=== PATIENT | male | born 1930 | race Caucasian/White ===

== ENCOUNTER 2017-08-24 16:17 | Inpatient (IN) | payer MEDICARE, OTHER ==
[2017-08-24 17:04] VITALS: BMI 26.0
[2017-08-24] MEDS ORDERED: Piperacillin/Tazobact 2.25 gm Inj IVPB STA (18:16)
--- NOTE | 2017-08-24 18:25 | C.PDOC ---
History Of Present Illness 87yo male with history of diabetes, comes in for evaluation of necrosis to his right great toe. Patient accompanied by at bedside who says the symptoms have been ongoing for the past month. She has been applying antibiotic ointment to the toe with no relief. She states the patient has been able to walk with no issues. 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 No other complaints. Time Seen by Provider: 08/24/17 17:48 Chief Complaint (Nursing): Lower Extremity Problem/Injury History Per: Patient History/Exam Limitations: no limitations Onset/Duration Of Symptoms: Persistent Current Symptoms Are (Timing): Still Present Past Medical History Reviewed: Historical Data, Nursing Documentation, Vital Signs Vital Signs: Last Vital Signs Temp 98.1 F 08/24/17 17:23 Pulse 65 08/24/17 17:23 Resp 18 08/24/17 17:23 BP 132/57 L 08/24/17 17:23 Pulse Ox 100 08/24/17 19:59 - Medical History PMH: Arthritis, CHF, Diabetes, HTN, Hypercholesterolemia, Pneumonia Denies: HIV, Chronic Kidney Disease Other Surgeries: left forefoot amputation - [facility] Procedures AMPUTATION THROUGH FOOT (02/25/14) ATHERECTOMY OF OTHER NON-CORONARY VESSEL(S) (03/21/14) ATTACH PEDICLE GRAFT NEC (02/25/14) CENTRAL VENOUS CATHETER PLACEMENT WITH GUIDANCE (11/16/14) CONTRAST AORTOGRAM (09/27/14) CONTRAST ARTERIOGRAM-LEG (09/27/14) CONTRAST PHLEBOGRAM-LEG (09/25/14) DERMAL REGENERATIVE GRAFT (07/02/14) DESTRUCT PERITONEAL TISS (11/05/14) EXCIS DEBRIDE OF WOUND, INFECT, OR BURN (07/02/14) IMMOBILIZ/WOUND ATTN NEC (02/25/14) INFLUENZA VACCINATION (07/02/14) IRRIGATION OF EAR (02/25/14) OCCUPATIONAL THERAPY (11/12/14) OPEN AND OTHER RIGHT HEMICOLECTOMY (11/05/14) OTH WOUND IRRIGATION (11/05/14) OTHER SKIN & SUBQ I D (09/25/14) PACKED CELL TRANSFUSION (11/05/14) PHYSICAL THERAPY NEC (11/12/14) PRESSURE DRESSING APPLIC (11/05/14) PROCEDURE ON SINGLE VESSEL (03/21/14) SMALL BOWEL SUTURE NEC (11/05/14) TOE AMPUTATION (02/25/14) VACCINATION NEC (07/02/14) Family History: States: Diabetes - Social History Hx Alcohol Use: No Hx Substance Use: No - Immunization History Hx Tetanus Toxoid Vaccination: No Hx Influenza Vaccination: Yes Hx Pneumococcal Vaccination: No Review Of Systems Except As Marked, All Systems Reviewed And Found Negative. Constitutional: Negative for: Fever, Chills Musculoskeletal: Positive for: Foot Pain (right great toe necrotic) Physical Exam - Physical Exam Appears: Non-toxic Head: Atraumatic, Normacephalic Eye(s): bilateral: Normal Inspection Neck: Supple Cardiovascular: Rhythm Regular Respiratory: Normal Breath Sounds Extremity: Other (amputation to left forefoot. Right great toe necrotic; sensations present until right 1st MTP joint. 2nd right toe necrotic at distal tip) Pulses: Left Dorsalis Pedis: Normal (pulses present PT as well), Right Dorsalis Pedis: Normal (pulses present PT as well) Neurological/Psych: Oriented x3 ED Course And Treatment - Laboratory Results Result Diagrams: 08/24/17 18:24 08/24/17 18:24 ECG: Interpreted By Me, Viewed By Me Interpretation Of ECG: Sinus bradycardia. Normal intervals. Normal axis. No ST/ T wave abnormalities. Rate From EC O2 Sat by Pulse Oximetry: 100 (RA) Pulse Ox Interpretation: Normal - Radiology CXR: Interpreted by Me (preliminary, portable XR), Viewed By Me CXR Interpretation: Yes: No Acute Disease - Other Rad XR Right foot X-Ray: Interpreted by Me Interpretation: No obvious fracture or osteo on preliminary read Medical Decision Making Medical Decision Making: Impression: Gangrene of right great toe Plan: -- Labs -- CXR -- XR Right foot -- IV Antibiotics Time: [address] Lenz and patient will be admitted under his service to Med/Surg for cellulitis of great toe, necrosis. Disposition Discussed With : Richard Lenz Counseled Patient/Family Regarding: Studies Performed, Diagnosis - Disposition Disposition: HOSPITALIZED Disposition Time: 20:02 Condition: FAIR Forms: [facility] [employer] [facility] [employer] [facility] (Chinese) - Clinical Impression Clinical Impression: Cellulitis - Scribe Statement The provider has reviewed the documentation as recorded by the Scribe (Camelia Rivero) Provider Attestation: All medical record entries made by the Scribe were at my direction and personally dictated by me. I have reviewed the chart and agree that the record accurately reflects my personal performance of the history, physical exam, medical decision making, and the department course for this patient. I have also personally directed, reviewed, and agree with the discharge instructions and disposition.
[2017-08-24 18:40] LABS: INR 0.9; PROTHROMBIN TIME 10.2 SECONDS (9.7-12.2)
[2017-08-24 18:56] LABS: HEMOGLOBIN 11.1 g/dL (12.0-18.0); RBC 3.52 Mil/uL (4.40-5.90); WHITE BLOOD COUNT 5.8 K/uL (4.8-10.8)
[2017-08-24 18:57] LABS: MEAN CELL VOLUME 94.8 fL (80.0-94.0); MEAN CORPUSCULAR HEMOGLOBIN 31.5 pg (27.0-31.0)
[2017-08-24 18:58] LABS: BASO % 1.2 % (0.0-2.0); EOS # 0.1 K/uL (0.0-0.7); EOS % 1.2 % (0.0-4.0); LYMPH # 0.7 K/uL (1.0-4.3); LYMPH % 11.6 % (20.0-40.0); MEAN CORPUSCULAR HGB CONC 33.2 g/dL (33.0-37.0); MEAN PLATELET VOLUME 9.1 fL (7.2-11.7); MONO # 0.3 K/uL (0.0-0.8); MONO % 5.9 % (0.0-10.0); NEUT # 4.7 K/uL (1.8-7.0); NEUT % 80.1 % (50.0-75.0); RED CELL DISTRIBUTION WIDTH 14.4 % (11.5-14.5)
[2017-08-24 19:02] LABS: ALB/GLOB RATIO 1.1 (1.0-2.1); ALBUMIN 4.3 g/dL (3.5-5.0); CALCIUM 9.3 mg/dl (8.6-10.4)
[2017-08-24 19:04] LABS: BASO # 0.1 K/uL (0.0-0.2)
[2017-08-24] MEDS ORDERED: Piperacill/Tazo 3.375gm in Dex 3.375 GM/50 ML BAG IVPB STA (19:14)
[2017-08-24] MEDS ORDERED: Piperacill/Tazo 3.375gm in Dex 3.375 GM/50 ML BAG IVPB ONE (20:00)
[2017-08-24 20:17] LABS: ALBUMIN 3.7 g/dL (3.5-5.0); CALCIUM 8.8 mg/dl (8.6-10.4)
[2017-08-24] MEDS ORDERED: Sodium Chloride 0.9% 1,000 ML IV SCH (21:30)
[2017-08-24] MEDS ORDERED: Dextrose 50% SYRINGE Inj (50 ml) IVP PRN (21:52)
[2017-08-24] MEDS ORDERED: Glucagon Recombinant 1 mg Inj IM PRN (21:52)
[2017-08-24] MEDS: Sodium Chloride 0.9% 1,000 ML IV SCH (21:54)
[2017-08-24] MEDS ORDERED: Sodium Chloride 0.9% 1,000 ML ONE (21:54)
[2017-08-24 22:03] LABS: ALBUMIN 3.7 g/dL (3.5-5.0); CALCIUM 8.8 mg/dl (8.6-10.4)
--- NOTE | 2017-08-24 22:13 | CP.PCM.HP ---
<Nikolas Ron E - Last Filed: 08/24/17 22:51> History of Present Illness - History of Present Illness History of Present Illness: Event Attendant : Dyana ( [id number]) CC: Right toe gangrene HPI: Patient is a 87 year old male with past medical history of DM, HTN, HLD and chronic foot ulcer, who presents to the ED as per his outpatient physician for evaluation of right hallux gangrene that has been started a month ago. Patient reports that he ambulates without any difficulty or use of assisted device. Patient reports that he only experiences pain at night, which he takes tramadol for and he has been taking cephalexin as prescribed. Patient denies fever, chills, nausea, vomiting, night sweats, chest pain, palpitations, SOB, abdominal pain, or drainage from his right hallux. Patient states he is doing well otherwise. PMD: Dr. 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 Denies hx of chronic tobacco, ETOH and illicit drugs Present on Admission - Present on Admission Any Indicators Present on Admission: No Review of Systems - Constitutional Constitutional: absent: Chills, Fever, Headache, Night Sweats, Weakness - EENT Eyes: absent: Blurred Vision, Change in Vision Ears: absent: Dizziness - Cardiovascular Cardiovascular: absent: Chest Pain at Rest, Chest Pain with Activity, Diaphoresis, Dyspnea, Dyspnea on Exertion, Lightheadedness, Palpitations - Respiratory Respiratory: absent: Cough, Dyspnea, Dyspnea on Exertion, Wheezing - Gastrointestinal Gastrointestinal: absent: Abdominal Pain, Change in Bowel Habits, Constipation, Diarrhea, Nausea, Vomiting - Musculoskeletal Musculoskeletal: absent: Myalgias, Numbness, Tingling - Neurological Neurological: absent: Confusion, Dizziness, Numbness, Headaches, Paresthesias, Tingling, Weakness - Psychiatric Psychiatric: absent: Change in Appetite - Endocrine Endocrine: absent: Fatigue, Palpitations Past Patient History - Tetanus Immunizations Tetanus Immunization: Unknown - Past Medical History & Family History Past Medical History?: Yes - Past Social History Smoking Status: Never Smoked - CARDIAC Hx Congestive Heart Failure: Yes Hx Hypercholesterolemia: Yes Hx Hypertension: Yes - PULMONARY Hx Pneumonia: Yes - NEUROLOGICAL Hx Neurological Disorder: No - HEENT Hx HEENT Problems: No - RENAL Hx Chronic Kidney Disease: No - ENDOCRINE/METABOLIC Hx Endocrine Disorders: Yes Hx Diabetes Mellitus Type 2: Yes - HEMATOLOGICAL/ONCOLOGICAL Hx Human Immunodeficiency Virus (HIV): No - INTEGUMENTARY Hx Dermatological Problems: No - MUSCULOSKELETAL/RHEUMATOLOGICAL Hx Arthritis: Yes - GASTROINTESTINAL Hx Gastrointestinal Disorders: Yes Other/Comment: perforated viscus s/p exploratory lap with small bowel resection 11/06/14 - GENITOURINARY/GYNECOLOGICAL Hx Genitourinary Disorders: No - PSYCHIATRIC Hx Substance Use: No - SURGICAL HISTORY Hx Surgeries: Yes Hx Amputation: Yes (TMA left foot) Other/Comment: s/p exploratory lap small bowel resection - ANESTHESIA Hx Anesthesia: Yes Hx Anesthesia Reactions: No Hx Malignant Hyperthermia: No Meds Allergies/Adverse Reactions: Allergies Allergy/AdvReac Type Severity Reaction Status Date / Time No Known Allergies Allergy Verified 08/24/17 17:03 Physical Exam - Constitutional Appears: Well, No Acute Distress - Head Exam Head Exam: ATRAUMATIC, NORMAL INSPECTION - Eye Exam Eye Exam: EOMI, Normal appearance - ENT Exam ENT Exam: Mucous Membranes Dry - Respiratory Exam Respiratory Exam: Clear to Auscultation Bilateral, NORMAL BREATHING PATTERN. absent: Prolonged Expiratory Phase, Rhonchi, Wheezes, Respiratory Distress, Stridor - Cardiovascular Exam Cardiovascular Exam: REGULAR RHYTHM, +S1, +S2. absent: Diastolic murmur, Systolic Murmur - GI/Abdominal Exam GI & Abdominal Exam: Normal Bowel Sounds, Soft. absent: Distended, Firm, Guarding, Hernia, Hypoactive Bowel Sounds, Tenderness - Extremities Exam Extremities exam: Positive for: pedal pulses present. Negative for: calf tenderness, pedal edema, tenderness Additional comments: Left foot amputation Right hallux gangrene, cold to touch, DP and PT pulses audible via doppler - Back Exam Additional comments: Noted raised discoloration in the upper midline of thoracic spine - Neurological Exam Neurological exam: Alert, Oriented x3 - Psychiatric Exam Psychiatric exam: Normal Affect, Normal Mood - Skin Skin Exam: Dry, Normal Color Results - Vital Signs Recent Vital Signs: Last Vital Signs Temp 97.8 F 08/24/17 21:00 Pulse 51 L 08/24/17 21:00 Resp 18 08/24/17 21:00 BP 134/55 L 08/24/17 21:00 Pulse Ox 100 08/24/17 21:00 - Labs Result Diagrams: 08/24/17 18:24 08/24/17 21:44 Labs: Laboratory Results - last 24 hr 08/24/17 08/24/17 08/24/17 18:24 18:24 18:24 WBC 5.8 RBC 3.52 L Hgb 11.1 L Hct 33.4 L MCV 94.8 H MCH 31.5 H MCHC 33.2 RDW 14.4 Plt Count 339 MPV 9.1 Neut % (Auto) 80.1 H Lymph % (Auto) 11.6 L Lamb % (Auto) 5.9 Eos % (Auto) 1.2 Baso % (Auto) 1.2 Neut # (Auto) 4.7 Lymph # (Auto) 0.7 L [place] # (Auto) 0.3 Eos # (Auto) 0.1 Baso # (Auto) 0.1 PT 10.2 INR 0.9 APTT 33 Sodium 140 Potassium 6.2 H* Chloride 110 H Carbon Dioxide 17 L Anion Gap 19 BUN 39 H Creatinine 1.7 H Est GFR ( Amer) 47 Est GFR (Non-Af Amer) 38 Random Glucose 150 H Calcium 9.3 Total Bilirubin 0.5 AST 14 L ALT 17 L Alkaline Phosphatase 139 H Total Protein 8.2 Albumin 4.3 Globulin 3.9 Albumin/Globulin Ratio 1.1 08/24/17 19:18 WBC RBC Hgb Hct MCV MCH MCHC RDW Plt Count MPV Neut % (Auto) Lymph % (Auto) [place] % (Auto) Eos % (Auto) Baso % (Auto) Neut # (Auto) Lymph # (Auto) [place] # (Auto) Eos # (Auto) Baso # (Auto) PT INR APTT Sodium 139 Potassium 6.1 H Chloride 112 H Carbon Dioxide 18 L Anion Gap 16 BUN 39 H Creatinine 1.7 H Est GFR ( Amer) 47 Est GFR (Non-Af Amer) 38 Random Glucose 136 H Calcium 8.8 Total Bilirubin 0.5 AST 16 L ALT 21 D Alkaline Phosphatase 116 Total Protein 7.3 Albumin 3.7 Globulin 3.6 Albumin/Globulin Ratio 1.0 Assessment & Plan (1) Gangrene of toe of right foot Assessment and Plan: Podiatry consult: Dr. Meeks--> Help appreciated Vascular surgery consult, Dr. Wheeler---> Help appreciated F/u arterial doppler Awaiting official right foot X-ray report Further management as per recommendation from vascular surgery and podiatry Status: Acute (2) Acute kidney injury Assessment and Plan: BUN/Cr: 39/107 NS @100mls/hr Monitor with morning labs Home medication: Metformin and Losartan potassium held Status: Acute (3) Hyperkalemia Assessment and Plan: K+: 5.9 * Kayexalate 15mg PO once * Monitor with am CMP Status: Acute (4) Diabetes mellitus Assessment and Plan: HgbA1C: 6.2 Accuchecks ISS- Medium dose protocol hypoglycemia protocol Home medication: Metformin held due to BANDAR Status: Acute (5) Hypertension Assessment and Plan: Home medication: * Norvasc 5mg PO daily Status: Acute (6) History of hyperlipidemia Assessment and Plan: F/u lipid panel Status: Acute (7) Prophylactic measure Assessment and Plan: GI: Protonix 40mg PO daily DVT: SCDs, Heparin 5,000 units SC Diabetic diet All plans and management discussed with attending, Dr. Lenz Status: Acute <Richard Lenz P - Last Filed: 08/25/17 06:21> Results - Vital Signs Recent Vital Signs: Last Vital Signs Temp 97.4 F L 08/25/17 01:40 Pulse 62 08/25/17 01:40 Resp 20 08/25/17 02:00 BP 155/67 H 08/25/17 01:40 Pulse Ox 99 08/25/17 01:40 - Labs Result Diagrams: 08/24/17 18:24 08/24/17 21:44 Labs: Laboratory Results - last 24 hr 08/24/17 08/24/17 08/24/17 18:24 18:24 18:24 WBC 5.8 RBC 3.52 L Hgb 11.1 L Hct 33.4 L MCV 94.8 H MCH 31.5 H MCHC 33.2 RDW 14.4 Plt Count 339 MPV 9.1 Neut % (Auto) 80.1 H Lymph % (Auto) 11.6 L [place] % (Auto) 5.9 Eos % (Auto) 1.2 Baso % (Auto) 1.2 Neut # (Auto) 4.7 Lymph # (Auto) 0.7 L [place] # (Auto) 0.3 Eos # (Auto) 0.1 Baso # (Auto) 0.1 PT 10.2 INR 0.9 APTT 33 Sodium 140 Potassium 6.2 H* Chloride 110 H Carbon Dioxide 17 L Anion Gap 19 BUN 39 H Creatinine 1.7 H Est GFR ( Amer) 47 Est GFR (Non-Af Amer) 38 POC Glucose (mg/dL) Random Glucose 150 H Hemoglobin A1c Calcium 9.3 Total Bilirubin 0.5 AST 14 L ALT 17 L Alkaline Phosphatase 139 H Total Protein 8.2 Albumin 4.3 Globulin 3.9 Albumin/Globulin Ratio 1.1 08/24/17 08/24/17 08/24/17 19:18 21:44 21:44 WBC RBC Hgb Hct MCV MCH MCHC RDW Plt Count MPV Neut % (Auto) Lymph % (Auto) [place] % (Auto) Eos % (Auto) Baso % (Auto) Neut # (Auto) Lymph # (Auto) [place] # (Auto) Eos # (Auto) Baso # (Auto) PT INR APTT Sodium 139 140 Potassium 6.1 H 5.9 H Chloride 112 H 112 H Carbon Dioxide 18 L 17 L Anion Gap 16 16 BUN 39 H 37 H Creatinine 1.7 H 1.5 Est GFR ( Amer) 47 54 Est GFR (Non-Af Amer) 38 44 POC Glucose (mg/dL) Random Glucose 136 H 113 H Hemoglobin A1c 6.2 Calcium 8.8 8.8 Total Bilirubin 0.5 0.5 AST 16 L 20 ALT 21 D 14 L D Alkaline Phosphatase 116 121 Total Protein 7.3 7.3 Albumin 3.7 3.7 Globulin 3.6 3.6 Albumin/Globulin Ratio 1.0 1.0 08/24/17 22:18 WBC RBC Hgb Hct MCV MCH MCHC RDW Plt Count MPV Neut % (Auto) Lymph % (Auto) [place] % (Auto) Eos % (Auto) Baso % (Auto) Neut # (Auto) Lymph # (Auto) Lamb # (Auto) Eos # (Auto) Baso # (Auto) PT INR APTT Sodium Potassium Chloride Carbon Dioxide Anion Gap BUN Creatinine Est GFR ( Amer) Est GFR (Non-Af Amer) POC Glucose (mg/dL) 108 Random Glucose Hemoglobin A1c Calcium Total Bilirubin AST ALT Alkaline Phosphatase Total Protein Albumin Globulin Albumin/Globulin Ratio Attending/Attestation - Attestation I have personally seen and examined this patient.: Yes I have fully participated in the care of the patient.: Yes I have reviewed all pertinent clinical information: Yes Notes (Text): Assessment * Right foot 1 and 2nd toe gangrenous without clinical signs of infection, with doppler dp pulses, calcified artries. 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 * DM on metformin * Transmetatarsal left amputation, colonic surgery for cecal perforation 2014 Plan * Arterial doppler and vascular sug consult for possible most distal amputation * IVF, hold arb, metformin, monitor labs for improvement if angio needed * Vasc robby, podiatry consult, * Nephro consult if patient goes for angio * GI/DVT prophylaxis * See orders for detail.
[2017-08-24] MEDS: (Novolog) Insulin Aspart, Recombinant 100 u/ml 10 ml vial SC SCH (22:34)
[2017-08-24] MEDS ORDERED: Sod Polystyrene Sulf 15 gm/60 ml Susp PO ONE (22:40)
[2017-08-24] MEDS ORDERED: Sod Polystyrene Sulf 15 gm/60 ml Susp ONE (22:54)
--- NOTE | 2017-08-25 00:52 | CP.PCM.CON ---
History of Present Illness - History of Present Illness History of Present Illness: Vascular surgery consult note for Dr. Aureliano Turk, PGY-1 Pt S & E at bedside. History as per at bedside. 87M w/PMH sig for HTN, DM, chronic toe infection, Left foot transmetatarsal amputation consulted for Right hallux infection x 1 mo. No inciting event noted. Patient reports pain only at night, helped by tramadol. Pain is severe, non radiating, constant at night only, unable to describe. Pt has been to PMD with Rx for pain and Cephalexin without resolution- pt told to come to hospital for further evaluation. Denies F & C, numbness, tingling, changes to sensation/ motor of toe or foot, other complaints. IN ED- Left foot x-ray done- on obvious ostemyelitis. Afebrile. No leukocytosis. PMH: HTN, DM, HLD, chronic toe infection PSH: Left foot transmetatarsal amputation (2013), ex-lap w/R hemicolectomy & side-side anastomosis due to perforation and cecal mass All: NDKA SH: Denies ETOH, tobacco or illicit drug use Review of Systems - Review of Systems All systems: reviewed and no additional remarkable complaints except - Constitutional Constitutional: absent: Chills, Fever - EENT Eyes: absent: Change in Vision Nose/Mouth/Throat: absent: Sore Throat - Cardiovascular Cardiovascular: absent: Chest Pain - Respiratory Respiratory: absent: Cough - Gastrointestinal Gastrointestinal: absent: Abdominal Pain, Nausea, Vomiting - Genitourinary Genitourinary: absent: Change in Urinary Stream - Musculoskeletal Musculoskeletal: absent: Numbness, Tingling - Integumentary Integumentary: Non-Healing Lesions - Neurological Neurological: absent: Numbness, Tingling - Psychiatric Psychiatric: absent: Change in Appetite Past Patient History - Tetanus Immunizations Tetanus Immunization: Unknown - Past Medical History & Family History Past Medical History?: Yes - Past Social History Smoking Status: Never Smoked - CARDIAC Hx Congestive Heart Failure: Yes Hx Hypercholesterolemia: Yes Hx Hypertension: Yes - PULMONARY Hx Pneumonia: Yes - NEUROLOGICAL Hx Neurological Disorder: No - HEENT Hx HEENT Problems: No - RENAL Hx Chronic Kidney Disease: No - ENDOCRINE/METABOLIC Hx Endocrine Disorders: Yes Hx Diabetes Mellitus Type 2: Yes - HEMATOLOGICAL/ONCOLOGICAL Hx Human Immunodeficiency Virus (HIV): No - INTEGUMENTARY Hx Dermatological Problems: No - MUSCULOSKELETAL/RHEUMATOLOGICAL Hx Arthritis: Yes - GASTROINTESTINAL Hx Gastrointestinal Disorders: Yes Other/Comment: perforated viscus s/p exploratory lap with small bowel resection 11/06/14 - GENITOURINARY/GYNECOLOGICAL Hx Genitourinary Disorders: No - PSYCHIATRIC Hx Substance Use: No - SURGICAL HISTORY Hx Surgeries: Yes Hx Amputation: Yes (TMA left foot) Other/Comment: s/p exploratory lap small bowel resection - ANESTHESIA Hx Anesthesia: Yes Hx Anesthesia Reactions: No Hx Malignant Hyperthermia: No Meds Allergies/Adverse Reactions: Allergies Allergy/AdvReac Type Severity Reaction Status Date / Time No Known Allergies Allergy Verified 08/24/17 17:03 - Medications Medications: Current Medications Amlodipine Besylate (Norvasc) 5 mg PO DAILY [facility] Aspirin (Ecotrin) 81 mg PO DAILY [facility] Dextrose (Dextrose 50% Inj) 0 ml IVP .STAT PRN; Protocol PRN Reason: Hypoglycemia Protocol Dextrose (Glutose 15) 0 gm PO .ONCE PRN; Protocol PRN Reason: Hypoglycemia Protocol Glucagon (Glucagen Diagnostic Kit) 0 mg IM .STAT PRN; Protocol PRN Reason: Hypoglycemia Protocol Heparin Sodium (Porcine) (Heparin) 5,000 units SC Q12 [facility] Sodium Chloride (Sodium Chloride 0.9%) 1,000 mls @ 100 mls/hr IV .Q10H [facility] Last Admin: 08/24/17 21:54 Dose: 100 mls/hr Dextrose (Dextrose 5% In Water 1000 Ml) 1,000 mls @ 0 mls/hr IV .Q0M PRN; Protocol; Per Protocol PRN Reason: Hypoglycemia Protocol Insulin Aspart (Novolog) 0 unit SC ACHS [facility] PRN Reason: Protocol Last Admin: 08/24/17 22:34 Dose: Not Given Pantoprazole Sodium (Protonix Ec Tab) 40 mg PO DAILY [facility] Physical Exam - Constitutional Appears: Non-toxic, No Acute Distress - Head Exam Head Exam: ATRAUMATIC, NORMAL INSPECTION, NORMOCEPHALIC - Eye Exam Eye Exam: EOMI, Normal appearance - ENT Exam ENT Exam: Mucous Membranes Moist, Normal Exam - Neck Exam Neck exam: Positive for: Full Rom, Normal Inspection - Respiratory Exam Respiratory Exam: Clear to Auscultation Bilateral, NORMAL BREATHING PATTERN - Cardiovascular Exam Cardiovascular Exam: REGULAR RHYTHM, +S1, +S2 - GI/Abdominal Exam GI & Abdominal Exam: Normal Bowel Sounds, Soft. absent: Tenderness Additional comments: well healed midline surgical incision - Extremities Exam Extremities exam: Positive for: full ROM. Negative for: tenderness Additional comments: Right hallux with darkened/black skin, superficial skin layers removed circumferentially from toe, non tender, no fluctuance, - Neurological Exam Neurological exam: Alert, CN II-XII Intact, Oriented x3 - Psychiatric Exam Psychiatric exam: Normal Affect, Normal Mood - Skin Skin Exam: Dry, Normal Color (excluding Right hallux), Warm Results - Vital Signs Recent Vital Signs: Last Vital Signs Temp 97.8 F 08/24/17 21:00 Pulse 51 L 08/24/17 21:00 Resp 18 08/24/17 21:00 BP 134/55 L 08/24/17 21:00 Pulse Ox 100 08/24/17 21:00 - Labs Result Diagrams: 08/24/17 18:24 08/24/17 21:44 Labs: Laboratory Results - last 24 hr 08/24/17 08/24/17 08/24/17 18:24 18:24 18:24 WBC 5.8 RBC 3.52 L Hgb 11.1 L Hct 33.4 L MCV 94.8 H MCH 31.5 H MCHC 33.2 RDW 14.4 Plt Count 339 MPV 9.1 Neut % (Auto) 80.1 H Lymph % (Auto) 11.6 L [place] % (Auto) 5.9 Eos % (Auto) 1.2 Baso % (Auto) 1.2 Neut # (Auto) 4.7 Lymph # (Auto) 0.7 L [place] # (Auto) 0.3 Eos # (Auto) 0.1 Baso # (Auto) 0.1 PT 10.2 INR 0.9 APTT 33 Sodium 140 Potassium 6.2 H* Chloride 110 H Carbon Dioxide 17 L Anion Gap 19 BUN 39 H Creatinine 1.7 H Est GFR ( Amer) 47 Est GFR (Non-Af Amer) 38 POC Glucose (mg/dL) Random Glucose 150 H Hemoglobin A1c Calcium 9.3 Total Bilirubin 0.5 AST 14 L ALT 17 L Alkaline Phosphatase 139 H Total Protein 8.2 Albumin 4.3 Globulin 3.9 Albumin/Globulin Ratio 1.1 08/24/17 08/24/17 08/24/17 19:18 21:44 21:44 WBC RBC Hgb Hct MCV MCH MCHC RDW Plt Count MPV Neut % (Auto) Lymph % (Auto) [place] % (Auto) Eos % (Auto) Baso % (Auto) Neut # (Auto) Lymph # (Auto) [place] # (Auto) Eos # (Auto) Baso # (Auto) PT INR APTT Sodium 139 140 Potassium 6.1 H 5.9 H Chloride 112 H 112 H Carbon Dioxide 18 L 17 L Anion Gap 16 16 BUN 39 H 37 H Creatinine 1.7 H 1.5 Est GFR ( Amer) 47 54 Est GFR (Non-Af Amer) 38 44 POC Glucose (mg/dL) Random Glucose 136 H 113 H Hemoglobin A1c 6.2 Calcium 8.8 8.8 Total Bilirubin 0.5 0.5 AST 16 L 20 ALT 21 D 14 L D Alkaline Phosphatase 116 121 Total Protein 7.3 7.3 Albumin 3.7 3.7 Globulin 3.6 3.6 Albumin/Globulin Ratio 1.0 1.0 08/24/17 22:18 WBC RBC Hgb Hct MCV MCH MCHC RDW Plt Count MPV Neut % (Auto) Lymph % (Auto) [place] % (Auto) Eos % (Auto) Baso % (Auto) Neut # (Auto) Lymph # (Auto) [place] # (Auto) Eos # (Auto) Baso # (Auto) PT INR APTT Sodium Potassium Chloride Carbon Dioxide Anion Gap BUN Creatinine Est GFR ( Amer) Est GFR (Non-Af Amer) POC Glucose (mg/dL) 108 Random Glucose Hemoglobin A1c Calcium Total Bilirubin AST ALT Alkaline Phosphatase Total Protein Albumin Globulin Albumin/Globulin Ratio Assessment & Plan - Assessment and Plan (Free Text) Assessment: 87M w/PMH sig for HTN, HLD, chronic foot ulcer, with Right hallux necrosis Plan: Pain control FU dopplers CTA Further recs pending imaging and attending evaluation Further mgmt as per primary team Will SAMINA attending Rosalee, PGY-1 - Date & Time Date: 08/25/17 Time: 00:56
[2017-08-25] MEDS ORDERED: Oxycodone/Acetaminophen 5/325 mg Tab PO PRN (00:59)
[2017-08-25] MEDS: Sodium Chloride 0.9% 1,000 ML IV SCH ×2 (01:54→08:00)
--- NOTE | 2017-08-25 07:28 | CP.PCM.PN ---
<Brittney Prasad TranFarzaneh - Last Filed: 08/25/17 19:20> Subjective - Date & Time of Evaluation Date of Evaluation: 08/25/17 Time of Evaluation: 07:00 - Subjective Subjective: Medicine Progress Note: Patient was seen and examined at bedside in the AM. Patient states he has noticed his foot getting worse for the past month. He states he had pain overnight but at the moment does not have any pain. He denies any other complaints at this time. He states he does not have any history of NH in the past. Objective - Vital Signs/Intake and Output Vital Signs (last 24 hours): Temp Pulse Resp BP Pulse Ox 97.4 F L 62 20 155/67 H 99 08/25/17 01:40 08/25/17 01:40 08/25/17 02:00 08/25/17 01:40 08/25/17 01:40 Intake and Output: 08/25/17 08/25/17 06:59 18:59 Intake Total 500 Balance 500 - Medications Medications: Current Medications Amlodipine Besylate (Norvasc) 5 mg PO DAILY [facility] Aspirin (Ecotrin) 81 mg PO DAILY [facility] Dextrose (Dextrose 50% Inj) 0 ml IVP .STAT PRN; Protocol PRN Reason: Hypoglycemia Protocol Dextrose (Glutose 15) 0 gm PO .ONCE PRN; Protocol PRN Reason: Hypoglycemia Protocol Glucagon (Glucagen Diagnostic Kit) 0 mg IM .STAT PRN; Protocol PRN Reason: Hypoglycemia Protocol Heparin Sodium (Porcine) (Heparin) 5,000 units SC Q12 [facility] Sodium Chloride (Sodium Chloride 0.9%) 1,000 mls @ 100 mls/hr IV .Q10H [facility] Last Admin: 08/25/17 01:54 Dose: 100 mls/hr Dextrose (Dextrose 5% In Water 1000 Ml) 1,000 mls @ 0 mls/hr IV .Q0M PRN; Protocol; Per Protocol PRN Reason: Hypoglycemia Protocol Insulin Aspart (Novolog) 0 unit SC ACHS [facility] PRN Reason: Protocol Last Admin: 08/24/17 22:34 Dose: Not Given Oxycodone/Acetaminophen (Percocet 5/325 Mg Tab) 1 tab PO Q4H PRN PRN Reason: Pain, moderate (4-7) Stop: 08/28/17 01:00 Pantoprazole Sodium (Protonix Ec Tab) 40 mg PO DAILY [facility] - Labs Labs: 08/24/17 18:24 08/24/17 21:44 PT 10.2 SECONDS (9.7-12.2) 08/24/17 18:24 INR 0.9 08/24/17 18:24 APTT 33 SECONDS (21-34) 08/24/17 18:24 - Constitutional Appears: No Acute Distress - Head Exam Head Exam: NORMAL INSPECTION - Eye Exam Eye Exam: EOMI, Normal appearance - ENT Exam ENT Exam: Mucous Membranes Moist - Respiratory Exam Respiratory Exam: Clear to Ausculation Bilateral, NORMAL BREATHING PATTERN - Cardiovascular Exam Cardiovascular Exam: REGULAR RHYTHM, +S1, +S2 - GI/Abdominal Exam GI & Abdominal Exam: Soft, Normal Bowel Sounds. absent: Tenderness - Extremities Exam Additional comments: Left foot amputation Right hallux gangrene, cold to touch - Neurological Exam Neurological Exam: Alert, Awake, Oriented x3 - Psychiatric Exam Psychiatric exam: Normal Affect, Normal Mood - Skin Skin Exam: absent: Normal Color (Right hallux gangrene) Assessment and Plan - Assessment and Plan (Free Text) Assessment: 1) Gangrene of toe of right foot Podiatry consult: Dr. Meeks--> Help appreciated Vascular surgery consult, Dr. Wheeler---> Help appreciated * per Dr. Wheeler's note: cta noted will plan therapeutic angio for wednesday - Images: * Arterial doppler: Common femoral artery and profunda femoral artery are normal. Runoff shows a patent peroneal artery. Anterior tibial artery has mild stenosis at the origin but is otherwise patent. The posterior tibial artery artery is mildly calcified which limits evaluation. Possible occlusion of the mid posterior tibial artery. SFA has mild stenosis in distal segment. Runoff shows a patent peroneal artery. Anterior tibial is occluded. The posterior tibial is mildly calcified and believed to be patent. * right foot X-ray: No plain radiographic evidence of osteomyelitis Procal: <0.05 Low Pre-op: EKG: NSR Chest X-ray: No active pulmonary disease f/u PT/INR/PTT - From a medicine standpoint patient is cleared for surgery 2) Acute kidney injury BUN/Cr: 39/107 NS @100mls/hr Monitor with morning labs Home medication: Metformin and Losartan potassium held 3) Hyperkalemia K+: 5.9 * Kayexalate 15mg PO once Monitor with am CMP 4) Diabetes mellitus HgbA1C: 6.2 Accuchecks ISS- Medium dose protocol hypoglycemia protocol Home medication: Metformin held due to BANDAR 5) Hypertension Home medication: * Norvasc 5mg PO daily 6) History of hyperlipidemia lipid panel: Triglycerides 106; Cholesterol 153; LDL 76; HDL 48 7) Prophylactic measure GI: Protonix 40mg PO daily DVT: SCDs, Heparin 5,000 units SC Diabetic diet Case discussed with Dr. Hannah Prasad PGY-1 <Santana Young H - Last Filed: 08/26/17 09:14> Objective - Vital Signs/Intake and Output Vital Signs (last 24 hours): Temp Pulse Resp BP Pulse Ox 97.7 F 59 L 20 162/68 H 98 08/26/17 07:16 08/26/17 07:16 08/26/17 07:16 08/26/17 07:16 08/26/17 07:16 Intake and Output: 08/26/17 08/26/17 06:59 18:59 Intake Total 360 Balance 360 - Medications Medications: Current Medications Amlodipine Besylate (Norvasc) 10 mg PO DAILY [facility] Aspirin (Ecotrin) 81 mg PO DAILY [facility] Last Admin: 08/25/17 10:53 Dose: 81 mg Dextrose (Dextrose 50% Inj) 0 ml IVP .STAT PRN; Protocol PRN Reason: Hypoglycemia Protocol Dextrose (Glutose 15) 0 gm PO .ONCE PRN; Protocol PRN Reason: Hypoglycemia Protocol Glucagon (Glucagen Diagnostic Kit) 0 mg IM .STAT PRN; Protocol PRN Reason: Hypoglycemia Protocol Heparin Sodium (Porcine) (Heparin) 5,000 units SC Q12 [facility] Last Admin: 08/25/17 21:07 Dose: 5,000 units Dextrose (Dextrose 5% In Water 1000 Ml) 1,000 mls @ 0 mls/hr IV .Q0M PRN; Protocol; Per Protocol PRN Reason: Hypoglycemia Protocol Insulin Aspart (Novolog) 0 unit SC ACHS [facility] PRN Reason: Protocol Last Admin: 08/26/17 08:25 Dose: Not Given Losartan Potassium (Cozaar) 50 mg PO DAILY [facility] Last Admin: 08/25/17 15:00 Dose: 50 mg Oxycodone/Acetaminophen (Percocet 5/325 Mg Tab) 1 tab PO Q4H PRN PRN Reason: Pain, moderate (4-7) Stop: 08/28/17 01:00 Pantoprazole Sodium (Protonix Ec Tab) 40 mg PO DAILY [facility] Last Admin: 08/25/17 10:53 Dose: 40 mg - Labs Labs: 08/26/17 07:15 08/26/17 07:15 PT 10.2 SECONDS (9.7-12.2) 08/24/17 18:24 INR 0.9 08/24/17 18:24 APTT 33 SECONDS (21-34) 08/24/17 18:24 Attending/Attestation - Attestation I have personally seen and examined this patient.: Yes I have fully participated in the care of the patient.: Yes I have reviewed all pertinent clinical information, including history, physical exam and plan: Yes Notes (Text): 08/26/17 09:14 Medical attending: Patient was seen and examined by me, we saw together the patient with the hospitalist medical director. I reviewed the above note by hospitalist medical director and agree His documented above the resident note the patient underwent a CTA to inspect the lower extremity peripheral vascular disease as he does have gangrene on the toe of his right foot. We reviewed the chest x-ray, EKG and a low procalcitoin level - so he is okay from medicine standpoint to undergo surgery. Santana Young
[2017-08-25 07:30] LABS: BASO # 0.1 K/uL (0.0-0.2); BASO % 1.4 % (0.0-2.0); EOS # 0.1 K/uL (0.0-0.7); EOS % 1.9 % (0.0-4.0); HEMOGLOBIN 9.7 g/dL (12.0-18.0); LYMPH # 1.1 K/uL (1.0-4.3); LYMPH % 20.5 % (20.0-40.0); MEAN CELL VOLUME 94.4 fL (80.0-94.0); MEAN CORPUSCULAR HEMOGLOBIN 31.6 pg (27.0-31.0); MEAN CORPUSCULAR HGB CONC 33.4 g/dL (33.0-37.0); MEAN PLATELET VOLUME 8.9 fL (7.2-11.7); MONO # 0.4 K/uL (0.0-0.8); MONO % 7.6 % (0.0-10.0); NEUT # 3.6 K/uL (1.8-7.0); NEUT % 68.6 % (50.0-75.0); RBC 3.06 Mil/uL (4.40-5.90); RED CELL DISTRIBUTION WIDTH 14.1 % (11.5-14.5); WHITE BLOOD COUNT 5.2 K/uL (4.8-10.8)
[2017-08-25] MEDS: (Novolog) Insulin Aspart, Recombinant 100 u/ml 10 ml vial SC SCH ×4 (08:25→21:08)
[2017-08-25 08:43] LABS: ALBUMIN 3.4 g/dL (3.5-5.0); CALCIUM 8.6 mg/dl (8.6-10.4); MAGNESIUM 1.8 mg/dL (1.6-2.3)
[2017-08-25] MEDS ORDERED: Iodixanol 320 mg/ml 150 ml Bottle IV ONE (09:41)
--- NOTE | 2017-08-25 10:07 | RAD ---
PROCEDURE: CHEST RADIOGRAPH, 1 VIEW HISTORY: SOB COMPARISON: None available. FINDINGS: LUNGS: The lungs are well inflated. There are chronic changes in the lungs. No focal consolidation. PLEURA: No pneumothorax or pleural fluid seen. CARDIOVASCULAR: Normal. OSSEOUS STRUCTURES: Within normal limits for the patient's age. VISUALIZED UPPER ABDOMEN: Normal. OTHER FINDINGS: None. IMPRESSION: No active pulmonary disease.
[2017-08-25] MEDS: Pantoprazole 40 mg EC Tab PO SCH (10:53)
--- NOTE | 2017-08-25 11:04 | RAD ---
PROCEDURE: Right Foot Radiographs. Infection HISTORY: right great toe infeciton COMPARISON: None. FINDINGS: BONES: Normal. No fracture. JOINTS: Normal. SOFT TISSUES: Vascular calcification noted OTHER FINDINGS: None. IMPRESSION: No plain radiographic evidence of osteomyelitis
--- NOTE | 2017-08-25 14:33 | CT ---
PROCEDURE: CT Angiography Abdomen, Pelvis and Lower Extremity with Contrast HISTORY: Claudication COMPARISON: None. TECHNIQUE: Technique: CT angiography of the abdomen, pelvis and bilateral lower extremities performed in the arterial phase of enhancement. Coronal and sagittal reformats, and well as rotating MIP images of the vessels generated at the workstation. Intravenous contrast dose: 150 milliliters Visipaque 320 Radiation dose: Total exam DLP = 1165.36 MGy-cm. This CT exam was performed using one or more of the following dose reduction techniques: Automated exposure control, adjustment of the mA and/or kV according to patient size, and/or use of iterative reconstruction technique. FINDINGS: CT ANGIOGRAPHY: ABDOMINAL AORTA:: The suprarenal aorta measures 2.2 centimeters. Infrarenal renal aorta measures 1.1 centimeter. MAJOR AORTIC BRANCHES: Celiac [place]: Unremarkable. Superior mesenteric artery: Unremarkable. Inferior mesenteric artery: Unremarkable. Renal arteries: Unremarkable. PELVIC ARTERIES: Right Common Iliac: Unremarkable. Right External Iliac: Unremarkable. Right Internal Iliac: Unremarkable. Left Common Iliac: Unremarkable. Left External Iliac: Unremarkable. Left Internal Iliac: Unremarkable. RIGHT LOWER EXTREMITY ARTERIES: Right Common Femoral: Unremarkable. Right Superficial Femoral: Multiple areas of mild stenosis of the proximal and distal SFA. Right Profunda Femoris: Unremarkable. Right Popliteal:Moderate stenosis of popliteal artery.. Right Anterior Tibial: Mild stenosis of the origin of the anterior tibial artery which is otherwise unremarkable. Right Tibioperoneal Trunk: Unremarkable. Right Posterior Tibial: Under calcific plaque throughout the posterior tibial artery which limits its evaluation. Possible occlusion of the posterior tibial artery in the mid segment. Right Peroneal: Unremarkable. Right dorsalis pedis : Unremarkable. LEFT LOWER EXTREMITY ARTERIES: Left Common Femoral: Unremarkable. Left Superficial Femoral: The short segment of mild stenosis within the distal SFA. Left Profunda Femoris: Unremarkable. Left Popliteal: Moderate stenosis of popliteal artery. Left Anterior Tibial: Occlusion of the anterior tibial artery. Left Tibioperoneal Trunk: Unremarkable. Left Posterior Tibial: Moderate calcific plaque of the posterior tibial artery which limits evaluation. Believed to be patent. Left Peroneal: Unremarkable. Left Dorsalis pedis: Unremarkable. NON-ANGIOGRAPHIC ASPECT OF THE EXAM: LOWER THORAX: Unremarkable. LIVER: Unremarkable. No gross lesion or ductal dilatation. GALLBLADDER AND BILE DUCTS: Unremarkable. PANCREAS: Unremarkable. No gross lesion or ductal dilatation. SPLEEN: Unremarkable. ADRENALS: Unremarkable. No mass. KIDNEYS AND URETERS: Two large cystic lesions seen within the right kidney. The sub centimeter cystic lesion within left kidney too small to characterize. STOMACH AND BOWEL: Unremarkable. No obstruction. No gross mural thickening. APPENDIX: Normal appendix. PERITONEUM: Unremarkable. No free fluid. No free air. LYMPH NODES: Unremarkable. No enlarged lymph nodes. BLADDER: Unremarkable. REPRODUCTIVE: Unremarkable. BONES: No acute fracture. OTHER FINDINGS: None. IMPRESSION: A. CT ANGIOGRAM ABDOMEN/ PELVIS: 1. Small caliber infrarenal aorta measuring 1.1 centimeters. The aorta and major branches otherwise unremarkable. 2. Pelvic arteries are normal. B. RIGHT LOWER EXTREMITY CT ANGIOGRAM: 1. There are multiple short segment area of muscles within the proximal and distal SFA. 2. Moderate stenosis of popliteal artery. 3. Common femoral artery and profunda femoral artery are normal. 4. Runoff shows a patent peroneal artery. Anterior tibial artery has mild stenosis at the origin but is otherwise patent. The posterior tibial artery artery is mildly calcified which limits evaluation. Possible occlusion of the mid posterior tibial artery. C. LEFT LOWER EXTREMITY CT ANGIOGRAM: 1. SFA has mild stenosis in distal segment. 2. The common femoral artery, profunda femoral artery and popliteal artery have no significant stenosis. 3. Runoff shows a patent peroneal artery. Anterior tibial is occluded. The posterior tibial is mildly calcified and believed to be patent.
--- NOTE | 2017-08-25 17:06 | CP.PCM.PN ---
Subjective - Date & Time of Evaluation Date of Evaluation: 08/25/17 Time of Evaluation: 17:06 - Subjective Subjective: cta noted will plan therapeutic angio for wednesday Objective - Vital Signs/Intake and Output Vital Signs (last 24 hours): Temp Pulse Resp BP Pulse Ox 97.5 F L 58 L 20 146/69 97 08/25/17 15:00 08/25/17 15:00 08/25/17 15:00 08/25/17 15:00 08/25/17 15:00 Intake and Output: 08/25/17 08/25/17 06:59 18:59 Intake Total 500 1200 Balance 500 1200 - Medications Medications: Current Medications Amlodipine Besylate (Norvasc) 10 mg PO DAILY [facility] Aspirin (Ecotrin) 81 mg PO DAILY [facility] Last Admin: 08/25/17 10:53 Dose: 81 mg Dextrose (Dextrose 50% Inj) 0 ml IVP .STAT PRN; Protocol PRN Reason: Hypoglycemia Protocol Dextrose (Glutose 15) 0 gm PO .ONCE PRN; Protocol PRN Reason: Hypoglycemia Protocol Glucagon (Glucagen Diagnostic Kit) 0 mg IM .STAT PRN; Protocol PRN Reason: Hypoglycemia Protocol Heparin Sodium (Porcine) (Heparin) 5,000 units SC Q12 [facility] Last Admin: 08/25/17 10:53 Dose: 5,000 units Dextrose (Dextrose 5% In Water 1000 Ml) 1,000 mls @ 0 mls/hr IV .Q0M PRN; Protocol; Per Protocol PRN Reason: Hypoglycemia Protocol Insulin Aspart (Novolog) 0 unit SC ACHS [facility] PRN Reason: Protocol Last Admin: 08/25/17 11:46 Dose: Not Given Losartan Potassium (Cozaar) 50 mg PO DAILY [facility] Last Admin: 08/25/17 15:00 Dose: 50 mg Oxycodone/Acetaminophen (Percocet 5/325 Mg Tab) 1 tab PO Q4H PRN PRN Reason: Pain, moderate (4-7) Stop: 08/28/17 01:00 Pantoprazole Sodium (Protonix Ec Tab) 40 mg PO DAILY [facility] Last Admin: 08/25/17 10:53 Dose: 40 mg - Labs Labs: 08/25/17 07:15 08/25/17 07:15 PT 10.2 SECONDS (9.7-12.2) 08/24/17 18:24 INR 0.9 08/24/17 18:24 APTT 33 SECONDS (21-34) 08/24/17 18:24
--- NOTE | 2017-08-25 21:14 | CP.PCM.CON ---
<Lam Meeks - Last Filed: 08/25/17 21:10> History of Present Illness - History of Present Illness History of Present Illness: 87 year old male was seen in my office about 2 months ago with gangrene of right great toe and was instructed to go to [facility] ED at that time .He presented yesterday with progression to toe 2 . Awaiting Vascular work up . Past Patient History - Tetanus Immunizations Tetanus Immunization: Unknown - Past Medical History & Family History Past Medical History?: Yes - Past Social History Smoking Status: Former Smoker - CARDIAC Hx Hypercholesterolemia: Yes Hx Hypertension: Yes - PULMONARY Hx Respiratory Disorders: Yes Hx Pneumonia: Yes - NEUROLOGICAL Hx Neurological Disorder: No - HEENT Hx HEENT Problems: No - RENAL Hx Chronic Kidney Disease: No - ENDOCRINE/METABOLIC Hx Endocrine Disorders: Yes Hx Diabetes Mellitus Type 2: Yes - HEMATOLOGICAL/ONCOLOGICAL Hx Blood Disorders: No Hx Human Immunodeficiency Virus (HIV): No - INTEGUMENTARY Hx Dermatological Problems: No - MUSCULOSKELETAL/RHEUMATOLOGICAL Hx Musculoskeletal Disorders: Yes Hx Arthritis: Yes Hx Falls: No - GASTROINTESTINAL Hx Gastrointestinal Disorders: Yes Other/Comment: perforated viscus s/p exploratory lap with small bowel resection 11/06/14 - GENITOURINARY/GYNECOLOGICAL Hx Genitourinary Disorders: No - PSYCHIATRIC Hx Psychophysiologic Disorder: No Hx Substance Use: No - SURGICAL HISTORY Hx Surgeries: Yes Hx Amputation: Yes (TMA left foot) Other/Comment: s/p exploratory lap small bowel resection - ANESTHESIA Hx Anesthesia: Yes Hx Anesthesia Reactions: No Hx Malignant Hyperthermia: No Has any member of the family had a problem w/ anesthesia?: No Meds Allergies/Adverse Reactions: Allergies Allergy/AdvReac Type Severity Reaction Status Date / Time No Known Allergies Allergy Verified 08/24/17 17:03 - Medications Medications: Current Medications Amlodipine Besylate (Norvasc) 10 mg PO DAILY [facility] Aspirin (Ecotrin) 81 mg PO DAILY [facility] Last Admin: 08/25/17 10:53 Dose: 81 mg Dextrose (Dextrose 50% Inj) 0 ml IVP .STAT PRN; Protocol PRN Reason: Hypoglycemia Protocol Dextrose (Glutose 15) 0 gm PO .ONCE PRN; Protocol PRN Reason: Hypoglycemia Protocol Glucagon (Glucagen Diagnostic Kit) 0 mg IM .STAT PRN; Protocol PRN Reason: Hypoglycemia Protocol Heparin Sodium (Porcine) (Heparin) 5,000 units SC Q12 [facility] Last Admin: 08/25/17 21:07 Dose: 5,000 units Dextrose (Dextrose 5% In Water 1000 Ml) 1,000 mls @ 0 mls/hr IV .Q0M PRN; Protocol; Per Protocol PRN Reason: Hypoglycemia Protocol Insulin Aspart (Novolog) 0 unit SC ACHS [facility] PRN Reason: Protocol Last Admin: 08/25/17 21:08 Dose: Not Given Losartan Potassium (Cozaar) 50 mg PO DAILY [facility] Last Admin: 08/25/17 15:00 Dose: 50 mg Oxycodone/Acetaminophen (Percocet 5/325 Mg Tab) 1 tab PO Q4H PRN PRN Reason: Pain, moderate (4-7) Stop: 08/28/17 01:00 Pantoprazole Sodium (Protonix Ec Tab) 40 mg PO DAILY [facility] Last Admin: 08/25/17 10:53 Dose: 40 mg Physical Exam - Extremities Exam Additional comments: Gangrene right hallux and toe 2 right . 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 Results - Vital Signs Recent Vital Signs: Last Vital Signs Temp 97.5 F L 08/25/17 15:00 Pulse 58 L 08/25/17 15:00 Resp 20 08/25/17 15:00 BP 146/69 08/25/17 15:00 Pulse Ox 97 08/25/17 15:00 - Labs Result Diagrams: 08/25/17 07:15 08/25/17 07:15 Labs: Laboratory Results - last 24 hr 08/24/17 08/24/17 08/24/17 21:44 21:44 22:18 WBC RBC Hgb Hct MCV MCH MCHC RDW Plt Count MPV Neut % (Auto) Lymph % (Auto) [place] % (Auto) Eos % (Auto) Baso % (Auto) Neut # (Auto) Lymph # (Auto) [place] # (Auto) Eos # (Auto) Baso # (Auto) Sodium 140 Potassium 5.9 H Chloride 112 H Carbon Dioxide 17 L Anion Gap 16 BUN 37 H Creatinine 1.5 Est GFR ( Amer) 54 Est GFR (Non-Af Amer) 44 POC Glucose (mg/dL) 108 Random Glucose 113 H Hemoglobin A1c 6.2 Calcium 8.8 Phosphorus Magnesium Total Bilirubin 0.5 AST 20 ALT 14 L D Alkaline Phosphatase 121 Total Protein 7.3 Albumin 3.7 Globulin 3.6 Albumin/Globulin Ratio 1.0 Triglycerides Cholesterol LDL Cholesterol Direct HDL Cholesterol Procalcitonin 08/24/17 08/25/17 08/25/17 23:38 07:15 07:15 WBC 5.2 RBC 3.06 L Hgb 9.7 L Hct 28.9 L MCV 94.4 H MCH 31.6 H MCHC 33.4 RDW 14.1 Plt Count 278 MPV 8.9 Neut % (Auto) 68.6 Lymph % (Auto) 20.5 [place] % (Auto) 7.6 Eos % (Auto) 1.9 Baso % (Auto) 1.4 Neut # (Auto) 3.6 Lymph # (Auto) 1.1 [place] # (Auto) 0.4 Eos # (Auto) 0.1 Baso # (Auto) 0.1 Sodium 141 Potassium 5.2 Chloride 112 H Carbon Dioxide 20 L Anion Gap 14 BUN 30 H Creatinine 1.4 Est GFR ( Amer) 58 Est GFR (Non-Af Amer) 48 POC Glucose (mg/dL) Random Glucose 108 Hemoglobin A1c Calcium 8.6 Phosphorus 2.8 Magnesium 1.8 Total Bilirubin 0.5 AST 13 L D ALT 15 L Alkaline Phosphatase 99 Total Protein 6.6 Albumin 3.4 L Globulin 3.3 Albumin/Globulin Ratio 1.0 Triglycerides 106 Cholesterol 153 LDL Cholesterol Direct 76 HDL Cholesterol 48 Procalcitonin < 0.05 L 08/25/17 08/25/17 08/25/17 07:30 11:33 16:12 WBC RBC Hgb Hct MCV MCH MCHC RDW Plt Count MPV Neut % (Auto) Lymph % (Auto) [place] % (Auto) Eos % (Auto) Baso % (Auto) Neut # (Auto) Lymph # (Auto) [place] # (Auto) Eos # (Auto) Baso # (Auto) Sodium Potassium Chloride Carbon Dioxide Anion Gap BUN Creatinine Est GFR ( Amer) Est GFR (Non-Af Amer) POC Glucose (mg/dL) 96 94 117 H Random Glucose Hemoglobin A1c Calcium Phosphorus Magnesium Total Bilirubin AST ALT Alkaline Phosphatase Total Protein Albumin Globulin Albumin/Globulin Ratio Triglycerides Cholesterol LDL Cholesterol Direct HDL Cholesterol Procalcitonin 08/25/17 20:51 WBC RBC Hgb Hct MCV MCH MCHC RDW Plt Count MPV Neut % (Auto) Lymph % (Auto) [place] % (Auto) Eos % (Auto) Baso % (Auto) Neut # (Auto) Lymph # (Auto) [place] # (Auto) Eos # (Auto) Baso # (Auto) Sodium Potassium Chloride Carbon Dioxide Anion Gap BUN Creatinine Est GFR ( Amer) Est GFR (Non-Af Amer) POC Glucose (mg/dL) 264 H Random Glucose Hemoglobin A1c Calcium Phosphorus Magnesium Total Bilirubin AST ALT Alkaline Phosphatase Total Protein Albumin Globulin Albumin/Globulin Ratio Triglycerides Cholesterol LDL Cholesterol Direct HDL Cholesterol Procalcitonin Assessment & Plan - Assessment and Plan (Free Text) Assessment: A/Gangrene right hallux /toe 2 PAD Right Plan: Awaiting vascular workup and intervention. <Barbara Maki - Last Filed: 08/26/17 22:47> History of Present Illness - History of Present Illness History of Present Illness: 87 year old male seen at bedside concerning right great toe gangrene. Patient reports changes began 1 month ago and he only experiences pain at night, for which he takes tramadol. Pt is able to ambulate with no difficulty. Patient denies fever, chills, nausea, vomiting, chest pain, palpitations, SOB, abdominal pain, or drainage from his right hallux. Patient has no other pedal complaints. Meds - Medications Medications: Current Medications Amlodipine Besylate (Norvasc) 10 mg PO DAILY [facility] Last Admin: 08/26/17 11:00 Dose: 10 mg Aspirin (Ecotrin) 81 mg PO DAILY [facility] Last Admin: 08/26/17 11:00 Dose: 81 mg Dextrose (Dextrose 50% Inj) 0 ml IVP .STAT PRN; Protocol PRN Reason: Hypoglycemia Protocol Dextrose (Glutose 15) 0 gm PO .ONCE PRN; Protocol PRN Reason: Hypoglycemia Protocol Glucagon (Glucagen Diagnostic Kit) 0 mg IM .STAT PRN; Protocol PRN Reason: Hypoglycemia Protocol Heparin Sodium (Porcine) (Heparin) 5,000 units SC Q12 [facility] Last Admin: 08/26/17 21:54 Dose: 5,000 units Dextrose (Dextrose 5% In Water 1000 Ml) 1,000 mls @ 0 mls/hr IV .Q0M PRN; Protocol; Per Protocol PRN Reason: Hypoglycemia Protocol Insulin Aspart (Novolog) 0 unit SC ACHS [facility] PRN Reason: Protocol Last Admin: 08/26/17 21:52 Dose: Not Given Losartan Potassium (Cozaar) 50 mg PO DAILY [facility] Last Admin: 08/26/17 11:00 Dose: 50 mg Oxycodone/Acetaminophen (Percocet 5/325 Mg Tab) 1 tab PO Q4H PRN PRN Reason: Pain, moderate (4-7) Stop: 08/28/17 01:00 Pantoprazole Sodium (Protonix Ec Tab) 40 mg PO DAILY [facility] Last Admin: 08/26/17 11:00 Dose: 40 mg Physical Exam - Constitutional Appears: Well, Non-toxic, No Acute Distress - Extremities Exam Additional comments: Right lower extremity focused. Left TMA noted, absent complications. DERM: Right hallux with darkened/black skin. Superficial skin layers removed circumferentially. Mummification of great toe extends to medial aspect of 2nd digitfrom toe. , non tender, no fluctuance, no serous exudate. No mal-odor noted. No open lesion or macerations. VASC: Non-palpable pedal pulses noted. Temperature runs warms to cool proximal to distal outside normal limits, and compared to contra lateral limb.DRAFTER DIRECTIONAL SURVEY <5 seconds to lesser lateral 3 digits. NEURO: Protective sensation grossly absent MUSK: PT muscle strength graded 5/5. - Neurological Exam Neurological exam: Alert - Psychiatric Exam Psychiatric exam: Normal Affect, Normal Mood Results - Vital Signs Recent Vital Signs: Last Vital Signs Temp 98.4 F 08/26/17 16:00 Pulse 60 08/26/17 16:00 Resp 20 08/26/17 16:00 BP 137/58 L 08/26/17 16:00 Pulse Ox 97 08/26/17 16:00 - Labs Result Diagrams: 08/26/17 07:15 08/26/17 07:15 Labs: Laboratory Results - last 24 hr 08/26/17 08/26/17 08/26/17 07:15 07:15 07:23 WBC 6.0 RBC 3.12 L Hgb 10.0 L Hct 29.1 L MCV 93.2 MCH 32.1 H MCHC 34.4 RDW 14.0 Plt Count 279 MPV 9.5 Neut % (Auto) 71.1 Lymph % (Auto) 19.2 L [place] % (Auto) 7.8 Eos % (Auto) 1.6 Baso % (Auto) 0.3 Neut # (Auto) 4.3 Lymph # (Auto) 1.2 [place] # (Auto) 0.5 Eos # (Auto) 0.1 Baso # (Auto) 0.0 PT INR APTT Sodium 138 Potassium 4.6 Chloride 111 H Carbon Dioxide 20 L Anion Gap 13 BUN 28 H Creatinine 1.2 Est GFR ( Amer) > 60 Est GFR (Non-Af Amer) 58 POC Glucose (mg/dL) Random Glucose 105 Calcium 8.8 Phosphorus 3.1 Magnesium 1.8 Total Bilirubin 0.5 AST 13 L ALT 19 L D Alkaline Phosphatase 104 Total Protein 6.9 Albumin 3.5 Globulin 3.4 Albumin/Globulin Ratio 1.0 Blood Type B POSITIVE Antibody Screen Negative 08/26/17 08/26/17 08/26/17 07:26 10:57 11:30 WBC RBC Hgb Hct MCV MCH MCHC RDW Plt Count MPV Neut % (Auto) Lymph % (Auto) [place] % (Auto) Eos % (Auto) Baso % (Auto) Neut # (Auto) Lymph # (Auto) [place] # (Auto) Eos # (Auto) Baso # (Auto) PT 10.9 INR 1.0 APTT 33 Sodium Potassium Chloride Carbon Dioxide Anion Gap BUN Creatinine Est GFR ( Amer) Est GFR (Non-Af Amer) POC Glucose (mg/dL) 106 179 H Random Glucose Calcium Phosphorus Magnesium Total Bilirubin AST ALT Alkaline Phosphatase Total Protein Albumin Globulin Albumin/Globulin Ratio Blood Type Antibody Screen 08/26/17 16:34 WBC RBC Hgb Hct MCV MCH MCHC RDW Plt Count MPV Neut % (Auto) Lymph % (Auto) [place] % (Auto) Eos % (Auto) Baso % (Auto) Neut # (Auto) Lymph # (Auto) [place] # (Auto) Eos # (Auto) Baso # (Auto) PT INR APTT Sodium Potassium Chloride Carbon Dioxide Anion Gap BUN Creatinine Est GFR ( Amer) Est GFR (Non-Af Amer) POC Glucose (mg/dL) 199 H Random Glucose Calcium Phosphorus Magnesium Total Bilirubin AST ALT Alkaline Phosphatase Total Protein Albumin Globulin Albumin/Globulin Ratio Blood Type Antibody Screen Assessment & Plan - Assessment and Plan (Free Text) Assessment: 87 year old male with right hallux & 2nd digit ischemia/ dry gangrene, secondary to PAD. Plan: Pt seen and evaluated. Discussed with attending, Dr. Meeks. Chart, labs, and vitals reviewed. X-rays- negative for osteomyelits. CTA- Mild SFA stenosis, Peroneal artery is primary pedal arterial vessel. Anteriro tibial artery occluded, Posterior tibial artery calcified but patient. Pt pending vascular workup and angioplasty Continue Heparin. Contine pain control. Dressed right foot with betadine, DSD. Podiatry will continue to follow while inhouse. - Date & Time Date: 08/25/17 Time: 12:00
[2017-08-26 07:25] LABS: BASO % 0.3 % (0.0-2.0); EOS # 0.1 K/uL (0.0-0.7); EOS % 1.6 % (0.0-4.0); LYMPH # 1.2 K/uL (1.0-4.3); LYMPH % 19.2 % (20.0-40.0); MEAN CELL VOLUME 93.2 fL (80.0-94.0); MEAN CORPUSCULAR HEMOGLOBIN 32.1 pg (27.0-31.0); MEAN CORPUSCULAR HGB CONC 34.4 g/dL (33.0-37.0); MEAN PLATELET VOLUME 9.5 fL (7.2-11.7); MONO # 0.5 K/uL (0.0-0.8); MONO % 7.8 % (0.0-10.0); NEUT # 4.3 K/uL (1.8-7.0); NEUT % 71.1 % (50.0-75.0); NRBC % 0.2 % (0.0-2.0); RBC 3.12 Mil/uL (4.40-5.90)
[2017-08-26 08:05] LABS: ALBUMIN 3.5 g/dL (3.5-5.0); ALT/SGPT 19 U/L (21-72); AST/SGOT 13 U/L (17-59); BLOOD UREA NITROGEN 28 mg/dL (9-20); CALCIUM 8.8 mg/dl (8.6-10.4); GFR AFRICAN-AMERICAN > 60; GFR NON-AFRICAN AMERICAN 58; MAGNESIUM 1.8 mg/dL (1.6-2.3)
[2017-08-26] MEDS: (Novolog) Insulin Aspart, Recombinant 100 u/ml 10 ml vial SC SCH ×4 (08:25→21:52)
--- NOTE | 2017-08-26 08:57 | CP.PCM.PN ---
<Page Cordoba - Last Filed: 08/26/17 12:13> Subjective - Date & Time of Evaluation Date of Evaluation: 08/26/17 Time of Evaluation: 08:54 - Subjective Subjective: Medicine progress note for Dr. Young's service Patient was seen and examined at bedside in no acute distress. Patient reports feeling well and has no other complaints. He denies having pain in his lower extremities at this time. Patient denies chest pain, abdominal pain, shortness of breath, nausea, vomiting, fevers, and headaches. Objective - Vital Signs/Intake and Output Vital Signs (last 24 hours): Temp Pulse Resp BP Pulse Ox 97.7 F 59 L 20 162/68 H 98 08/26/17 07:16 08/26/17 07:16 08/26/17 07:16 08/26/17 07:16 08/26/17 07:16 Intake and Output: 08/26/17 08/26/17 06:59 18:59 Intake Total 360 Balance 360 - Medications Medications: Current Medications Amlodipine Besylate (Norvasc) 10 mg PO DAILY [facility] Aspirin (Ecotrin) 81 mg PO DAILY [facility] Last Admin: 08/25/17 10:53 Dose: 81 mg Dextrose (Dextrose 50% Inj) 0 ml IVP .STAT PRN; Protocol PRN Reason: Hypoglycemia Protocol Dextrose (Glutose 15) 0 gm PO .ONCE PRN; Protocol PRN Reason: Hypoglycemia Protocol Glucagon (Glucagen Diagnostic Kit) 0 mg IM .STAT PRN; Protocol PRN Reason: Hypoglycemia Protocol Heparin Sodium (Porcine) (Heparin) 5,000 units SC Q12 [facility] Last Admin: 08/25/17 21:07 Dose: 5,000 units Dextrose (Dextrose 5% In Water 1000 Ml) 1,000 mls @ 0 mls/hr IV .Q0M PRN; Protocol; Per Protocol PRN Reason: Hypoglycemia Protocol Insulin Aspart (Novolog) 0 unit SC ACHS [facility] PRN Reason: Protocol Last Admin: 08/26/17 08:25 Dose: Not Given Losartan Potassium (Cozaar) 50 mg PO DAILY [facility] Last Admin: 08/25/17 15:00 Dose: 50 mg Oxycodone/Acetaminophen (Percocet 5/325 Mg Tab) 1 tab PO Q4H PRN PRN Reason: Pain, moderate (4-7) Stop: 08/28/17 01:00 Pantoprazole Sodium (Protonix Ec Tab) 40 mg PO DAILY [facility] Last Admin: 08/25/17 10:53 Dose: 40 mg - Labs Labs: 08/26/17 07:15 08/26/17 07:15 PT 10.2 SECONDS (9.7-12.2) 08/24/17 18:24 INR 0.9 08/24/17 18:24 APTT 33 SECONDS (21-34) 08/24/17 18:24 - Constitutional Appears: No Acute Distress - Head Exam Head Exam: ATRAUMATIC, NORMAL INSPECTION - Eye Exam Eye Exam: EOMI, Normal appearance - ENT Exam ENT Exam: Mucous Membranes Moist - Respiratory Exam Respiratory Exam: Clear to Ausculation Bilateral, NORMAL BREATHING PATTERN. absent: Rales, Rhonchi, Wheezes, Respiratory Distress - Cardiovascular Exam Cardiovascular Exam: REGULAR RHYTHM, +S1, +S2 - GI/Abdominal Exam GI & Abdominal Exam: Soft, Normal Bowel Sounds. absent: Distended, Firm, Tenderness - Extremities Exam Extremities Exam: absent: Pedal Edema Additional comments: Left foot amputation Right foot- dressing clean, dry, intact - Neurological Exam Neurological Exam: Alert, Awake, Oriented x3 - Psychiatric Exam Psychiatric exam: Normal Affect, Normal Mood - Skin Skin Exam: Dry, Warm Assessment and Plan - Assessment and Plan (Free Text) Plan: 1) Gangrene of toe of right foot Podiatry consult: Dr. Meeks--> Help appreciated Vascular surgery consult, Dr. Wheeler---> Help appreciated * per Dr. Wheeler's note: CTA noted will plan therapeutic angio for Wednesday - Images: * Arterial doppler: Common femoral artery and profunda femoral artery are normal. Runoff shows a patent peroneal artery. Anterior tibial artery has mild stenosis at the origin but is otherwise patent. The posterior tibial artery artery is mildly calcified which limits evaluation. Possible occlusion of the mid posterior tibial artery. SFA has mild stenosis in distal segment. Runoff shows a patent peroneal artery. Anterior tibial is occluded. The posterior tibial is mildly calcified and believed to be patent. * right foot X-ray: No plain radiographic evidence of osteomyelitis Procal: <0.05 Low Blood cx: negative Pre-op: * EKG: NSR * Chest X-ray: No active pulmonary disease * PT/INR/PTT:10.2/0.9/33 - From a medicine standpoint patient is cleared for surgery 2) Acute kidney injury BUN/Cr: 39/107 NS @100mls/hr Monitor with morning labs Home medication: Metformin and Losartan potassium held 3) Hyperkalemia K+: 5.9 * Kayexalate 15mg PO once Monitor with am CMP 4) Diabetes mellitus HgbA1C: 6.2 Accuchecks ISS- Medium dose protocol hypoglycemia protocol Home medication: Metformin held due to BANDAR 5) Hypertension Home medication: * Norvasc 10mg PO daily 6) History of hyperlipidemia lipid panel: Triglycerides 106; Cholesterol 153; LDL 76; HDL 48 7) Prophylactic measure GI: Protonix 40mg PO daily DVT: SCDs, Heparin 5,000 units SC Diabetic diet Case discussed with Dr. Young <Santana Young H - Last Filed: 08/26/17 12:51> Objective - Vital Signs/Intake and Output Vital Signs (last 24 hours): Temp Pulse Resp BP Pulse Ox 97.7 F 59 L 20 162/68 H 98 08/26/17 07:16 08/26/17 07:16 08/26/17 07:16 08/26/17 07:16 08/26/17 07:16 Intake and Output: 08/26/17 08/26/17 06:59 18:59 Intake Total 360 Balance 360 - Medications Medications: Current Medications Amlodipine Besylate (Norvasc) 10 mg PO DAILY [facility] Last Admin: 08/26/17 11:00 Dose: 10 mg Aspirin (Ecotrin) 81 mg PO DAILY [facility] Last Admin: 08/26/17 11:00 Dose: 81 mg Dextrose (Dextrose 50% Inj) 0 ml IVP .STAT PRN; Protocol PRN Reason: Hypoglycemia Protocol Dextrose (Glutose 15) 0 gm PO .ONCE PRN; Protocol PRN Reason: Hypoglycemia Protocol Glucagon (Glucagen Diagnostic Kit) 0 mg IM .STAT PRN; Protocol PRN Reason: Hypoglycemia Protocol Heparin Sodium (Porcine) (Heparin) 5,000 units SC Q12 [facility] Last Admin: 08/26/17 11:00 Dose: 5,000 units Dextrose (Dextrose 5% In Water 1000 Ml) 1,000 mls @ 0 mls/hr IV .Q0M PRN; Protocol; Per Protocol PRN Reason: Hypoglycemia Protocol Insulin Aspart (Novolog) 0 unit SC ACHS [facility] PRN Reason: Protocol Last Admin: 08/26/17 08:25 Dose: Not Given Losartan Potassium (Cozaar) 50 mg PO DAILY [facility] Last Admin: 08/26/17 11:00 Dose: 50 mg Oxycodone/Acetaminophen (Percocet 5/325 Mg Tab) 1 tab PO Q4H PRN PRN Reason: Pain, moderate (4-7) Stop: 08/28/17 01:00 Pantoprazole Sodium (Protonix Ec Tab) 40 mg PO DAILY [facility] Last Admin: 08/26/17 11:00 Dose: 40 mg - Labs Labs: 08/26/17 07:15 08/26/17 07:15 PT 10.9 SECONDS (9.7-12.2) 08/26/17 11:30 INR 1.0 08/26/17 11:30 APTT 33 SECONDS (21-34) 08/26/17 11:30 Attending/Attestation - Attestation I have personally seen and examined this patient.: Yes I have fully participated in the care of the patient.: Yes I have reviewed all pertinent clinical information, including history, physical exam and plan: Yes Notes (Text): 08/26/17 12:51 Medical attending: Patient was seen and examined by me, we saw together the patient with the medical office scheduler. I reviewed the above note by medical office scheduler and agree The patient was not in any acute distress when I saw him. He is sitting up in bed he explained that he did well overnight, he denied having chest pain, denied shortness of breath. At this moment were still waiting on further intervention of the gangrenous right toe area. As mentioned previously he's had arterial Dopplers as well as a CTA done. thank you Santana Young
--- NOTE | 2017-08-26 09:13 | CP.PCM.PN ---
Subjective - Date & Time of Evaluation Date of Evaluation: 08/26/17 Time of Evaluation: 07:30 - Subjective Subjective: Vascular surgery progress note for Dr. Aureliano Turk, PGY-1 Pt S & E at bedside. Pt reports no problems overnight. Right toe does not currently hurt. Objective - Vital Signs/Intake and Output Vital Signs (last 24 hours): Temp Pulse Resp BP Pulse Ox 97.7 F 59 L 20 162/68 H 98 08/26/17 07:16 08/26/17 07:16 08/26/17 07:16 08/26/17 07:16 08/26/17 07:16 Intake and Output: 08/26/17 08/26/17 06:59 18:59 Intake Total 360 Balance 360 - Medications Medications: Current Medications Amlodipine Besylate (Norvasc) 10 mg PO DAILY [facility] Aspirin (Ecotrin) 81 mg PO DAILY [facility] Last Admin: 08/25/17 10:53 Dose: 81 mg Dextrose (Dextrose 50% Inj) 0 ml IVP .STAT PRN; Protocol PRN Reason: Hypoglycemia Protocol Dextrose (Glutose 15) 0 gm PO .ONCE PRN; Protocol PRN Reason: Hypoglycemia Protocol Glucagon (Glucagen Diagnostic Kit) 0 mg IM .STAT PRN; Protocol PRN Reason: Hypoglycemia Protocol Heparin Sodium (Porcine) (Heparin) 5,000 units SC Q12 [facility] Last Admin: 08/25/17 21:07 Dose: 5,000 units Dextrose (Dextrose 5% In Water 1000 Ml) 1,000 mls @ 0 mls/hr IV .Q0M PRN; Protocol; Per Protocol PRN Reason: Hypoglycemia Protocol Insulin Aspart (Novolog) 0 unit SC ACHS [facility] PRN Reason: Protocol Last Admin: 08/26/17 08:25 Dose: Not Given Losartan Potassium (Cozaar) 50 mg PO DAILY [facility] Last Admin: 08/25/17 15:00 Dose: 50 mg Oxycodone/Acetaminophen (Percocet 5/325 Mg Tab) 1 tab PO Q4H PRN PRN Reason: Pain, moderate (4-7) Stop: 08/28/17 01:00 Pantoprazole Sodium (Protonix Ec Tab) 40 mg PO DAILY [facility] Last Admin: 08/25/17 10:53 Dose: 40 mg - Labs Labs: 08/26/17 07:15 08/26/17 07:15 PT 10.2 SECONDS (9.7-12.2) 08/24/17 18:24 INR 0.9 08/24/17 18:24 APTT 33 SECONDS (21-34) 08/24/17 18:24 - Constitutional Appears: Non-toxic, No Acute Distress - Head Exam Head Exam: ATRAUMATIC, NORMAL INSPECTION, NORMOCEPHALIC - Eye Exam Eye Exam: EOMI, Normal appearance - ENT Exam ENT Exam: Mucous Membranes Moist, Normal Exam - Neck Exam Neck Exam: Full ROM, Normal Inspection - Respiratory Exam Respiratory Exam: NORMAL BREATHING PATTERN - Cardiovascular Exam Cardiovascular Exam: REGULAR RHYTHM - Extremities Exam Additional comments: Left foot with transmetatarsal amputation. Right foot with dressing in place- clean/dry, intact, non tender - Neurological Exam Neurological Exam: Alert, Awake, CN II-XII Intact, Oriented x3 - Psychiatric Exam Psychiatric exam: Normal Affect, Normal Mood - Skin Skin Exam: Dry, Normal Color, Warm Assessment and Plan - Assessment and Plan (Free Text) Assessment: 87M w/Right hallux necrosis Plan: For Angiography on Wednesday NPO at [place] Hold heparin at [place] Further mgmt as per primary team SAMINA attending Rosalee, PGY-1
[2017-08-26] MEDS: Pantoprazole 40 mg EC Tab PO SCH (11:00)
[2017-08-26 11:49] LABS: PROTHROMBIN TIME 10.9 SECONDS (9.7-12.2)
--- NOTE | 2017-08-26 12:13 | CARD ---
APPROVED REPORT EKG Measurement Heart [id number] <Conclusion> Sinus bradycardia Otherwise normal ECG
[2017-08-27 07:38] LABS: BASO # 0.1 K/uL (0.0-0.2); BASO % 1.1 % (0.0-2.0); EOS # 0.1 K/uL (0.0-0.7); EOS % 1.2 % (0.0-4.0); HEMOGLOBIN 10.8 g/dL (12.0-18.0); LYMPH # 1.2 K/uL (1.0-4.3); LYMPH % 19.7 % (20.0-40.0); MEAN CELL VOLUME 92.8 fL (80.0-94.0); MEAN CORPUSCULAR HEMOGLOBIN 32.2 pg (27.0-31.0); MEAN CORPUSCULAR HGB CONC 34.7 g/dL (33.0-37.0); MEAN PLATELET VOLUME 9.2 fL (7.2-11.7); MONO # 0.4 K/uL (0.0-0.8); MONO % 7.1 % (0.0-10.0); NEUT # 4.1 K/uL (1.8-7.0); NEUT % 70.9 % (50.0-75.0); RBC 3.35 Mil/uL (4.40-5.90); RED CELL DISTRIBUTION WIDTH 13.9 % (11.5-14.5); WHITE BLOOD COUNT 5.8 K/uL (4.8-10.8)
[2017-08-27] MEDS: (Novolog) Insulin Aspart, Recombinant 100 u/ml 10 ml vial SC SCH ×4 (07:42→21:34)
[2017-08-27 08:01] LABS: ALB/GLOB RATIO 1.1 (1.0-2.1); ALBUMIN 3.8 g/dL (3.5-5.0); ALT/SGPT 15 U/L (21-72); AST/SGOT 18 U/L (17-59); BLOOD UREA NITROGEN 23 mg/dL (9-20); CALCIUM 8.9 mg/dl (8.6-10.4); GFR AFRICAN-AMERICAN > 60; GFR NON-AFRICAN AMERICAN 58; MAGNESIUM 1.8 mg/dL (1.6-2.3)
[2017-08-27] MEDS: Pantoprazole 40 mg EC Tab PO SCH (10:06)
[2017-08-27] MEDS ORDERED: Etomidate 20 mg/10ml Inj IV ONE (11:59)
[2017-08-27] MEDS ORDERED: Lidocaine Hydrochloride 5 ML INJ ONE (12:00)
[2017-08-27] MEDS ORDERED: Propofol 10 mg/ml Inj (20 ML) ONE (12:06)
[2017-08-27] MEDS ORDERED: Iodixanol 320 MG/ML 100 ML BOTTLE IV ONE ×3 (12:19→12:43)
--- NOTE | 2017-08-27 12:52 | VASCLAB ---
STUDY DESCRIPTION: HISTORY: Right toe necrosis PRIORS: None. TECHNIQUE: Pulse volume recording waveforms and segmental pressures of bilateral lower extremities at multiple levels were obtained. Ankle Brachial Indices (ABIs) were calculated. Report prepared by KENZIE Edouard RIGHT LOWER EXTREMITY: * Brachial artery: Pressure - 176 mmHg. * High thigh: Pressure - 220 mmHg: Ratio - NC: PVR waveform - Pulsatile * Low thigh: Pressure - 220 mmHg: Ratio - NC PVR waveform: Pulsatile * Calf: Pressure - 220 mmHg: Ratio - NC PVR waveform: Pulsatile * Posterior tibial Artery: Pressure - 220 mmHg: Ratio - NC PVR waveform: Pulsatile * Dorsalis pedis Artery: Pressure - 220 mmHg: Ratio - NC PVR waveform: Pulsatile * Great toe: Pressure - mmHg: Ratio - PVR waveform: Ankle brachial index (FABIOLA): NC LEFT LOWER EXTREMITY: * Brachial artery: Pressure - 165 mmHg. * High thigh: Pressure - 220 mmHg: Ratio - NC: PVR waveform - Pulsatile * Low thigh: Pressure - 220 mmHg: Ratio - NC PVR waveform: Pulsatile * Calf: Pressure - 220 mmHg: Ratio - NC PVR waveform: Pulsatile * Posterior tibial Artery: Pressure - 220 mmHg: Ratio - NC PVR waveform: Pulsatile * Dorsalis pedis Artery: Pressure - 220 mmHg: Ratio - NC PVR waveform: Pulsatile * Great toe: Pressure - mmHg: Ratio - PVR waveform: Ankle brachial index (FABIOLA): NC OTHER FINDINGS: Right: Left: IMPRESSION: Right: The ankle pressure index of the right lower extremity is non-diagnostic due to possible arterial wall calcifications. Left: The ankle pressure index of the left lower extremity is non-diagnostic due to possible arterial wall calcifications.
--- NOTE | 2017-08-27 13:29 | CP.PCM.PN ---
Subjective - Date & Time of Evaluation Date of Evaluation: 08/27/17 Time of Evaluation: 08:00 - Subjective Subjective: Medicine progress note for Dr. Young Patient seen and examined at bedside. Patient reports no complaints at this time. He states that he is not in any pain at the moment. Patient is for angiogram later this morning. Objective - Vital Signs/Intake and Output Vital Signs (last 24 hours): Temp Pulse Resp BP Pulse Ox 97.8 F 80 20 136/65 98 08/27/17 07:45 08/27/17 07:45 08/27/17 07:45 08/27/17 07:45 08/27/17 07:45 Intake and Output: 08/27/17 08/27/17 06:59 18:59 Intake Total 350 Balance 350 - Medications Medications: Current Medications Amlodipine Besylate (Norvasc) 10 mg PO DAILY [facility] Last Admin: 08/27/17 10:06 Dose: 10 mg Aspirin (Ecotrin) 81 mg PO DAILY [facility] Last Admin: 08/27/17 10:06 Dose: 81 mg Dextrose (Dextrose 50% Inj) 0 ml IVP .STAT PRN; Protocol PRN Reason: Hypoglycemia Protocol Dextrose (Glutose 15) 0 gm PO .ONCE PRN; Protocol PRN Reason: Hypoglycemia Protocol Glucagon (Glucagen Diagnostic Kit) 0 mg IM .STAT PRN; Protocol PRN Reason: Hypoglycemia Protocol Heparin Sodium (Porcine) (Heparin) 5,000 units SC Q12 [facility] Last Admin: 08/26/17 21:54 Dose: 5,000 units Dextrose (Dextrose 5% In Water 1000 Ml) 1,000 mls @ 0 mls/hr IV .Q0M PRN; Protocol; Per Protocol PRN Reason: Hypoglycemia Protocol Insulin Aspart (Novolog) 0 unit SC ACHS [facility] PRN Reason: Protocol Last Admin: 08/27/17 11:41 Dose: Not Given Losartan Potassium (Cozaar) 50 mg PO DAILY [facility] Last Admin: 08/27/17 10:06 Dose: 50 mg Oxycodone/Acetaminophen (Percocet 5/325 Mg Tab) 1 tab PO Q4H PRN PRN Reason: Pain, moderate (4-7) Stop: 08/28/17 01:00 Pantoprazole Sodium (Protonix Ec Tab) 40 mg PO DAILY [facility] Last Admin: 08/27/17 10:06 Dose: 40 mg - Labs Labs: 08/27/17 07:13 08/27/17 07:13 PT 10.9 SECONDS (9.7-12.2) 08/26/17 11:30 INR 1.0 08/26/17 11:30 APTT 33 SECONDS (21-34) 08/26/17 11:30 - Additional Findings Additional findings: - Constitutional Appears: No Acute Distress - Head Exam Head Exam: ATRAUMATIC, NORMAL INSPECTION - Eye Exam Eye Exam: EOMI, Normal appearance - ENT Exam ENT Exam: Mucous Membranes Moist - Respiratory Exam Respiratory Exam: Clear to Auscultation Bilateral, NORMAL BREATHING PATTERN. absent: Rales, Rhonchi, Wheezes, Respiratory Distress - Cardiovascular Exam Cardiovascular Exam: REGULAR RHYTHM, +S1, +S2 - GI/Abdominal Exam GI & Abdominal Exam: Soft, Normal Bowel Sounds. absent: Distended, Firm, Tenderness - Extremities Exam Extremities Exam: absent: Pedal Edema Additional comments: Left foot amputation Right foot- dressing clean, dry, intact - Neurological Exam Neurological Exam: Alert, Awake, Oriented x3 - Psychiatric Exam Psychiatric exam: Normal Affect, Normal Mood - Skin Skin Exam: Dry, Warm Assessment and Plan - Assessment and Plan (Free Text) Plan: 1) Gangrene of toe of right foot Podiatry consult: Dr. Meeks--> Help appreciated Vascular surgery consult, Dr. Wheeler---> Help appreciated * per Dr. Wheeler's note: CTA angio 08/27/17 - Images: * Arterial doppler: Common femoral artery and profunda femoral artery are normal. Runoff shows a patent peroneal artery. Anterior tibial artery has mild stenosis at the origin but is otherwise patent. The posterior tibial artery artery is mildly calcified which limits evaluation. Possible occlusion of the mid posterior tibial artery. SFA has mild stenosis in distal segment. Runoff shows a patent peroneal artery. Anterior tibial is occluded. The posterior tibial is mildly calcified and believed to be patent. * right foot X-ray: No plain radiographic evidence of osteomyelitis Procal: <0.05 Low Blood cx: negative Pre-op: * EKG: NSR * Chest X-ray: No active pulmonary disease * PT/INR/PTT:10.2/0.9/33 - From a medicine standpoint patient is stable for surgery On 08/27/17, patient underwent aortofemoral angiogram with selective catherization of right femoral artery, pathway atherectomy of popliteal artery and anterior tibial artery, balloon angioplasty of anterior tibial and popliteal artery Will f/u surgery recommendations 2) Acute kidney injury Improved NS @100mls/hr Monitor with morning labs Home medication: Metformin and Losartan potassium held 3) Hyperkalemia Improved Monitor 4) Diabetes mellitus HgbA1C: 6.2 Accuchecks ISS- Medium dose protocol hypoglycemia protocol Home medication: Metformin held due to BANDAR 5) Hypertension Home medication: * Norvasc 10mg PO daily 6) History of hyperlipidemia lipid panel: Triglycerides 106; Cholesterol 153; LDL 76; HDL 48 7) Prophylactic measure GI: Protonix 40mg PO daily DVT: SCDs, Heparin 5,000 units SC Q12 Diabetic diet Disposition: Will f/u surgery recommendations Case DW Dr. Hannah Ascencio PGY-1
--- NOTE | 2017-08-27 13:58 | PCM.SURG1 ---
Surgeon's Initial Post Op Note - Surgeon's Notes Surgeon: linda Cafe Cook: 0 Type of Anesthesia: IV Sedation Anesthesia Administered By: srikanth Pre-Operative Diagnosis: gangrene of right foot Operative Findings: 99% stenosis of popliteal on right. 70% stenosi at origin of anterior tibial. peroneal and posterior tibial occluded. PT reconstitutes in foot. perclose left groin Post-Operative Diagnosis: same Operation Performed: aortofemorqal angiogram. selective catherization of right femoral artery. pathway atherectomy of popliteal artery and anterior tibial. balloon angioplasty of anterior tibial 2.5. lutonix balloon 5 mm popliteal. perclose left groin Specimen/Specimens Removed: 0 Estimated Blood Loss: EBL {In ML}: 44 Blood Products Given: N/A Drains Used: No Drains Post-Op Condition: Good Date of Surgery/Procedure: 08/27/17 Time of Surgery/Procedure: 14:00
--- NOTE | 2017-08-27 21:17 | CP.PCM.PN ---
Subjective - Date & Time of Evaluation Date of Evaluation: 08/27/17 Time of Evaluation: 12:50 - Subjective Subjective: Podiatry Progress Note - Dr. Meeks Attempt made to see 87 year old male concerning gangrene of right great toe and 2nd toe. However pt has been in agioplasty procedure during both attempts. Pt tentatively schedule for amputation surgery Wednesday08/31/17 @ 7:45am. Medical Clearance requested. Objective - Vital Signs/Intake and Output Vital Signs (last 24 hours): Temp Pulse Resp BP Pulse Ox 97.5 F L 70 20 165/77 H 99 08/27/17 15:34 08/27/17 15:34 08/27/17 15:34 08/27/17 15:34 08/27/17 15:34 - Medications Medications: Current Medications Amlodipine Besylate (Norvasc) 10 mg PO DAILY [facility] Last Admin: 08/27/17 10:06 Dose: 10 mg Aspirin (Ecotrin) 81 mg PO DAILY [facility] Last Admin: 08/27/17 10:06 Dose: 81 mg Clopidogrel Bisulfate (Plavix) 75 mg PO DAILY [facility] Dextrose (Dextrose 50% Inj) 0 ml IVP .STAT PRN; Protocol PRN Reason: Hypoglycemia Protocol Dextrose (Glutose 15) 0 gm PO .ONCE PRN; Protocol PRN Reason: Hypoglycemia Protocol Glucagon (Glucagen Diagnostic Kit) 0 mg IM .STAT PRN; Protocol PRN Reason: Hypoglycemia Protocol Heparin Sodium (Porcine) (Heparin) 5,000 units SC Q12 [facility] Last Admin: 08/26/17 21:54 Dose: 5,000 units Dextrose (Dextrose 5% In Water 1000 Ml) 1,000 mls @ 0 mls/hr IV .Q0M PRN; Protocol; Per Protocol PRN Reason: Hypoglycemia Protocol Insulin Aspart (Novolog) 0 unit SC ACHS [facility] PRN Reason: Protocol Last Admin: 08/27/17 17:10 Dose: Not Given Losartan Potassium (Cozaar) 50 mg PO DAILY [facility] Last Admin: 08/27/17 10:06 Dose: 50 mg Oxycodone/Acetaminophen (Percocet 5/325 Mg Tab) 1 tab PO Q4H PRN PRN Reason: Pain, moderate (4-7) Stop: 08/28/17 01:00 Pantoprazole Sodium (Protonix Ec Tab) 40 mg PO DAILY [facility] Last Admin: 08/27/17 10:06 Dose: 40 mg - Labs Labs: 08/27/17 07:13 08/27/17 07:13 PT 10.9 SECONDS (9.7-12.2) 08/26/17 11:30 INR 1.0 08/26/17 11:30 APTT 33 SECONDS (21-34) 08/26/17 11:30 Assessment and Plan - Assessment and Plan (Free Text) Assessment: 87 year old male with right hallux & 2nd digit ischemia/ dry gangrene, secondary to PAD.
--- NOTE | 2017-08-28 04:59 | VAS ---
DATE: 08/27/2017 PREOPERATIVE DIAGNOSES: Gangrene of the right great toe. POSTOPERATIVE DIAGNOSES: Gangrene of the right great toe. PROCEDURE CARRIED OUT: Aortofemoral angiogram via left groin with selective catheterization of the right femoral artery, pathway atherectomy of the popliteal and anterior tibial artery, balloon angioplasty using a 2.5 mm balloon on the right, anterior tibial artery of 5 mm balloon of the right popliteal artery. Balloon angioplasty with a drug-coated balloon 5 mm of the popliteal artery. INDICATION: The patient is an elderly man with previous left transmetatarsal amputation, now presents with gangrene of the great toe. OPERATIVE FINDINGS: The aorta, renal arteries are free of significant occlusive disease. Both common iliac, external iliac, and internal iliac arteries as well as common femoral artery bilaterally was widely patent. The superficial femoral artery and popliteal arteries were widely patent. On the left side, we were unable to take detailed pictures below the knee due to the patient's body habitus . While in the right side, it showed there was a 99% stenosis as well as occlusion just above the knee joint and severe disease of the anterior tibial artery just at its origin. Below this the posterior tibial artery reconstituted in the distal half. The peroneal artery was occluded in the anterior tibial concluding in the foot. Subsequent to the performance of the diagnostic arteriogram, a stiff-angled guidewire was advanced over the aortic bifurcation and a 7-Telugu sheath positioned in the distal portion of the superficial femoral artery. Using road-mapping techniques, both lesions were crossed with an 14-wire. After this have been done, we heparinized the patient. We used the atherectomy device to create a channel and we ballooned this person with a 2.5 in the anterior tibial and then with a 5-mm Lutonix drug-coated balloon with the popliteal artery. Subsequently, patient's cosmetic pictures were excellent. Catheter was then removed and a Perclose device deployed in the left groin. OPERATION CARRIED OUT: Aortofemoral angiogram revealed: 1. Left groin selective catheterization of right femoral artery. 2. Pathway atherectomy of the right popliteal and anterior tibial artery. 3. Balloon angioplasty of the anterior tibial artery using a 2.5-mm balloon and of the popliteal artery using a 5-mm drug-coated Lutonix balloon. Moreno Wheeler Jr., MD cc: Dr. Meeks [facility] # [id number]
[2017-08-28] MEDS: (Novolog) Insulin Aspart, Recombinant 100 u/ml 10 ml vial SC SCH ×4 (08:23→21:52)
[2017-08-28 08:43] LABS: BASO % 0.7 % (0.0-2.0); EOS % 0.7 % (0.0-4.0); HEMOGLOBIN 10.6 g/dL (12.0-18.0); LYMPH # 0.3 K/uL (1.0-4.3); LYMPH % 3.9 % (20.0-40.0); MEAN CELL VOLUME 93.6 fL (80.0-94.0); MEAN CORPUSCULAR HGB CONC 34.2 g/dL (33.0-37.0); MEAN PLATELET VOLUME 9.4 fL (7.2-11.7); MONO # 0.7 K/uL (0.0-0.8); NEUT # 5.8 K/uL (1.8-7.0); NEUT % 84.7 % (50.0-75.0); NRBC % 0.1 % (0.0-2.0); PLATELET COUNT 310 K/uL (130-400); RBC 3.31 Mil/uL (4.40-5.90); WHITE BLOOD COUNT 6.9 K/uL (4.8-10.8)
--- NOTE | 2017-08-28 08:56 | CP.PCM.PN ---
<Regan Ascencio - Last Filed: 08/28/17 09:14> Subjective - Date & Time of Evaluation Date of Evaluation: 08/28/17 Time of Evaluation: 08:53 - Subjective Subjective: Medicine progress note for Dr. Young Patient seen and examined. Patient reports no acute complaints at this time. He is resting comfortably in bed and tolerating his diet. No foot pain at this time. Objective - Vital Signs/Intake and Output Vital Signs (last 24 hours): Temp Pulse Resp BP Pulse Ox 98.1 F 71 20 151/69 H 97 08/28/17 00:00 08/28/17 00:00 08/28/17 00:00 08/28/17 00:00 08/28/17 00:00 Intake and Output: 08/28/17 08/28/17 06:59 18:59 Intake Total 350 240 Balance 350 240 - Medications Medications: Current Medications Amlodipine Besylate (Norvasc) 10 mg PO DAILY [facility] Last Admin: 08/27/17 10:06 Dose: 10 mg Aspirin (Ecotrin) 81 mg PO DAILY [facility] Last Admin: 08/27/17 10:06 Dose: 81 mg Clopidogrel Bisulfate (Plavix) 75 mg PO DAILY [facility] Dextrose (Dextrose 50% Inj) 0 ml IVP .STAT PRN; Protocol PRN Reason: Hypoglycemia Protocol Dextrose (Glutose 15) 0 gm PO .ONCE PRN; Protocol PRN Reason: Hypoglycemia Protocol Glucagon (Glucagen Diagnostic Kit) 0 mg IM .STAT PRN; Protocol PRN Reason: Hypoglycemia Protocol Heparin Sodium (Porcine) (Heparin) 5,000 units SC Q12 [facility] Last Admin: 08/26/17 21:54 Dose: 5,000 units Dextrose (Dextrose 5% In Water 1000 Ml) 1,000 mls @ 0 mls/hr IV .Q0M PRN; Protocol; Per Protocol PRN Reason: Hypoglycemia Protocol Insulin Aspart (Novolog) 0 unit SC ACHS [facility] PRN Reason: Protocol Last Admin: 08/28/17 08:23 Dose: Not Given Losartan Potassium (Cozaar) 50 mg PO DAILY [facility] Last Admin: 08/27/17 10:06 Dose: 50 mg Pantoprazole Sodium (Protonix Ec Tab) 40 mg PO DAILY [facility] Last Admin: 08/27/17 10:06 Dose: 40 mg - Labs Labs: 08/28/17 08:13 08/27/17 07:13 PT 10.9 SECONDS (9.7-12.2) 08/26/17 11:30 INR 1.0 08/26/17 11:30 APTT 33 SECONDS (21-34) 08/26/17 11:30 - Additional Findings Additional findings: - Constitutional Appears: No Acute Distress - Head Exam Head Exam: ATRAUMATIC, NORMAL INSPECTION - Eye Exam Eye Exam: EOMI, Normal appearance - ENT Exam ENT Exam: Mucous Membranes Moist - Respiratory Exam Respiratory Exam: Clear to Auscultation Bilateral, NORMAL BREATHING PATTERN. absent: Rales, Rhonchi, Wheezes, Respiratory Distress - Cardiovascular Exam Cardiovascular Exam: REGULAR RHYTHM, +S1, +S2 - GI/Abdominal Exam GI & Abdominal Exam: Soft, Normal Bowel Sounds. absent: Distended, Firm, Tenderness - Extremities Exam Extremities Exam: absent: Pedal Edema Additional comments: Left foot amputation Right foot- dressing clean, dry, intact - Neurological Exam Neurological Exam: Alert, Awake, Oriented x3 - Psychiatric Exam Psychiatric exam: Normal Affect, Normal Mood - Skin Skin Exam: Dry, Warm Assessment and Plan - Assessment and Plan (Free Text) Plan: 1) Gangrene of toe of right foot Podiatry consult: Dr. Meeks--> Help appreciated Vascular surgery consult, Dr. Wheeler---> Help appreciated * per Dr. Wheeler's note: CTA angio 08/27/17 - Images: * Arterial doppler: Common femoral artery and profunda femoral artery are normal. Runoff shows a patent peroneal artery. Anterior tibial artery has mild stenosis at the origin but is otherwise patent. The posterior tibial artery artery is mildly calcified which limits evaluation. Possible occlusion of the mid posterior tibial artery. SFA has mild stenosis in distal segment. Runoff shows a patent peroneal artery. Anterior tibial is occluded. The posterior tibial is mildly calcified and believed to be patent. * right foot X-ray: No plain radiographic evidence of osteomyelitis Procal: <0.05 Low Blood cx: negative Pre-op: * EKG: NSR * Chest X-ray: No active pulmonary disease * PT/INR/PTT:10.2/0.9/33 - From a medicine standpoint patient is stable for surgery On 08/27/17, patient underwent aortofemoral angiogram with selective catherization of right femoral artery, pathway atherectomy of popliteal artery and anterior tibial artery, balloon angioplasty of anterior tibial and popliteal artery Will f/u surgery recommendations Per podiatry, planned for amputation on Thursday 08/31 2) Acute kidney injury Improved NS @100mls/hr Monitor with morning labs Home medication: Metformin and Losartan potassium held 3) Hyperkalemia Improved Monitor 4) Diabetes mellitus HgbA1C: 6.2 Accuchecks ISS- Medium dose protocol hypoglycemia protocol Home medication: Metformin held due to BANDAR 5) Hypertension Home medication: * Norvasc 10mg PO daily 6) History of hyperlipidemia lipid panel: Triglycerides 106; Cholesterol 153; LDL 76; HDL 48 7) Prophylactic measure GI: Protonix 40mg PO daily DVT: SCDs, Heparin 5,000 units SC Q12 Diabetic diet Disposition: Will f/u vascular surgery recommendations. Per podiatry, planned for amputation on Thursday 08/31. Will discuss with Dr. Hannah Ascencio PGY-1 <Santana Young H - Last Filed: 08/28/17 12:57> Objective - Vital Signs/Intake and Output Vital Signs (last 24 hours): Temp Pulse Resp BP Pulse Ox 98.1 F 71 20 151/69 H 97 08/28/17 00:00 08/28/17 00:00 08/28/17 00:00 08/28/17 00:00 08/28/17 00:00 Intake and Output: 08/28/17 08/28/17 06:59 18:59 Intake Total 350 240 Balance 350 240 - Medications Medications: Current Medications Amlodipine Besylate (Norvasc) 10 mg PO DAILY [facility] Last Admin: 08/28/17 10:47 Dose: 10 mg Aspirin (Ecotrin) 81 mg PO DAILY [facility] Last Admin: 08/28/17 10:47 Dose: 81 mg Clopidogrel Bisulfate (Plavix) 75 mg PO DAILY [facility] Last Admin: 08/28/17 10:47 Dose: 75 mg Dextrose (Dextrose 50% Inj) 0 ml IVP .STAT PRN; Protocol PRN Reason: Hypoglycemia Protocol Dextrose (Glutose 15) 0 gm PO .ONCE PRN; Protocol PRN Reason: Hypoglycemia Protocol Glucagon (Glucagen Diagnostic Kit) 0 mg IM .STAT PRN; Protocol PRN Reason: Hypoglycemia Protocol Heparin Sodium (Porcine) (Heparin) 5,000 units SC Q12 [facility] Last Admin: 08/26/17 21:54 Dose: 5,000 units Dextrose (Dextrose 5% In Water 1000 Ml) 1,000 mls @ 0 mls/hr IV .Q0M PRN; Protocol; Per Protocol PRN Reason: Hypoglycemia Protocol Insulin Aspart (Novolog) 0 unit SC ACHS [facility] PRN Reason: Protocol Last Admin: 08/28/17 08:23 Dose: Not Given Losartan Potassium (Cozaar) 50 mg PO DAILY [facility] Last Admin: 08/28/17 10:47 Dose: 50 mg Pantoprazole Sodium (Protonix Ec Tab) 40 mg PO DAILY [facility] Last Admin: 08/28/17 10:47 Dose: 40 mg - Labs Labs: 08/28/17 08:13 08/28/17 08:13 PT 10.9 SECONDS (9.7-12.2) 08/26/17 11:30 INR 1.0 08/26/17 11:30 APTT 33 SECONDS (21-34) 08/26/17 11:30 Attending/Attestation - Attestation I have personally seen and examined this patient.: Yes I have fully participated in the care of the patient.: Yes I have reviewed all pertinent clinical information, including history, physical exam and plan: Yes Notes (Text): 08/28/17 12:55 Medical attending: Patient was seen and examined by me. Agree with the above note by resident Podiatry is planning on Wednesday to do amputation of the toe. Currently patient reports feeling well, no pain. No complaints when I asked him in Norwegian. thank you Santana Young
[2017-08-28 08:58] LABS: ALBUMIN 3.6 g/dL (3.5-5.0); CALCIUM 8.7 mg/dl (8.6-10.4); MAGNESIUM 1.9 mg/dL (1.6-2.3)
[2017-08-28] MEDS: Pantoprazole 40 mg EC Tab PO SCH (10:47)
[2017-08-28 11:00] LABS: EOSINOPHIL 1 % (0-4); LYMPHOCYTE 3 % (20-40); MONOCYTE 13 % (0-10); NEUTROPHIL 83 % (50-75); PLATELET ESTIMATE NORMAL (NORMAL); TOTAL CELLS COUNTED 100
[2017-08-28 11:01] LABS: ANISOCYTOSIS SLIGHT
--- NOTE | 2017-08-28 11:22 | CP.PCM.PN ---
Subjective - Date & Time of Evaluation Date of Evaluation: 08/28/17 Time of Evaluation: 11:22 - Subjective Subjective: Podiatry Progress Note - Dr. Meeks 87 y/o male seen at bedside with attending Dr. Meeks for right hallux and 2nd digit gangrene. Pt's family has been informed that pt is scheduled for amputation surgery Wednesday08/31/17 @ 7:45am. At present, pt is comfortable and in NAD. Admits to mild pain in the right foot at present. Denies F/C/N/V/CP/SOB Objective - Vital Signs/Intake and Output Vital Signs (last 24 hours): Temp Pulse Resp BP Pulse Ox 98.1 F 71 20 151/69 H 97 08/28/17 00:00 08/28/17 00:00 08/28/17 00:00 08/28/17 00:00 08/28/17 00:00 Intake and Output: 08/28/17 08/28/17 06:59 18:59 Intake Total 350 240 Balance 350 240 - Medications Medications: Current Medications Amlodipine Besylate (Norvasc) 10 mg PO DAILY [facility] Last Admin: 08/28/17 10:47 Dose: 10 mg Aspirin (Ecotrin) 81 mg PO DAILY [facility] Last Admin: 08/28/17 10:47 Dose: 81 mg Clopidogrel Bisulfate (Plavix) 75 mg PO DAILY [facility] Last Admin: 08/28/17 10:47 Dose: 75 mg Dextrose (Dextrose 50% Inj) 0 ml IVP .STAT PRN; Protocol PRN Reason: Hypoglycemia Protocol Dextrose (Glutose 15) 0 gm PO .ONCE PRN; Protocol PRN Reason: Hypoglycemia Protocol Glucagon (Glucagen Diagnostic Kit) 0 mg IM .STAT PRN; Protocol PRN Reason: Hypoglycemia Protocol Heparin Sodium (Porcine) (Heparin) 5,000 units SC Q12 [facility] Last Admin: 08/26/17 21:54 Dose: 5,000 units Dextrose (Dextrose 5% In Water 1000 Ml) 1,000 mls @ 0 mls/hr IV .Q0M PRN; Protocol; Per Protocol PRN Reason: Hypoglycemia Protocol Insulin Aspart (Novolog) 0 unit SC ACHS [facility] PRN Reason: Protocol Last Admin: 08/28/17 08:23 Dose: Not Given Losartan Potassium (Cozaar) 50 mg PO DAILY [facility] Last Admin: 08/28/17 10:47 Dose: 50 mg Pantoprazole Sodium (Protonix Ec Tab) 40 mg PO DAILY [facility] Last Admin: 08/28/17 10:47 Dose: 40 mg - Labs Labs: 08/28/17 08:13 08/28/17 08:13 PT 10.9 SECONDS (9.7-12.2) 08/26/17 11:30 INR 1.0 08/26/17 11:30 APTT 33 SECONDS (21-34) 08/26/17 11:30 - Constitutional Appears: Well, Non-toxic, No Acute Distress - Extremities Exam Additional comments: RLE focused exam: Vasc: DP/PT pulses non palpable. Temp gradient warm to cold. CFT delayed to digits 1 and 2; 3-4 sec to remaining digits. No pedal edema noted Derm: Gangrenous changes noted to right hallux and 2nd digit. No open lesions, no drainage, no purulence, no fluctuance Neuro: Protective sensation grossly diminished Ortho: Mild tenderness to right foot gangrenous digits - Neurological Exam Neurological Exam: Alert, Awake, Oriented x3 - Psychiatric Exam Psychiatric exam: Normal Affect, Normal Mood Assessment and Plan - Assessment and Plan (Free Text) Assessment: 87 year old male with right hallux & 2nd digit ischemia/ dry gangrene, secondary to PAD Plan: Pt seen and evaluated with attending Dr. Meeks Labs and vitals reviewed - afebrile, WBC 6.9 Cleaned right 1st and 2nd digits with saline and dressed with betadine and DSD Pt scheduled for OR Wednesday at 7:45am for 1st and 2nd digital amputations Medical clearance obtained, in chart Pt is s/p catheterization of R femoral artery, pathway atherectomy of R popliteal and ELROY and balloon angio of R popliteal and anterior tibial aa Pt to be NPO past midnight Wednesday night Anti coags to be held day prior to surgery Podiatry will continue to follow patient while in house
--- NOTE | 2017-08-28 18:44 | CP.PCM.PN ---
Subjective - Date & Time of Evaluation Date of Evaluation: 08/28/17 Time of Evaluation: 18:20 - Subjective Subjective: Vascular surgery note for Dr. Wheeler Patient seen and examined today. No acute event overnight. He is s/p angiogram POD#1. Patient states pain is controlled. Patient will be going for R foot 1st and 2nd digit amputation on Wednesday with Podiatry. He has no complaints at this time. Objective - Vital Signs/Intake and Output Vital Signs (last 24 hours): Temp Pulse Resp BP Pulse Ox 98.6 F 80 20 130/51 L 97 08/28/17 15:57 08/28/17 15:57 08/28/17 15:57 08/28/17 15:57 08/28/17 15:57 Intake and Output: 08/28/17 08/28/17 06:59 18:59 Intake Total 350 240 Balance 350 240 - Medications Medications: Current Medications Amlodipine Besylate (Norvasc) 10 mg PO DAILY [facility] Last Admin: 08/28/17 10:47 Dose: 10 mg Aspirin (Ecotrin) 81 mg PO DAILY [facility] Last Admin: 08/28/17 10:47 Dose: 81 mg Clopidogrel Bisulfate (Plavix) 75 mg PO DAILY [facility] Last Admin: 08/28/17 10:47 Dose: 75 mg Dextrose (Dextrose 50% Inj) 0 ml IVP .STAT PRN; Protocol PRN Reason: Hypoglycemia Protocol Dextrose (Glutose 15) 0 gm PO .ONCE PRN; Protocol PRN Reason: Hypoglycemia Protocol Glucagon (Glucagen Diagnostic Kit) 0 mg IM .STAT PRN; Protocol PRN Reason: Hypoglycemia Protocol Heparin Sodium (Porcine) (Heparin) 5,000 units SC Q12 [facility] Last Admin: 08/26/17 21:54 Dose: 5,000 units Dextrose (Dextrose 5% In Water 1000 Ml) 1,000 mls @ 0 mls/hr IV .Q0M PRN; Protocol; Per Protocol PRN Reason: Hypoglycemia Protocol Insulin Aspart (Novolog) 0 unit SC ACHS [facility] PRN Reason: Protocol Last Admin: 08/28/17 16:55 Dose: Not Given Losartan Potassium (Cozaar) 50 mg PO DAILY [facility] Last Admin: 08/28/17 10:47 Dose: 50 mg Pantoprazole Sodium (Protonix Ec Tab) 40 mg PO DAILY [facility] Last Admin: 02/10/18 10:47 Dose: 40 mg - Labs Labs: 08/28/17 08:13 08/28/17 08:13 PT 10.9 SECONDS (9.7-12.2) 08/26/17 11:30 INR 1.0 08/26/17 11:30 APTT 33 SECONDS (21-34) 08/26/17 11:30 - Constitutional Appears: No Acute Distress - ENT Exam ENT Exam: Mucous Membranes Moist - Respiratory Exam Respiratory Exam: NORMAL BREATHING PATTERN - Cardiovascular Exam Cardiovascular Exam: REGULAR RHYTHM - Extremities Exam Additional comments: RLE dressing clean dry and intact - Neurological Exam Neurological Exam: Alert, Awake - Psychiatric Exam Psychiatric exam: Normal Affect, Normal Mood - Skin Skin Exam: Dry, Warm Assessment and Plan - Assessment and Plan (Free Text) Plan: 87 M with R foot gangrene on 1st and 2nd digit OR Wednesday for R foot 1st and 2nd digit amputation with Podiatry Mangement as per primary Further [facility]
[2017-08-29 07:12] LABS: BASO # 0.1 K/uL (0.0-0.2); BASO % 1.2 % (0.0-2.0); EOS % 0.8 % (0.0-4.0); HEMOGLOBIN 9.7 g/dL (12.0-18.0); LYMPH % 20.7 % (20.0-40.0); MEAN CELL VOLUME 93.1 fL (80.0-94.0); MEAN CORPUSCULAR HEMOGLOBIN 31.1 pg (27.0-31.0); MEAN CORPUSCULAR HGB CONC 33.4 g/dL (33.0-37.0); MEAN PLATELET VOLUME 8.6 fL (7.2-11.7); MONO # 0.8 K/uL (0.0-0.8); MONO % 16.7 % (0.0-10.0); NEUT % 60.6 % (50.0-75.0); RBC 3.1 Mil/uL (4.40-5.90); RED CELL DISTRIBUTION WIDTH 14.5 % (11.5-14.5); WHITE BLOOD COUNT 4.9 K/uL (4.8-10.8)
[2017-08-29] MEDS: (Novolog) Insulin Aspart, Recombinant 100 u/ml 10 ml vial SC SCH ×4 (07:39→22:00)
[2017-08-29 07:50] LABS: ALBUMIN 3.4 g/dL (3.5-5.0); CALCIUM 8.8 mg/dl (8.6-10.4); MAGNESIUM 1.9 mg/dL (1.6-2.3)
--- NOTE | 2017-08-29 07:50 | CP.PCM.PN ---
Subjective - Date & Time of Evaluation Date of Evaluation: 08/29/17 Time of Evaluation: 07:50 - Subjective Subjective: Vascular surgery note for Dr. Wheeler Patient seen and examined today. No acute event overnight. He is s/p angiogram POD#2. Going for R foot 1st and 2nd digit amputation on Wednesday with Podiatry. He has no complaints today. Objective - Vital Signs/Intake and Output Vital Signs (last 24 hours): Temp Pulse Resp BP Pulse Ox 97.6 F 62 18 135/77 99 08/28/17 23:14 08/28/17 23:14 08/28/17 23:14 08/28/17 23:14 08/28/17 23:14 Intake and Output: 08/29/17 08/29/17 06:59 18:59 Intake Total 100 Balance 100 - Medications Medications: Current Medications Amlodipine Besylate (Norvasc) 10 mg PO DAILY [facility] Last Admin: 08/28/17 10:47 Dose: 10 mg Aspirin (Ecotrin) 81 mg PO DAILY [facility] Last Admin: 08/28/17 10:47 Dose: 81 mg Clopidogrel Bisulfate (Plavix) 75 mg PO DAILY [facility] Last Admin: 08/28/17 10:47 Dose: 75 mg Dextrose (Dextrose 50% Inj) 0 ml IVP .STAT PRN; Protocol PRN Reason: Hypoglycemia Protocol Dextrose (Glutose 15) 0 gm PO .ONCE PRN; Protocol PRN Reason: Hypoglycemia Protocol Glucagon (Glucagen Diagnostic Kit) 0 mg IM .STAT PRN; Protocol PRN Reason: Hypoglycemia Protocol Heparin Sodium (Porcine) (Heparin) 5,000 units SC Q12 [facility] Last Admin: 08/26/17 21:54 Dose: 5,000 units Dextrose (Dextrose 5% In Water 1000 Ml) 1,000 mls @ 0 mls/hr IV .Q0M PRN; Protocol; Per Protocol PRN Reason: Hypoglycemia Protocol Insulin Aspart (Novolog) 0 unit SC ACHS [facility] PRN Reason: Protocol Last Admin: 08/29/17 07:39 Dose: Not Given Losartan Potassium (Cozaar) 50 mg PO DAILY [facility] Last Admin: 08/28/17 10:47 Dose: 50 mg Pantoprazole Sodium (Protonix Ec Tab) 40 mg PO DAILY [facility] Last Admin: 08/28/17 10:47 Dose: 40 mg - Labs Labs: 08/29/17 07:01 08/28/17 08:13 PT 10.9 SECONDS (9.7-12.2) 08/26/17 11:30 INR 1.0 08/26/17 11:30 APTT 33 SECONDS (21-34) 08/26/17 11:30 - Constitutional Appears: No Acute Distress - Head Exam Head Exam: ATRAUMATIC, NORMOCEPHALIC - ENT Exam ENT Exam: Mucous Membranes Moist - Respiratory Exam Respiratory Exam: NORMAL BREATHING PATTERN - Cardiovascular Exam Cardiovascular Exam: REGULAR RHYTHM - Extremities Exam Additional comments: R foot dressing clean,dry, intact - Neurological Exam Neurological Exam: Alert, Awake, Oriented x3 - Psychiatric Exam Psychiatric exam: Normal Affect, Normal Mood - Skin Skin Exam: Dry, Warm Assessment and Plan - Assessment and Plan (Free Text) Plan: 87 M with R foot gangrene on 1st and 2nd digit OR Wednesday for R foot 1st and 2nd digit amputation with Podiatry Management as per primary Further rec as per Dr. Summer Rosas PGY1
--- NOTE | 2017-08-29 08:41 | CP.PCM.PN ---
<Regan Ascencio - Last Filed: 08/29/17 08:39> Subjective - Date & Time of Evaluation Date of Evaluation: 08/29/17 Time of Evaluation: 08:40 - Subjective Subjective: Medicine progress note for Dr. Young Patient seen and examined. Patient reports no acute complaints at this time. He is resting comfortably in bed. Patient denies foot pain at this time. Objective - Vital Signs/Intake and Output Vital Signs (last 24 hours): Temp Pulse Resp BP Pulse Ox 98.2 F 80 20 117/57 L 97 08/29/17 08:22 08/29/17 08:22 08/29/17 08:22 08/29/17 08:22 08/29/17 08:22 Intake and Output: 08/29/17 08/29/17 06:59 18:59 Intake Total 100 Balance 100 - Medications Medications: Current Medications Amlodipine Besylate (Norvasc) 10 mg PO DAILY [facility] Last Admin: 08/28/17 10:47 Dose: 10 mg Aspirin (Ecotrin) 81 mg PO DAILY [facility] Last Admin: 08/28/17 10:47 Dose: 81 mg Clopidogrel Bisulfate (Plavix) 75 mg PO DAILY [facility] Last Admin: 08/28/17 10:47 Dose: 75 mg Dextrose (Dextrose 50% Inj) 0 ml IVP .STAT PRN; Protocol PRN Reason: Hypoglycemia Protocol Dextrose (Glutose 15) 0 gm PO .ONCE PRN; Protocol PRN Reason: Hypoglycemia Protocol Glucagon (Glucagen Diagnostic Kit) 0 mg IM .STAT PRN; Protocol PRN Reason: Hypoglycemia Protocol Heparin Sodium (Porcine) (Heparin) 5,000 units SC Q12 [facility] Last Admin: 08/26/17 21:54 Dose: 5,000 units Dextrose (Dextrose 5% In Water 1000 Ml) 1,000 mls @ 0 mls/hr IV .Q0M PRN; Protocol; Per Protocol PRN Reason: Hypoglycemia Protocol Insulin Aspart (Novolog) 0 unit SC ACHS [facility] PRN Reason: Protocol Last Admin: 08/29/17 07:39 Dose: Not Given Losartan Potassium (Cozaar) 50 mg PO DAILY [facility] Last Admin: 08/28/17 10:47 Dose: 50 mg Pantoprazole Sodium (Protonix Ec Tab) 40 mg PO DAILY [facility] Last Admin: 08/28/17 10:47 Dose: 40 mg - Labs Labs: 08/29/17 07:01 08/29/17 07:01 PT 10.9 SECONDS (9.7-12.2) 08/26/17 11:30 INR 1.0 08/26/17 11:30 APTT 33 SECONDS (21-34) 08/26/17 11:30 - Additional Findings Additional findings: - Constitutional Appears: No Acute Distress - Head Exam Head Exam: ATRAUMATIC, NORMAL INSPECTION - Eye Exam Eye Exam: EOMI, Normal appearance - ENT Exam ENT Exam: Mucous Membranes Moist - Respiratory Exam Respiratory Exam: Clear to Auscultation Bilateral, NORMAL BREATHING PATTERN. absent: Rales, Rhonchi, Wheezes, Respiratory Distress - Cardiovascular Exam Cardiovascular Exam: REGULAR RHYTHM, +S1, +S2 - GI/Abdominal Exam GI & Abdominal Exam: Soft, Normal Bowel Sounds. absent: Distended, Firm, Tenderness - Extremities Exam Extremities Exam: absent: Pedal Edema Additional comments: Left foot amputation Right foot- dressing clean, dry, intact - Neurological Exam Neurological Exam: Alert, Awake, Oriented x3 - Psychiatric Exam Psychiatric exam: Normal Affect, Normal Mood - Skin Skin Exam: Dry, Warm Assessment and Plan - Assessment and Plan (Free Text) Plan: 1) Gangrene of toe of right foot Podiatry consult: Dr. Meeks--> Help appreciated Vascular surgery consult, Dr. Wheeler---> Help appreciated * per Dr. Wheeler's note: CTA angio 08/27/17 - Images: * Arterial doppler: Common femoral artery and profunda femoral artery are normal. Runoff shows a patent peroneal artery. Anterior tibial artery has mild stenosis at the origin but is otherwise patent. The posterior tibial artery artery is mildly calcified which limits evaluation. Possible occlusion of the mid posterior tibial artery. SFA has mild stenosis in distal segment. Runoff shows a patent peroneal artery. Anterior tibial is occluded. The posterior tibial is mildly calcified and believed to be patent. * right foot X-ray: No plain radiographic evidence of osteomyelitis Procal: <0.05 Low Blood cx: negative Pre-op: * EKG: NSR * Chest X-ray: No active pulmonary disease * PT/INR/PTT:10.2/0.9/33 - From a medicine standpoint patient is stable for surgery On 08/27/17, patient underwent aortofemoral angiogram with selective catherization of right femoral artery, pathway atherectomy of popliteal artery and anterior tibial artery, balloon angioplasty of anterior tibial and popliteal artery Per podiatry, planned for amputation on Thursday 08/31 2) Acute kidney injury Improved NS @100mls/hr Monitor with morning labs Home medication: Metformin and Losartan potassium held 3) Hyperkalemia Improved Monitor 4) Diabetes mellitus HgbA1C: 6.2 Accuchecks ISS- Medium dose protocol hypoglycemia protocol Home medication: Metformin held due to BANDAR 5) Hypertension Home medication: * Norvasc 10mg PO daily 6) History of hyperlipidemia lipid panel: Triglycerides 106; Cholesterol 153; LDL 76; HDL 48 7) Prophylactic measure GI: Protonix 40mg PO daily DVT: SCDs, Heparin 5,000 units SC Q12 Diabetic diet Disposition: Per podiatry, planned for amputation on Thursday 08/31. Will discuss with Dr. Hannah Ascencio PGY-1 <Santana Young H - Last Filed: 08/29/17 09:46> Objective - Vital Signs/Intake and Output Vital Signs (last 24 hours): Temp Pulse Resp BP Pulse Ox 98.2 F 80 20 117/57 L 97 08/29/17 08:22 08/29/17 08:22 08/29/17 08:22 08/29/17 08:22 08/29/17 08:22 Intake and Output: 08/29/17 08/29/17 06:59 18:59 Intake Total 100 Balance 100 - Medications Medications: Current Medications Amlodipine Besylate (Norvasc) 10 mg PO DAILY [facility] Last Admin: 08/29/17 09:08 Dose: 10 mg Aspirin (Ecotrin) 81 mg PO DAILY [facility] Last Admin: 08/29/17 09:08 Dose: 81 mg Clopidogrel Bisulfate (Plavix) 75 mg PO DAILY [facility] Last Admin: 08/29/17 09:08 Dose: 75 mg Dextrose (Dextrose 50% Inj) 0 ml IVP .STAT PRN; Protocol PRN Reason: Hypoglycemia Protocol Dextrose (Glutose 15) 0 gm PO .ONCE PRN; Protocol PRN Reason: Hypoglycemia Protocol Glucagon (Glucagen Diagnostic Kit) 0 mg IM .STAT PRN; Protocol PRN Reason: Hypoglycemia Protocol Heparin Sodium (Porcine) (Heparin) 5,000 units SC Q12 [facility] Last Admin: 08/26/17 21:54 Dose: 5,000 units Dextrose (Dextrose 5% In Water 1000 Ml) 1,000 mls @ 0 mls/hr IV .Q0M PRN; Protocol; Per Protocol PRN Reason: Hypoglycemia Protocol Insulin Aspart (Novolog) 0 unit SC ACHS [facility] PRN Reason: Protocol Last Admin: 08/29/17 07:39 Dose: Not Given Losartan Potassium (Cozaar) 50 mg PO DAILY [facility] Last Admin: 08/29/17 09:08 Dose: 50 mg Pantoprazole Sodium (Protonix Ec Tab) 40 mg PO DAILY [facility] Last Admin: 08/29/17 09:08 Dose: 40 mg - Labs Labs: 08/29/17 07:01 08/29/17 07:01 PT 10.9 SECONDS (9.7-12.2) 08/26/17 11:30 INR 1.0 08/26/17 11:30 APTT 33 SECONDS (21-34) 08/26/17 11:30 Attending/Attestation - Attestation I have personally seen and examined this patient.: Yes I have fully participated in the care of the patient.: Yes I have reviewed all pertinent clinical information, including history, physical exam and plan: Yes Notes (Text): 08/29/17 09:45 Medical attending: Patient was seen and examined by me. Agree with the above note by the resident The patient was not in any acute distress Podiatry is planning on Wednesday to bring to the OR for the gangrenous right toe area Otherwise he looks fine today. No new news to report. Vital signs reviewed and are stable. thank you Santana Young
[2017-08-29] MEDS: Pantoprazole 40 mg EC Tab PO SCH (09:08)
--- NOTE | 2017-08-29 12:31 | CP.PCM.PN ---
Subjective - Date & Time of Evaluation Date of Evaluation: 08/29/17 Time of Evaluation: 12:30 - Subjective Subjective: Podiatry Progress Note - Dr. Meeks 87 y/o male seen at bedside this morning for right hallux and 2nd digit gangrene. Pt's family has been informed that pt is scheduled for amputation surgery Wednesday08/31/17 @ 7:45am. At present, pt is comfortable and in NAD. Pt says dressing has remained C/D/I. States he is not having any pain in the right foot at present. Denies F/C/N/V/CP/SOB Objective - Vital Signs/Intake and Output Vital Signs (last 24 hours): Temp Pulse Resp BP Pulse Ox 98.2 F 80 20 117/57 L 97 08/29/17 08:22 08/29/17 08:22 08/29/17 08:22 08/29/17 08:22 08/29/17 08:22 Intake and Output: 08/29/17 08/29/17 06:59 18:59 Intake Total 100 Balance 100 - Medications Medications: Current Medications Amlodipine Besylate (Norvasc) [address] [facility] Last Admin: 08/29/17 09:08 Dose: 10 mg Aspirin (Ecotrin) [address] [facility] Last Admin: 08/29/17 09:08 Dose: 81 mg Clopidogrel Bisulfate (Plavix) [address] [facility] Last Admin: 08/29/17 09:08 Dose: 75 mg Dextrose (Dextrose 50% Inj) 0 ml IVP .STAT PRN; Protocol PRN Reason: Hypoglycemia Protocol Dextrose (Glutose 15) 0 gm PO .ONCE PRN; Protocol PRN Reason: Hypoglycemia Protocol Glucagon (Glucagen Diagnostic Kit) 0 mg IM .STAT PRN; Protocol PRN Reason: Hypoglycemia Protocol Heparin Sodium (Porcine) (Heparin) 5,[address] [facility] Last Admin: 08/26/17 21:54 Dose: 5,000 units Dextrose (Dextrose 5% In Water 1000 Ml) 1,000 mls @ 0 mls/hr IV .Q0M PRN; Protocol; Per Protocol PRN Reason: Hypoglycemia Protocol Insulin Aspart (Novolog) [address] [facility] PRN Reason: Protocol Last Admin: 08/29/17 07:39 Dose: Not Given Losartan Potassium (Cozaar) [address] [facility] Last Admin: 08/29/17 09:08 Dose: 50 mg Pantoprazole Sodium (Protonix Ec Tab) 40 mg PO DAILY [facility] Last Admin: 08/29/17 09:08 Dose: 40 mg - Labs Labs: 08/29/17 07:01 08/29/17 07:01 PT 10.9 SECONDS (9.7-12.2) 08/26/17 11:30 INR 1.0 08/26/17 11:30 APTT 33 SECONDS (21-34) 08/26/17 11:30 - Constitutional Appears: Well, Non-toxic, No Acute Distress - Extremities Exam Additional comments: RLE focused exam: Vasc: DP/PT pulses non palpable. Temp gradient warm to cold. CFT delayed to digits 1 and 2; 3-4 sec to remaining digits. No pedal edema noted Derm: Gangrenous changes noted to right hallux and 2nd digit. No open lesions, no drainage, no purulence, no fluctuance Neuro: Protective sensation grossly diminished Ortho: Mild tenderness to right foot gangrenous digits - Neurological Exam Neurological Exam: Alert, Awake, Oriented x3 - Psychiatric Exam Psychiatric exam: Normal Affect, Normal Mood Assessment and Plan - Assessment and Plan (Free Text) Assessment: 87 year old male with right hallux & 2nd digit ischemia/ dry gangrene, secondary to PAD Plan: Pt seen and evaluated Discussed plan with attending Dr. Meeks Labs and vitals reviewed - afebrile, WBC 4.9 Cleaned right 1st and 2nd digits with saline and dressed with betadine and DSD Pt scheduled for OR Wednesday at 7:45am for 1st and 2nd digital amputations Medical clearance obtained, in chart Pt is s/p catheterization of R femoral artery, pathway atherectomy of R popliteal and ELROY and balloon angio of R popliteal and anterior tibial aa Pt to be NPO past midnight Wednesday night Anti coags to be held day prior to surgery Podiatry will continue to follow patient while in house
[2017-08-30] MEDS: (Novolog) Insulin Aspart, Recombinant 100 u/ml 10 ml vial SC SCH ×4 (08:26→21:40)
[2017-08-30] MEDS: Pantoprazole 40 mg EC Tab PO SCH (10:08)
--- NOTE | 2017-08-30 13:50 | CP.PCM.PN ---
Subjective - Date & Time of Evaluation Date of Evaluation: 08/30/17 Time of Evaluation: 06:55 - Subjective Subjective: Vascular surgery note for Dr. Aureliano Turk, PGY-1 Pt S & E at bedside this AM. Pt without complaints overnight, states that he keeps being told that podiatry will take him to OR tomorrow. No other statements. Objective - Vital Signs/Intake and Output Vital Signs (last 24 hours): Temp Pulse Resp BP Pulse Ox 98.4 F 84 20 145/64 98 08/30/17 07:00 08/30/17 07:00 08/30/17 07:00 08/30/17 07:00 08/30/17 07:00 Intake and Output: 08/30/17 08/30/17 06:59 18:59 Intake Total 150 Balance 150 - Medications Medications: Current Medications Amlodipine Besylate (Norvasc) 10 mg PO DAILY [facility] Last Admin: 08/30/17 10:08 Dose: 10 mg Aspirin (Ecotrin) 81 mg PO DAILY [facility] Last Admin: 08/30/17 10:08 Dose: 81 mg Clopidogrel Bisulfate (Plavix) 75 mg PO DAILY [facility] Last Admin: 08/30/17 10:08 Dose: 75 mg Dextrose (Dextrose 50% Inj) 0 ml IVP .STAT PRN; Protocol PRN Reason: Hypoglycemia Protocol Dextrose (Glutose 15) 0 gm PO .ONCE PRN; Protocol PRN Reason: Hypoglycemia Protocol Glucagon (Glucagen Diagnostic Kit) 0 mg IM .STAT PRN; Protocol PRN Reason: Hypoglycemia Protocol Heparin Sodium (Porcine) (Heparin) 5,000 units SC Q12 [facility] Last Admin: 08/26/17 21:54 Dose: 5,000 units Dextrose (Dextrose 5% In Water 1000 Ml) 1,000 mls @ 0 mls/hr IV .Q0M PRN; Protocol; Per Protocol PRN Reason: Hypoglycemia Protocol Insulin Aspart (Novolog) 0 unit SC ACHS [facility] PRN Reason: Protocol Last Admin: 08/30/17 11:59 Dose: Not Given Losartan Potassium (Cozaar) 50 mg PO DAILY [facility] Last Admin: 08/30/17 10:08 Dose: 50 mg Pantoprazole Sodium (Protonix Ec Tab) 40 mg PO DAILY [facility] Last Admin: 08/30/17 10:08 Dose: 40 mg - Labs Labs: 08/29/17 07:01 08/29/17 07:01 PT 10.9 SECONDS (9.7-12.2) 08/26/17 11:30 INR 1.0 08/26/17 11:30 APTT 33 SECONDS (21-34) 08/26/17 11:30 - Constitutional Appears: Non-toxic, No Acute Distress - Head Exam Head Exam: ATRAUMATIC, NORMAL INSPECTION, NORMOCEPHALIC - Eye Exam Eye Exam: EOMI, Normal appearance - ENT Exam ENT Exam: Mucous Membranes Moist, Normal Exam - Neck Exam Neck Exam: Full ROM, Normal Inspection - Respiratory Exam Respiratory Exam: NORMAL BREATHING PATTERN - Cardiovascular Exam Cardiovascular Exam: REGULAR RHYTHM, +S1, +S2 - GI/Abdominal Exam GI & Abdominal Exam: Soft. absent: Distended, Firm - Extremities Exam Extremities Exam: absent: Normal Inspection Additional comments: Left foot with transmetatarsal amputation-well healed Right foot with dressing in place- clean/dry/intact - Neurological Exam Neurological Exam: Alert, Awake, CN II-XII Intact, Oriented x3 - Psychiatric Exam Psychiatric exam: Normal Affect, Normal Mood - Skin Skin Exam: Dry, Intact, Normal Color, Warm Assessment and Plan - Assessment and Plan (Free Text) Assessment: 87M with R foot gangrene on 1st and 2nd digit Plan: Plan for OR 08/31 w/podiatry No vascular surgical intervention at this time Further mgmt as per primary and podiatry teams SAMINA attending Ros[place]e, PGY-1
[2017-08-30 13:51] LABS: BASO # 0.1 K/uL (0.0-0.2); BASO % 1.1 % (0.0-2.0); EOS % 0.4 % (0.0-4.0); HEMOGLOBIN 9.9 g/dL (12.0-18.0); LYMPH % 10.2 % (20.0-40.0); MEAN CELL VOLUME 93.9 fL (80.0-94.0); MEAN CORPUSCULAR HEMOGLOBIN 31.4 pg (27.0-31.0); MEAN CORPUSCULAR HGB CONC 33.4 g/dL (33.0-37.0); MEAN PLATELET VOLUME 9.3 fL (7.2-11.7); MONO # 0.8 K/uL (0.0-0.8); MONO % 8.4 % (0.0-10.0); NEUT # 7.6 K/uL (1.8-7.0); NEUT % 79.9 % (50.0-75.0); NRBC % 0.2 % (0.0-2.0); RBC 3.14 Mil/uL (4.40-5.90); RED CELL DISTRIBUTION WIDTH 13.9 % (11.5-14.5)
[2017-08-30 13:53] LABS: WHITE BLOOD COUNT 9.5 K/uL (4.8-10.8)
[2017-08-30 14:15] LABS: ALB/GLOB RATIO 1.1 (1.0-2.1)
--- NOTE | 2017-08-30 16:57 | CP.PCM.PN ---
<Leslie Archibald - Last Filed: 08/30/17 16:54> Subjective - Date & Time of Evaluation Date of Evaluation: 08/30/17 Time of Evaluation: 08:50 - Subjective Subjective: Patient seen and examined at bedside. Patient resting comfortably in bed with no new complaints at this time. No acute events overnight. Patient asking about surgery tomorrow and which toes will be amputated. I answered his questions and informed him not to eat anything past midnight. Objective - Vital Signs/Intake and Output Vital Signs (last 24 hours): Temp Pulse Resp BP Pulse Ox 98.0 F 91 H 20 143/64 99 08/30/17 15:36 08/30/17 15:36 08/30/17 15:36 08/30/17 15:36 08/30/17 15:36 Intake and Output: 08/30/17 08/30/17 06:59 18:59 Intake Total 150 450 Balance 150 450 - Medications Medications: Current Medications Amlodipine Besylate (Norvasc) 10 mg PO DAILY [facility] Last Admin: 08/30/17 10:08 Dose: 10 mg Aspirin (Ecotrin) 81 mg PO DAILY [facility] Last Admin: 08/30/17 10:08 Dose: 81 mg Clopidogrel Bisulfate (Plavix) 75 mg PO DAILY [facility] Last Admin: 08/30/17 10:08 Dose: 75 mg Dextrose (Dextrose 50% Inj) 0 ml IVP .STAT PRN; Protocol PRN Reason: Hypoglycemia Protocol Dextrose (Glutose 15) 0 gm PO .ONCE PRN; Protocol PRN Reason: Hypoglycemia Protocol Glucagon (Glucagen Diagnostic Kit) 0 mg IM .STAT PRN; Protocol PRN Reason: Hypoglycemia Protocol Heparin Sodium (Porcine) (Heparin) 5,000 units SC Q12 [facility] Last Admin: 08/26/17 21:54 Dose: 5,000 units Insulin Aspart (Novolog) 0 unit SC ACHS [facility] PRN Reason: Protocol Last Admin: 08/30/17 11:59 Dose: Not Given Losartan Potassium (Cozaar) 50 mg PO DAILY [facility] Last Admin: 08/30/17 10:08 Dose: 50 mg Pantoprazole Sodium (Protonix Ec Tab) 40 mg PO DAILY [facility] Last Admin: 08/30/17 10:08 Dose: 40 mg - Labs Labs: 08/30/17 13:40 08/30/17 13:40 PT 10.9 SECONDS (9.7-12.2) 08/26/17 11:30 INR 1.0 08/26/17 11:30 APTT 33 SECONDS (21-34) 08/26/17 11:30 - Additional Findings Additional findings: - Constitutional Appears: No Acute Distress - Head Exam Head Exam: ATRAUMATIC, NORMAL INSPECTION - Eye Exam Eye Exam: EOMI, Normal appearance - ENT Exam ENT Exam: Mucous Membranes Moist - Respiratory Exam Respiratory Exam: Clear to Auscultation Bilateral, NORMAL BREATHING PATTERN. absent: Rales, Rhonchi, Wheezes, Respiratory Distress - Cardiovascular Exam Cardiovascular Exam: REGULAR RHYTHM, +S1, +S2 - GI/Abdominal Exam GI & Abdominal Exam: Soft, Normal Bowel Sounds. absent: Distended, Firm, Tenderness - Extremities Exam Extremities Exam: absent: Pedal Edema Additional comments: Left foot amputation Right foot- dressing clean, dry, intact - Neurological Exam Neurological Exam: Alert, Awake, Oriented x3 - Psychiatric Exam Psychiatric exam: Normal Affect, Normal Mood - Skin Skin Exam: Dry, Warm Assessment and Plan - Assessment and Plan (Free Text) Plan: 1) Gangrene of toe of right foot Podiatry consult: Dr. Meeks, Help appreciated * planned for amputation on Thursday 08/31 Vascular surgery consult, Dr. Wheeler, Help appreciated * per Dr. Wheeler's note: CTA angio 08/27/17 * Aortofemoral angiogram with selective catherization of right femoral artery, pathway atherectomy of popliteal artery and anterior tibial artery, balloon angioplasty of anterior tibial and popliteal artery - Images: * Arterial doppler: Common femoral artery and profunda femoral artery are normal. Runoff shows a patent peroneal artery. Anterior tibial artery has mild stenosis at the origin but is otherwise patent. The posterior tibial artery artery is mildly calcified which limits evaluation. Possible occlusion of the mid posterior tibial artery. SFA has mild stenosis in distal segment. Runoff shows a patent peroneal artery. Anterior tibial is occluded. The posterior tibial is mildly calcified and believed to be patent. * right foot X-ray: No plain radiographic evidence of osteomyelitis Procal: <0.05 Low Blood cx: negative Pre-op: * EKG: NSR * Chest X-ray: No active pulmonary disease * PT/INR/PTT:10.2/0.9/33 - From a medicine standpoint patient is stable for surgery 2) Acute kidney injury Improved NS @100mls/hr Monitor with morning labs Home medication: Metformin and Losartan potassium held 3) Hyperkalemia Improved Monitor 4) Diabetes mellitus HgbA1C: 6.2 Accuchecks ISS- Medium dose protocol hypoglycemia protocol Home medication: Metformin held due to BANDAR 5) Hypertension Home medication: * Norvasc 10mg PO daily 6) History of hyperlipidemia lipid panel: Triglycerides 106; Cholesterol 153; LDL 76; HDL 48 7) Prophylactic measure GI: Protonix 40mg PO daily DVT: SCDs, Heparin 5,000 units SC Q12 Diabetic diet Disposition: Per podiatry, planned for amputation on Thursday 08/31. <Melissa Trujillo - Last Filed: 08/31/17 16:23> Objective - Vital Signs/Intake and Output Vital Signs (last 24 hours): Temp Pulse Resp BP Pulse Ox 98.8 F 69 20 124/61 96 08/31/17 15:18 08/31/17 15:18 08/31/17 15:18 08/31/17 15:18 08/31/17 15:18 Intake and Output: 08/31/17 08/31/17 06:59 18:59 Intake Total 750 Balance 750 - Medications Medications: Current Medications Acetaminophen (Tylenol 325mg Tab) 650 mg PO Q6 PRN PRN Reason: Pain, Mild (1-3) Amlodipine Besylate (Norvasc) 10 mg PO DAILY [facility] Last Admin: 08/31/17 10:56 Dose: 10 mg Aspirin (Ecotrin) 81 mg PO DAILY [facility] Last Admin: 08/30/17 10:08 Dose: 81 mg Clopidogrel Bisulfate (Plavix) 75 mg PO DAILY [facility] Last Admin: 08/31/17 10:56 Dose: 75 mg Dextrose (Dextrose 50% Inj) 0 ml IVP .STAT PRN; Protocol PRN Reason: Hypoglycemia Protocol Dextrose (Glutose 15) 0 gm PO .ONCE PRN; Protocol PRN Reason: Hypoglycemia Protocol Glucagon (Glucagen Diagnostic Kit) 0 mg IM .STAT PRN; Protocol PRN Reason: Hypoglycemia Protocol Heparin Sodium (Porcine) (Heparin) 5,000 units SC Q12 [facility] Last Admin: 08/26/17 21:54 Dose: 5,000 units Insulin Aspart (Novolog) 0 unit SC ACHS [facility] PRN Reason: Protocol Last Admin: 08/31/17 11:48 Dose: 3 unit Losartan Potassium (Cozaar) 50 mg PO DAILY [facility] Last Admin: 08/31/17 10:56 Dose: 50 mg Oxycodone/Acetaminophen (Percocet 5/325 Mg Tab) 1 tab PO Q4H PRN PRN Reason: Pain, moderate (4-7) Stop: 09/03/17 09:23 Oxycodone/Acetaminophen (Percocet 5/325 Mg Tab) 2 tab PO Q4H PRN PRN Reason: Pain, severe (8-10) Stop: 09/03/17 09:23 Pantoprazole Sodium (Protonix Ec Tab) 40 mg PO DAILY [facility] Last Admin: 08/31/17 10:55 Dose: 40 mg - Labs Labs: 08/31/17 11:38 08/31/17 11:38 PT 10.7 SECONDS (9.7-12.2) 08/30/17 22:34 INR 1.0 08/30/17 22:34 APTT 33 SECONDS (21-34) 08/26/17 11:30 Attending/Attestation - Attestation I have personally seen and examined this patient.: Yes I have fully participated in the care of the patient.: Yes I have reviewed all pertinent clinical information, including history, physical exam and plan: Yes Notes (Text): Seen and examined He is a pleasant male with no complain Going for surgery tomorrow D/W The resident and his family member at beds side I agree with the documentation of the assessment and the plan 08/31/17 16:22
--- NOTE | 2017-08-30 17:35 | CP.PCM.PN ---
Subjective - Date & Time of Evaluation Date of Evaluation: 08/30/17 Time of Evaluation: 17:20 - Subjective Subjective: Podiatry Progress Note - Dr. Meeks 87 y/o male seen at bedside for right hallux and 2nd digit gangrene. Pt is aware he is scheduled for amputation surgery tomorrow 08/31/17 @ 7:45am. At present, pt is comfortable and in NAD. Pt says dressing has remained C/D/I. States he is not having any pain in the right foot at present. Denies F/C/N/V/CP /SOB Objective - Vital Signs/Intake and Output Vital Signs (last 24 hours): Temp Pulse Resp BP Pulse Ox 98.0 F 91 H 20 143/64 99 08/30/17 15:36 08/30/17 15:36 08/30/17 15:36 08/30/17 15:36 08/30/17 15:36 Intake and Output: 08/30/17 08/30/17 06:59 18:59 Intake Total 150 450 Balance 150 450 - Medications Medications: Current Medications Amlodipine Besylate (Norvasc) 10 mg PO DAILY [facility] Last Admin: 08/30/17 10:08 Dose: 10 mg Aspirin (Ecotrin) 81 mg PO DAILY [facility] Last Admin: 08/30/17 10:08 Dose: 81 mg Clopidogrel Bisulfate (Plavix) 75 mg PO DAILY [facility] Last Admin: 08/30/17 10:08 Dose: 75 mg Dextrose (Dextrose 50% Inj) 0 ml IVP .STAT PRN; Protocol PRN Reason: Hypoglycemia Protocol Dextrose (Glutose 15) 0 gm PO .ONCE PRN; Protocol PRN Reason: Hypoglycemia Protocol Glucagon (Glucagen Diagnostic Kit) 0 mg IM .STAT PRN; Protocol PRN Reason: Hypoglycemia Protocol Heparin Sodium (Porcine) (Heparin) 5,000 units SC Q12 [facility] Last Admin: 08/26/17 21:54 Dose: 5,000 units Insulin Aspart (Novolog) 0 unit SC ACHS [facility] PRN Reason: Protocol Last Admin: 08/30/17 11:59 Dose: Not Given Losartan Potassium (Cozaar) 50 mg PO DAILY [facility] Last Admin: 08/30/17 10:08 Dose: 50 mg Pantoprazole Sodium (Protonix Ec Tab) 40 mg PO DAILY [facility] Last Admin: 08/30/17 10:08 Dose: 40 mg - Labs Labs: 08/30/17 13:40 08/30/17 13:40 PT 10.9 SECONDS (9.7-12.2) 08/26/17 11:30 INR 1.0 08/26/17 11:30 APTT 33 SECONDS (21-34) 08/26/17 11:30 - Constitutional Appears: Well, Non-toxic, No Acute Distress - Extremities Exam Additional comments: RLE focused exam: Vasc: DP/PT pulses non palpable. Temp gradient warm to cold. CFT delayed to digits 1 and 2; 3-4 sec to remaining digits. No pedal edema noted Derm: Gangrenous changes noted to right hallux and 2nd digit. No open lesions, no drainage, no purulence, no fluctuance Neuro: Protective sensation grossly diminished Ortho: Mild tenderness to right foot gangrenous digits - Neurological Exam Neurological Exam: Alert, Awake, Oriented x3 - Psychiatric Exam Psychiatric exam: Normal Affect, Normal Mood Assessment and Plan - Assessment and Plan (Free Text) Assessment: 87 year old male with right hallux & 2nd digit ischemia/ dry gangrene, secondary to PAD Plan: Pt seen and evaluated Discussed plan with attending Dr. Meeks Labs and vitals reviewed - afebrile, WBC 9.5 Cleaned right 1st and 2nd digits with saline and dressed with betadine and DSD Pt scheduled for OR tomorrow 08/31/17 at 7:45am for 1st and 2nd digital amputations Medical clearance obtained, in chart Pt placed NPO past midnight. Anti-coagulants held. Pt aware and accepts need for surgical intervention. risks, benefits, and complications for rigth to amputations discussed at length. Pt verbalizes understanding. No guarantees either given not implied. Podiatry will continue to follow patient while in house
[2017-08-30 22:44] LABS: PROTHROMBIN TIME 10.7 SECONDS (9.7-12.2)
[2017-08-31] MEDS ORDERED: ceFAZolin IV 2 gm in Dextrose 2 GM/50 ML BAG IVPB ONE (07:29)
[2017-08-31] MEDS ORDERED: Lidocaine 1% Inj (20ml) ONE (07:29)
[2017-08-31] MEDS ORDERED: Bupivacaine HCl 0.5% PF (10 ml) Inj ONE (07:29)
[2017-08-31] MEDS: (Novolog) Insulin Aspart, Recombinant 100 u/ml 10 ml vial SC SCH ×4 (07:42→21:23)
[2017-08-31] MEDS ORDERED: Propofol 10 mg/ml Inj (20 ML) ONE (08:03)
--- NOTE | 2017-08-31 09:02 | CP.PCM.PN ---
<Leslie Archibald - Last Filed: 08/31/17 09:49> Subjective - Date & Time of Evaluation Date of Evaluation: 08/31/17 Time of Evaluation: 07:30 - Subjective Subjective: Patient seen and examined at bedside. Patient resting comfortably in bed with no new complaints at this time. Patient is NPO for amputation of right 1st and 2nd toes this morning. He denies any pain besides this area and is having no SOB. Objective - Vital Signs/Intake and Output Vital Signs (last 24 hours): Temp Pulse Resp BP Pulse Ox 98.3 F 98 H 20 133/66 96 08/31/17 08:50 08/31/17 08:50 08/31/17 08:50 08/31/17 08:50 08/31/17 08:50 Intake and Output: 08/31/17 08/31/17 06:59 18:59 Intake Total 0 Balance 0 - Medications Medications: Current Medications Amlodipine Besylate (Norvasc) 10 mg PO DAILY [facility] Last Admin: 08/30/17 10:08 Dose: 10 mg Aspirin (Ecotrin) 81 mg PO DAILY [facility] Last Admin: 08/30/17 10:08 Dose: 81 mg Clopidogrel Bisulfate (Plavix) 75 mg PO DAILY [facility] Last Admin: 08/30/17 10:08 Dose: 75 mg Dextrose (Dextrose 50% Inj) 0 ml IVP .STAT PRN; Protocol PRN Reason: Hypoglycemia Protocol Dextrose (Glutose 15) 0 gm PO .ONCE PRN; Protocol PRN Reason: Hypoglycemia Protocol Glucagon (Glucagen Diagnostic Kit) 0 mg IM .STAT PRN; Protocol PRN Reason: Hypoglycemia Protocol Heparin Sodium (Porcine) (Heparin) 5,000 units SC Q12 [facility] Last Admin: 08/26/17 21:54 Dose: 5,000 units Insulin Aspart (Novolog) 0 unit SC ACHS [facility] PRN Reason: Protocol Last Admin: 08/31/17 07:42 Dose: Not Given Losartan Potassium (Cozaar) 50 mg PO DAILY [facility] Last Admin: 08/30/17 10:08 Dose: 50 mg Pantoprazole Sodium (Protonix Ec Tab) 40 mg PO DAILY [facility] Last Admin: 08/30/17 10:08 Dose: 40 mg - Labs Labs: 08/30/17 13:40 08/30/17 13:40 PT 10.7 SECONDS (9.7-12.2) 08/30/17 22:34 INR 1.0 08/30/17 22:34 APTT 33 SECONDS (21-34) 08/26/17 11:30 - Additional Findings Additional findings: - Constitutional Appears: No Acute Distress - Head Exam Head Exam: ATRAUMATIC, NORMAL INSPECTION - Eye Exam Eye Exam: EOMI, Normal appearance - ENT Exam ENT Exam: Mucous Membranes Moist - Respiratory Exam Respiratory Exam: Clear to Auscultation Bilateral, NORMAL BREATHING PATTERN. absent: Rales, Rhonchi, Wheezes, Respiratory Distress - Cardiovascular Exam Cardiovascular Exam: REGULAR RHYTHM, +S1, +S2 - GI/Abdominal Exam GI & Abdominal Exam: Soft, Normal Bowel Sounds. absent: Distended, Firm, Tenderness - Extremities Exam Extremities Exam: absent: Pedal Edema Additional comments: Left foot amputation Right foot- dressing clean, dry, intact - Neurological Exam Neurological Exam: Alert, Awake, Oriented x3 - Psychiatric Exam Psychiatric exam: Normal Affect, Normal Mood - Skin Skin Exam: Dry, Warm Assessment and Plan - Assessment and Plan (Free Text) Plan: Disposition: Amputation of right 1st and 2nd toes today (08/31). 1) Gangrene of toe of right foot Podiatry consult: Dr. Meeks, Help appreciated * 08/31: Amputation of 1st and 2nd toes of right foot * Pre-op: EKG: NSR, Chest X-ray: No active pulmonary disease, PT/INR/PTT:10.2/ 0.9/33, From a medicine standpoint patient is stable for surgery Vascular surgery consult, Dr. Wheeler, Help appreciated * 08/27/17: CT angio - Aortofemoral angiogram with selective catherization of right femoral artery, pathway atherectomy of popliteal artery and anterior tibial artery, balloon angioplasty of anterior tibial and popliteal artery Images: * Arterial doppler: Common femoral artery and profunda femoral artery are normal. Runoff shows a patent peroneal artery. Anterior tibial artery has mild stenosis at the origin but is otherwise patent. The posterior tibial artery artery is mildly calcified which limits evaluation. Possible occlusion of the mid posterior tibial artery. SFA has mild stenosis in distal segment. Runoff shows a patent peroneal artery. Anterior tibial is occluded. The posterior tibial is mildly calcified and believed to be patent. * right foot X-ray: No plain radiographic evidence of osteomyelitis Procal: <0.05 Low Blood cx: negative Meds: * Percocet * Dilaudid * Plavix 75mg daily 2) Acute kidney injury Improved NS @100mls/hr Monitor with morning labs Home medication: Metformin and Losartan potassium held 3) Hyperkalemia Improved Monitor 4) Diabetes mellitus HgbA1C: 6.2 Accuchecks ISS- Medium dose protocol hypoglycemia protocol Home medication: Metformin held due to BANDAR 5) Hypertension Home medication: * Norvasc 10mg PO daily 6) History of hyperlipidemia lipid panel: Triglycerides 106; Cholesterol 153; LDL 76; HDL 48 7) Prophylactic measure GI: Protonix 40mg PO daily DVT: SCDs, Heparin 5,000 units SC Q12 Diabetic diet <Melissa Trujillo - Last Filed: 09/01/17 12:04> Objective - Vital Signs/Intake and Output Vital Signs (last 24 hours): Temp Pulse Resp BP Pulse Ox 98.4 F 67 20 143/67 96 09/01/17 08:24 09/01/17 08:24 09/01/17 08:24 09/01/17 08:24 09/01/17 11:19 Intake and Output: 09/01/17 09/01/17 06:59 18:59 Intake Total 180 Balance 180 - Medications Medications: Current Medications Acetaminophen (Tylenol 325mg Tab) 650 mg PO Q6 PRN PRN Reason: Pain, Mild (1-3) Amlodipine Besylate (Norvasc) 10 mg PO DAILY [facility] Last Admin: 09/01/17 10:03 Dose: 10 mg Aspirin (Ecotrin) 81 mg PO DAILY [facility] Last Admin: 09/01/17 10:03 Dose: 81 mg Clopidogrel Bisulfate (Plavix) 75 mg PO DAILY [facility] Last Admin: 09/01/17 10:03 Dose: 75 mg Dextrose (Dextrose 50% Inj) 0 ml IVP .STAT PRN; Protocol PRN Reason: Hypoglycemia Protocol Dextrose (Glutose 15) 0 gm PO .ONCE PRN; Protocol PRN Reason: Hypoglycemia Protocol Glucagon (Glucagen Diagnostic Kit) 0 mg IM .STAT PRN; Protocol PRN Reason: Hypoglycemia Protocol Heparin Sodium (Porcine) (Heparin) 5,000 units SC Q12 [facility] Last Admin: 09/01/17 10:03 Dose: 5,000 units Insulin Aspart (Novolog) 0 unit SC ACHS [facility] PRN Reason: Protocol Last Admin: 09/01/17 07:38 Dose: Not Given Losartan Potassium (Cozaar) 50 mg PO DAILY [facility] Last Admin: 09/01/17 10:03 Dose: 50 mg Oxycodone/Acetaminophen (Percocet 5/325 Mg Tab) 1 tab PO Q4H PRN PRN Reason: Pain, moderate (4-7) Stop: 09/03/17 09:23 Last Admin: 09/01/17 08:13 Dose: 1 tab Oxycodone/Acetaminophen (Percocet 5/325 Mg Tab) 2 tab PO Q4H PRN PRN Reason: Pain, severe (8-10) Stop: 09/03/17 09:23 Pantoprazole Sodium (Protonix Ec Tab) 40 mg PO DAILY [facility] Last Admin: 09/01/17 10:03 Dose: 40 mg - Labs Labs: 09/01/17 06:48 09/01/17 06:48 PT 10.7 SECONDS (9.7-12.2) 08/30/17 22:34 INR 1.0 08/30/17 22:34 APTT 33 SECONDS (21-34) 08/26/17 11:30 Attending/Attestation - Attestation I have personally seen and examined this patient.: Yes I have fully participated in the care of the patient.: Yes I have reviewed all pertinent clinical information, including history, physical exam and plan: Yes Notes (Text): Patient was seen and examined No complain,s/p toe amputation Denies pain Discussed with the resident continue asprin and 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
[2017-08-31] MEDS ORDERED: HYDROmorphone 0.5 mg/0.5 ml ISec IVP PRN (09:12)
--- NOTE | 2017-08-31 09:17 | PCM.SURG1 ---
Surgeon's Initial Post Op Note - Surgeon's Notes Surgeon: Dr. Lam Meeks Glassware Selector: Ade Hartman PGY1 Type of Anesthesia: IV Sedation, Local (27cc 1:1 mixture 1% lidocaine plain & 0.5% marcaine plain) Anesthesia Administered By: Dr. Carrillo Pre-Operative Diagnosis: 1) Right hallux dry gangrene 2) Right 2nd digit dry gangrene Operative Findings: See operative report. Materials: 4-0 nylon Post-Operative Diagnosis: Same as above Operation Performed: 1) Right hallux amputation with resection of 1st metatarsal head 2) Right 2nd digit partial amputation Specimen/Specimens Removed: 1) Right hallux and 1st metatarsal head articular cartilage 2) Right 2nd digit Estimated Blood Loss: EBL {In ML}: 10 Blood Products Given: N/A Drains Used: No Drains Post-Op Condition: Good Date of Surgery/Procedure: 08/31/17 Time of Surgery/Procedure: 09:18
[2017-08-31] MEDS ORDERED: Oxycodone/Acetaminophen 5/325 mg Tab PO PRN (09:22)
[2017-08-31] MEDS: Pantoprazole 40 mg EC Tab PO SCH (10:55)
[2017-08-31 11:48] LABS: EOS % 0.3 % (0.0-4.0); HEMOGLOBIN 9.5 g/dL (12.0-18.0); LYMPH # 0.6 K/uL (1.0-4.3); MEAN CELL VOLUME 93.6 fL (80.0-94.0); MEAN CORPUSCULAR HEMOGLOBIN 31.8 pg (27.0-31.0); MEAN CORPUSCULAR HGB CONC 33.9 g/dL (33.0-37.0); MEAN PLATELET VOLUME 9.2 fL (7.2-11.7); MONO # 0.5 K/uL (0.0-0.8); MONO % 10.7 % (0.0-10.0); NEUT # 3.4 K/uL (1.8-7.0); RBC 2.99 Mil/uL (4.40-5.90); RED CELL DISTRIBUTION WIDTH 13.9 % (11.5-14.5); WHITE BLOOD COUNT 4.6 K/uL (4.8-10.8)
[2017-08-31 12:14] LABS: ALB/GLOB RATIO 1.1 (1.0-2.1); ALBUMIN 3.6 g/dL (3.5-5.0); CALCIUM 8.9 mg/dl (8.6-10.4)
[2017-08-31 15:19] VITALS: RESP 20
--- NOTE | 2017-08-31 16:46 | RAD ---
PROCEDURE: Right Foot Radiographs. HISTORY: s/p right foot 1st 2nd digit amputations COMPARISON: 08/24/2017 FINDINGS: BONES: Interval changes: Status post amputation distal 1st metatarsal level. Sesamoid bones intact. As post amputation 2nd digit mid proximal phalangeal level No periosteal reaction JOINTS: Tibiotalar joint arthrosis SOFT TISSUES: Soft tissue post amputation changes no gas-forming cellulitis. Extensive arterial vascular calcifications OTHER FINDINGS: None. IMPRESSION: Postop change
[2017-09-01 07:00] LABS: BASO % 0.9 % (0.0-2.0); EOS % 0.8 % (0.0-4.0); HEMOGLOBIN 10.3 g/dL (12.0-18.0); LYMPH % 19.8 % (20.0-40.0); MEAN CELL VOLUME 92.9 fL (80.0-94.0); MEAN CORPUSCULAR HEMOGLOBIN 31.7 pg (27.0-31.0); MEAN CORPUSCULAR HGB CONC 34.1 g/dL (33.0-37.0); MEAN PLATELET VOLUME 9.2 fL (7.2-11.7); MONO # 0.7 K/uL (0.0-0.8); MONO % 13.2 % (0.0-10.0); NEUT # 3.2 K/uL (1.8-7.0); NEUT % 65.3 % (50.0-75.0); RBC 3.23 Mil/uL (4.40-5.90); RED CELL DISTRIBUTION WIDTH 13.8 % (11.5-14.5)
--- NOTE | 2017-09-01 07:16 | OP ---
PROCEDURE DATE: 08/31/2017 SURGEON: Dr. Lam Meeks DPM PROPERTY MAINTENANCE SUPERVISOR: Angela Hartman DPM, PGY1. ANESTHESIOLOGIST: Giovanna Carrillo MD TYPE OF ANESTHESIA: IV sedation with local, 27 mL of 1:1 mixture of 1% lidocaine plain and 0.5% Marcaine plain. PREOPERATIVE DIAGNOSES: 1. Right hallux dry gangrene. 2. Right second digit dry gangrene. POSTOPERATIVE DIAGNOSES: 1. Right hallux dry gangrene. 2. Right second digit dry gangrene. NAME OF THE PROCEDURES: 1. Right hallux amputation with resection of first metatarsal head. 2. Right second digit partial amputation. INDICATIONS: The patient is an 87-year-old male with the above diagnoses. The patient has exhausted all conservative treatment at this time and now request surgical intervention. The patient signed the consent after careful explanation of risks, benefits, alternatives, and complications of the procedure and wishes to proceed. No guarantees were given nor implied. PREPARATION: The patient was brought into the operating room and placed on the operating room table in a supine position. A time-out was performed for identification of the correct patient and procedure. After the induction of IV sedation, approximately 27 mL of 1:1 mixture of lidocaine plain and 0.5% Marcaine plain were administered in a digital block and Marsh block technique. The right foot was then prepped and draped in normal sterile manner and the procedure began. DESCRIPTION OF THE PROCEDURE: 1. RIGHT HALLUX AMPUTATION WITH RESECTION OF FIRST METATARSAL HEAD: Attention was directed to the right hallux where a medially based racquet-type incision was made extending from the medial aspect of the first metatarsal and around the hallux using a 15 blade. The incision was extended down through subcutaneous layers to the level of bone. Using a bone clamp to stabilize the distal hallucal tuft, the hallux was then disarticulated at the level of the first metatarsophalangeal joint. At this time, the hallux was passed off from the operative field to be sent to Pathology. The amputation site was noted to have healthy, bleeding tissue. Skin margins were then debulked to create a suitable flap for closure. Next, utilizing a sagittal saw, the articular cartilage of the first metatarsal head was resected, passed off the operative field and was sent to Pathology. The surgical site was then irrigated with copious amounts of sterile saline. 2. RIGHT SECOND DIGIT PARTIAL AMPUTATION: Attention was directed to the right second digit, where an elliptical incision was made just proximal to the PIPJ. The incision was made extending from the dorsal aspect of the second digit to the plantar aspect utilizing a 15 blade. The incision was extended down through subcutaneous layers to the level of the bone using a bone clamp to stabilize the distal tuft. The second digit was disarticulated at the level of the PIPJ. At this time, the second digit was passed off the operative field to be sent to Pathology. Next, using a sagittal saw, the distal half of the proximal phalanx was transected, passed off the operative field to be sent to Pathology. The amputation site was noted to have healthy, bleeding tissue Using a fresh 15 blade, skin margins were debulked to create suitable flap for closure. The second digit was then irrigated with copious amounts of sterile saline. Directing attention to the first ray amputation site, utilizing 4-0 nylon, the skin edges were reapproximated using simple interrupted suture technique. Next, directing attention to the right second digit, the second digit surgical site, skin edges were reapproximated from distal to plantar using a simple interrupted suture technique. The suture sites were then dressed with Xeroform, sterile gauze, Ralph, and a loosely wrapped Kerlix. POSTOPERATIVE CONDITION: The patient tolerated the procedure and anesthesia well and was escorted to the recovery room with vital signs stable and neurovascular status intact to the right foot. The patient is to remain nonweightbearing to the right lower extremity. The patient will remain in-house and Podiatry will continue to follow. Angela Hartman DPM Lam Meeks DPM ERIC
[2017-09-01 07:23] LABS: ALB/GLOB RATIO 1.1 (1.0-2.1); ALBUMIN 3.5 g/dL (3.5-5.0); CALCIUM 8.1 mg/dl (8.6-10.4); MAGNESIUM 1.9 mg/dL (1.6-2.3)
[2017-09-01] MEDS: (Novolog) Insulin Aspart, Recombinant 100 u/ml 10 ml vial SC SCH ×4 (07:38→21:51)
[2017-09-01] MEDS: Oxycodone/Acetaminophen 5/325 mg Tab PO PRN ×2 (08:13→18:42)
[2017-09-01] MEDS: Pantoprazole 40 mg EC Tab PO SCH (10:03)
--- NOTE | 2017-09-01 10:18 | CP.PCM.PN ---
<Leslie Archibald - Last Filed: 09/01/17 14:07> Subjective - Date & Time of Evaluation Date of Evaluation: 09/01/17 Time of Evaluation: 10:15 - Subjective Subjective: Patient seen and examined at bedside. Patient resting comfortably in bed with no new complaints at this time. Patient is having some pain at the surgery site and is asking for some pain meds. He denies chest pain, SOB, abdominal pain, N&V , diarrhea, leg pain, and leg swelling. Objective - Vital Signs/Intake and Output Vital Signs (last 24 hours): Temp Pulse Resp BP Pulse Ox 98.4 F 67 20 143/67 96 09/01/17 08:24 09/01/17 08:24 09/01/17 08:24 09/01/17 08:24 09/01/17 08:24 Intake and Output: 09/01/17 09/01/17 06:59 18:59 Intake Total 180 Balance 180 - Medications Medications: Current Medications Acetaminophen (Tylenol 325mg Tab) 650 mg PO Q6 PRN PRN Reason: Pain, Mild (1-3) Amlodipine Besylate (Norvasc) 10 mg PO DAILY [facility] Last Admin: 09/01/17 10:03 Dose: 10 mg Aspirin (Ecotrin) 81 mg PO DAILY [facility] Last Admin: 09/01/17 10:03 Dose: 81 mg Clopidogrel Bisulfate (Plavix) 75 mg PO DAILY [facility] Last Admin: 09/01/17 10:03 Dose: 75 mg Dextrose (Dextrose 50% Inj) 0 ml IVP .STAT PRN; Protocol PRN Reason: Hypoglycemia Protocol Dextrose (Glutose 15) 0 gm PO .ONCE PRN; Protocol PRN Reason: Hypoglycemia Protocol Glucagon (Glucagen Diagnostic Kit) 0 mg IM .STAT PRN; Protocol PRN Reason: Hypoglycemia Protocol Heparin Sodium (Porcine) (Heparin) 5,000 units SC Q12 [facility] Last Admin: 09/01/17 10:03 Dose: 5,000 units Insulin Aspart (Novolog) 0 unit SC ACHS [facility] PRN Reason: Protocol Last Admin: 09/01/17 07:38 Dose: Not Given Losartan Potassium (Cozaar) 50 mg PO DAILY [facility] Last Admin: 09/01/17 10:03 Dose: 50 mg Oxycodone/Acetaminophen (Percocet 5/325 Mg Tab) 1 tab PO Q4H PRN PRN Reason: Pain, moderate (4-7) Stop: 09/03/17 09:23 Last Admin: 09/01/17 08:13 Dose: 1 tab Oxycodone/Acetaminophen (Percocet 5/325 Mg Tab) 2 tab PO Q4H PRN PRN Reason: Pain, severe (8-10) Stop: 09/03/17 09:23 Pantoprazole Sodium (Protonix Ec Tab) 40 mg PO DAILY [facility] Last Admin: 09/01/17 10:03 Dose: 40 mg - Labs Labs: 09/01/17 06:48 09/01/17 06:48 PT 10.7 SECONDS (9.7-12.2) 08/30/17 22:34 INR 1.0 08/30/17 22:34 APTT 33 SECONDS (21-34) 08/26/17 11:30 - Additional Findings Additional findings: - Constitutional Appears: No Acute Distress - Head Exam Head Exam: ATRAUMATIC, NORMAL INSPECTION - Eye Exam Eye Exam: EOMI, Normal appearance - ENT Exam ENT Exam: Mucous Membranes Moist - Respiratory Exam Respiratory Exam: Clear to Auscultation Bilateral, NORMAL BREATHING PATTERN. absent: Rales, Rhonchi, Wheezes, Respiratory Distress - Cardiovascular Exam Cardiovascular Exam: REGULAR RHYTHM, +S1, +S2 - GI/Abdominal Exam GI & Abdominal Exam: Soft, Normal Bowel Sounds. absent: Distended, Firm, Tenderness - Extremities Exam Extremities Exam: absent: Pedal Edema Additional comments: Left foot amputation Right foot- dressing clean, dry, intact - Neurological Exam Neurological Exam: Alert, Awake, Oriented x3 - Psychiatric Exam Psychiatric exam: Normal Affect, Normal Mood - Skin Skin Exam: Dry, Warm Assessment and Plan - Assessment and Plan (Free Text) Plan: Disposition: Amputation of right 1st and 2nd toes today (08/31). 1) Gangrene of toe of right foot Podiatry consult: Dr. Meeks, Help appreciated * 08/31: Amputation of 1st and 2nd toes of right foot * Pre-op: EKG: NSR, Chest X-ray: No active pulmonary disease, PT/INR/PTT:10.2/ 0.9/33, From a medicine standpoint patient is stable for surgery Vascular surgery consult, Dr. Wheeler, Help appreciated * 08/27/17: CT angio - Aortofemoral angiogram with selective catherization of right femoral artery, pathway atherectomy of popliteal artery and anterior tibial artery, balloon angioplasty of anterior tibial and popliteal artery Images: * Arterial doppler: Common femoral artery and profunda femoral artery are normal. Runoff shows a patent peroneal artery. Anterior tibial artery has mild stenosis at the origin but is otherwise patent. The posterior tibial artery artery is mildly calcified which limits evaluation. Possible occlusion of the mid posterior tibial artery. SFA has mild stenosis in distal segment. Runoff shows a patent peroneal artery. Anterior tibial is occluded. The posterior tibial is mildly calcified and believed to be patent. * right foot X-ray: No plain radiographic evidence of osteomyelitis Procal: <0.05 Low Blood cx: negative Meds: * Percocet * Dilaudid * Plavix 75mg daily 2) Acute kidney injury Improved NS @100mls/hr Monitor with morning labs Home medication: Metformin and Losartan potassium held 3) Hyperkalemia Improved Monitor 4) Diabetes mellitus HgbA1C: 6.2 Accuchecks ISS- Medium dose protocol hypoglycemia protocol Home medication: Metformin held due to BANDAR 5) Hypertension Home medication: * Norvasc 10mg PO daily 6) History of hyperlipidemia lipid panel: Triglycerides 106; Cholesterol 153; LDL 76; HDL 48 7) Prophylactic measure GI: Protonix 40mg PO daily DVT: SCDs, Heparin 5,000 units SC Q12 Diabetic diet <Melissa Trujillo - Last Filed: 09/02/17 15:46> Objective - Vital Signs/Intake and Output Vital Signs (last 24 hours): Temp Pulse Resp BP Pulse Ox 99.3 F 76 20 131/56 L 96 09/02/17 15:00 09/02/17 15:00 09/02/17 15:00 09/02/17 15:00 09/02/17 07:00 Intake and Output: 09/02/17 09/02/17 06:59 18:59 Intake Total 400 Balance 400 - Medications Medications: Current Medications Acetaminophen (Tylenol 325mg Tab) 650 mg PO Q6 PRN PRN Reason: Pain, Mild (1-3) Amlodipine Besylate (Norvasc) 10 mg PO DAILY [facility] Last Admin: 09/02/17 10:52 Dose: 10 mg Aspirin (Ecotrin) 81 mg PO DAILY [facility] Last Admin: 09/02/17 10:52 Dose: 81 mg Clopidogrel Bisulfate (Plavix) 75 mg PO DAILY [facility] Last Admin: 09/02/17 10:52 Dose: 75 mg Dextrose (Dextrose 50% Inj) 0 ml IVP .STAT PRN; Protocol PRN Reason: Hypoglycemia Protocol Dextrose (Glutose 15) 0 gm PO .ONCE PRN; Protocol PRN Reason: Hypoglycemia Protocol Glucagon (Glucagen Diagnostic Kit) 0 mg IM .STAT PRN; Protocol PRN Reason: Hypoglycemia Protocol Heparin Sodium (Porcine) (Heparin) 5,000 units SC Q12 [facility] Last Admin: 09/02/17 10:52 Dose: 5,000 units Insulin Aspart (Novolog) 0 unit SC ACHS [facility] PRN Reason: Protocol Last Admin: 09/02/17 12:19 Dose: 4 unit Losartan Potassium (Cozaar) 50 mg PO DAILY [facility] Last Admin: 09/02/17 10:52 Dose: 50 mg Oxycodone/Acetaminophen (Percocet 5/325 Mg Tab) 1 tab PO Q4H PRN PRN Reason: Pain, moderate (4-7) Stop: 09/03/17 09:23 Last Admin: 09/02/17 10:53 Dose: 1 tab Pantoprazole Sodium (Protonix Ec Tab) 40 mg PO DAILY [facility] Last Admin: 09/02/17 10:48 Dose: 40 mg - Labs Labs: 09/02/17 08:11 09/02/17 08:11 PT 10.7 SECONDS (9.7-12.2) 08/30/17 22:34 INR 1.0 08/30/17 22:34 APTT 33 SECONDS (21-34) 08/26/17 11:30 Attending/Attestation - Attestation I have personally seen and examined this patient.: Yes I have fully participated in the care of the patient.: Yes I have reviewed all pertinent clinical information, including history, physical exam and plan: Yes Notes (Text): Patient was seen and examined denies pain,no complain d/w the resident. Amputation of his toe today I agree with the documentation of the assessment and the plan.
--- NOTE | 2017-09-01 18:41 | CP.PCM.PN ---
Subjective - Date & Time of Evaluation Date of Evaluation: 09/01/17 Time of Evaluation: 12:10 - Subjective Subjective: Podiatry Progress Note - Dr. Meeks 87 y/o male seen at bedside concerning status 1 day s/p right hallux and 2nd digit amputation (DOS: 08/31/17). At present, pt is comfortable with right foot pain well controlled. Pt denies any acute overnight events including F/C/N/V/CP /SOB Objective - Vital Signs/Intake and Output Vital Signs (last 24 hours): Temp Pulse Resp BP Pulse Ox 98.1 F 66 20 118/54 L 96 09/01/17 15:52 09/01/17 15:52 09/01/17 15:52 09/01/17 15:52 09/01/17 15:52 Intake and Output: 09/01/17 09/01/17 06:59 18:59 Intake Total 680 Balance 680 - Medications Medications: Current Medications Acetaminophen (Tylenol 325mg Tab) 650 mg PO Q6 PRN PRN Reason: Pain, Mild (1-3) Amlodipine Besylate (Norvasc) 10 mg PO DAILY [facility] Last Admin: 09/01/17 10:03 Dose: 10 mg Aspirin (Ecotrin) 81 mg PO DAILY [facility] Last Admin: 09/01/17 10:03 Dose: 81 mg Clopidogrel Bisulfate (Plavix) 75 mg PO DAILY [facility] Last Admin: 09/01/17 10:03 Dose: 75 mg Dextrose (Dextrose 50% Inj) 0 ml IVP .STAT PRN; Protocol PRN Reason: Hypoglycemia Protocol Dextrose (Glutose 15) 0 gm PO .ONCE PRN; Protocol PRN Reason: Hypoglycemia Protocol Glucagon (Glucagen Diagnostic Kit) 0 mg IM .STAT PRN; Protocol PRN Reason: Hypoglycemia Protocol Heparin Sodium (Porcine) (Heparin) 5,000 units SC Q12 [facility] Last Admin: 09/01/17 10:03 Dose: 5,000 units Insulin Aspart (Novolog) 0 unit SC ACHS [facility] PRN Reason: Protocol Last Admin: 09/01/17 12:16 Dose: 3 unit Losartan Potassium (Cozaar) 50 mg PO DAILY [facility] Last Admin: 09/01/17 10:03 Dose: 50 mg Oxycodone/Acetaminophen (Percocet 5/325 Mg Tab) 1 tab PO Q4H PRN PRN Reason: Pain, moderate (4-7) Stop: 09/03/17 09:23 Last Admin: 09/01/17 08:13 Dose: 1 tab Oxycodone/Acetaminophen (Percocet 5/325 Mg Tab) 2 tab PO Q4H PRN PRN Reason: Pain, severe (8-10) Stop: 09/03/17 09:23 Pantoprazole Sodium (Protonix Ec Tab) 40 mg PO DAILY [facility] Last Admin: 09/01/17 10:03 Dose: 40 mg - Labs Labs: 09/01/17 06:48 09/01/17 06:48 PT 10.7 SECONDS (9.7-12.2) 08/30/17 22:34 INR 1.0 08/30/17 22:34 APTT 33 SECONDS (21-34) 08/26/17 11:30 - Constitutional Appears: Well, Non-toxic, No Acute Distress - Extremities Exam Additional comments: RLE focused exam: Dressing clean, dry, and intact, absent strikthough. Vasc: DP/PT pulses non palpable. Temp gradient warm to cold. CFT prompt digits 3 -5. Mild forefoot pedal edema noted. Derm: Right hallux and 2nd digit absent following amputation. All sutures are intact, surgical site absent signs of dehiscence. Sanginous grainage expressable , no signs of purulence. No surgical site maceration. No fluctuance Neuro: Protective sensation grossly diminished Ortho: No tenderness to palpation along surgical site. - Neurological Exam Neurological Exam: Alert, Awake, Oriented x3 Assessment and Plan - Assessment and Plan (Free Text) Assessment: 87 year old male POD# 1 s/p right hallux & 2nd digit amputation, secondary to PAD. (DOS: 08/31/17) Plan: Pt seen and evaluated. Discussed plan with attending Dr. Meeks Labs and vitals reviewed - afebrile, WBC=5.0. Cleaned amputation site with saline and dressed with betadine, xeroform, and DSD. All anticoagulants resumed. Continue pain control. tylenol 650mg q6h and percocet 5/325 q4h. Pt is stable from podiatry standpoint for discharge. Recommending transfer to subacute rehab facility for 3 weeks, in lieu of need for dressing change and closs monitoring and ambulation rehabilitation. Podiatry will continue to follow patient while in house
[2017-09-02] MEDS: Oxycodone/Acetaminophen 5/325 mg Tab PO PRN ×2 (05:55→10:53)
[2017-09-02] MEDS: (Novolog) Insulin Aspart, Recombinant 100 u/ml 10 ml vial SC SCH ×4 (07:48→22:08)
[2017-09-02 08:34] LABS: BASO % 0.5 % (0.0-2.0); EOS % 0.3 % (0.0-4.0); HEMOGLOBIN 9.9 g/dL (12.0-18.0); LYMPH # 0.8 K/uL (1.0-4.3); LYMPH % 12.3 % (20.0-40.0); MEAN CORPUSCULAR HEMOGLOBIN 31.2 pg (27.0-31.0); MEAN CORPUSCULAR HGB CONC 33.6 g/dL (33.0-37.0); MEAN PLATELET VOLUME 9.5 fL (7.2-11.7); MONO # 0.6 K/uL (0.0-0.8); MONO % 8.6 % (0.0-10.0); NEUT # 5.3 K/uL (1.8-7.0); NEUT % 78.3 % (50.0-75.0); NRBC % 0.2 % (0.0-2.0); RBC 3.16 Mil/uL (4.40-5.90); RED CELL DISTRIBUTION WIDTH 13.7 % (11.5-14.5); WHITE BLOOD COUNT 6.8 K/uL (4.8-10.8)
[2017-09-02 08:44] LABS: ALBUMIN 3.6 g/dL (3.5-5.0); CALCIUM 8.7 mg/dl (8.6-10.4); MAGNESIUM 1.9 mg/dL (1.6-2.3)
[2017-09-02] MEDS: Pantoprazole 40 mg EC Tab PO SCH (10:48)
--- NOTE | 2017-09-02 11:28 | CP.PCM.PN ---
<Leslie Archibald - Last Filed: 09/02/17 11:21> Subjective - Date & Time of Evaluation Date of Evaluation: 09/02/17 Time of Evaluation: 07:45 - Subjective Subjective: Patient seen and examined at bedside. No acute events overnight. Patient resting comfortably in bed with no new complaints at this time. Patient is having some pain at the surgery site and is asking for some pain meds. He denies chest pain, SOB, abdominal pain, N&V, diarrhea, leg pain, and leg swelling. Objective - Vital Signs/Intake and Output Vital Signs (last 24 hours): Temp Pulse Resp BP Pulse Ox 98.5 F 90 20 148/70 96 09/02/17 07:00 09/02/17 07:00 09/02/17 07:00 09/02/17 07:00 09/02/17 07:00 Intake and Output: 09/02/17 09/02/17 06:59 18:59 Intake Total 400 Balance 400 - Medications Medications: Current Medications Acetaminophen (Tylenol 325mg Tab) 650 mg PO Q6 PRN PRN Reason: Pain, Mild (1-3) Amlodipine Besylate (Norvasc) 10 mg PO DAILY [facility] Last Admin: 09/02/17 10:52 Dose: 10 mg Aspirin (Ecotrin) 81 mg PO DAILY [facility] Last Admin: 09/02/17 10:52 Dose: 81 mg Clopidogrel Bisulfate (Plavix) 75 mg PO DAILY [facility] Last Admin: 09/02/17 10:52 Dose: 75 mg Dextrose (Dextrose 50% Inj) 0 ml IVP .STAT PRN; Protocol PRN Reason: Hypoglycemia Protocol Dextrose (Glutose 15) 0 gm PO .ONCE PRN; Protocol PRN Reason: Hypoglycemia Protocol Glucagon (Glucagen Diagnostic Kit) 0 mg IM .STAT PRN; Protocol PRN Reason: Hypoglycemia Protocol Heparin Sodium (Porcine) (Heparin) 5,000 units SC Q12 [facility] Last Admin: 09/02/17 10:52 Dose: 5,000 units Insulin Aspart (Novolog) 0 unit SC ACHS [facility] PRN Reason: Protocol Last Admin: 09/02/17 07:48 Dose: Not Given Losartan Potassium (Cozaar) 50 mg PO DAILY [facility] Last Admin: 09/02/17 10:52 Dose: 50 mg Oxycodone/Acetaminophen (Percocet 5/325 Mg Tab) 1 tab PO Q4H PRN PRN Reason: Pain, moderate (4-7) Stop: 09/03/17 09:23 Last Admin: 09/02/17 10:53 Dose: 1 tab Pantoprazole Sodium (Protonix Ec Tab) 40 mg PO DAILY [facility] Last Admin: 09/02/17 10:48 Dose: 40 mg - Labs Labs: 09/02/17 08:11 09/02/17 08:11 PT 10.7 SECONDS (9.7-12.2) 08/30/17 22:34 INR 1.0 08/30/17 22:34 APTT 33 SECONDS (21-34) 08/26/17 11:30 - Additional Findings Additional findings: - Constitutional Appears: No Acute Distress - Head Exam Head Exam: ATRAUMATIC, NORMAL INSPECTION - Eye Exam Eye Exam: EOMI, Normal appearance - ENT Exam ENT Exam: Mucous Membranes Moist - Respiratory Exam Respiratory Exam: Clear to Auscultation Bilateral, NORMAL BREATHING PATTERN. absent: Rales, Rhonchi, Wheezes, Respiratory Distress - Cardiovascular Exam Cardiovascular Exam: REGULAR RHYTHM, +S1, +S2 - GI/Abdominal Exam GI & Abdominal Exam: Soft, Normal Bowel Sounds. absent: Distended, Firm, Tenderness - Extremities Exam Extremities Exam: absent: Pedal Edema Additional comments: Left foot amputation Right foot- dressing clean, dry, intact - Neurological Exam Neurological Exam: Alert, Awake, Oriented x3 - Psychiatric Exam Psychiatric exam: Normal Affect, Normal Mood - Skin Skin Exam: Dry, Warm Assessment and Plan - Assessment and Plan (Free Text) Plan: Disposition: s/p amputation of right 1st and 2nd toes POD#2 (08/31). Patient clear for discharge per podiatry, however, patient is waiting for placement in [facility]. 1) Gangrene of toe of right foot Podiatry consult: Dr. Meeks, Help appreciated * 08/31: Amputation of 1st and 2nd toes of right foot * Pre-op: EKG: NSR, Chest X-ray: No active pulmonary disease, PT/INR/PTT:10.2/ 0.9/33, From a medicine standpoint patient is stable for surgery Vascular surgery consult, Dr. Wheeler, Help appreciated * 08/27/17: CT angio - Aortofemoral angiogram with selective catherization of right femoral artery, pathway atherectomy of popliteal artery and anterior tibial artery, balloon angioplasty of anterior tibial and popliteal artery Images: * Arterial doppler: Common femoral artery and profunda femoral artery are normal. Runoff shows a patent peroneal artery. Anterior tibial artery has mild stenosis at the origin but is otherwise patent. The posterior tibial artery artery is mildly calcified which limits evaluation. Possible occlusion of the mid posterior tibial artery. SFA has mild stenosis in distal segment. Runoff shows a patent peroneal artery. Anterior tibial is occluded. The posterior tibial is mildly calcified and believed to be patent. * right foot X-ray: No plain radiographic evidence of osteomyelitis Procal: <0.05 Low Blood cx: negative Meds: * Percocet * Dilaudid * Plavix 75mg daily 2) Acute kidney injury Improved NS @100mls/hr Monitor with morning labs Home medication: Metformin and Losartan potassium held 3) Hyperkalemia Improved Monitor 4) Diabetes mellitus HgbA1C: 6.2 Accuchecks ISS- Medium dose protocol hypoglycemia protocol Home medication: Metformin held due to BANDAR 5) Hypertension Home medication: * Norvasc 10mg PO daily 6) History of hyperlipidemia lipid panel: Triglycerides 106; Cholesterol 153; LDL 76; HDL 48 7) Prophylactic measure GI: Protonix 40mg PO daily DVT: SCDs, Heparin 5,000 units SC Q12 Diabetic diet <Melissa Trujillo - Last Filed: 09/02/17 16:09> Objective - Vital Signs/Intake and Output Vital Signs (last 24 hours): Temp Pulse Resp BP Pulse Ox 99.3 F 76 20 131/56 L 96 09/02/17 15:00 09/02/17 15:00 09/02/17 15:00 09/02/17 15:00 09/02/17 07:00 Intake and Output: 09/02/17 09/02/17 06:59 18:59 Intake Total 400 Balance 400 - Medications Medications: Current Medications Acetaminophen (Tylenol 325mg Tab) 650 mg PO Q6 PRN PRN Reason: Pain, Mild (1-3) Amlodipine Besylate (Norvasc) 10 mg PO DAILY [facility] Last Admin: 09/02/17 10:52 Dose: 10 mg Aspirin (Ecotrin) 81 mg PO DAILY [facility] Last Admin: 09/02/17 10:52 Dose: 81 mg Clopidogrel Bisulfate (Plavix) 75 mg PO DAILY [facility] Last Admin: 09/02/17 10:52 Dose: 75 mg Dextrose (Dextrose 50% Inj) 0 ml IVP .STAT PRN; Protocol PRN Reason: Hypoglycemia Protocol Dextrose (Glutose 15) 0 gm PO .ONCE PRN; Protocol PRN Reason: Hypoglycemia Protocol Glucagon (Glucagen Diagnostic Kit) 0 mg IM .STAT PRN; Protocol PRN Reason: Hypoglycemia Protocol Heparin Sodium (Porcine) (Heparin) 5,000 units SC Q12 [facility] Last Admin: 09/02/17 10:52 Dose: 5,000 units Insulin Aspart (Novolog) 0 unit SC ACHS [facility] PRN Reason: Protocol Last Admin: 09/02/17 12:19 Dose: 4 unit Losartan Potassium (Cozaar) 50 mg PO DAILY [facility] Last Admin: 09/02/17 10:52 Dose: 50 mg Oxycodone/Acetaminophen (Percocet 5/325 Mg Tab) 1 tab PO Q4H PRN PRN Reason: Pain, moderate (4-7) Stop: 09/03/17 09:23 Last Admin: 09/02/17 10:53 Dose: 1 tab Pantoprazole Sodium (Protonix Ec Tab) 40 mg PO DAILY [facility] Last Admin: 09/02/17 10:48 Dose: 40 mg - Labs Labs: 09/02/17 08:11 09/02/17 08:11 PT 10.7 SECONDS (9.7-12.2) 08/30/17 22:34 INR 1.0 08/30/17 22:34 APTT 33 SECONDS (21-34) 08/26/17 11:30 Attending/Attestation - Attestation I have personally seen and examined this patient.: Yes I have fully participated in the care of the patient.: Yes I have reviewed all pertinent clinical information, including history, physical exam and plan: Yes Notes (Text): Patient has no complain. Refuses to go to rehab. Spoke to the patient with master control technician service,he refuses rehab. I spoke to the patient's with the help of Faroese speaking RN. patient's states that if he refuses no way to change him., She also wants him to go home with home care. d/w DR Meeks .He recommend partial weight bearing. Pt will re assess him before discharge home. D/W SW about [facility] for wound care .She was explained about his non weight bearing status and need d/w the resident about the discharge plan I agree with the documentation of the resident's assessment and the plan 09/02/17 16:02
[2017-09-02 23:48] VITALS: O2SAT 98
[2017-09-03] MEDS: Oxycodone/Acetaminophen 5/325 mg Tab PO PRN (06:15)
[2017-09-03 07:42] VITALS: BP 127/60; PULSE 84; TEMP 98.2
[2017-09-03 08:33] LABS: BASO % 0.6 % (0.0-2.0); EOS % 0.1 % (0.0-4.0); HEMOGLOBIN 8.8 g/dL (12.0-18.0); MEAN CELL VOLUME 93.5 fL (80.0-94.0); MEAN CORPUSCULAR HEMOGLOBIN 31.7 pg (27.0-31.0); MEAN CORPUSCULAR HGB CONC 33.9 g/dL (33.0-37.0); MEAN PLATELET VOLUME 9.3 fL (7.2-11.7); MONO # 0.6 K/uL (0.0-0.8); MONO % 7.8 % (0.0-10.0); NEUT # 6.6 K/uL (1.8-7.0); NEUT % 79.5 % (50.0-75.0); RBC 2.78 Mil/uL (4.40-5.90); RED CELL DISTRIBUTION WIDTH 13.7 % (11.5-14.5); WHITE BLOOD COUNT 8.3 K/uL (4.8-10.8)
[2017-09-03] MEDS: (Novolog) Insulin Aspart, Recombinant 100 u/ml 10 ml vial SC SCH (08:34)
[2017-09-03 08:42] LABS: ALBUMIN 3.5 g/dL (3.5-5.0); CALCIUM 8.7 mg/dl (8.6-10.4); MAGNESIUM 2.1 mg/dL (1.6-2.3)
[2017-09-03] MEDS: Pantoprazole 40 mg EC Tab PO SCH (09:49)
--- NOTE | 2017-09-03 14:38 | CP.PCM.DIS ---
<Leslie Archibald - Last Filed: 09/03/17 14:22> Provider - Provider Date of Admission: 08/24/17 19:57 Attending physician: Santana Young DO Primary care physician: Dr. Malone Consults: Dr. Jeanna Wheeler Time Spent in preparation of Discharge (in minutes): 35 Diagnosis - Discharge Diagnosis (1) Acute kidney injury Status: Acute (2) Diabetes mellitus Status: Chronic (3) Gangrene of toe of right foot Status: Acute (4) History of hyperlipidemia Status: Chronic (5) Hyperkalemia Status: Acute (6) Hypertension Status: Chronic Hospital Course - Lab Results Lab Results: Micro Results 08/24/17 18:00 Blood Blood Culture - Final NO GROWTH AFTER 5 DAYS 08/24/17 18:00 Blood Gram Stain - Final TEST NOT PERFORMED 08/24/17 18:30 Blood Blood Culture - Final NO GROWTH AFTER 5 DAYS 08/24/17 18:30 Blood Gram Stain - Final TEST NOT PERFORMED Most Recent Lab Values WBC 8.3 K/uL (4.8-10.8) 09/03/17 08:22 RBC 2.78 Mil/uL (4.40-5.90) L 09/03/17 08:22 Hgb 8.8 g/dL (12.0-18.0) L 09/03/17 08:22 Hct 26.0 % (35.0-51.0) L 09/03/17 08:22 MCV 93.5 fL (80.0-94.0) 09/03/17 08:22 MCH 31.7 pg (27.0-31.0) H 09/03/17 08:22 MCHC 33.9 g/dL (33.0-37.0) 09/03/17 08:22 RDW 13.7 % (11.5-14.5) 09/03/17 08:22 Plt Count 275 K/uL (130-400) 09/03/17 08:22 MPV 9.3 fL (7.2-11.7) 09/03/17 08:22 Neut % (Auto) 79.5 % (50.0-75.0) H 09/03/17 08:22 Lymph % (Auto) 12.0 % (20.0-40.0) L 09/03/17 08:22 Whitman % (Auto) 7.8 % (0.0-10.0) 09/03/17 08:22 Eos % (Auto) 0.1 % (0.0-4.0) 09/03/17 08:22 Baso % (Auto) 0.6 % (0.0-2.0) 09/03/17 08:22 Neut # (Auto) 6.6 K/uL (1.8-7.0) 09/03/17 08:22 Lymph # (Auto) 1.0 K/uL (1.0-4.3) 09/03/17 08:22 Whitman # (Auto) 0.6 K/uL (0.0-0.8) 09/03/17 08:22 Eos # (Auto) 0.0 K/uL (0.0-0.7) 09/03/17 08:22 Baso # (Auto) 0.0 K/uL (0.0-0.2) 09/03/17 08:22 Neutrophils % (Manual) 83 % (50-75) H 08/28/17 08:13 Lymphocytes % (Manual) 3 % (20-40) L 08/28/17 08:13 Monocytes % (Manual) 13 % (0-10) H 08/28/17 08:13 Eosinophils % (Manual) 1 % (0-4) 08/28/17 08:13 Platelet Estimate Normal (NORMAL) 08/28/17 08:13 Anisocytosis (manual) Slight 08/28/17 08:13 PT 10.7 SECONDS (9.7-12.2) 08/30/17 22:34 INR 1.0 08/30/17 22:34 APTT 33 SECONDS (21-34) 08/26/17 11:30 Sodium 137 mmol/L (132-148) 09/03/17 08:22 Potassium 4.0 mmol/L (3.6-5.2) 09/03/17 08:22 Chloride 106 mmol/L (98-107) 09/03/17 08:22 Carbon Dioxide 23 mmol/L (22-30) 09/03/17 08:22 Anion Gap 12 (10-20) 09/03/17 08:22 BUN 36 mg/dL (9-20) H 09/03/17 08:22 Creatinine 1.7 mg/dL (0.8-1.5) H 09/03/17 08:22 Est GFR ( Amer) 47 09/03/17 08:22 Est GFR (Non-Af Amer) 38 09/03/17 08:22 POC Glucose (mg/dL) 157 mg/dL (65-110) H 09/03/17 07:26 Random Glucose 169 mg/dL (75-110) H 09/03/17 08:22 Hemoglobin A1c 6.2 % (4.2-6.5) 08/24/17 21:44 Calcium 8.7 mg/dl (8.6-10.4) 09/03/17 08:22 Phosphorus 3.4 mg/dL (2.5-4.5) 08/29/17 07:01 Magnesium 2.1 mg/dL (1.6-2.3) 09/03/17 08:22 Total Bilirubin 0.3 mg/dL (0.2-1.3) 09/03/17 08:22 AST 18 U/L (17-59) 09/03/17 08:22 ALT 18 U/L (21-72) L D 09/03/17 08:22 Alkaline Phosphatase 88 U/L (38-126) 09/03/17 08:22 Total Protein 7.0 g/dL (6.3-8.3) 09/03/17 08:22 Albumin 3.5 g/dL (3.5-5.0) 09/03/17 08:22 Globulin 3.5 gm/dL (2.2-3.9) 09/03/17 08:22 Albumin/Globulin Ratio 1.0 (1.0-2.1) 09/03/17 08:22 Triglycerides 106 mg/dL (0-149) 08/25/17 07:15 Cholesterol 153 mg/dL (0-199) 08/25/17 07:15 LDL Cholesterol Direct 76 mg/dL (0-129) 08/25/17 07:15 HDL Cholesterol 48 mg/dL (30-70) 08/25/17 07:15 Procalcitonin < 0.05 NG/ML (0.19-0.49) L 08/24/17 23:38 Blood Type B POSITIVE 08/26/17 07:23 Antibody Screen Negative 08/26/17 07:23 - Hospital Course Hospital Course: Upon admission: Patient is a 87 year old male with past medical history of DM, HTN, HLD and chronic foot ulcer, who presents to the ED as per his outpatient physician for evaluation of right hallux gangrene that has been started a month ago. Patient reports that he ambulates without any difficulty or use of assisted device. Patient reports that he only experiences pain at night, which he takes tramadol for and he has been taking cephalexin as prescribed. Patient denies fever, chills, nausea, vomiting, night sweats, chest pain, palpitations, SOB, abdominal pain, or drainage from his right hallux. Patient states he is doing well otherwise. Hospital course: Patient was admitted for gangrene of the right big toe. Dr. Meeks (podiatry) and Dr. Wheeler (vascular surgery) were consulted. X-ray of right foot showed no sign of osteomyelitis. Arterial doppler showed normal common femoral artery and profunda femoral artery, and runoff showed a patent peroneal artery. Anterior tibial artery had mild stenosis at the origin but otherwise patent. The posterior tibial artery artery was mildly calcified which limited evaluation. Possible occlusion of the mid posterior tibial artery. SFA has mild stenosis in distal segment. Runoff shows a patent peroneal artery. Anterior tibial is occluded. The posterior tibial is mildly calcified and believed to be patent. Blood culture was negative and procal was <0.05. On 08/27 patient had Aortofemoral angiogram with selective catherization of right femoral artery, pathway atherectomy of popliteal artery and anterior tibial artery, and balloon angioplasty of anterior tibial and popliteal artery by Dr. Wheeler. On 08/31 patient had amputation of right 1st and 2nd toe by Dr. Meeks. Patient's pain was managed and plavix 75 mg daily started. Metformin and losartan were held at admission because of acute kidney injury. Diabetes was managed with SSI medium dose and accuchecks. Norvasc 10mg PO daily was continued from home for patient's history of hypertension. Lipid panel was done because of patient's history of HLD and showed the following: Triglycerides 106; Cholesterol 153; LDL 76; HDL 48. Upon discharge: Patient was told they should go to [facility] but he refused to go and just wanted to go home. Patient was informed of the risks and he was aware. [facility] was recommended for wound care. Patient was told to follow up with his PCP, interpreter for the deaf, and [facility]. He was also told to use his walker at home and to continue all home medications in addition to the new prescription provided to you (plavix 75 mg PO QD). Please note that this is a summary of events. For more details please see complete medical record. Discharge Exam - Head Exam Head Exam: ATRAUMATIC, NORMAL INSPECTION, NORMOCEPHALIC - Eye Exam Eye Exam: EOMI, Normal appearance, PERRL - ENT Exam ENT Exam: Mucous Membranes Moist - Respiratory Exam Respiratory Exam: Clear to PA & Lateral, NORMAL BREATHING PATTERN, UNREMARKABLE - Cardiovascular Exam Cardiovascular Exam: RRR, +S1, +S2 - GI/Abdominal Exam GI & Abdominal Exam: Normal Bowel Sounds, Unremarkable - Extremities Exam Additional comments: bandage on right foot c/d/i - Neurological Exam Neurological exam: Alert, Oriented x3 - Psychiatric Exam Psychiatric exam: Normal Affect, Normal Mood - Skin Skin Exam: Dry, Intact, Normal Color, Warm Discharge Plan - Discharge Medications Prescriptions: Clopidogrel [Plavix] 75 mg PO DAILY #30 tab - Follow Up Plan Condition: GOOD Disposition: HOME/ ROUTINE Instructions: Gangrene (DC), Cellulitis (DC) Additional Instructions: Please follow up with your primary care provider within one week of discharge. Please follow up with Dr. Meeks, your interpreter for the deaf. [facility] for wound care Please continue all home medications in addition to the new prescription provided to you (plavix 75 mg PO QD). Referrals: Lam Meeks DPM [Staff Provider] - <Melissa Trujillo - Last Filed: 09/04/17 15:55> Provider - Provider Date of Admission: 08/24/17 19:57 Attending physician: Santana Young, Hospital Course - Lab Results Lab Results: Micro Results 08/24/17 18:00 Blood Blood Culture - Final NO GROWTH AFTER 5 DAYS 08/24/17 18:00 Blood Gram Stain - Final TEST NOT PERFORMED 08/24/17 18:30 Blood Blood Culture - Final NO GROWTH AFTER 5 DAYS 08/24/17 18:30 Blood Gram Stain - Final TEST NOT PERFORMED Most Recent Lab Values WBC 8.3 K/uL (4.8-10.8) 09/03/17 08:22 RBC 2.78 Mil/uL (4.40-5.90) L 09/03/17 08:22 Hgb 8.8 g/dL (12.0-18.0) L 09/03/17 08: Hct 26.0 % (35.0-51.0) L 09/03/17 08: MCV 93.5 fL (80.0-94.0) 09/03/17 08: MCH 31.7 pg (27.0-31.0) H 09/03/17 08: MCHC 33.9 g/dL (33.0-37.0) 09/03/17 08: RDW 13.7 % (11.5-14.5) 09/03/17: Plt Count 275 K/uL (130-400) 09/03/17: MPV 9.3 fL (7.2-11.7) 09/03/17 08: Neut % (Auto) 79.5 % (50.0-75.0) H 09/03/17: Lymph % (Auto) 12.0 % (20.0-40.0) L 09/03/17: Whitman % (Auto) 7.8 % (0.0-10.0) 09/03/17: Eos % (Auto) 0.1 % (0.0-4.0) 09/03/17: Baso % (Auto) 0.6 % (0.0-2.0) 09/03/17: Neut # (Auto) 6.6 K/uL (1.8-7.0) 09/03/17: Lymph # (Auto) 1.0 K/uL (1.0-4.3) 09/03/17: Whitman # (Auto) 0.6 K/uL (0.0-0.8) 09/03/17: Eos # (Auto) 0.0 K/uL (0.0-0.7) 09/03/17 08: Baso # (Auto) 0.0 K/uL (0.0-0.2) 09/03/17 08:22 Neutrophils % (Manual) 83 % (50-75) H 08/28/17 08:13 Lymphocytes % (Manual) 3 % (20-40) L 08/28/17 08:13 Monocytes % (Manual) 13 % (0-10) H 08/28/17 08:13 Eosinophils % (Manual) 1 % (0-4) 08/28/17 08:13 Platelet Estimate Normal (NORMAL) 08/28/17 08:13 Anisocytosis (manual) Slight 08/28/17 08:13 PT 10.7 SECONDS (9.7-12.2) 08/30/17 22:34 INR 1.0 08/30/17 22:34 APTT 33 SECONDS (21-34) 08/26/17 11:30 Sodium 137 mmol/L (132-148) 09/03/17 08:22 Potassium 4.0 mmol/L (3.6-5.2) 09/03/17 08:22 Chloride 106 mmol/L (98-107) 09/03/17 08:22 Carbon Dioxide 23 mmol/L (22-30) 09/03/17 08:22 Anion Gap 12 (10-20) 09/03/17 08:22 BUN 36 mg/dL (9-20) H 09/03/17 08:22 Creatinine 1.7 mg/dL (0.8-1.5) H 09/03/17 08:22 Est GFR ( Amer) 47 09/03/17 08:22 Est GFR (Non-Af Amer) 38 09/03/17 08:22 POC Glucose (mg/dL) 157 mg/dL (65-110) H 09/03/17 07:26 Random Glucose 169 mg/dL (75-110) H 09/03/17 08:22 Hemoglobin A1c 6.2 % (4.2-6.5) 08/24/17 21:44 Calcium 8.7 mg/dl (8.6-10.4) 09/03/17 08:22 Phosphorus 3.4 mg/dL (2.5-4.5) 08/29/17 07:01 Magnesium 2.1 mg/dL (1.6-2.3) 09/03/17 08:22 Total Bilirubin 0.3 mg/dL (0.2-1.3) 09/03/17 08:22 AST 18 U/L (17-59) 09/03/17 08:22 ALT 18 U/L (21-72) L D 09/03/17 08:22 Alkaline Phosphatase 88 U/L (38-126) 09/03/17 08:22 Total Protein 7.0 g/dL (6.3-8.3) 09/03/17 08:22 Albumin 3.5 g/dL (3.5-5.0) 09/03/17 08:22 Globulin 3.5 gm/dL (2.2-3.9) 09/03/17 08:22 Albumin/Globulin Ratio 1.0 (1.0-2.1) 09/03/17 08:22 Triglycerides 106 mg/dL (0-149) 08/25/17 07:15 Cholesterol 153 mg/dL (0-199) 08/25/17 07:15 LDL Cholesterol Direct 76 mg/dL (0-129) 08/25/17 07:15 HDL Cholesterol 48 mg/dL (30-70) 08/25/17 07:15 Procalcitonin < 0.05 NG/ML (0.19-0.49) L 08/24/17 23:38 Blood Type B POSITIVE 08/26/17 07:23 Antibody Screen Negative 08/26/17 07:23 Attending/Attestation - Attestation I have personally seen and examined this patient.: Yes I have fully participated in the care of the patient.: Yes I have reviewed all pertinent clinical information, including history, physical exam and plan: Yes Notes (Text): Patient was seen and examined He refuses rehab placement D/w The resident I agree with the resident's plan 09/04/17 15:54
== END 2017-09-03 11:47 | disposition home or self-care (01) | DRG 271 ==
LOC: C.ER 16:17 → C.9E 19:57 → C.3T 23:58
PROVIDERS: ADMIT Hospitalist; ATTEND Hospitalist
PROC: 047M3ZZ Dilation of Right Popliteal Artery, Percutaneous Approach (ICD-10-PCS; 2017-08-27)
PROC: 047P3ZZ Dilation of Right Anterior Tibial Artery, Percutaneous Approach (ICD-10-PCS; 2017-08-27)
PROC: 04CM3ZZ Extirpation of Matter from Right Popliteal Artery, Percutaneous Approach (ICD-10-PCS; principal; 2017-08-27 12:00)
PROC: 0QTN0ZZ Resection of Right Metatarsal, Open Approach (ICD-10-PCS; 2017-08-31)
PROC: 0Y6R0Z1 Detachment at Right 2nd Toe, High, Open Approach (ICD-10-PCS; 2017-08-31)
DX: E11.52 Type 2 diabetes mellitus with diabetic peripheral angiopathy with gangrene (principal); N17.9 Acute kidney failure, unspecified; I70.268 Atherosclerosis of native arteries of extremities with gangrene, other extremity; E11.621 Type 2 diabetes mellitus with foot ulcer; E87.5 Hyperkalemia; I11.0 Hypertensive heart disease with heart failure; I50.9 Heart failure, unspecified; L97.519 Non-pressure chronic ulcer of other part of right foot with unspecified severity; Z79.4 Long term (current) use of insulin; E78.00 Pure hypercholesterolemia, unspecified; L03.031 Cellulitis of right toe; T38.3X5A Adverse effect of insulin and oral hypoglycemic [antidiabetic] drugs, initial encounter; L98.499 Non-pressure chronic ulcer of skin of other sites with unspecified severity; I77.1 Stricture of artery

== ENCOUNTER 2017-10-04 11:51 | Inpatient (IN) | payer MEDICARE, OTHER ==
[2017-10-04 11:51] VITALS: BMI 26.0
--- NOTE | 2017-10-04 12:25 | C.PDOC ---
History Of Present Illness 87 year old male with PMH DM, HTN, and HLD sent to ED by Mobile Engineer Dr. Meeks for evaluation of right foot wound. Rx states needs debridement of toe amputation. As per patient and he had first two toe digits amputated 1 month ago, and was seen 3 days ago to have sutures removed. Today he saw Dr. Meeks who advised he come to ED for evaluation. Patient offers not complaints reports mild pain to area occasionally. Denies any fever, bleeding, discharge, injury, numbness. PMD: Dr. Malone Time Seen by Provider: 10/04/17 12:09 Chief Complaint (Nursing): Lower Extremity Problem/Injury History Per: Patient History/Exam Limitations: no limitations Onset/Duration Of Symptoms: Days Current Symptoms Are (Timing): Still Present Past Medical History Reviewed: Historical Data, Nursing Documentation, Vital Signs Vital Signs: Last Vital Signs Temp 9803 F H 10/04/17 12:05 Pulse 78 10/04/17 12:05 Resp 18 10/04/17 12:05 BP 131/81 10/04/17 12:05 Pulse Ox 98 10/04/17 13:47 - Medical History PMH: Arthritis, CHF, Diabetes, HTN, Hypercholesterolemia, Pneumonia Surgical History: No Surg Hx Other Surgeries: Left foot transmetatarsal amputation (2013), Exploratory laparotomy, right hemicolctomy w [id number] anastemosis for Perforated Cecal Mass w contained phlegmonous collection (11/06/14) - [facility] Procedures AMPUTATION THROUGH FOOT (02/25/14) ATHERECTOMY OF OTHER NON-CORONARY VESSEL(S) (03/21/14) ATTACH PEDICLE GRAFT NEC (02/25/14) CENTRAL VENOUS CATHETER PLACEMENT WITH GUIDANCE (11/16/14) CONTRAST AORTOGRAM (09/27/14) CONTRAST ARTERIOGRAM-LEG (09/27/14) CONTRAST PHLEBOGRAM-LEG (09/25/14) DERMAL REGENERATIVE GRAFT (07/02/14) DESTRUCT PERITONEAL TISS (11/05/14) DETACHMENT AT RIGHT 2ND TOE, HIGH, OPEN APPROACH (08/24/17) DILATION OF RIGHT ANTERIOR TIBIAL ARTERY, PERC APPROACH (08/24/17) DILATION OF RIGHT POPLITEAL ARTERY, PERCUTANEOUS APPROACH (08/24/17) EXCIS DEBRIDE OF WOUND, INFECT, OR BURN (07/02/14) EXTIRPATION OF MATTER FROM R POPL ART, PERC APPROACH (08/24/17) IMMOBILIZ/WOUND ATTN NEC (02/25/14) INFLUENZA VACCINATION (07/02/14) IRRIGATION OF EAR (02/25/14) OCCUPATIONAL THERAPY (11/12/14) OPEN AND OTHER RIGHT HEMICOLECTOMY (11/05/14) OTH WOUND IRRIGATION (11/05/14) OTHER SKIN & SUBQ I D (09/25/14) PACKED CELL TRANSFUSION (11/05/14) PHYSICAL THERAPY NEC (11/12/14) PRESSURE DRESSING APPLIC (11/05/14) PROCEDURE ON SINGLE VESSEL (03/21/14) RESECTION OF RIGHT METATARSAL, OPEN APPROACH (08/24/17) SMALL BOWEL SUTURE NEC (11/05/14) TOE AMPUTATION (02/25/14) VACCINATION NEC (07/02/14) Family History: States: Diabetes - Social History Hx Alcohol Use: No Hx Substance Use: No - Immunization History Hx Tetanus Toxoid Vaccination: No Hx Influenza Vaccination: Yes Hx Pneumococcal Vaccination: No Review Of Systems Constitutional: Negative for: Fever, Chills Musculoskeletal: Positive for: Foot Pain. Negative for: Leg Pain Skin: Negative for: Rash Neurological: Negative for: Numbness Physical Exam - Physical Exam Appears: Non-toxic, No Acute Distress Skin: Warm, Dry, No Rash, Other (Right foot: s.p ampution 1st and 2nd toes. acute wound at surgical site, 1x1cm open area with soft pink base, and margins are mildly erythematous and eschars present ) Head: Atraumatic, Normacephalic Eye(s): bilateral: Normal Inspection Nose: Normal Oral Mucosa: Moist Neck: Normal ROM, Supple Chest: Symmetrical Cardiovascular: Rhythm Regular, No Murmur Respiratory: Normal Breath Sounds, No Rales, No Rhonchi, No Wheezing Extremity: Deformity (Left foot 5 toes amputated. Right foot 2 toes amputated.) , Other ( Mild erythema to dorsum on right foot) Pulses: Left Dorsalis Pedis: Decreased, Right Dorsalis Pedis: Decreased Neurological/Psych: Oriented x3, Normal Speech, Normal Motor, Normal Sensation Gait: Unable To Assess ED Course And Treatment - Laboratory Results Result Diagrams: 10/04/17 12:34 10/04/17 12:34 Lab Interpretation: No Changes Compared To Prior Results O2 Sat by Pulse Oximetry: 98 (RA) Pulse Ox Interpretation: Normal Medical Decision Making Medical Decision Making: Impression: s.p toe amputation, delayed healing of wound sent by podiatry for debridement Plan: Blood work, UA, foot xray ordered Progress: Labs reviewed, no leukocytosis. Patient stable for admission 1249 spoke with podiatry resident who will see patient upon admission [address] Bambi Young who admits for Dr Malone, and discussed case. He accepted admission to service Disposition Counseled Patient/Family Regarding: Diagnosis - Disposition Disposition: HOSPITALIZED Disposition Time: 13:15 Condition: STABLE - POA Present On Arrival: Poor Glycemic Control - Clinical Impression Clinical Impression: Toe amputation status, Wound healing, delayed - PA / BEET END SUPERVISOR / Resident Statement MD/DO has reviewed & agrees with the documentation as recorded. - Scribe Statement The provider has reviewed the documentation as recorded by the Scribe Darya Arenas All medical record entries made by the Samiribfreddie were at my direction and personally dictated by me. I have reviewed the chart and agree that the record accurately reflects my personal performance of the history, physical exam, medical decision making, and the department course for this patient. I have also personally directed, reviewed, and agree with the discharge instructions and disposition. Decision To Admit - Pt Status Changed To: Hospital Disposition Of: Inpatient - Admit Certification Admit to Inpatient:: After my assessment, the patient will require hospitalization for at least two midnights. This is because of the severity of symptoms shown, intensity of services needed, and/or the medical risk in this patient being treated as an outpatient. - InPatient: Physician Admission Certification: I certify that this patient requires 2 or more midnights of care for the following reason:: Patient with toe amputation and delayed healing to wound, needs wound debridement by podiatry. Dr Meeks on consult. Dr Malone admits to hospitalist service - . Bed Request Type: Regular Admitting Physician: Santana Young Patient Diagnosis: Toe amputation status, Wound healing, delayed
[2017-10-04 12:38] LABS: BASO # 0.1 K/uL (0.0-0.2); BASO % 1.3 % (0.0-2.0); EOS % 0.3 % (0.0-4.0); HEMOGLOBIN 8.8 g/dL (12.0-18.0); LYMPH # 0.5 K/uL (1.0-4.3); LYMPH % 5.7 % (20.0-40.0); MEAN CORPUSCULAR HEMOGLOBIN 30.3 pg (27.0-31.0); MEAN CORPUSCULAR HGB CONC 33.5 g/dL (33.0-37.0); MEAN PLATELET VOLUME 7.7 fL (7.2-11.7); MONO # 0.5 K/uL (0.0-0.8); NEUT # 8.2 K/uL (1.8-7.0); NEUT % 87.7 % (50.0-75.0); RED CELL DISTRIBUTION WIDTH 13.5 % (11.5-14.5); WHITE BLOOD COUNT 9.3 K/uL (4.8-10.8)
[2017-10-04 12:43] LABS: MEAN CELL VOLUME 90.7 fL (80.0-94.0); PLATELET COUNT 483 K/uL (130-400)
[2017-10-04 12:46] LABS: INR 1.1; PROTHROMBIN TIME 12.9 SECONDS (9.7-12.2)
[2017-10-04 12:52] LABS: ALB/GLOB RATIO 0.8 (1.0-2.1); ALBUMIN 3.8 g/dL (3.5-5.0); CALCIUM 9.1 mg/dl (8.6-10.4)
[2017-10-04 13:07] LABS: EOSINOPHIL 1 % (0-4); LYMPHOCYTE 5 % (20-40); MONOCYTE 5 % (0-10); NEUTROPHIL 89 % (50-75); PLATELET ESTIMATE NORMAL (NORMAL); TOTAL CELLS COUNTED 100
[2017-10-04 13:08] LABS: ANISOCYTOSIS SLIGHT; HYPOCHROMIC SLIGHT; POIKILOCYTOSIS SLIGHT; TEARDROP CELLS SLIGHT
[2017-10-04 13:09] LABS: BURR CELLS SLIGHT; TARGET CELLS SLIGHT
--- NOTE | 2017-10-04 13:38 | RAD ---
PROCEDURE: Left Foot Radiographs. HISTORY: pain at surgical site amputation toes 1,2 COMPARISON: 08/24/2017. FINDINGS: BONES: There has been interval surgical amputation at the base of the metatarsals. There is no bone destruction. There is diffuse bone demineralization. There is a prominent plantar calcaneal spur. JOINTS: Normal. SOFT TISSUES: Normal. OTHER FINDINGS: There are advanced atherosclerotic vascular calcifications. IMPRESSION: Interval surgical amputation of the base of the metatarsals. No acute abnormality.
--- NOTE | 2017-10-04 13:44 | RAD ---
PROCEDURE: Right Foot Radiographs. HISTORY: Pain to surgical site COMPARISON: 08/31/2017. FINDINGS: BONES: There is redemonstration of surgical amputation of the great toe and partial surgical amputation of the 2nd toe. Bone alignment and mineralization are normal. There is no acute fracture or bone destruction. JOINTS: Normal. SOFT TISSUES: Normal. OTHER FINDINGS: Atherosclerotic vascular calcifications are present. IMPRESSION: Status post surgical amputation of the great toe and partial surgical amputation of the 2nd toe, no significant interval change. No acute findings.
--- NOTE | 2017-10-04 14:19 | CP.PCM.HP ---
<Page Cordoba - Last Filed: 10/04/17 15:17> History of Present Illness - History of Present Illness History of Present Illness: HPI: Patient is an 87 year old male with a history of HTN, HLD, DM, b/l toe amputations, who presents to the ED sent by his patternmaker plastics, Dr. Meeks. Patient went to follow up with Dr. 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 Patient states he has been taking his antibiotics and all other medications as prescribed. Patient denies pain in his foot and states he has been walking without difficulty. Patient otherwise denies all complaints to include chest pain, abdominal pain, dyspnea, fevers, headaches, n/v, dysuria , diarrhea and constipation. PMD: Dr. Malone PMHx: DM, HTN, HLD and chronic foot ulcer PSHx: Left foot transmetatarsal amputation (2013), Exploratory laparotomy, right hemicolctomy w [id number] anastemosis for Perforated Cecal Mass w contained phlegmonous collection (11/06/14) FHx: Denies Social Hx: Lives with . Retired; Denies hx of tobacco, ETOH and illicit drugs use Medications: Unknown dose for Losartan, plavix 75mg po daily, medications for HLD and diabetes (patient and could not remember names) Allergies: NKDA Present on Admission - Present on Admission Any Indicators Present on Admission: No Review of Systems - Constitutional Constitutional: absent: Chills, Fever, Headache, Weakness - EENT Ears: absent: Dizziness - Cardiovascular Cardiovascular: absent: Chest Pain, Dyspnea, Leg Edema, Palpitations - Respiratory Respiratory: absent: Cough, Dyspnea - Gastrointestinal Gastrointestinal: absent: Abdominal Pain, Constipation, Diarrhea, Nausea, Vomiting - Genitourinary Genitourinary: absent: Dysuria, Hematuria - Musculoskeletal Musculoskeletal: absent: Abnormal Gait - Integumentary Integumentary: Non-Healing Lesions (s/p amputation of right hallux and 2nd digit - infection) - Neurological Neurological: absent: Dizziness, Headaches Past Patient History - Infectious Disease Hx of Infectious Diseases: None - Tetanus Immunizations Tetanus Immunization: Unknown - Past Medical History & Family History Past Medical History?: Yes - Past Social History Smoking Status: Former Smoker - CARDIAC Hx Congestive Heart Failure: Yes Hx Hypercholesterolemia: Yes Hx Hypertension: Yes - PULMONARY Hx Pneumonia: Yes - NEUROLOGICAL Hx Neurological Disorder: No - HEENT Hx HEENT Problems: No - RENAL Hx Chronic Kidney Disease: No - ENDOCRINE/METABOLIC Hx Endocrine Disorders: Yes Hx Diabetes Mellitus Type 2: Yes - HEMATOLOGICAL/ONCOLOGICAL Hx Human Immunodeficiency Virus (HIV): No - INTEGUMENTARY Hx Dermatological Problems: No - MUSCULOSKELETAL/RHEUMATOLOGICAL Hx Arthritis: Yes - GASTROINTESTINAL Hx Gastrointestinal Disorders: Yes Other/Comment: perforated viscus s/p exploratory lap with small bowel resection 11/06/14 - GENITOURINARY/GYNECOLOGICAL Hx Genitourinary Disorders: No - PSYCHIATRIC Hx Substance Use: No - SURGICAL HISTORY Hx Surgeries: Yes Hx Amputation: Yes (TMA left foot) Other/Comment: s/p exploratory lap small bowel resection - ANESTHESIA Hx Anesthesia: Yes Hx Anesthesia Reactions: No Hx Malignant Hyperthermia: No Meds Allergies/Adverse Reactions: Allergies Allergy/AdvReac Type Severity Reaction Status Date / Time No Known Allergies Allergy Verified 08/24/17 17:03 Physical Exam - Constitutional Appears: No Acute Distress - Head Exam Head Exam: ATRAUMATIC, NORMAL INSPECTION - Eye Exam Eye Exam: EOMI, Normal appearance - ENT Exam ENT Exam: Mucous Membranes Moist - Respiratory Exam Respiratory Exam: Clear to Auscultation Bilateral, NORMAL BREATHING PATTERN. absent: Rales, Rhonchi, Wheezes, Respiratory Distress - Cardiovascular Exam Cardiovascular Exam: REGULAR RHYTHM, +S1, +S2 - GI/Abdominal Exam GI & Abdominal Exam: Normal Bowel Sounds, Soft. absent: Distended, Firm, Tenderness - Extremities Exam Extremities exam: Positive for: pedal edema (1+ pitting edema b/l ankles), pedal pulses present (+ right dorsalis pedis, + left posterior tibial). Negative for: normal inspection Additional comments: Right foot- hallux and 2nd digit amputation, black eschar/gangrenous tissue noted; erythema on the dorsum of the foot Left foot- 5 toe amputation. - Neurological Exam Neurological exam: Alert, Oriented x3 - Psychiatric Exam Psychiatric exam: Normal Affect, Normal Mood - Skin Skin Exam: Dry, Normal Color, Warm Results - Vital Signs Recent Vital Signs: Last Vital Signs Temp 9803 F H 10/04/17 12:05 Pulse 78 10/04/17 12:05 Resp 18 10/04/17 12:05 BP 131/81 10/04/17 12:05 Pulse Ox 98 10/04/17 13:57 - Labs Result Diagrams: 10/04/17 12:34 10/04/17 12:34 Labs: Laboratory Results - last 24 hr 10/04/17 10/04/17 10/04/17 12:34 12:34 12:34 WBC 9.3 RBC 2.90 L Hgb 8.8 L Hct 26.3 L MCV 90.7 D MCH 30.3 MCHC 33.5 RDW 13.5 Plt Count 483 H D MPV 7.7 Neut % (Auto) 87.7 H Lymph % (Auto) 5.7 L [place] % (Auto) 5.0 Eos % (Auto) 0.3 Baso % (Auto) 1.3 Neut # (Auto) 8.2 H Lymph # (Auto) 0.5 L [place] # (Auto) 0.5 Eos # (Auto) 0.0 Baso # (Auto) 0.1 Neutrophils % (Manual) 89 H Lymphocytes % (Manual) 5 L Monocytes % (Manual) 5 Eosinophils % (Manual) 1 Platelet Estimate Normal Hypochromasia (manual) Slight Poikilocytosis (manual Slight Anisocytosis (manual) Slight Target Cells Slight Tear Drop Cells Slight [place] Cells Slight PT 12.9 H INR 1.1 APTT 34 Sodium 141 Potassium 5.0 Chloride 104 Carbon Dioxide 24 Anion Gap 18 BUN 23 H Creatinine 1.5 Est GFR ( Amer) 54 Est GFR (Non-Af Amer) 44 Random Glucose 163 H Calcium 9.1 Total Bilirubin 0.5 AST 20 ALT 21 Alkaline Phosphatase 93 Total Protein 8.4 H Albumin 3.8 Globulin 4.6 H Albumin/Globulin Ratio 0.8 L Assessment & Plan (1) Infection of amputation stump, right lower extremity Assessment and Plan: s/p amputation of right hallux and 2nd digit on 08/31/17 afebrile, no leukocytosis Wound cx: f/u results Blood cx: f/u results Foot xray (10/04/17): unremarkable Podiatry consult: Dr. Meeks, help appreciated * tentatively planned for wound debridement Vascular surgery consult: Dr. Wheeler, help appreciated Medication: * Zosyn 2.25g IV Q6h (start 10/04/17) * Tylenol 325mg PO PRN for pain/fever (patient is currently free of pain and afebrile) * Home medication: Plavix 75mg PO daily (Held for pre-op) Status: Acute (2) Diabetes mellitus Assessment and Plan: Monitor blood glucose, accuchecks ISS- Medium Hypoglycemia protocol A1c (08/24/17) 6.2 Status: Chronic (3) Hypertension Assessment and Plan: Home medication: Losartan 50mg PO daily, Amlodipine 10mg PO daily Continue Amlodipine, hold losartan Monitor blood pressure Heart healthy diet- 2g Na Status: Chronic (4) HLD (hyperlipidemia) Assessment and Plan: Hx of HLD Lipid panel (08/25/17): Triglycerides 106; Cholesterol 153; LDL 76; HDL 48 Status: Acute (5) Prophylactic measure Assessment and Plan: DVT: Heparin 5000sc Q8; no SCDs GI: Pepcid 20mg PO daily Heart Healthy Diet- 2g Na PT/OT Status: Acute <Santana Young H - Last Filed: 10/04/17 17:19> Results - Vital Signs Recent Vital Signs: Last Vital Signs Temp 9803 F H 10/04/17 12:05 Pulse 80 10/04/17 14:41 Resp 18 10/04/17 14:41 BP 130/49 L 10/04/17 14:41 Pulse Ox 96 10/04/17 14:41 - Labs Result Diagrams: 10/04/17 12:34 10/04/17 12:34 Labs: Laboratory Results - last 24 hr 10/04/17 10/04/17 10/04/17 12:34 12:34 12:34 WBC 9.3 RBC 2.90 L Hgb 8.8 L Hct 26.3 L MCV 90.7 D MCH 30.3 MCHC 33.5 RDW 13.5 Plt Count 483 H D MPV 7.7 Neut % (Auto) 87.7 H Lymph % (Auto) 5.7 L [place] % (Auto) 5.0 Eos % (Auto) 0.3 Baso % (Auto) 1.3 Neut # (Auto) 8.2 H Lymph # (Auto) 0.5 L [place] # (Auto) 0.5 Eos # (Auto) 0.0 Baso # (Auto) 0.1 Neutrophils % (Manual) 89 H Lymphocytes % (Manual) 5 L Monocytes % (Manual) 5 Eosinophils % (Manual) 1 Platelet Estimate Normal Hypochromasia (manual) Slight Poikilocytosis (manual Slight Anisocytosis (manual) Slight Target Cells Slight Tear Drop Cells Slight [place] Cells Slight PT 12.9 H INR 1.1 APTT 34 Sodium 141 Potassium 5.0 Chloride 104 Carbon Dioxide 24 Anion Gap 18 BUN 23 H Creatinine 1.5 Est GFR ( Amer) 54 Est GFR (Non-Af Amer) 44 POC Glucose (mg/dL) Random Glucose 163 H Calcium 9.1 Total Bilirubin 0.5 AST 20 ALT 21 Alkaline Phosphatase 93 Total Protein 8.4 H Albumin 3.8 Globulin 4.6 H Albumin/Globulin Ratio 0.8 L Urine Color Urine Clarity Urine pH Ur Specific [place] Urine Protein Urine Glucose (UA) Urine Ketones Urine Blood Urine Nitrate Urine Bilirubin Urine Urobilinogen Ur Leukocyte Esterase Urine WBC (Auto) Urine RBC (Auto) Ur Squamous Epith Cells 10/04/17 10/04/17 14:45 17:04 WBC RBC Hgb Hct MCV MCH MCHC RDW Plt Count MPV Neut % (Auto) Lymph % (Auto) [place] % (Auto) Eos % (Auto) Baso % (Auto) Neut # (Auto) Lymph # (Auto) [place] # (Auto) Eos # (Auto) Baso # (Auto) Neutrophils % (Manual) Lymphocytes % (Manual) Monocytes % (Manual) Eosinophils % (Manual) Platelet Estimate Hypochromasia (manual) Poikilocytosis (manual Anisocytosis (manual) Target Cells Tear Drop Cells [place] Cells PT INR APTT Sodium Potassium Chloride Carbon Dioxide Anion Gap BUN Creatinine Est GFR ( Amer) Est GFR (Non-Af Amer) POC Glucose (mg/dL) 113 H Random Glucose Calcium Total Bilirubin AST ALT Alkaline Phosphatase Total Protein Albumin Globulin Albumin/Globulin Ratio Urine Color Yellow Urine Clarity Clear Urine pH 5.0 Ur Specific [place] 1.016 Urine Protein 2+ H Urine Glucose (UA) Normal Urine Ketones Negative Urine Blood Negative Urine Nitrate Negative Urine Bilirubin Negative Urine Urobilinogen Normal Ur Leukocyte Esterase Neg Urine WBC (Auto) 1 Urine RBC (Auto) 1 Ur Squamous Epith Cells < 1 Attending/Attestation - Attestation I have personally seen and examined this patient.: Yes I have fully participated in the care of the patient.: Yes I have reviewed all pertinent clinical information: Yes Notes (Text): 10/04/17 17:17 Medical attending: Patient was seen and examined by me in the ER. I saw the patient with the medical office technician. I reviewed the above note by the resident and agree with the above Patient is known to the hospitalist service for past admission for a recent amputation of lower toes. Today he is being sent in by podiatry for further debriment of the area. He is not in any acute distress. He was calm and denied pain. He also denied fever and chills. Lab work was stable We will hold the plavix for the time being. thank you Santana Young
[2017-10-04 14:58] LABS: SQUAMOUS EPITHIAL < 1 /hpf (0-5); URINE BILIRUBIN NEGATIVE (NEGATIVE); URINE BLOOD NEGATIVE (NEGATIVE); URINE CLARITY Clear (Clear); URINE COLOR Yellow (YELLOW); URINE GLUCOSE (UA) NORMAL (Normal); URINE LEUKOCYTE ESTERASE NEG Leu/uL (Negative); URINE PROTEIN 2+ mg/dL (NEGATIVE); URINE UROBILINOGEN NORMAL mg/dL (0.2-1.0)
--- NOTE | 2017-10-04 16:12 | CP.PCM.CON ---
<Raffaele Scalesa - Last Filed: 10/04/17 16:08> History of Present Illness - History of Present Illness History of Present Illness: podiatry consult note for Dr. Meeks: 87 year old male with a history of HTN, HLD, DM, b/l toe amputations, who presents to the ED sent by his telegraph installer, Dr. Meeks. Patient went to follow up with Dr. 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 Patient denies any other pedal complaints at this time. Patient denies n/f/v/d/c /sob. Review of Systems - Constitutional Constitutional: As Per HPI Past Patient History - Infectious Disease Hx of Infectious Diseases: None - Tetanus Immunizations Tetanus Immunization: Unknown - Past Medical History & Family History Past Medical History?: Yes - Past Social History Smoking Status: Former Smoker - CARDIAC Hx Congestive Heart Failure: Yes Hx Hypercholesterolemia: Yes Hx Hypertension: Yes - PULMONARY Hx Pneumonia: Yes - NEUROLOGICAL Hx Neurological Disorder: No - HEENT Hx HEENT Problems: No - RENAL Hx Chronic Kidney Disease: No - ENDOCRINE/METABOLIC Hx Endocrine Disorders: Yes Hx Diabetes Mellitus Type 2: Yes - HEMATOLOGICAL/ONCOLOGICAL Hx Human Immunodeficiency Virus (HIV): No - INTEGUMENTARY Hx Dermatological Problems: No - MUSCULOSKELETAL/RHEUMATOLOGICAL Hx Arthritis: Yes - GASTROINTESTINAL Hx Gastrointestinal Disorders: Yes Other/Comment: perforated viscus s/p exploratory lap with small bowel resection 11/06/14 - GENITOURINARY/GYNECOLOGICAL Hx Genitourinary Disorders: No - PSYCHIATRIC Hx Substance Use: No - SURGICAL HISTORY Hx Surgeries: Yes Hx Amputation: Yes (TMA left foot) Other/Comment: s/p exploratory lap small bowel resection - ANESTHESIA Hx Anesthesia: Yes Hx Anesthesia Reactions: No Hx Malignant Hyperthermia: No Meds Allergies/Adverse Reactions: Allergies Allergy/AdvReac Type Severity Reaction Status Date / Time No Known Allergies Allergy Verified 08/24/17 17:03 - Medications Medications: Current Medications Acetaminophen (Tylenol 325mg Tab) 650 mg PO Q6 PRN PRN Reason: Pain, Mild (1-3) Amlodipine Besylate (Norvasc) 10 mg PO DAILY [facility] Famotidine (Pepcid) 20 mg PO DAILY [facility] Heparin Sodium (Porcine) (Heparin) 5,000 units SC Q8 [facility] Piperacillin Sod/Tazobactam Sod (Zosyn 2.25 Gm Iv Premix) 2.25 gm in 50 mls @ 100 mls/hr IVPB Q6H [facility] PRN Reason: Protocol Insulin Human Regular (Novolin R) 0 unit SC ACHS [facility] PRN Reason: Protocol Physical Exam - Constitutional Appears: Well, Non-toxic, No Acute Distress - Extremities Exam Additional comments: RLE focused exam: Vasc: DP/PT pulses non palpable. Temp gradient warm to cold. CFT prompt digits 3 -5. Mild forefoot pedal edema noted. Derm: Right hallux and 2nd digit absent following amputation. few sutures are intact, surgical site necrotic with mild fibrotic area proximally, no fluctuance , no ascending cellulitis, no fluctuance, positive probe to bone, no drainage Neuro: Protective sensation grossly diminished Ortho: No tenderness to palpation along surgical site. - Neurological Exam Neurological exam: Alert, Oriented x3 Results - Vital Signs Recent Vital Signs: Last Vital Signs Temp 9803 F H 10/04/17 12:05 Pulse 80 10/04/17 14:41 Resp 18 10/04/17 14:41 BP 130/49 L 10/04/17 14:41 Pulse Ox 96 10/04/17 14:41 - Labs Result Diagrams: 10/04/17 12:34 10/04/17 12:34 Labs: Laboratory Results - last 24 hr 10/04/17 10/04/17 10/04/17 12:34 12:34 12:34 WBC 9.3 RBC 2.90 L Hgb 8.8 L Hct 26.3 L MCV 90.7 D MCH 30.3 MCHC 33.5 RDW 13.5 Plt Count 483 H D MPV 7.7 Neut % (Auto) 87.7 H Lymph % (Auto) 5.7 L [place] % (Auto) 5.0 Eos % (Auto) 0.3 Baso % (Auto) 1.3 Neut # (Auto) 8.2 H Lymph # (Auto) 0.5 L [place] # (Auto) 0.5 Eos # (Auto) 0.0 Baso # (Auto) 0.1 Neutrophils % (Manual) 89 H Lymphocytes % (Manual) 5 L Monocytes % (Manual) 5 Eosinophils % (Manual) 1 Platelet Estimate Normal Hypochromasia (manual) Slight Poikilocytosis (manual Slight Anisocytosis (manual) Slight Target Cells Slight Tear Drop Cells Slight [place] Cells Slight PT 12.9 H INR 1.1 APTT 34 Sodium 141 Potassium 5.0 Chloride 104 Carbon Dioxide 24 Anion Gap 18 BUN 23 H Creatinine 1.5 Est GFR ( Amer) 54 Est GFR (Non-Af Amer) 44 Random Glucose 163 H Calcium 9.1 Total Bilirubin 0.5 AST 20 ALT 21 Alkaline Phosphatase 93 Total Protein 8.4 H Albumin 3.8 Globulin 4.6 H Albumin/Globulin Ratio 0.8 L Urine Color Urine Clarity Urine pH Ur Specific [place] Urine Protein Urine Glucose (UA) Urine Ketones Urine Blood Urine Nitrate Urine Bilirubin Urine Urobilinogen Ur Leukocyte Esterase Urine WBC (Auto) Urine RBC (Auto) Ur Squamous Epith Cells 10/04/17 14:45 WBC RBC Hgb Hct MCV MCH MCHC RDW Plt Count MPV Neut % (Auto) Lymph % (Auto) [place] % (Auto) Eos % (Auto) Baso % (Auto) Neut # (Auto) Lymph # (Auto) [place] # (Auto) Eos # (Auto) Baso # (Auto) Neutrophils % (Manual) Lymphocytes % (Manual) Monocytes % (Manual) Eosinophils % (Manual) Platelet Estimate Hypochromasia (manual) Poikilocytosis (manual Anisocytosis (manual) Target Cells Tear Drop Cells [place] Cells PT INR APTT Sodium Potassium Chloride Carbon Dioxide Anion Gap BUN Creatinine Est GFR ( Amer) Est GFR (Non-Af Amer) Random Glucose Calcium Total Bilirubin AST ALT Alkaline Phosphatase Total Protein Albumin Globulin Albumin/Globulin Ratio Urine Color Yellow Urine Clarity Clear Urine pH 5.0 Ur Specific [place] 1.016 Urine Protein 2+ H Urine Glucose (UA) Normal Urine Ketones Negative Urine Blood Negative Urine Nitrate Negative Urine Bilirubin Negative Urine Urobilinogen Normal Ur Leukocyte Esterase Neg Urine WBC (Auto) 1 Urine RBC (Auto) 1 Ur Squamous Epith Cells < 1 Assessment & Plan - Assessment and Plan (Free Text) Assessment: 87 y/o male with pmhx of HTN, HLD, DM, seen at bedside for right foot nonhealing wound at amputation site Plan: patient evaluated and chart reviewed discussed with attending Dr. Meeks labs and vitals reviewed; afebrile WBC 9.3 applied betadine, DSD to right foot follow up wound cx Vasc consult- Dr. Wheeler placed cont. IV abx as recommended patient will likely need debridement this week after vascular evaluates podiatry will continue to follow while patint remains in house <Lam Meeks - Last Filed: 10/05/17 08:54> Meds - Medications Medications: Current Medications Acetaminophen (Tylenol 325mg Tab) 650 mg PO Q6 PRN PRN Reason: Pain, Mild (1-3) Amlodipine Besylate (Norvasc) 10 mg PO DAILY [facility] Famotidine (Pepcid) 20 mg PO DAILY [facility] Heparin Sodium (Porcine) (Heparin) 5,000 units SC Q8 [facility] Last Admin: 10/05/17 05:26 Dose: 5,000 units Piperacillin Sod/Tazobactam Sod (Zosyn 2.25 Gm Iv Premix) 2.25 gm in 50 mls @ 100 mls/hr IVPB Q6H [facility] PRN Reason: Protocol Last Admin: 10/05/17 04:07 Dose: 100 mls/hr Dextrose/Sodium Chloride (Dextrose 5%/0.45% Ns 1000 Ml) 1,000 mls @ 100 mls/hr IV .Q10H [facility] Last Admin: 10/05/17 05:29 Dose: 100 mls/hr Insulin Human Regular (Novolin R) 0 unit SC ACHS [facility] PRN Reason: Protocol Last Admin: 10/05/17 07:46 Dose: Not Given Results - Vital Signs Recent Vital Signs: Last Vital Signs Temp 97.5 F L 10/05/17 07:10 Pulse 70 10/05/17 07:10 Resp 18 10/05/17 07:10 BP 159/67 H 10/05/17 07:10 Pulse Ox 100 10/05/17 07:10 - Labs Result Diagrams: 10/05/17 08:15 10/04/17 12:34 Labs: Laboratory Results - last 24 hr 10/04/17 10/04/17 10/04/17 12:34 12:34 12:34 WBC 9.3 RBC 2.90 L Hgb 8.8 L Hct 26.3 L MCV 90.7 D MCH 30.3 MCHC 33.5 RDW 13.5 Plt Count 483 H D MPV 7.7 Neut % (Auto) 87.7 H Lymph % (Auto) 5.7 L [place] % (Auto) 5.0 Eos % (Auto) 0.3 Baso % (Auto) 1.3 Neut # (Auto) 8.2 H Lymph # (Auto) 0.5 L [place] # (Auto) 0.5 Eos # (Auto) 0.0 Baso # (Auto) 0.1 Neutrophils % (Manual) 89 H Lymphocytes % (Manual) 5 L Monocytes % (Manual) 5 Eosinophils % (Manual) 1 Platelet Estimate Normal Hypochromasia (manual) Slight Poikilocytosis (manual Slight Anisocytosis (manual) Slight Target Cells Slight Tear Drop Cells Slight [place] Cells Slight PT 12.9 H INR 1.1 APTT 34 Sodium 141 Potassium 5.0 Chloride 104 Carbon Dioxide 24 Anion Gap 18 BUN 23 H Creatinine 1.5 Est GFR ( Amer) 54 Est GFR (Non-Af Amer) 44 POC Glucose (mg/dL) Random Glucose 163 H Calcium 9.1 Phosphorus Magnesium Total Bilirubin 0.5 AST 20 ALT 21 Alkaline Phosphatase 93 Total Protein 8.4 H Albumin 3.8 Globulin 4.6 H Albumin/Globulin Ratio 0.8 L Urine Color Urine Clarity Urine pH Ur Specific [place] Urine Protein Urine Glucose (UA) Urine Ketones Urine Blood Urine Nitrate Urine Bilirubin Urine Urobilinogen Ur Leukocyte Esterase Urine WBC (Auto) Urine RBC (Auto) Ur Squamous Epith Cells 10/04/17 10/04/17 10/04/17 14:45 17:04 21:28 WBC RBC Hgb Hct MCV MCH MCHC RDW Plt Count MPV Neut % (Auto) Lymph % (Auto) [place] % (Auto) Eos % (Auto) Baso % (Auto) Neut # (Auto) Lymph # (Auto) [place] # (Auto) Eos # (Auto) Baso # (Auto) Neutrophils % (Manual) Lymphocytes % (Manual) Monocytes % (Manual) Eosinophils % (Manual) Platelet Estimate Hypochromasia (manual) Poikilocytosis (manual Anisocytosis (manual) Target Cells Tear Drop Cells [place] Cells PT INR APTT Sodium Potassium Chloride Carbon Dioxide Anion Gap BUN Creatinine Est GFR ( Amer) Est GFR (Non-Af Amer) POC Glucose (mg/dL) 113 H 162 H Random Glucose Calcium Phosphorus Magnesium Total Bilirubin AST ALT Alkaline Phosphatase Total Protein Albumin Globulin Albumin/Globulin Ratio Urine Color Yellow Urine Clarity Clear Urine pH 5.0 Ur Specific [place] 1.016 Urine Protein 2+ H Urine Glucose (UA) Normal Urine Ketones Negative Urine Blood Negative Urine Nitrate Negative Urine Bilirubin Negative Urine Urobilinogen Normal Ur Leukocyte Esterase Neg Urine WBC (Auto) 1 Urine RBC (Auto) 1 Ur Squamous Epith Cells < 1 10/05/17 10/05/17 10/05/17 06:22 08:15 08:15 WBC 7.8 RBC 2.95 L Hgb 9.0 L Hct 26.6 L MCV 90.1 MCH 30.4 MCHC 33.7 RDW 13.5 Plt Count 528 H MPV 7.8 Neut % (Auto) 82.7 H Lymph % (Auto) 9.9 L [place] % (Auto) 5.5 Eos % (Auto) 1.0 Baso % (Auto) 0.9 Neut # (Auto) 6.4 Lymph # (Auto) 0.8 L [place] # (Auto) 0.4 Eos # (Auto) 0.1 Baso # (Auto) 0.1 Neutrophils % (Manual) Lymphocytes % (Manual) Monocytes % (Manual) Eosinophils % (Manual) Platelet Estimate Hypochromasia (manual) Poikilocytosis (manual Anisocytosis (manual) Target Cells Tear Drop Cells [place] Cells PT INR APTT Sodium Potassium Chloride Carbon Dioxide Anion Gap BUN Creatinine Est GFR ( Amer) Est GFR (Non-Af Amer) POC Glucose (mg/dL) 146 H Random Glucose Calcium Phosphorus 2.8 Magnesium 1.8 Total Bilirubin AST ALT Alkaline Phosphatase Total Protein Albumin Globulin Albumin/Globulin Ratio Urine Color Urine Clarity Urine pH Ur Specific [place] Urine Protein Urine Glucose (UA) Urine Ketones Urine Blood Urine Nitrate Urine Bilirubin Urine Urobilinogen Ur Leukocyte Esterase Urine WBC (Auto) Urine RBC (Auto) Ur Squamous Epith Cells Assessment & Plan - Assessment and Plan (Free Text) Plan: As above .wound at amp site 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 Pt needs vascular Eval first for need for additional intervention./Dr Meeks .
[2017-10-04] MEDS: (Novolin R) Insulin Human Regular 100 units/ml vial SC SCH ×2 (17:08→21:44)
[2017-10-04] MEDS: Piperacill/Tazo 2.25gm in Dex 2.25 GM/50 ML BAG IVPB SCH ×2 (17:19→21:43)
[2017-10-04] MEDS: Dextrose 5%/0.45% NS 1,000 ML IV SCH (17:56)
[2017-10-05] MEDS: Piperacill/Tazo 2.25gm in Dex 2.25 GM/50 ML BAG IVPB SCH ×4 (04:07→21:48)
[2017-10-05] MEDS: Dextrose 5%/0.45% NS 1,000 ML IV SCH ×3 (05:29→16:35)
--- NOTE | 2017-10-05 07:25 | CP.PCM.CON ---
History of Present Illness - History of Present Illness History of Present Illness: Vascular Surgery Consult note. Dr. Wheeler 87yo M with PMHx of HTN, DM, Chronic right Foot ulcer, HLD here for non-healing toe amputation site. Patient was sent in by his appeals court associate justice for further evaluation. Patient has been on oral antibiotics with no improvement in right toe infection. Patient denies pain in the foot but does report difficulty walking. Denies any Fevers or chills. No N/V/D. No urinary complaints. No Headaches. No abdominal pain. Was seen by Dr. Wheeler in Aug for selective right lower extremity peripheral angio with balloon angioplasty and athrectomy of anterior tibial and popliteal. PMHx: DM, HTN, HLD, Chronic right foot ulcer PSHx: Left foot transmetatarsal amputation, Right hemicolectomy, Right hallux and partial 2nd digit toe amputation 08/31/17 Family Hx: Non-contributory Social Hx: Denies tobacco use, Denies ETOH use, Denies illicit drugs NKDA Review of Systems - Review of Systems All systems: reviewed and no additional remarkable complaints except - Constitutional Constitutional: absent: Chills, Fever - Cardiovascular Cardiovascular: absent: Chest Pain, Dyspnea - Respiratory Respiratory: absent: Dyspnea - Gastrointestinal Gastrointestinal: absent: Abdominal Pain, Melena, Nausea, Vomiting - Genitourinary Genitourinary: absent: Difficulty Urinating, Dysuria - Integumentary Additional comments: Right foot non healing wound Past Patient History - Infectious Disease Hx of Infectious Diseases: None - Tetanus Immunizations Tetanus Immunization: Unknown - Past Medical History & Family History Past Medical History?: Yes - Past Social History Smoking Status: Former Smoker - CARDIAC Hx Congestive Heart Failure: Yes Hx Hypercholesterolemia: Yes Hx Hypertension: Yes - PULMONARY Hx Pneumonia: Yes - NEUROLOGICAL Hx Neurological Disorder: No - HEENT Hx HEENT Problems: No - RENAL Hx Chronic Kidney Disease: No - ENDOCRINE/METABOLIC Hx Endocrine Disorders: Yes Hx Diabetes Mellitus Type 2: Yes - HEMATOLOGICAL/ONCOLOGICAL Hx Human Immunodeficiency Virus (HIV): No - INTEGUMENTARY Hx Dermatological Problems: No - MUSCULOSKELETAL/RHEUMATOLOGICAL Hx Arthritis: Yes Hx Falls: No - GASTROINTESTINAL Hx Gastrointestinal Disorders: Yes Other/Comment: perforated viscus s/p exploratory lap with small bowel resection 11/06/14 - GENITOURINARY/GYNECOLOGICAL Hx Genitourinary Disorders: No - PSYCHIATRIC Hx Substance Use: No - SURGICAL HISTORY Hx Surgeries: Yes Hx Amputation: Yes (TMA left foot) Other/Comment: s/p exploratory lap small bowel resection - ANESTHESIA Hx Anesthesia: Yes Hx Anesthesia Reactions: No Hx Malignant Hyperthermia: No Meds Allergies/Adverse Reactions: Allergies Allergy/AdvReac Type Severity Reaction Status Date / Time No Known Allergies Allergy Verified 08/24/17 17:03 - Medications Medications: Current Medications Acetaminophen (Tylenol 325mg Tab) 650 mg PO Q6 PRN PRN Reason: Pain, Mild (1-3) Amlodipine Besylate (Norvasc) 10 mg PO DAILY [facility] Famotidine (Pepcid) 20 mg PO DAILY [facility] Heparin Sodium (Porcine) (Heparin) 5,000 units SC Q8 [facility] Last Admin: 10/05/17 05:26 Dose: 5,000 units Piperacillin Sod/Tazobactam Sod (Zosyn 2.25 Gm Iv Premix) 2.25 gm in 50 mls @ 100 mls/hr IVPB Q6H [facility] PRN Reason: Protocol Last Admin: 10/05/17 04:07 Dose: 100 mls/hr Dextrose/Sodium Chloride (Dextrose 5%/0.45% Ns 1000 Ml) 1,000 mls @ 100 mls/hr IV .Q10H [facility] Last Admin: 10/05/17 05:29 Dose: 100 mls/hr Insulin Human Regular (Novolin R) 0 unit SC ACHS [facility] PRN Reason: Protocol Last Admin: 10/04/17 21:44 Dose: Not Given Physical Exam - Constitutional Appears: Well, No Acute Distress - Head Exam Head Exam: ATRAUMATIC, NORMAL INSPECTION, NORMOCEPHALIC - Eye Exam Eye Exam: EOMI, Normal appearance - ENT Exam ENT Exam: Mucous Membranes Moist - Respiratory Exam Respiratory Exam: NORMAL BREATHING PATTERN. absent: Accessory Muscle Use, Respiratory Distress - Cardiovascular Exam Cardiovascular Exam: RRR. absent: JVD - GI/Abdominal Exam GI & Abdominal Exam: Soft. absent: Distended, Guarding, Rebound, Rigid, Tenderness - Extremities Exam Additional comments: right foot non healing wound of recent hallux toe amputation site. No erythema, no induration. Dressing clean, dry and intact. - Neurological Exam Neurological exam: Alert, Oriented x3 - Psychiatric Exam Psychiatric exam: Normal Affect, Normal Mood - Skin Skin Exam: Dry, Warm Results - Vital Signs Recent Vital Signs: Last Vital Signs Temp 98.4 F 10/05/17 00:19 Pulse 73 10/05/17 00:19 Resp 20 10/05/17 00:19 BP 139/54 L 10/05/17 00:19 Pulse Ox 96 10/05/17 00:19 - Labs Result Diagrams: 10/04/17 12:34 10/04/17 12:34 Labs: Laboratory Results - last 24 hr 10/04/17 10/04/17 10/04/17 12:34 12:34 12:34 WBC 9.3 RBC 2.90 L Hgb 8.8 L Hct 26.3 L MCV 90.7 D MCH 30.3 MCHC 33.5 RDW 13.5 Plt Count 483 H D MPV 7.7 Neut % (Auto) 87.7 H Lymph % (Auto) 5.7 L [place] % (Auto) 5.0 Eos % (Auto) 0.3 Baso % (Auto) 1.3 Neut # (Auto) 8.2 H Lymph # (Auto) 0.5 L [place] # (Auto) 0.5 Eos # (Auto) 0.0 Baso # (Auto) 0.1 Neutrophils % (Manual) 89 H Lymphocytes % (Manual) 5 L Monocytes % (Manual) 5 Eosinophils % (Manual) 1 Platelet Estimate Normal Hypochromasia (manual) Slight Poikilocytosis (manual Slight Anisocytosis (manual) Slight Target Cells Slight Tear Drop Cells Slight Kanwal Cells Slight PT 12.9 H INR 1.1 APTT 34 Sodium 141 Potassium 5.0 Chloride 104 Carbon Dioxide 24 Anion Gap 18 BUN 23 H Creatinine 1.5 Est GFR ( Amer) 54 Est GFR (Non-Af Amer) 44 POC Glucose (mg/dL) Random Glucose 163 H Calcium 9.1 Total Bilirubin 0.5 AST 20 ALT 21 Alkaline Phosphatase 93 Total Protein 8.4 H Albumin 3.8 Globulin 4.6 H Albumin/Globulin Ratio 0.8 L Urine Color Urine Clarity Urine pH Ur Specific [place] Urine Protein Urine Glucose (UA) Urine Ketones Urine Blood Urine Nitrate Urine Bilirubin Urine Urobilinogen Ur Leukocyte Esterase Urine WBC (Auto) Urine RBC (Auto) Ur Squamous Epith Cells 10/04/17 10/04/17 10/04/17 14:45 17:04 21:28 WBC RBC Hgb Hct MCV MCH MCHC RDW Plt Count MPV Neut % (Auto) Lymph % (Auto) [place] % (Auto) Eos % (Auto) Baso % (Auto) Neut # (Auto) Lymph # (Auto) [place] # (Auto) Eos # (Auto) Baso # (Auto) Neutrophils % (Manual) Lymphocytes % (Manual) Monocytes % (Manual) Eosinophils % (Manual) Platelet Estimate Hypochromasia (manual) Poikilocytosis (manual Anisocytosis (manual) Target Cells Tear Drop Cells Kanwal Cells PT INR APTT Sodium Potassium Chloride Carbon Dioxide Anion Gap BUN Creatinine Est GFR ( Amer) Est GFR (Non-Af Amer) POC Glucose (mg/dL) 113 H 162 H Random Glucose Calcium Total Bilirubin AST ALT Alkaline Phosphatase Total Protein Albumin Globulin Albumin/Globulin Ratio Urine Color Yellow Urine Clarity Clear Urine pH 5.0 Ur Specific [place] 1.016 Urine Protein 2+ H Urine Glucose (UA) Normal Urine Ketones Negative Urine Blood Negative Urine Nitrate Negative Urine Bilirubin Negative Urine Urobilinogen Normal Ur Leukocyte Esterase Neg Urine WBC (Auto) 1 Urine RBC (Auto) 1 Ur Squamous Epith Cells < 1 10/05/17 06:22 WBC RBC Hgb Hct MCV MCH MCHC RDW Plt Count MPV Neut % (Auto) Lymph % (Auto) [place] % (Auto) Eos % (Auto) Baso % (Auto) Neut # (Auto) Lymph # (Auto) [place] # (Auto) Eos # (Auto) Baso # (Auto) Neutrophils % (Manual) Lymphocytes % (Manual) Monocytes % (Manual) Eosinophils % (Manual) Platelet Estimate Hypochromasia (manual) Poikilocytosis (manual Anisocytosis (manual) Target Cells Tear Drop Cells Kanwal Cells PT INR APTT Sodium Potassium Chloride Carbon Dioxide Anion Gap BUN Creatinine Est GFR ( Amer) Est GFR (Non-Af Amer) POC Glucose (mg/dL) 146 H Random Glucose Calcium Total Bilirubin AST ALT Alkaline Phosphatase Total Protein Albumin Globulin Albumin/Globulin Ratio Urine Color Urine Clarity Urine pH Ur Specific [place] Urine Protein Urine Glucose (UA) Urine Ketones Urine Blood Urine Nitrate Urine Bilirubin Urine Urobilinogen Ur Leukocyte Esterase Urine WBC (Auto) Urine RBC (Auto) Ur Squamous Epith Cells Assessment & Plan - Assessment and Plan (Free Text) Assessment: 87yo M with PVD here with non-healing right foot wound Plan: - f/u Angiography Abdomen with ileofemoral runoff - Continue current management - F/u Podiatry recs - More recs following Abd Angio Further recs as per Dr. Summer Yu PGY1 surgery pager: [phone]
--- NOTE | 2017-10-05 07:27 | CP.PCM.PN ---
<Rosie Sierra - Last Filed: 10/05/17 11:42> Subjective - Date & Time of Evaluation Date of Evaluation: 10/05/17 Time of Evaluation: 07:24 - Subjective Subjective: Progress note for Dr. Young Patient seen and examined at bedside. No acute events overnight. Patient states he has no foot pain and is doing well. Patient denies fever, chills, nausea, vomiting, pedal edema. Patient states he's aware that he need to get a CT angio ileofemoral run off to evaluate vasculature of legs Objective - Vital Signs/Intake and Output Vital Signs (last 24 hours): Temp Pulse Resp BP Pulse Ox 98.4 F 73 20 139/54 L 96 10/05/17 00:19 10/05/17 00:19 10/05/17 00:19 10/05/17 00:19 10/05/17 00:19 Intake and Output: 10/05/17 10/05/17 06:59 18:59 Intake Total 800 Balance 800 - Medications Medications: Current Medications Acetaminophen (Tylenol 325mg Tab) 650 mg PO Q6 PRN PRN Reason: Pain, Mild (1-3) Amlodipine Besylate (Norvasc) 10 mg PO DAILY [facility] Famotidine (Pepcid) 20 mg PO DAILY [facility] Heparin Sodium (Porcine) (Heparin) 5,000 units SC Q8 [facility] Last Admin: 10/05/17 05:26 Dose: 5,000 units Piperacillin Sod/Tazobactam Sod (Zosyn 2.25 Gm Iv Premix) 2.25 gm in 50 mls @ 100 mls/hr IVPB Q6H [facility] PRN Reason: Protocol Last Admin: 10/05/17 04:07 Dose: 100 mls/hr Dextrose/Sodium Chloride (Dextrose 5%/0.45% Ns 1000 Ml) 1,000 mls @ 100 mls/hr IV .Q10H [facility] Last Admin: 10/05/17 05:29 Dose: 100 mls/hr Insulin Human Regular (Novolin R) 0 unit SC ACHS [facility] PRN Reason: Protocol Last Admin: 10/04/17 21:44 Dose: Not Given - Labs Labs: 10/04/17 12:34 10/04/17 12:34 PT 12.9 SECONDS (9.7-12.2) H 10/04/17 12:34 INR 1.1 10/04/17 12:34 APTT 34 SECONDS (21-34) 10/04/17 12:34 - Head Exam Head Exam: ATRAUMATIC, NORMAL INSPECTION, NORMOCEPHALIC - Eye Exam Eye Exam: EOMI, Normal appearance Pupil Exam: NORMAL ACCOMODATION, PERRL - ENT Exam ENT Exam: Mucous Membranes Moist, Normal Exam - Neck Exam Neck Exam: Full ROM - Respiratory Exam Respiratory Exam: Clear to Ausculation Bilateral, NORMAL BREATHING PATTERN. absent: Accessory Muscle Use, Respiratory Distress - Cardiovascular Exam Cardiovascular Exam: Bradycardia, REGULAR RHYTHM, +S1, +S2. absent: Tachycardia - GI/Abdominal Exam GI & Abdominal Exam: Soft, Normal Bowel Sounds. absent: Tenderness - Extremities Exam Additional comments: , pedal pulses present (dorsalis pedis and posterior tibial pulses palpable bilaterally). both feet are wrapped. clean, dry intact no drainage, purulence, foul smell. 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 Patient has left fifth toe amputation Assessment and Plan: s/p amputation of right hallux and 2nd digit on 08/31/17 afebrile, no leukocytosis Wound cx: f/u results Blood cx: f/u results Foot xray (10/04/17): unremarkable Podiatry consult: Dr. Meeks * tentatively planned for wound debridement Vascular surgery consult: Dr. Wheeler f/u CT angio ileofemoral runoff Medication: * Zosyn 2.25g IV Q6h (start 10/04/17) * Flagyl * Tylenol 325mg PO PRN for pain/fever (patient is currently free of pain and afebrile) * Home medication: Plavix 75mg PO daily (Held for pre-op) Status: Acute (2) Diabetes mellitus Assessment and Plan: Monitor blood glucose, accuchecks ISS- Medium Hypoglycemia protocol A1c (08/24/17) 6.2 Status: Chronic (3) Hypertension Assessment and Plan: Home medication: Losartan 50mg PO daily, Amlodipine 10mg PO daily Continue Amlodipine, hold losartan Monitor blood pressure Heart healthy diet- 2g Na Status: Chronic (4) HLD (hyperlipidemia) Assessment and Plan: Hx of HLD Lipid panel (08/25/17): Triglycerides 106; Cholesterol 153; LDL 76; HDL 48 Status: Acute (5) Prophylactic measure Assessment and Plan: DVT: Heparin 5000sc Q8; no SCDs GI: Pepcid 20mg PO daily Heart Healthy Diet- 2g Na PT/OT Status: Acute <Santana Young H - Last Filed: 10/05/17 13:17> Objective - Vital Signs/Intake and Output Vital Signs (last 24 hours): Temp Pulse Resp BP Pulse Ox 97.5 F L 70 18 158/68 H 100 10/05/17 07:10 10/05/17 07:10 10/05/17 07:10 10/05/17 11:24 10/05/17 07:10 Intake and Output: 10/05/17 10/05/17 06:59 18:59 Intake Total 800 Balance 800 - Medications Medications: Current Medications Acetaminophen (Tylenol 325mg Tab) 650 mg PO Q6 PRN PRN Reason: Pain, Mild (1-3) Amlodipine Besylate (Norvasc) 10 mg PO DAILY [facility] Last Admin: 10/05/17 11:25 Dose: 10 mg Famotidine (Pepcid) 20 mg PO DAILY [facility] Last Admin: 10/05/17 11:24 Dose: 20 mg Heparin Sodium (Porcine) (Heparin) 5,000 units SC Q8 [facility] Last Admin: 10/05/17 05:26 Dose: 5,000 units Piperacillin Sod/Tazobactam Sod (Zosyn 2.25 Gm Iv Premix) 2.25 gm in 50 mls @ 100 mls/hr IVPB Q6H [facility] PRN Reason: Protocol Last Admin: 10/05/17 11:25 Dose: 100 mls/hr Dextrose/Sodium Chloride (Dextrose 5%/0.45% Ns 1000 Ml) 1,000 mls @ 100 mls/hr IV .Q10H [facility] Last Admin: 10/05/17 05:29 Dose: 100 mls/hr Insulin Human Regular (Novolin R) 0 unit SC ACHS [facility] PRN Reason: Protocol Last Admin: 10/05/17 12:40 Dose: 2 unit - Labs Labs: 10/05/17 08:15 10/04/17 12:34 PT 12.9 SECONDS (9.7-12.2) H 10/04/17 12:34 INR 1.1 10/04/17 12:34 APTT 34 SECONDS (21-34) 10/04/17 12:34 Attending/Attestation - Attestation I have personally seen and examined this patient.: Yes I have fully participated in the care of the patient.: Yes I have reviewed all pertinent clinical information, including history, physical exam and plan: Yes Notes (Text): 10/05/17 13:16 Medical attending: Patient was seen and examined by me. He was not in any acute distress when we saw and examined him. [place] above note by the resident For now will continue with IV abx. Patient is pending CT of lower extremity with run off to better assess the vasculature. At some point will also be having further intervention of the foot that recently had the amputation. thank you Santana Young.
[2017-10-05] MEDS: (Novolin R) Insulin Human Regular 100 units/ml vial SC SCH ×4 (07:46→21:45)
--- NOTE | 2017-10-05 07:47 | CP.PCM.PN ---
Subjective - Date & Time of Evaluation Date of Evaluation: 10/05/17 Time of Evaluation: 07:00 - Subjective Subjective: Vascular Surgery Progress note. Dr. Wheeler Pt seen and examined at bedside this morning. No acute events overnight. denies any new complaints. no f/C. no N/V/D. Has not yet obtained the Abdominal angiogram. Objective - Vital Signs/Intake and Output Vital Signs (last 24 hours): Temp Pulse Resp BP Pulse Ox 98.4 F 73 20 139/54 L 96 10/05/17 00:19 10/05/17 00:19 10/05/17 00:19 10/05/17 00:19 10/05/17 00:19 Intake and Output: 10/05/17 10/05/17 06:59 18:59 Intake Total 800 Balance 800 - Medications Medications: Current Medications Acetaminophen (Tylenol 325mg Tab) 650 mg PO Q6 PRN PRN Reason: Pain, Mild (1-3) Amlodipine Besylate (Norvasc) 10 mg PO DAILY [facility] Famotidine (Pepcid) 20 mg PO DAILY [facility] Heparin Sodium (Porcine) (Heparin) 5,000 units SC Q8 [facility] Last Admin: 10/05/17 05:26 Dose: 5,000 units Piperacillin Sod/Tazobactam Sod (Zosyn 2.25 Gm Iv Premix) 2.25 gm in 50 mls @ 100 mls/hr IVPB Q6H [facility] PRN Reason: Protocol Last Admin: 10/05/17 04:07 Dose: 100 mls/hr Dextrose/Sodium Chloride (Dextrose 5%/0.45% Ns 1000 Ml) 1,000 mls @ 100 mls/hr IV .Q10H [facility] Last Admin: 10/05/17 05:29 Dose: 100 mls/hr Insulin Human Regular (Novolin R) 0 unit SC ACHS [facility] PRN Reason: Protocol Last Admin: 10/04/17 21:44 Dose: Not Given - Labs Labs: 10/04/17 12:34 10/04/17 12:34 PT 12.9 SECONDS (9.7-12.2) H 10/04/17 12:34 INR 1.1 10/04/17 12:34 APTT 34 SECONDS (21-34) 10/04/17 12:34 - Constitutional Appears: Well, No Acute Distress - Head Exam Head Exam: ATRAUMATIC, NORMAL INSPECTION, NORMOCEPHALIC - Eye Exam Eye Exam: EOMI, Normal appearance - ENT Exam ENT Exam: Mucous Membranes Moist - Respiratory Exam Respiratory Exam: NORMAL BREATHING PATTERN. absent: Accessory Muscle Use, Respiratory Distress - Cardiovascular Exam Cardiovascular Exam: RRR. absent: JVD - GI/Abdominal Exam GI & Abdominal Exam: Soft. absent: Distended, Guarding, Rigid, Tenderness, Rebound - Extremities Exam Additional comments: Right foot dressing clean dry and intact. NO palpable distal pulses in right leg. Warm legs bilaterally - Neurological Exam Neurological Exam: Alert, Awake, Oriented x3 - Psychiatric Exam Psychiatric exam: Normal Affect, Normal Mood - Skin Skin Exam: Dry, Warm Assessment and Plan - Assessment and Plan (Free Text) Assessment: 87yo M with PVD here for Right foot non-healing wound Plan: - pending Abdominal Angio - recs pending completion of study as ordered Further recs as per Dr. Summer Yu PGY1 surgery pager: [phone]
[2017-10-05 08:31] LABS: BASO # 0.1 K/uL (0.0-0.2); BASO % 0.9 % (0.0-2.0); EOS # 0.1 K/uL (0.0-0.7); LYMPH # 0.8 K/uL (1.0-4.3); LYMPH % 9.9 % (20.0-40.0); MEAN CELL VOLUME 90.1 fL (80.0-94.0); MEAN CORPUSCULAR HEMOGLOBIN 30.4 pg (27.0-31.0); MEAN CORPUSCULAR HGB CONC 33.7 g/dL (33.0-37.0); MEAN PLATELET VOLUME 7.8 fL (7.2-11.7); MONO # 0.4 K/uL (0.0-0.8); MONO % 5.5 % (0.0-10.0); NEUT # 6.4 K/uL (1.8-7.0); NEUT % 82.7 % (50.0-75.0); PLATELET COUNT 528 K/uL (130-400); RBC 2.95 Mil/uL (4.40-5.90); RED CELL DISTRIBUTION WIDTH 13.5 % (11.5-14.5); WHITE BLOOD COUNT 7.8 K/uL (4.8-10.8)
--- NOTE | 2017-10-05 08:59 | CP.PCM.PN ---
Subjective - Date & Time of Evaluation Date of Evaluation: 10/05/17 Time of Evaluation: 08:55 - Subjective Subjective: podiatry progress note for Dr. Meeks: 87 year old male seen at bedside this morning for right foot nonhealing wound at previous hallux amputation site. Patient denies any other pedal complaints at this time. Patient appears in NAD and AAOx3. Patient's dressing remains clean ,dry,intact to right foot. Patient denies n/f/v/d/c/sob. Objective - Vital Signs/Intake and Output Vital Signs (last 24 hours): Temp Pulse Resp BP Pulse Ox 97.5 F L 70 18 159/67 H 100 10/05/17 07:10 10/05/17 07:10 10/05/17 07:10 10/05/17 07:10 10/05/17 07:10 Intake and Output: 10/05/17 10/05/17 06:59 18:59 Intake Total 800 Balance 800 - Medications Medications: Current Medications Acetaminophen (Tylenol 325mg Tab) 650 mg PO Q6 PRN PRN Reason: Pain, Mild (1-3) Amlodipine Besylate (Norvasc) 10 mg PO DAILY [facility] Famotidine (Pepcid) 20 mg PO DAILY [facility] Heparin Sodium (Porcine) (Heparin) 5,000 units SC Q8 [facility] Last Admin: 10/05/17 05:26 Dose: 5,000 units Piperacillin Sod/Tazobactam Sod (Zosyn 2.25 Gm Iv Premix) 2.25 gm in 50 mls @ 100 mls/hr IVPB Q6H [facility] PRN Reason: Protocol Last Admin: 10/05/17 04:07 Dose: 100 mls/hr Dextrose/Sodium Chloride (Dextrose 5%/0.45% Ns 1000 Ml) 1,000 mls @ 100 mls/hr IV .Q10H [facility] Last Admin: 10/05/17 05:29 Dose: 100 mls/hr Insulin Human Regular (Novolin R) 0 unit SC ACHS [facility] PRN Reason: Protocol Last Admin: 10/05/17 07:46 Dose: Not Given - Labs Labs: 10/05/17 08:15 10/04/17 12:34 PT 12.9 SECONDS (9.7-12.2) H 10/04/17 12:34 INR 1.1 10/04/17 12:34 APTT 34 SECONDS (21-34) 10/04/17 12:34 - Constitutional Appears: Well, Non-toxic, No Acute Distress - Extremities Exam Additional comments: RLE focused exam: Vasc: DP/PT pulses non palpable. Temp gradient warm to cold. CFT prompt digits 3 -5. Mild forefoot pedal edema noted. Derm: Right hallux and 2nd digit absent following amputation. few sutures are intact, surgical site necrotic with mild fibrotic area proximally, no fluctuance , no ascending cellulitis, no fluctuance, positive probe to bone, no drainage Neuro: Protective sensation grossly diminished Ortho: No tenderness to palpation along surgical site. - Neurological Exam Neurological Exam: Alert, Awake, Oriented x3 - Psychiatric Exam Psychiatric exam: Normal Affect, Normal Mood Assessment and Plan - Assessment and Plan (Free Text) Assessment: 87 y/o male with pmhx of HTN, HLD, DM, seen at bedside for right foot nonhealing wound at amputation site Plan: patient evaluated and chart reviewed discussed with attending Dr. Meeks labs and vitals reviewed; afebrile WBC 7.8 applied betadine, DSD to right foot follow up wound cx Vasc consult- Dr. Wheeler- f/u abdominal angiography cont. IV abx as recommended patient will likely need debridement this week after vascular evaluates podiatry will continue to follow while patint remains in house
[2017-10-05 09:11] LABS: EOSINOPHIL 1 % (0-4); HYPOCHROMIC SLIGHT; LYMPHOCYTE 10 % (20-40); MONOCYTE 2 % (0-10); NEUTROPHIL 87 % (50-75); PLATELET ESTIMATE INCREASED (NORMAL); POLYCHROMIC SLIGHT; TOTAL CELLS COUNTED 100
[2017-10-05] MEDS ORDERED: Iodixanol 320 mg/ml 150 ml Bottle IV ONE ×2 (13:40→15:49)
[2017-10-06] MEDS: Dextrose 5%/0.45% NS 1,000 ML IV SCH ×4 (00:22→20:03)
[2017-10-06] MEDS: Piperacill/Tazo 2.25gm in Dex 2.25 GM/50 ML BAG IVPB SCH ×4 (03:22→21:30)
[2017-10-06 07:40] LABS: BASO # 0.1 K/uL (0.0-0.2); BASO % 0.9 % (0.0-2.0); EOS # 0.1 K/uL (0.0-0.7); EOS % 0.9 % (0.0-4.0); HEMOGLOBIN 9.1 g/dL (12.0-18.0); LYMPH # 1.3 K/uL (1.0-4.3); MEAN CELL VOLUME 89.6 fL (80.0-94.0); MEAN CORPUSCULAR HEMOGLOBIN 29.8 pg (27.0-31.0); MEAN CORPUSCULAR HGB CONC 33.3 g/dL (33.0-37.0); MEAN PLATELET VOLUME 8.2 fL (7.2-11.7); MONO # 0.7 K/uL (0.0-0.8); MONO % 7.1 % (0.0-10.0); NEUT # 7.2 K/uL (1.8-7.0); NEUT % 77.1 % (50.0-75.0); RBC 3.04 Mil/uL (4.40-5.90); RED CELL DISTRIBUTION WIDTH 13.4 % (11.5-14.5); WHITE BLOOD COUNT 9.3 K/uL (4.8-10.8)
[2017-10-06] MEDS: (Novolin R) Insulin Human Regular 100 units/ml vial SC SCH ×4 (08:47→21:58)
--- NOTE | 2017-10-06 09:49 | CT ---
PROCEDURE: CT Angiography Abdomen, Pelvis and Lower Extremity with Contrast HISTORY: pvd COMPARISON: None. TECHNIQUE: Technique: CT angiography of the abdomen, pelvis and bilateral lower extremities performed in the arterial phase of enhancement. Coronal and sagittal reformats, and well as rotating MIP images of the vessels generated at the workstation. Intravenous contrast dose: 100 milliliters Visipaque 320 Radiation dose: Total exam DLP = 1058.29 MGy-cm. This CT exam was performed using one or more of the following dose reduction techniques: Automated exposure control, adjustment of the mA and/or kV according to patient size, and/or use of iterative reconstruction technique. FINDINGS: CT ANGIOGRAPHY: ABDOMINAL AORTA:: Minimal plaque throughout the aorta without stenosis or aneurysm MAJOR AORTIC BRANCHES: Celiac [place]: Unremarkable. Superior mesenteric artery: Unremarkable. Inferior mesenteric artery: Unremarkable. Renal arteries: Unremarkable. PELVIC ARTERIES: Right Common Iliac: Unremarkable. Right External Iliac: Unremarkable. Right Internal Iliac: Unremarkable. Left Common Iliac: Unremarkable. Left External Iliac: Unremarkable. Left Internal Iliac: Unremarkable. RIGHT LOWER EXTREMITY ARTERIES: Right Common Femoral: Unremarkable. Right Superficial Femoral: [id number] plaque throughout the SFA with areas of [id number] stenosis in the mid and distal SFA. Right Profunda Femoris: Unremarkable. Right Popliteal:Unremarkable. Right Anterior Tibial: Unremarkable. Right Tibioperoneal Trunk: Unremarkable. Right Posterior Tibial: Heavily calcified which limits evaluation. Right Peroneal: Unremarkable. Right dorsalis pedis : Unremarkable. LEFT LOWER EXTREMITY ARTERIES: Left Common Femoral: Unremarkable. Left Superficial Femoral: Mild plaque throughout the SFA. Areas of mild stenosis in the mid and distal SFA. Left Profunda Femoris: Unremarkable. Left Popliteal: Unremarkable. Left Anterior Tibial: Occluded. Left Tibioperoneal Trunk: Unremarkable. Left Posterior Tibial: Mild severe calcific plaque limits evaluation. Distal DIVER TENDER is believed to be patent. Left Peroneal: Unremarkable. Left Dorsalis pedis: Unremarkable. NON-ANGIOGRAPHIC ASPECT OF THE EXAM: LOWER THORAX: Unremarkable. LIVER: Compared to study of 10/18/2014. Hypodense lesion within the right hepatic lobe is unchanged. GALLBLADDER AND BILE DUCTS: Unremarkable. PANCREAS: Unremarkable. No gross lesion or ductal dilatation. SPLEEN: Unremarkable. ADRENALS: Unremarkable. No mass. KIDNEYS AND URETERS: Unremarkable. No hydronephrosis. No solid mass. STOMACH AND BOWEL: Unremarkable. No obstruction. No gross mural thickening. APPENDIX: Normal appendix. PERITONEUM: Unremarkable. No free fluid. No free air. LYMPH NODES: Unremarkable. No enlarged lymph nodes. BLADDER: Unremarkable. REPRODUCTIVE: Unremarkable. BONES: No acute fracture. OTHER FINDINGS: None. IMPRESSION: CT ANGIOGRAM ABDOMEN/ PELVIS: 1. Essentially unremarkable CT angiogram of the abdomen pelvis. RIGHT LOWER EXTREMITY CT ANGIOGRAM: 1. Common femoral artery, profunda femoral artery, popliteal artery normal. 2. Mild to moderate plaque throughout the SFA with areas of mild mild stenosis in the mid and distal SFA. 3. Peroneal artery and anterior tibial artery patent. The posterior tibial is heavily calcified which limits evaluation. LEFT LOWER EXTREMITY CT EXAM: 1. Common femoral artery, profunda femoral artery, and popliteal artery normal. 2. Mild plaque throughout the SFA with areas of mild stenosis in the mid segment. 3. Runoff shows an occluded anterior tibial artery and possible occlusion of the proximal mid posterior tibial artery. Distal posterior tibial artery is believed to be patent. The peroneal artery is unremarkable.
--- NOTE | 2017-10-06 10:12 | CP.PCM.PN ---
Subjective - Date & Time of Evaluation Date of Evaluation: 10/06/17 Time of Evaluation: 10:09 - Subjective Subjective: podiatry progress note for Dr. Meeks: 87 year old male seen at bedside this morning for right foot nonhealing wound at previous hallux amputation site. Patient denies any other pedal complaints at this time. Patient appears in NAD and AAOx3. Patient's dressing remains clean ,dry,intact to right foot. Patient went for angio yesterday by Dr. Wheeler. Patient denies n/f/v/d/c/sob. Objective - Vital Signs/Intake and Output Vital Signs (last 24 hours): Temp Pulse Resp BP Pulse Ox 97.7 F 63 19 165/67 H 99 10/06/17 07:20 10/06/17 07:20 10/06/17 07:20 10/06/17 08:54 10/06/17 07:20 Intake and Output: 10/06/17 10/06/17 06:59 18:59 Intake Total 1200 Output Total 1300 Balance -100 - Medications Medications: Current Medications Acetaminophen (Tylenol 325mg Tab) 650 mg PO Q6 PRN PRN Reason: Pain, Mild (1-3) Amlodipine Besylate (Norvasc) 10 mg PO DAILY [facility] Last Admin: 10/06/17 09:05 Dose: 10 mg Famotidine (Pepcid) 20 mg PO DAILY [facility] Last Admin: 10/06/17 09:05 Dose: 20 mg Heparin Sodium (Porcine) (Heparin) 5,000 units SC Q8 [facility] Last Admin: 10/06/17 05:16 Dose: 5,000 units Piperacillin Sod/Tazobactam Sod (Zosyn 2.25 Gm Iv Premix) 2.25 gm in 50 mls @ 100 mls/hr IVPB Q6H [facility] PRN Reason: Protocol Last Admin: 10/06/17 09:05 Dose: 100 mls/hr Dextrose/Sodium Chloride (Dextrose 5%/0.45% Ns 1000 Ml) 1,000 mls @ 100 mls/hr IV .Q10H [facility] Last Admin: 10/06/17 00:22 Dose: 100 mls/hr Ciprofloxacin (Cipro 400mg/200ml Dsw) 400 mg in 200 mls @ 133 mls/hr IVPB Q12H [facility] PRN Reason: Protocol Insulin Human Regular (Novolin R) 0 unit SC ACHS [facility] PRN Reason: Protocol Last Admin: 10/06/17 08:47 Dose: 2 unit Losartan Potassium (Cozaar) 50 mg PO DAILY [facility] - Labs Labs: 10/06/17 07:03 10/04/17 12:34 PT 12.9 SECONDS (9.7-12.2) H 10/04/17 12:34 INR 1.1 10/04/17 12:34 APTT 34 SECONDS (21-34) 10/04/17 12:34 - Constitutional Appears: Well, Non-toxic, No Acute Distress - Extremities Exam Additional comments: RLE focused exam: Vasc: DP/PT pulses non palpable. Temp gradient warm to cold. CFT prompt digits 3 -5. Mild forefoot pedal edema noted. Derm: Right hallux and 2nd digit absent following amputation. few sutures are intact, surgical site necrotic with mild fibrotic area proximally, no fluctuance , no ascending cellulitis, no fluctuance, positive probe to bone, 1 cc of purulent drainage noted from central amputation site Neuro: Protective sensation grossly diminished Ortho: moderate tenderness to palpation along surgical site. - Neurological Exam Neurological Exam: Alert, Awake, Oriented x3 Assessment and Plan - Assessment and Plan (Free Text) Assessment: 87 y/o male with pmhx of HTN, HLD, DM, seen at bedside for right foot nonhealing wound at amputation site Plan: patient evaluated and chart reviewed discussed with attending Dr. Meeks labs and vitals reviewed; afebrile WBC 9.3 applied betadine, DSD to right foot wound cx: enterobacter cloacae, corynebacterium species 1 day s/p abdominal angiography shows PT artery heavily calcified, peroneal and anterior tibial artery patent cont. IV abx as recommended patient will likely need debridement this week after vascular evaluates podiatry will continue to follow while patint remains in house e
--- NOTE | 2017-10-06 10:35 | CP.PCM.PN ---
Addendum entered and electronically signed by Rosie Sierra DO 10/06/17 14:20: Please disregard subjective portion of This Progress Note Patient seen and examined at bedside. Patient tolerating pain well. Patient denies fever chills, nausea, vomiting. Patient had CT angio of lower extremities. final read is in assessment and plan Please disregard portion of assessment and plan mentioning blood transfusion as patient did not have a blood transfusion today Original Note: <Rosie Sierra - Last Filed: 10/06/17 13:38> Subjective - Date & Time of Evaluation Date of Evaluation: 10/06/17 Time of Evaluation: 10:41 - Subjective Subjective: Progress note Patient seen and examined at bedside. No acute events overnight. Patient had some pain in her right foot. Patient went for angio today by Dr. Wheeler. Patient had one unit of PRBC ordered for transfusion. Patient tolerating pain well Objective - Vital Signs/Intake and Output Vital Signs (last 24 hours): Temp Pulse Resp BP Pulse Ox 97.7 F 63 19 165/67 H 99 10/06/17 07:20 10/06/17 07:20 10/06/17 07:20 10/06/17 08:54 10/06/17 07:20 Intake and Output: 10/06/17 10/06/17 06:59 18:59 Intake Total 1200 Output Total 1300 Balance -100 - Medications Medications: Current Medications Acetaminophen (Tylenol 325mg Tab) 650 mg PO Q6 PRN PRN Reason: Pain, Mild (1-3) Amlodipine Besylate (Norvasc) 10 mg PO DAILY [facility] Last Admin: 10/06/17 09:05 Dose: 10 mg Famotidine (Pepcid) 20 mg PO DAILY [facility] Last Admin: 10/06/17 09:05 Dose: 20 mg Heparin Sodium (Porcine) (Heparin) 5,000 units SC Q8 [facility] Last Admin: 10/06/17 05:16 Dose: 5,000 units Piperacillin Sod/Tazobactam Sod (Zosyn 2.25 Gm Iv Premix) 2.25 gm in 50 mls @ 100 mls/hr IVPB Q6H [facility] PRN Reason: Protocol Last Admin: 10/06/17 09:05 Dose: 100 mls/hr Dextrose/Sodium Chloride (Dextrose 5%/0.45% Ns 1000 Ml) 1,000 mls @ 100 mls/hr IV .Q10H [facility] Last Admin: 10/06/17 00:22 Dose: 100 mls/hr Ciprofloxacin (Cipro 400mg/200ml Dsw) 400 mg in 200 mls @ 133 mls/hr IVPB Q12H [facility] PRN Reason: Protocol Insulin Human Regular (Novolin R) 0 unit SC ACHS [facility] PRN Reason: Protocol Last Admin: 10/06/17 08:47 Dose: 2 unit Losartan Potassium (Cozaar) 50 mg PO DAILY [facility] - Labs Labs: 10/06/17 07:03 10/04/17 12:34 PT 12.9 SECONDS (9.7-12.2) H 10/04/17 12:34 INR 1.1 10/04/17 12:34 APTT 34 SECONDS (21-34) 10/04/17 12:34 - Constitutional Appears: Non-toxic - Head Exam Head Exam: ATRAUMATIC, NORMAL INSPECTION, NORMOCEPHALIC - Eye Exam Eye Exam: EOMI, Normal appearance Pupil Exam: NORMAL ACCOMODATION, PERRL - ENT Exam ENT Exam: Mucous Membranes Moist, Normal Exam - Neck Exam Neck Exam: Full ROM, Lymphadenopathy, Normal Inspection - Respiratory Exam Respiratory Exam: Clear to Ausculation Bilateral, NORMAL BREATHING PATTERN. absent: Accessory Muscle Use, Chest Wall Tenderness - Cardiovascular Exam Cardiovascular Exam: REGULAR RHYTHM, +S1, +S2. absent: Bradycardia, Tachycardia - GI/Abdominal Exam GI & Abdominal Exam: Soft, Normal Bowel Sounds. absent: Tenderness - Extremities Exam Extremities Exam: Full ROM, Normal Capillary Refill. 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 Patient has left fifth toe amputation Assessment and Plan: s/p amputation of right hallux and 2nd digit on 08/31/17 afebrile, no leukocytosis Wound cx: f/u results Blood cx: f/u results Foot xray (10/04/17): unremarkable Podiatry consult: Dr. Meeks * tentatively planned for wound debridement Vascular surgery consult: Dr. Wheeler CT angio ileofemoral runoff: right common femoral artery, profunda femoral artery, poplital artery. Mild to Moderate plaque through SFA mild stenosis in mid and distal SFA. Peroneal artery and anterior tibial artery patent. Posterior tibial is heavily calcified. left mild plaque throughout SFA with areas of mild stenosis in the mid segment. Runoff shows an occluded anterior tibial artery and possible occlusion of proximal mid posterior tibial artery. distal posterior tibial artery is believed to be patent. The peroneal artery is unremarkable. Medication: * Zosyn 2.25g IV Q6h (start 10/04/17) * Flagyl * Tylenol 325mg PO PRN for pain/fever (patient is currently free of pain and afebrile) * Home medication: Plavix 75mg PO daily (Held for pre-op) Status: Acute (2) Diabetes mellitus Assessment and Plan: Monitor blood glucose, accuchecks ISS- Medium Hypoglycemia protocol A1c (08/24/17) 6.2 Status: Chronic (3) Hypertension Assessment and Plan: Home medication: Losartan 50mg PO daily, Amlodipine 10mg PO daily Continue Amlodipine, hold losartan Monitor blood pressure Heart healthy diet- 2g Na Status: Chronic (4) HLD (hyperlipidemia) Assessment and Plan: Hx of HLD Lipid panel (08/25/17): Triglycerides 106; Cholesterol 153; LDL 76; HDL 48 Status: Acute (5) Prophylactic measure Assessment and Plan: DVT: Heparin 5000sc Q8; no SCDs GI: Pepcid 20mg PO daily Heart Healthy Diet- 2g Na PT/OT Status: Acute Rosie Sierra, DO PGY1 <Santana Young H - Last Filed: 10/06/17 15:44> Objective - Vital Signs/Intake and Output Vital Signs (last 24 hours): Temp Pulse Resp BP Pulse Ox 98.5 F 72 18 146/63 99 10/06/17 15:15 10/06/17 15:15 10/06/17 15:15 10/06/17 15:15 10/06/17 15:15 Intake and Output: 10/06/17 10/06/17 06:59 18:59 Intake Total 1200 800 Output Total 1300 200 Balance -100 600 - Medications Medications: Current Medications Acetaminophen (Tylenol 325mg Tab) 650 mg PO Q6 PRN PRN Reason: Pain, Mild (1-3) Amlodipine Besylate (Norvasc) 10 mg PO DAILY [facility] Last Admin: 10/06/17 09:05 Dose: 10 mg Famotidine (Pepcid) 20 mg PO DAILY [facility] Last Admin: 10/06/17 09:05 Dose: 20 mg Heparin Sodium (Porcine) (Heparin) 5,000 units SC Q8 [facility] Last Admin: 10/06/17 13:09 Dose: 5,000 units Piperacillin Sod/Tazobactam Sod (Zosyn 2.25 Gm Iv Premix) 2.25 gm in 50 mls @ 100 mls/hr IVPB Q6H [facility] PRN Reason: Protocol Last Admin: 10/06/17 09:05 Dose: 100 mls/hr Dextrose/Sodium Chloride (Dextrose 5%/0.45% Ns 1000 Ml) 1,000 mls @ 100 mls/hr IV .Q10H [facility] Last Admin: 10/06/17 12:16 Dose: 100 mls/hr Ciprofloxacin (Cipro 400mg/200ml Dsw) 400 mg in 200 mls @ 133 mls/hr IVPB Q12H [facility] PRN Reason: Protocol Last Admin: 10/06/17 12:13 Dose: 133 mls/hr Insulin Human Regular (Novolin R) 0 unit SC ACHS [facility] PRN Reason: Protocol Last Admin: 10/06/17 12:45 Dose: Not Given Losartan Potassium (Cozaar) 50 mg PO DAILY [facility] Last Admin: 10/06/17 10:44 Dose: 50 mg - Labs Labs: 10/06/17 07:03 10/04/17 12:34 PT 12.9 SECONDS (9.7-12.2) H 10/04/17 12:34 INR 1.1 10/04/17 12:34 APTT 34 SECONDS (21-34) 10/04/17 12:34 Attending/Attestation - Attestation I have personally seen and examined this patient.: Yes I have fully participated in the care of the patient.: Yes I have reviewed all pertinent clinical information, including history, physical exam and plan: Yes Notes (Text): 10/06/17 15:34 Medical attending: Patient was seen and examined by me. Agree with the above note by the resident The patient was not in any acute distress when we saw him. The patient had just completed a CTA of the lower extremity with run off to assess vasculkature and it appears stable At some point will be having further interventon by podiatry thank you Santana Young
[2017-10-06] MEDS: Ciprofloxacin 400mg/200ml D5W 400 MG/200 ML BAG IVPB SCH ×2 (12:13→23:51)
--- NOTE | 2017-10-06 14:26 | CP.PCM.PN ---
Subjective - Date & Time of Evaluation Date of Evaluation: 10/06/17 Time of Evaluation: 07:05 - Subjective Subjective: Vascular Surgery Progress note. Dr. Wheeler Pt seen and examined at bedside. Denies any complaints. Denies pain in lower extremities. Objective - Vital Signs/Intake and Output Vital Signs (last 24 hours): Temp Pulse Resp BP Pulse Ox 97.7 F 63 19 159/70 H 99 10/06/17 07:20 10/06/17 07:20 10/06/17 07:20 10/06/17 10:45 10/06/17 07:20 Intake and Output: 10/06/17 10/06/17 06:59 18:59 Intake Total 1200 Output Total 1300 200 Balance -100 -200 - Medications Medications: Current Medications Acetaminophen (Tylenol 325mg Tab) 650 mg PO Q6 PRN PRN Reason: Pain, Mild (1-3) Amlodipine Besylate (Norvasc) 10 mg PO DAILY [facility] Last Admin: 10/06/17 09:05 Dose: 10 mg Famotidine (Pepcid) 20 mg PO DAILY [facility] Last Admin: 10/06/17 09:05 Dose: 20 mg Heparin Sodium (Porcine) (Heparin) 5,000 units SC Q8 [facility] Last Admin: 10/06/17 13:09 Dose: 5,000 units Piperacillin Sod/Tazobactam Sod (Zosyn 2.25 Gm Iv Premix) 2.25 gm in 50 mls @ 100 mls/hr IVPB Q6H [facility] PRN Reason: Protocol Last Admin: 10/06/17 09:05 Dose: 100 mls/hr Dextrose/Sodium Chloride (Dextrose 5%/0.45% Ns 1000 Ml) 1,000 mls @ 100 mls/hr IV .Q10H [facility] Last Admin: 10/06/17 12:16 Dose: 100 mls/hr Ciprofloxacin (Cipro 400mg/200ml Dsw) 400 mg in 200 mls @ 133 mls/hr IVPB Q12H [facility] PRN Reason: Protocol Last Admin: 10/06/17 12:13 Dose: 133 mls/hr Insulin Human Regular (Novolin R) 0 unit SC ACHS [facility] PRN Reason: Protocol Last Admin: 10/06/17 12:45 Dose: Not Given Losartan Potassium (Cozaar) 50 mg PO DAILY [facility] Last Admin: 10/06/17 10:44 Dose: 50 mg - Labs Labs: 10/06/17 07:03 10/04/17 12:34 PT 12.9 SECONDS (9.7-12.2) H 10/04/17 12:34 INR 1.1 10/04/17 12:34 APTT 34 SECONDS (21-34) 10/04/17 12:34 - Constitutional Appears: Well, Non-toxic, No Acute Distress - Head Exam Head Exam: ATRAUMATIC, NORMAL INSPECTION, NORMOCEPHALIC - Eye Exam Eye Exam: EOMI, Normal appearance. absent: Scleral icterus - ENT Exam ENT Exam: Mucous Membranes Moist - Respiratory Exam Respiratory Exam: NORMAL BREATHING PATTERN. absent: Accessory Muscle Use, Respiratory Distress - Cardiovascular Exam Cardiovascular Exam: RRR. absent: JVD - GI/Abdominal Exam GI & Abdominal Exam: Soft. absent: Distended, Firm, Guarding, Rigid, Tenderness - Extremities Exam Additional comments: Right foot with dressing in place, clean, dry and intact. - Neurological Exam Neurological Exam: Alert, Awake, Oriented x3 - Psychiatric Exam Psychiatric exam: Normal Affect, Normal Mood - Skin Skin Exam: Dry, Intact, Normal Color, Warm Assessment and Plan - Assessment and Plan (Free Text) Assessment: 87yo M with peripheral vascular disease. Right LE non-healing surgical wound Plan: - Abd Angio with runoff reviewed. Previously treated Right Lower extremity vascular lesions look patent with good flow - No further vascular surgery intervention indicated at this time - f/u podiatry recs Further recs as per Dr. Summer Yu PGY1 surgery pager: [phone]
[2017-10-07] MEDS: Dextrose 5%/0.45% NS 1,000 ML IV SCH ×3 (02:48→15:54)
[2017-10-07] MEDS: Piperacill/Tazo 2.25gm in Dex 2.25 GM/50 ML BAG IVPB SCH ×4 (03:44→21:01)
[2017-10-07] MEDS: (Novolin R) Insulin Human Regular 100 units/ml vial SC SCH ×4 (08:14→21:47)
[2017-10-07 08:49] LABS: BASO # 0.1 K/uL (0.0-0.2); BASO % 1.3 % (0.0-2.0); EOS # 0.1 K/uL (0.0-0.7); EOS % 0.7 % (0.0-4.0); HEMOGLOBIN 9.3 g/dL (12.0-18.0); LYMPH # 0.8 K/uL (1.0-4.3); LYMPH % 9.4 % (20.0-40.0); MEAN CELL VOLUME 89.2 fL (80.0-94.0); MEAN CORPUSCULAR HEMOGLOBIN 29.9 pg (27.0-31.0); MEAN CORPUSCULAR HGB CONC 33.5 g/dL (33.0-37.0); MONO # 0.5 K/uL (0.0-0.8); MONO % 5.7 % (0.0-10.0); NEUT % 82.9 % (50.0-75.0); PLATELET COUNT 528 K/uL (130-400); RBC 3.12 Mil/uL (4.40-5.90); RED CELL DISTRIBUTION WIDTH 13.5 % (11.5-14.5); WHITE BLOOD COUNT 8.4 K/uL (4.8-10.8)
[2017-10-07 09:08] LABS: EOSINOPHIL 1 % (0-4); LYMPHOCYTE 5 % (20-40); MONOCYTE 3 % (0-10); NEUTROPHIL 91 % (50-75); PLATELET ESTIMATE INCREASED (NORMAL); TOTAL CELLS COUNTED 100
[2017-10-07 09:09] LABS: HYPOCHROMIC SLIGHT; POLYCHROMIC SLIGHT
[2017-10-07] MEDS: Ciprofloxacin 400mg/200ml D5W 400 MG/200 ML BAG IVPB SCH (11:11)
--- NOTE | 2017-10-07 13:06 | CP.PCM.PN ---
<Rsoie Sierra - Last Filed: 10/07/17 14:12> Subjective - Date & Time of Evaluation Date of Evaluation: 10/07/17 Time of Evaluation: 13:04 - Subjective Subjective: Progress note for Dr. Young Patient seen and examined at bedside. Patient tolerating pain well. Patient is going for OR tomorrow for debridement with Podiatry team. Patient denies fever chills, nausea, vomiting. Objective - Vital Signs/Intake and Output Vital Signs (last 24 hours): Temp Pulse Resp BP Pulse Ox 97.6 F 65 18 150/66 97 10/07/17 07:59 10/07/17 07:59 10/07/17 07:59 10/07/17 08:56 10/07/17 07:59 Intake and Output: 10/07/17 10/07/17 06:59 18:59 Intake Total 2100 Output Total 700 Balance 2100 -700 - Medications Medications: Current Medications Acetaminophen (Tylenol 325mg Tab) 650 mg PO Q6 PRN PRN Reason: Pain, Mild (1-3) Amlodipine Besylate (Norvasc) 10 mg PO DAILY [facility] Last Admin: 10/07/17 09:00 Dose: 10 mg Famotidine (Pepcid) 20 mg PO DAILY [facility] Last Admin: 10/07/17 09:00 Dose: 20 mg Heparin Sodium (Porcine) (Heparin) 5,000 units SC Q8 [facility] Last Admin: 10/07/17 05:23 Dose: 5,000 units Piperacillin Sod/Tazobactam Sod (Zosyn 2.25 Gm Iv Premix) 2.25 gm in 50 mls @ 100 mls/hr IVPB Q6H [facility] PRN Reason: Protocol Last Admin: 10/07/17 09:40 Dose: 100 mls/hr Dextrose/Sodium Chloride (Dextrose 5%/0.45% Ns 1000 Ml) 1,000 mls @ 100 mls/hr IV .Q10H [facility] Last Admin: 10/07/17 02:48 Dose: 100 mls/hr Ciprofloxacin (Cipro 400mg/200ml Dsw) 400 mg in 200 mls @ 133 mls/hr IVPB Q12H [facility] PRN Reason: Protocol Last Admin: 10/07/17 11:11 Dose: 133 mls/hr Insulin Human Regular (Novolin R) 0 unit SC ACHS [facility] PRN Reason: Protocol Last Admin: 10/07/17 11:36 Dose: Not Given Losartan Potassium (Cozaar) 50 mg PO DAILY [facility] Last Admin: 10/07/17 09:00 Dose: 50 mg - Labs Labs: 10/07/17 08:39 10/04/17 12:34 PT 12.9 SECONDS (9.7-12.2) H 10/04/17 12:34 INR 1.1 10/04/17 12:34 APTT 34 SECONDS (21-34) 10/04/17 12:34 - Constitutional Appears: Non-toxic, No Acute Distress - Head Exam Head Exam: ATRAUMATIC, NORMAL INSPECTION, NORMOCEPHALIC - Eye Exam Eye Exam: EOMI, Normal appearance Pupil Exam: NORMAL ACCOMODATION, PERRL - ENT Exam ENT Exam: Mucous Membranes Moist - Neck Exam Neck Exam: Full ROM. absent: Tenderness, Thyromegaly - Respiratory Exam Respiratory Exam: Clear to Ausculation Bilateral, NORMAL BREATHING PATTERN. absent: Chest Wall Tenderness, Decreased Breath Sounds - Cardiovascular Exam Cardiovascular Exam: REGULAR RHYTHM, +S1, +S2 - GI/Abdominal Exam GI & Abdominal Exam: Soft, Normal Bowel Sounds. absent: Tenderness - Extremities Exam Extremities Exam: Full ROM. absent: Pedal Edema Additional comments: Right foot dressing c/d/i. NO palpable distal pulses in right leg. 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 Patient has left fifth toe amputation Assessment and Plan: s/p amputation of right hallux and 2nd digit on 08/31/17 afebrile, no leukocytosis Wound cx: f/u results Blood cx: f/u results Foot xray (10/04/17): unremarkable Podiatry consult: Dr. Meeks Vascular surgery consult: Dr. Wheeler CT angio ileofemoral runoff: right common femoral artery, profunda femoral artery, poplital artery. Mild to Moderate plaque through SFA mild stenosis in mid and distal SFA. Peroneal artery and anterior tibial artery patent. Posterior tibial is heavily calcified. left mild plaque throughout SFA with areas of mild stenosis in the mid segment. Runoff shows an occluded anterior tibial artery and possible occlusion of proximal mid posterior tibial artery. distal posterior tibial artery is believed to be patent. The peroneal artery is unremarkable. per Vascular Surgery: nothing to do from a vascular surgery standpoint per Podiatry: OR scheduled for 10/08 7:30 am, NPO p Midnight, hold heparin after nightime dose Medication: * Zosyn 2.25g IV Q6h (start 10/04/17) * Flagyl * Tylenol 325mg PO PRN for pain/fever (patient is currently free of pain and afebrile) * Home medication: Plavix 75mg PO daily (Held for pre-op) Status: Acute (2) Diabetes mellitus Assessment and Plan: Monitor blood glucose, accuchecks ISS- Medium Hypoglycemia protocol A1c (08/24/17) 6.2 Status: Chronic (3) Hypertension Assessment and Plan: Home medication: Losartan 50mg PO daily, Amlodipine 10mg PO daily Continue Amlodipine, hold losartan Monitor blood pressure Heart healthy diet- 2g Na Status: Chronic (4) HLD (hyperlipidemia) Assessment and Plan: Hx of HLD Lipid panel (08/25/17): Triglycerides 106; Cholesterol 153; LDL 76; HDL 48 Status: Acute (5) Prophylactic measure Assessment and Plan: DVT: Heparin 5000sc Q8; no SCDs GI: Pepcid 20mg PO daily Heart Healthy Diet- 2g Na PT/OT Status: Acute Rosie Sierra, DO PGY1 <Santana Young H - Last Filed: 10/07/17 14:50> Objective - Vital Signs/Intake and Output Vital Signs (last 24 hours): Temp Pulse Resp BP Pulse Ox 97.6 F 65 18 150/66 97 10/07/17 07:59 10/07/17 07:59 10/07/17 07:59 10/07/17 08:56 10/07/17 07:59 Intake and Output: 10/07/17 10/07/17 06:59 18:59 Intake Total 2100 Output Total 700 Balance 2100 -700 - Medications Medications: Current Medications Acetaminophen (Tylenol 325mg Tab) 650 mg PO Q6 PRN PRN Reason: Pain, Mild (1-3) Amlodipine Besylate (Norvasc) 10 mg PO DAILY [facility] Last Admin: 10/07/17 09:00 Dose: 10 mg Famotidine (Pepcid) 20 mg PO DAILY [facility] Last Admin: 10/07/17 09:00 Dose: 20 mg Heparin Sodium (Porcine) (Heparin) 5,000 units SC Q8 [facility] Last Admin: 10/07/17 05:23 Dose: 5,000 units Piperacillin Sod/Tazobactam Sod (Zosyn 2.25 Gm Iv Premix) 2.25 gm in 50 mls @ 100 mls/hr IVPB Q6H [facility] PRN Reason: Protocol Last Admin: 10/07/17 09:40 Dose: 100 mls/hr Dextrose/Sodium Chloride (Dextrose 5%/0.45% Ns 1000 Ml) 1,000 mls @ 100 mls/hr IV .Q10H [facility] Last Admin: 10/07/17 14:48 Dose: 100 mls/hr Ciprofloxacin (Cipro 400mg/200ml Dsw) 400 mg in 200 mls @ 133 mls/hr IVPB Q12H [facility] PRN Reason: Protocol Last Admin: 10/07/17 11:11 Dose: 133 mls/hr Insulin Human Regular (Novolin R) 0 unit SC ACHS [facility] PRN Reason: Protocol Last Admin: 10/07/17 11:36 Dose: Not Given Losartan Potassium (Cozaar) 50 mg PO DAILY [facility] Last Admin: 10/07/17 09:00 Dose: 50 mg - Labs Labs: 10/07/17 08:39 10/04/17 12:34 PT 12.9 SECONDS (9.7-12.2) H 10/04/17 12:34 INR 1.1 10/04/17 12:34 APTT 34 SECONDS (21-34) 10/04/17 12:34 Attending/Attestation - Attestation I have personally seen and examined this patient.: Yes I have fully participated in the care of the patient.: Yes I have reviewed all pertinent clinical information, including history, physical exam and plan: Yes Notes (Text): 10/07/17 14:50 Medical attending: Patient was seen and examined by me, agrees the above note by the medical biller. I do not have any new news to report at this time. There is no acute events today. Tomorrow the patient is going to be to the for further debridement with podiatry. Previously he underwent a CT angiogram with runoff, and vascular surgery is not planning on any procedures at this time Thank you very much, Santana Young
--- NOTE | 2017-10-07 14:31 | CP.PCM.PN ---
Subjective - Date & Time of Evaluation Date of Evaluation: 10/07/17 Time of Evaluation: 11:31 - Subjective Subjective: Podiatry Progress Note - Dr. Meeks 87M seen and evaluated at bedside for nonhealing wounds to previous hallux and partial 2nd digit amputation sites. Patient hemodynamically stable and NAD. No acute events overnight. Reports minimal pain to wounds, well-controlled. Patient aware he is scheduled for surgery tomorrow and will be NPO past mn. Denies n/f/v/d/c/sob. Objective - Vital Signs/Intake and Output Vital Signs (last 24 hours): Temp Pulse Resp BP Pulse Ox 97.6 F 65 18 150/66 97 10/07/17 07:59 10/07/17 07:59 10/07/17 07:59 10/07/17 08:56 10/07/17 07:59 Intake and Output: 10/07/17 10/07/17 06:59 18:59 Intake Total 2100 Output Total 700 Balance 2100 -700 - Medications Medications: Current Medications Acetaminophen (Tylenol 325mg Tab) 650 mg PO Q6 PRN PRN Reason: Pain, Mild (1-3) Amlodipine Besylate (Norvasc) 10 mg PO DAILY [facility] Last Admin: 10/07/17 09:00 Dose: 10 mg Famotidine (Pepcid) 20 mg PO DAILY [facility] Last Admin: 10/07/17 09:00 Dose: 20 mg Heparin Sodium (Porcine) (Heparin) 5,000 units SC Q8 [facility] Last Admin: 10/07/17 05:23 Dose: 5,000 units Piperacillin Sod/Tazobactam Sod (Zosyn 2.25 Gm Iv Premix) 2.25 gm in 50 mls @ 100 mls/hr IVPB Q6H [facility] PRN Reason: Protocol Last Admin: 10/07/17 09:40 Dose: 100 mls/hr Dextrose/Sodium Chloride (Dextrose 5%/0.45% Ns 1000 Ml) 1,000 mls @ 100 mls/hr IV .Q10H [facility] Last Admin: 10/07/17 02:48 Dose: 100 mls/hr Ciprofloxacin (Cipro 400mg/200ml Dsw) 400 mg in 200 mls @ 133 mls/hr IVPB Q12H [facility] PRN Reason: Protocol Last Admin: 10/07/17 11:11 Dose: 133 mls/hr Insulin Human Regular (Novolin R) 0 unit SC ACHS [facility] PRN Reason: Protocol Last Admin: 10/07/17 11:36 Dose: Not Given Losartan Potassium (Cozaar) 50 mg PO DAILY [facility] Last Admin: 10/07/17 09:00 Dose: 50 mg - Labs Labs: 10/07/17 08:39 10/04/17 12:34 PT 12.9 SECONDS (9.7-12.2) H 10/04/17 12:34 INR 1.1 10/04/17 12:34 APTT 34 SECONDS (21-34) 10/04/17 12:34 - Constitutional Appears: Well, Non-toxic, No Acute Distress - Extremities Exam Additional comments: RLE focused exam: Vasc: DP/PT pulses non palpable. Temp gradient cool to cool. CFT prompt digits 3 -5. Mild forefoot pedal edema noted. Derm: Surgical site necrotic with mild fibrotic area proximally, exposed bone 1st met, minimal erythema periwound, no fluctuance, no ascending cellulitis, no fluctuance Neuro: Protective sensation grossly diminished Ortho: moderate tenderness to palpation along surgical site. s/p right hallux amputation with metatarsal head resection, and partial 2nd digit amputation - Neurological Exam Neurological Exam: Alert, Awake, Oriented x3 - Psychiatric Exam Psychiatric exam: Normal Affect, Normal Mood Assessment and Plan - Assessment and Plan (Free Text) Assessment: 87 y/o male with right foot nonhealing wound s/p hallux amputation with metatarsal head resection and partial 2nd digit amputation (DOS 08/31/17) Plan: Patient seen and evaluated with attending, Dr. Meeks Afebrile, WBC 8.4 wound cx: enterobacter cloacae, corynebacterium species Abdominal angiography: PT artery heavily calcified, peroneal and anterior tibial artery patent No further intervention per vascular Continue abx - Ciprofloxacin 400mg IV, Zosyn 2.25g IV To OR tomorrow for right foot wound debridement @ 7:30 -Consent discussed with patient's son, Milan Walter who verbally agrees to procedure; nurse present to witness -NPO past mn -Obtain INR @ 4AM -Hold heparin Continue local wound care - betadine, DSD Podiatry will continue to follow while patient remains in house
[2017-10-08] MEDS: Ciprofloxacin 400mg/200ml D5W 400 MG/200 ML BAG IVPB SCH ×2 (00:25→12:42)
[2017-10-08] MEDS: Piperacill/Tazo 2.25gm in Dex 2.25 GM/50 ML BAG IVPB SCH ×4 (03:49→21:35)
[2017-10-08 04:03] LABS: BASO # 0.1 K/uL (0.0-0.2); BASO % 1.4 % (0.0-2.0); EOS # 0.1 K/uL (0.0-0.7); EOS % 0.8 % (0.0-4.0); HEMOGLOBIN 8.7 g/dL (12.0-18.0); LYMPH % 12.2 % (20.0-40.0); MEAN CELL VOLUME 89.8 fL (80.0-94.0); MEAN CORPUSCULAR HEMOGLOBIN 29.8 pg (27.0-31.0); MEAN CORPUSCULAR HGB CONC 33.1 g/dL (33.0-37.0); MEAN PLATELET VOLUME 7.9 fL (7.2-11.7); MONO # 0.6 K/uL (0.0-0.8); MONO % 7.4 % (0.0-10.0); NEUT # 6.4 K/uL (1.8-7.0); NEUT % 78.2 % (50.0-75.0); RBC 2.91 Mil/uL (4.40-5.90); RED CELL DISTRIBUTION WIDTH 13.5 % (11.5-14.5); WHITE BLOOD COUNT 8.2 K/uL (4.8-10.8)
[2017-10-08 05:23] LABS: INR 1.2; PROTHROMBIN TIME 13.2 SECONDS (9.7-12.2)
[2017-10-08] MEDS: Dextrose 5%/0.45% NS 1,000 ML IV SCH (06:14)
--- NOTE | 2017-10-08 07:10 | CP.PCM.PN ---
<Regan Ascencio - Last Filed: 10/08/17 14:37> Subjective - Date & Time of Evaluation Date of Evaluation: 10/08/17 Time of Evaluation: 06:50 - Subjective Subjective: Medicine progress note for Dr. Young Patient seen and examined. Patient reports no acute complaints at this time. No acute events overnight noted. Patient is for OR today for debridement. Objective - Vital Signs/Intake and Output Vital Signs (last 24 hours): Temp Pulse Resp BP Pulse Ox 98.5 F 70 20 149/60 97 10/08/17 00:00 10/08/17 00:00 10/08/17 00:00 10/08/17 00:00 10/08/17 00:00 Intake and Output: 10/08/17 10/08/17 06:59 18:59 Intake Total 2100 Balance 2100 - Medications Medications: Current Medications Acetaminophen (Tylenol 325mg Tab) 650 mg PO Q6 PRN PRN Reason: Pain, Mild (1-3) Amlodipine Besylate (Norvasc) 10 mg PO DAILY [facility] Last Admin: 10/07/17 09:00 Dose: 10 mg Famotidine (Pepcid) 20 mg PO DAILY [facility] Last Admin: 10/07/17 09:00 Dose: 20 mg Heparin Sodium (Porcine) (Heparin) 5,000 units SC Q8 [facility] Last Admin: 10/07/17 15:00 Dose: 5,000 units Piperacillin Sod/Tazobactam Sod (Zosyn 2.25 Gm Iv Premix) 2.25 gm in 50 mls @ 100 mls/hr IVPB Q6H [facility] PRN Reason: Protocol Last Admin: 10/08/17 03:49 Dose: 100 mls/hr Ciprofloxacin (Cipro 400mg/200ml Dsw) 400 mg in 200 mls @ 133 mls/hr IVPB Q12H [facility] PRN Reason: Protocol Last Admin: 10/08/17 00:25 Dose: 133 mls/hr Insulin Human Regular (Novolin R) 0 unit SC ACHS [facility] PRN Reason: Protocol Last Admin: 10/07/17 21:47 Dose: Not Given Losartan Potassium (Cozaar) 50 mg PO DAILY [facility] Last Admin: 10/07/17 09:00 Dose: 50 mg - Labs Labs: 10/08/17 03:55 10/04/17 12:34 PT 13.2 SECONDS (9.7-12.2) H 10/08/17 04:57 INR 1.2 10/08/17 04:57 APTT 34 SECONDS (21-34) 10/04/17 12:34 - Additional Findings Additional findings: - Constitutional Appears: Non-toxic, No Acute Distress - Head Exam Head Exam: ATRAUMATIC, NORMAL INSPECTION, NORMOCEPHALIC - Eye Exam Eye Exam: EOMI, Normal appearance Pupil Exam: NORMAL ACCOMODATION, PERRL - ENT Exam ENT Exam: Mucous Membranes Moist - Neck Exam Neck Exam: Full ROM. absent: Tenderness, Thyromegaly - Respiratory Exam Respiratory Exam: Clear to Ausculation Bilateral, NORMAL BREATHING PATTERN. absent: Chest Wall Tenderness, Decreased Breath Sounds - Cardiovascular Exam Cardiovascular Exam: REGULAR RHYTHM, +S1, +S2 - GI/Abdominal Exam GI & Abdominal Exam: Soft, Normal Bowel Sounds. absent: Tenderness - Extremities Exam Extremities Exam: Full ROM. absent: Pedal Edema Additional comments: Right foot dressing c/d/i. NO palpable distal pulses in right leg. 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 Patient has left fifth toe amputation Assessment and Plan: s/p amputation of right hallux and 2nd digit on 08/31/17 afebrile, no leukocytosis Wound cx: f/u results Blood cx: f/u results Foot xray (10/04/17): unremarkable Podiatry consult: Dr. Meeks Vascular surgery consult: Dr. Wheeler CT angio ileofemoral runoff: right common femoral artery, profunda femoral artery, poplital artery. Mild to Moderate plaque through SFA mild stenosis in mid and distal SFA. Peroneal artery and anterior tibial artery patent. Posterior tibial is heavily calcified. left mild plaque throughout SFA with areas of mild stenosis in the mid segment. Runoff shows an occluded anterior tibial artery and possible occlusion of proximal mid posterior tibial artery. distal posterior tibial artery is believed to be patent. The peroneal artery is unremarkable. per Vascular Surgery: no intervention from a vascular surgery standpoint Podiatry: Debridement on 10/08/17 Medication: * Zosyn 2.25g IV Q6h (start 10/04/17) * Cipro (10/06-10/08) * Tylenol 650mg PO PRN for pain/fever (patient is currently free of pain and afebrile) * Home medication: Plavix 75mg PO daily (Held for pre-op) Status: Acute (2) Diabetes mellitus Assessment and Plan: Monitor blood glucose, accuchecks ISS- Medium Hypoglycemia protocol A1c (08/24/17) 6.2 Status: Chronic (3) Hypertension Assessment and Plan: Resumed home medications: Losartan 50mg PO daily, Amlodipine 10mg PO daily Monitor blood pressure Heart healthy diet- 2g Na Status: Chronic (4) HLD (hyperlipidemia) Assessment and Plan: Hx of HLD Lipid panel (08/25/17): Triglycerides 106; Cholesterol 153; LDL 76; HDL 48 Status: Acute (5) Prophylactic measure Assessment and Plan: DVT: Heparin 5000sc Q8; no SCDs GI: Pepcid 20mg PO daily Heart Healthy Diet- 2g Na PT/OT Status: Acute Disposition: Discharge is pending podiatry clearance. Awaiting pathology report from debridement performed on 10/08/17. Discussed with Dr. Hannah Ascencio PGY-1 <Santana Young - Last Filed: 10/08/17 18:33> Objective - Vital Signs/Intake and Output Vital Signs (last 24 hours): Temp Pulse Resp BP Pulse Ox 97.8 F 83 20 145/66 97 10/08/17 15:12 10/08/17 15:12 10/08/17 15:12 10/08/17 15:12 10/08/17 15:12 Intake and Output: 10/08/17 10/08/17 06:59 18:59 Intake Total 2100 400 Balance 2100 400 - Medications Medications: Current Medications Acetaminophen (Tylenol 325mg Tab) 650 mg PO Q6 PRN PRN Reason: Pain, Mild (1-3) Amlodipine Besylate (Norvasc) 10 mg PO DAILY [facility] Last Admin: 10/08/17 10:38 Dose: 10 mg Famotidine (Pepcid) 20 mg PO DAILY [facility] Last Admin: 10/08/17 10:38 Dose: 20 mg Heparin Sodium (Porcine) (Heparin) 5,000 units SC Q8 [facility] Last Admin: 10/07/17 15:00 Dose: 5,000 units Piperacillin Sod/Tazobactam Sod (Zosyn 2.25 Gm Iv Premix) 2.25 gm in 50 mls @ 100 mls/hr IVPB Q6H [facility] PRN Reason: Protocol Last Admin: 10/08/17 16:43 Dose: 100 mls/hr Insulin Human Regular (Novolin R) 0 unit SC ACHS [facility] PRN Reason: Protocol Last Admin: 10/08/17 17:24 Dose: Not Given Losartan Potassium (Cozaar) 50 mg PO DAILY [facility] Last Admin: 10/08/17 10:38 Dose: 50 mg Oxycodone/Acetaminophen (Percocet 5/325 Mg Tab) 1 tab PO Q4H PRN PRN Reason: Pain, moderate (4-7) Stop: 10/11/17 09:11 Oxycodone/Acetaminophen (Percocet 5/325 Mg Tab) 2 tab PO Q4H PRN PRN Reason: Pain, severe (8-10) Stop: 10/11/17 09:11 Last Admin: 10/08/17 14:26 Dose: 2 tab - Labs Labs: 10/08/17 03:55 10/08/17 11:11 PT 13.2 SECONDS (9.7-12.2) H 10/08/17 04:57 INR 1.2 10/08/17 04:57 APTT 34 SECONDS (21-34) 10/04/17 12:34 Attending/Attestation - Attestation I have personally seen and examined this patient.: Yes I have fully participated in the care of the patient.: Yes I have reviewed all pertinent clinical information, including history, physical exam and plan: Yes Notes (Text): 10/08/17 18:31 Medical attending: Patient was seen and examined by me. Agree with the above note by the resident. Today he went to OR for further debridment. We are currently pending the cultures of the wound area at this time. He previously grew out enterobacter and remains on IV abx. Otherwise the patient is currently stable and we will continue to watch him. thank you Santana Young 10/08/17 18:32
[2017-10-08] MEDS ORDERED: Bupivacaine HCl 0.5% PF (10 ml) Inj ONE (07:12)
[2017-10-08] MEDS ORDERED: Propofol 10 mg/ml Inj (20 ML) ONE ×2 (07:29→08:36)
[2017-10-08] MEDS ORDERED: Sodium Chloride 0.9% 250 ML IV ONE ×2 (07:35→09:08)
[2017-10-08] MEDS ORDERED: Lidocaine Hydrochloride 10 ML INJ ONE (07:35)
[2017-10-08] MEDS: (Novolin R) Insulin Human Regular 100 units/ml vial SC SCH ×4 (07:38→21:36)
[2017-10-08] MEDS ORDERED: HYDROmorphone 0.5 mg/0.5 ml ISec IVP PRN (09:09)
[2017-10-08] MEDS ORDERED: Oxycodone/Acetaminophen 5/325 mg Tab PO PRN (09:10)
--- NOTE | 2017-10-08 09:10 | PCM.SURG1 ---
Surgeon's Initial Post Op Note - Surgeon's Notes Surgeon: Dr. Meeks Bronze Plater: Dr. Hartman PGY1 Type of Anesthesia: IV Sedation, Local (17cc 1:1 mixture 1% lidocaine and 0.5% marcaine) Anesthesia Administered By: Stefanie PADILLA Pre-Operative Diagnosis: Right foot nonhealing wound Operative Findings: See operative report. Materials 3-0 vicryl, 3-0 nylon Post-Operative Diagnosis: Same Operation Performed: right foot debridement of soft tissue and bone Specimen/Specimens Removed: Right 1st metatarsal, right 2nd proximal phalanx Estimated Blood Loss: EBL {In ML}: 20 Blood Products Given: N/A Drains Used: No Drains Post-Op Condition: Good Date of Surgery/Procedure: 10/08/17 Time of Surgery/Procedure: 09:10
[2017-10-08 11:42] LABS: ALB/GLOB RATIO 0.8 (1.0-2.1); ALBUMIN 3.4 g/dL (3.5-5.0); CALCIUM 8.3 mg/dl (8.6-10.4)
[2017-10-08] MEDS ORDERED: Potassium Chloride 20 mEq ER Tab PO ONE (13:49)
--- NOTE | 2017-10-08 14:47 | RAD ---
PROCEDURE: Right Foot Radiographs. HISTORY: s/p right foot surgery COMPARISON: 10/04/2017 FINDINGS: BONES: Status post amputation 1st digit mid 1st metatarsal. Amputation 2nd digit and T he articulation. No acute fracture. No lytic or blastic osseous lesion. JOINTS: Normal. SOFT TISSUES: Vascular calcifications are noted. OTHER FINDINGS: None. IMPRESSION: Amputation 2nd digit at MTP articulation. Amputation 1st digit mid metatarsal, proximal to prior amputation.
--- NOTE | 2017-10-09 02:47 | OP ---
PROCEDURE DATE: 10/08/2017 SURGEON: Dr. Lam Meeks DPM [employer] TECHNICIAN: Angela Hartman DPM PGY-1. ANESTHESIA ADMINISTERED BY: RANDY Watts. TYPE OF ANESTHESIA: IV sedation with local, 17 mL of 1:1 mixture of 1% lidocaine plain and 0.5% Marcaine plain. PREOPERATIVE DIAGNOSIS: Right foot nonhealing wound. POSTOPERATIVE DIAGNOSIS: Right foot nonhealing wound. PROCEDURE PERFORMED: Right foot debridement of soft tissue and bone. INDICATIONS: The patient is an 87-year-old male with the above diagnosis. The patient had an amputation of right hallux and partial first metatarsal along with partial second digit amputation on 08/31/2017; however, the amputation site did not heal and developed into a wound that is full thickness to bone with a mixture of fibrotic and necrotic wound edges. The patient had exhausted all conservative treatment at this time, and now request surgical intervention. The patient's power of assistant prosecuting attorney, son Milan Walter, who was contacted over the phone to verbally discuss the surgical procedure. The patient's son verbally agreed to the consent after careful explanation of risks, benefits, alternatives, and complications of the procedure and wishes to proceed. The nurse was present as a witness and to sign on behalf of the patient's son. No guarantees were given or implied. PREPARATION: The patient was brought into the operating room and placed on the operating room table in the supine position. A time-out was performed for identification of the correct patient and procedure. After induction of IV sedation, the patient received a total of 17 mL of 1:1 mixture of 1% lidocaine and 0.5% Marcaine in a digital block and Marsh block technique, the right foot was then prepped and draped in normal sterile manner and the procedure began. DESCRIPTION OF PROCEDURE: Attention was directed to the wound located at the first ray and 2nd digit where it was noted to have a mixed, mostly necrotic with partially fibrotic area proximally with an exposed first metatarsal. The second digit amputation site was noted to have sutures intact with overlying necrotic tissue as well. Utilizing a 15 blade, the necrotic tissue was excisionally debrided to reveal a mixture of subcutaneous tissue and healthy bleeding tissue. Next utilizing a [place] periosteal elevator, the periosteum was freed from the first metatarsal shaft. Next utilizing a sagittal saw, the first metatarsal shaft was resected, passed off the operative field to be sent to Pathology. Next at the first web space utilizing a 15 blade, a linear incision was made to connect the wounds and soft tissue was debulked to create a suitable flap for closure. Next directing attention to the proximal phalanx of the second digit, the proximal phalanx was disarticulated at the level of the MPJ, passed off the operative field to be sent to Pathology. Both amputation sites were noted to have a mixture of subcutaneous tissue and healthy bleeding tissue. Using a fresh 15-blade, skin margins were debulked to create a suitable flap for closure. Using a [place] hemostat, any exposed tendons were retracted distally and transected utilizing a 15-blade. Next, using the imeemt II system on setting 7, the wound was excisionally debrided of all fibrotic and nonviable tissue until a mixture of subcutaneous tissue and healthy bleeding tissue appeared; no purulence was expressed from the ulcer. The wound was then irrigated with copious amounts of sterile saline with the use of 3-0 Vicryl, subcutaneous tissue edges were reapproximated using interrupted horizontal box technique, and then with the use of 3-0 nylon, skin edges were reapproximated using interrupted horizontal mattress technique. Next, using AlloDerm Regenerative Tissue Matrix measuring size 4 x 7 cm, the tissue matrix was applied to the incision site as a biological dressing to protect the surgical incision. The AlloDerm Regenerative Tissue Matrix was adhered using Steri-Strips and Mastisol. Saline-soaked gauze was placed on top of the AlloDerm and Xeroform was applied over the wet gauze. The right foot was then dressed with sterile gauze, ABDs, Ralph, and a loosely applied Coban. POSTOPERATIVE CONDITION: The patient tolerated the anesthesia and procedure well and was escorted to the recovery room with vital signs stable and neurovascular status intact to the right foot. The patient is to remain nonweightbearing to the right lower extremity until Wednesday. Following that, he will be reevaluated for weightbearing status. The dressing will remain clean, dry, and intact until Wednesday. Podiatry will continue to follow the patient while in-house. Maybelle Maningat, DPM Lam Meeks DPM [facility] # [id number] [facility]ITALIsaac
--- NOTE | 2017-10-09 03:28 | CP.PCM.PN ---
<RigoRosie - Last Filed: 10/09/17 08:13> Subjective - Date & Time of Evaluation Date of Evaluation: 10/09/17 Time of Evaluation: 03:27 - Subjective Subjective: Progress note for Dr. Young No acute events overnight. Patient tolerated debridement well. Patient tolerating pain well. Patient denies fever, chills, nausea, vomiting. Patient is aware we are waiting for pathology report before podiatry clears for discharge Objective - Vital Signs/Intake and Output Vital Signs (last 24 hours): Temp Pulse Resp BP Pulse Ox 97.2 F L 118 H 20 163/80 H 96 10/08/17 23:25 10/08/17 23:25 10/08/17 23:25 10/08/17 23:25 10/08/17 23:25 Intake and Output: 10/08/17 10/09/17 18:59 06:59 Intake Total 400 Balance 400 - Medications Medications: Current Medications Acetaminophen (Tylenol 325mg Tab) 650 mg PO Q6 PRN PRN Reason: Pain, Mild (1-3) Amlodipine Besylate (Norvasc) 10 mg PO DAILY [facility] Last Admin: 10/08/17 10:38 Dose: 10 mg Famotidine (Pepcid) 20 mg PO DAILY [facility] Last Admin: 10/08/17 10:38 Dose: 20 mg Heparin Sodium (Porcine) (Heparin) 5,000 units SC Q8 [facility] Last Admin: 10/07/17 15:00 Dose: 5,000 units Piperacillin Sod/Tazobactam Sod (Zosyn 2.25 Gm Iv Premix) 2.25 gm in 50 mls @ 100 mls/hr IVPB Q6H [facility] PRN Reason: Protocol Last Admin: 10/08/17 21:35 Dose: 100 mls/hr Insulin Human Regular (Novolin R) 0 unit SC ACHS [facility] PRN Reason: Protocol Last Admin: 10/08/17 21:36 Dose: Not Given Losartan Potassium (Cozaar) 50 mg PO DAILY [facility] Last Admin: 10/08/17 10:38 Dose: 50 mg Oxycodone/Acetaminophen (Percocet 5/325 Mg Tab) 1 tab PO Q4H PRN PRN Reason: Pain, moderate (4-7) Stop: 10/11/17 09:11 Oxycodone/Acetaminophen (Percocet 5/325 Mg Tab) 2 tab PO Q4H PRN PRN Reason: Pain, severe (8-10) Stop: 10/11/17 09:11 Last Admin: 10/08/17 14:26 Dose: 2 tab - Labs Labs: 10/08/17 03:55 10/08/17 11:11 PT 13.2 SECONDS (9.7-12.2) H 10/08/17 04:57 INR 1.2 10/08/17 04:57 APTT 34 SECONDS (21-34) 10/04/17 12:34 - Constitutional Appears: Non-toxic, No Acute Distress - Head Exam Head Exam: ATRAUMATIC, NORMAL INSPECTION, NORMOCEPHALIC - Eye Exam Eye Exam: EOMI, Normal appearance Pupil Exam: NORMAL ACCOMODATION, PERRL - ENT Exam ENT Exam: Mucous Membranes Moist, Normal Exam - Neck Exam Neck Exam: Full ROM, Normal Inspection - Respiratory Exam Respiratory Exam: Clear to Ausculation Bilateral, NORMAL BREATHING PATTERN - Cardiovascular Exam Cardiovascular Exam: REGULAR RHYTHM, +S1, +S2 - GI/Abdominal Exam GI & Abdominal Exam: Soft, Normal Bowel Sounds. absent: Tenderness - Extremities Exam Extremities Exam: Full ROM. absent: Pedal Edema Additional comments: Right foot dressing c/d/i. NO palpable distal pulses in right leg. 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 Patient has left fifth toe amputation Assessment and Plan: s/p amputation of right hallux and 2nd digit on 08/31/1710/08 OR for debridement afebrile, no leukocytosis Wound cx: f/u results Blood cx: f/u results Foot xray (10/04/17): unremarkable Podiatry consult: Dr. Meeks Vascular surgery consult: Dr. Wheeler CT angio ileofemoral runoff: right common femoral artery, profunda femoral artery, poplital artery. Mild to Moderate plaque through SFA mild stenosis in mid and distal SFA. Peroneal artery and anterior tibial artery patent. Posterior tibial is heavily calcified. left mild plaque throughout SFA with areas of mild stenosis in the mid segment. Runoff shows an occluded anterior tibial artery and possible occlusion of proximal mid posterior tibial artery. distal posterior tibial artery is believed to be patent. The peroneal artery is unremarkable. per Vascular Surgery: no intervention from a vascular surgery standpoint Medication: * Zosyn 2.25g IV Q6h (start 10/04/17) * Cipro (10/06-10/08) * Tylenol 650mg PO PRN for pain/fever (patient is currently free of pain and afebrile) * Home medication: Plavix 75mg PO daily (Held for pre-op) Status: Acute (2) Diabetes mellitus Assessment and Plan: Monitor blood glucose, accuchecks ISS- Medium Hypoglycemia protocol A1c (08/24/17) 6.2 Status: Chronic (3) Hypertension Assessment and Plan: Resumed home medications: Losartan 50mg PO daily, Amlodipine 10mg PO daily Monitor blood pressure Heart healthy diet- 2g Na Status: Chronic (4) HLD (hyperlipidemia) Assessment and Plan: Hx of HLD Lipid panel (08/25/17): Triglycerides 106; Cholesterol 153; LDL 76; HDL 48 Status: Acute (5) Prophylactic measure Assessment and Plan: DVT: Heparin 5000sc Q8; no SCDs GI: Pepcid 20mg PO daily Heart Healthy Diet- 2g Na PT/OT Status: Acute Disposition: Discharge is pending podiatry clearance. Awaiting pathology report from debridement performed on 10/08/17. Rosie Sierra DO PGY1 <Santana Young H - Last Filed: 10/09/17 08:45> Objective - Vital Signs/Intake and Output Vital Signs (last 24 hours): Temp Pulse Resp BP Pulse Ox 98.9 F 79 20 167/74 H 97 10/09/17 07:35 10/09/17 07:35 10/09/17 07:35 10/09/17 07:35 10/09/17 07:35 Intake and Output: 10/09/17 10/09/17 06:59 18:59 Intake Total 50 Balance 50 - Medications Medications: Current Medications Acetaminophen (Tylenol 325mg Tab) 650 mg PO Q6 PRN PRN Reason: Pain, Mild (1-3) Amlodipine Besylate (Norvasc) 10 mg PO DAILY [facility] Last Admin: 10/08/17 10:38 Dose: 10 mg Famotidine (Pepcid) 20 mg PO DAILY [facility] Last Admin: 10/08/17 10:38 Dose: 20 mg Heparin Sodium (Porcine) (Heparin) 5,000 units SC Q8 [facility] Last Admin: 10/09/17 06:09 Dose: 5,000 units Piperacillin Sod/Tazobactam Sod (Zosyn 2.25 Gm Iv Premix) 2.25 gm in 50 mls @ 100 mls/hr IVPB Q6H [facility] PRN Reason: Protocol Last Admin: 10/09/17 03:29 Dose: 100 mls/hr Vancomycin HCl 1 gm/ Sodium (Chloride) 250 mls @ 166.7 mls/hr IVPB STAT STA PRN Reason: Protocol Stop: 10/09/17 10:07 Insulin Human Regular (Novolin R) 0 unit SC ACHS [facility] PRN Reason: Protocol Last Admin: 10/09/17 07:53 Dose: Not Given Losartan Potassium (Cozaar) 50 mg PO DAILY [facility] Last Admin: 10/08/17 10:38 Dose: 50 mg Oxycodone/Acetaminophen (Percocet 5/325 Mg Tab) 1 tab PO Q4H PRN PRN Reason: Pain, moderate (4-7) Stop: 10/11/17 09:11 Oxycodone/Acetaminophen (Percocet 5/325 Mg Tab) 2 tab PO Q4H PRN PRN Reason: Pain, severe (8-10) Stop: 10/11/17 09:11 Last Admin: 10/08/17 14:26 Dose: 2 tab - Labs Labs: 10/09/17 07:17 10/09/17 07:17 PT 13.2 SECONDS (9.7-12.2) H 10/08/17 04:57 INR 1.2 10/08/17 04:57 APTT 34 SECONDS (21-34) 10/04/17 12:34 Attending/Attestation - Attestation I have personally seen and examined this patient.: Yes I have fully participated in the care of the patient.: Yes I have reviewed all pertinent clinical information, including history, physical exam and plan: Yes Notes (Text): 10/09/17 08:40 Medical attending: Patient was seen and examined by me. Agree with the above note by the resident This morning I was informed by medical file clerk that new lab worked showed Hgb low and WBC high. I came and saw him just a moment ago. We had a computer translation present with us. The patient was NOT in any acute distress, however difficult to understand words at times - he has been like this since before. He did have a BM but no blood reportedly seen. A rectal exam and heme occult card was collected. Type and screen and give one unit of PRBC The WBC is suddenly high. No fever, no chills. Check blood, portable CXRAY, start Vancomycin. Also IVF as well We will continue to monitor him to see how he does thank you Santana Young
[2017-10-09] MEDS: Piperacill/Tazo 2.25gm in Dex 2.25 GM/50 ML BAG IVPB SCH ×4 (03:29→21:39)
[2017-10-09 07:43] LABS: BASO # 0.2 K/uL (0.0-0.2); EOS % 0.1 % (0.0-4.0); LYMPH # 1.7 K/uL (1.0-4.3); MEAN CELL VOLUME 90.6 fL (80.0-94.0); MEAN CORPUSCULAR HEMOGLOBIN 29.8 pg (27.0-31.0); MEAN CORPUSCULAR HGB CONC 32.9 g/dL (33.0-37.0); MONO # 1.9 K/uL (0.0-0.8); MONO % 7.8 % (0.0-10.0); NEUT # 20.2 K/uL (1.8-7.0); NEUT % 84.1 % (50.0-75.0); NRBC % 0.2 % (0.0-2.0); RBC 2.21 Mil/uL (4.40-5.90); RED CELL DISTRIBUTION WIDTH 13.6 % (11.5-14.5)
[2017-10-09 07:52] LABS: ALB/GLOB RATIO 0.9 (1.0-2.1); ALBUMIN 3.6 g/dL (3.5-5.0); CALCIUM 8.9 mg/dl (8.6-10.4)
[2017-10-09] MEDS: (Novolin R) Insulin Human Regular 100 units/ml vial SC SCH ×4 (07:53→21:33)
[2017-10-09 07:57] LABS: HEMOGLOBIN 6.6 g/dL (12.0-18.0); PLATELET COUNT 628 K/uL (130-400)
--- NOTE | 2017-10-09 08:37 | CP.PCM.PN ---
<Jamshid Delvalle - Last Filed: 10/09/17 08:47> Subjective - Date & Time of Evaluation Date of Evaluation: 10/09/17 Time of Evaluation: 08:36 - Subjective Subjective: HOUSE DR JESSIE Resident paged at 812 AM for concerning labwork. WBC spike to 24, Hgb to 6.6. Pt assessed with attending Dr. Young. Patient found oriented x 3. He denies chest pain, SOB, palpitations, fatigue, lightheadedness, dizziness, abdominal pain, N/V. Patient denies blood in stool yesterday, which nursing notes confirm. Interpretation services used : [facility] Lacy #[id number], for consent of rectal exam, pt history. PE: Gen NAD, AAOx3, Mumbles responses due to poor dentition GI: No acute abdominal pain, BS in four quadrants Rectal: No sharita blood; hemoccult performed at bedside - negative for acute blood Plan: Cancel transfer to med/surg - transfer to telemetry instead Type and screen type and cross x 1 unit PRBCs NS @ 50cc/hr Pancultures Pt on Zosyn Add Vancomycin 1gm x 1 Portable CXR Will make podiatry team aware Plan discussed/implemented with attending, Dr Hannah Delvalle PGY-2 Objective - Vital Signs/Intake and Output Vital Signs (last 24 hours): Temp Pulse Resp BP Pulse Ox 98.9 F 79 20 167/74 H 97 10/09/17 07:35 10/09/17 07:35 10/09/17 07:35 10/09/17 07:35 10/09/17 07:35 Intake and Output: 10/09/17 10/09/17 06:59 18:59 Intake Total 50 Balance 50 - Medications Medications: Current Medications Acetaminophen (Tylenol 325mg Tab) 650 mg PO Q6 PRN PRN Reason: Pain, Mild (1-3) Amlodipine Besylate (Norvasc) 10 mg PO DAILY [facility] Last Admin: 10/08/17 10:38 Dose: 10 mg Famotidine (Pepcid) 20 mg PO DAILY [facility] Last Admin: 10/08/17 10:38 Dose: 20 mg Heparin Sodium (Porcine) (Heparin) 5,000 units SC Q8 [facility] Last Admin: 10/09/17 06:09 Dose: 5,000 units Piperacillin Sod/Tazobactam Sod (Zosyn 2.25 Gm Iv Premix) 2.25 gm in 50 mls @ 100 mls/hr IVPB Q6H [facility] PRN Reason: Protocol Last Admin: 10/09/17 03:29 Dose: 100 mls/hr Insulin Human Regular (Novolin R) 0 unit SC ACHS [facility] PRN Reason: Protocol Last Admin: 10/09/17 07:53 Dose: Not Given Losartan Potassium (Cozaar) 50 mg PO DAILY [facility] Last Admin: 10/08/17 10:38 Dose: 50 mg Oxycodone/Acetaminophen (Percocet 5/325 Mg Tab) 1 tab PO Q4H PRN PRN Reason: Pain, moderate (4-7) Stop: 10/11/17 09:11 Oxycodone/Acetaminophen (Percocet 5/325 Mg Tab) 2 tab PO Q4H PRN PRN Reason: Pain, severe (8-10) Stop: 10/11/17 09:11 Last Admin: 10/08/17 14:26 Dose: 2 tab - Labs Labs: 10/09/17 07:17 10/09/17 07:17 PT 13.2 SECONDS (9.7-12.2) H 10/08/17 04:57 INR 1.2 10/08/17 04:57 APTT 34 SECONDS (21-34) 10/04/17 12:34 <Santana Young H - Last Filed: 10/09/17 09:28> Objective - Vital Signs/Intake and Output Vital Signs (last 24 hours): Temp Pulse Resp BP Pulse Ox 98.9 F 79 20 167/74 H 97 10/09/17 07:35 10/09/17 07:35 10/09/17 07:35 10/09/17 07:35 10/09/17 07:35 Intake and Output: 10/09/17 10/09/17 06:59 18:59 Intake Total 50 Balance 50 - Medications Medications: Current Medications Acetaminophen (Tylenol 325mg Tab) 650 mg PO Q6 PRN PRN Reason: Pain, Mild (1-3) Amlodipine Besylate (Norvasc) 10 mg PO DAILY [facility] Last Admin: 10/08/17 10:38 Dose: 10 mg Famotidine (Pepcid) 20 mg PO DAILY [facility] Last Admin: 10/08/17 10:38 Dose: 20 mg Heparin Sodium (Porcine) (Heparin) 5,000 units SC Q8 [facility] Last Admin: 10/09/17 06:09 Dose: 5,000 units Piperacillin Sod/Tazobactam Sod (Zosyn 2.25 Gm Iv Premix) 2.25 gm in 50 mls @ 100 mls/hr IVPB Q6H [facility] PRN Reason: Protocol Last Admin: 10/09/17 03:29 Dose: 100 mls/hr Vancomycin/Sodium Chloride (Vancomycin 1 Gm/Ns 200 Ml) 1 gm in 200 mls @ 133.333 mls/hr IVPB STAT STA PRN Reason: Protocol Stop: 10/09/17 10:07 Last Admin: 10/09/17 09:05 Dose: 133.333 mls/hr Sodium Chloride (Sodium Chloride 0.9%) 1,000 mls @ 50 mls/hr IV .Q20H [facility] Last Admin: 10/09/17 09:02 Dose: 50 mls/hr Insulin Human Regular (Novolin R) 0 unit SC ACHS [facility] PRN Reason: Protocol Last Admin: 10/09/17 07:53 Dose: Not Given Losartan Potassium (Cozaar) 50 mg PO DAILY [facility] Last Admin: 10/08/17 10:38 Dose: 50 mg Oxycodone/Acetaminophen (Percocet 5/325 Mg Tab) 1 tab PO Q4H PRN PRN Reason: Pain, moderate (4-7) Stop: 10/11/17 09:11 Oxycodone/Acetaminophen (Percocet 5/325 Mg Tab) 2 tab PO Q4H PRN PRN Reason: Pain, severe (8-10) Stop: 10/11/17 09:11 Last Admin: 10/08/17 14:26 Dose: 2 tab - Labs Labs: 10/09/17 07:17 10/09/17 07:17 PT 13.2 SECONDS (9.7-12.2) H 10/08/17 04:57 INR 1.2 10/08/17 04:57 APTT 34 SECONDS (21-34) 10/04/17 12:34 Attending/Attestation - Attestation I have personally seen and examined this patient.: Yes I have fully participated in the care of the patient.: Yes I have reviewed all pertinent clinical information, including history, physical exam and plan: Yes Notes (Text): 10/09/17 09:25 Medical attending: Patient was seen and examined by me. Agree with the above note. We had a computer translation service in the room. Rectal exam was done and we had a developer card as well as the peroxide developer with us - and it was negative for blood in the stool. Probably the anemia is from his recent procedure. He does not look acute distress when I saw and examined him. Will give one unit of PRBC The WBC is suddenly high - again he just had a procedure. Nevertheless for the time being will add on vancomycin at this time. thank you Santana Young
[2017-10-09] MEDS ORDERED: Vancomycin 1 gm/NS 200 ml 1 GM/200 ML BAG IVPB STA (08:38)
[2017-10-09] MEDS: Sodium Chloride 0.9% 1,000 ML IV SCH (09:02)
--- NOTE | 2017-10-09 09:27 | RAD ---
HISTORY: new elevated WBC; s/p surgical debridement COMPARISON: 08/24/2017. FINDINGS: LUNGS: The lungs are clear. PLEURA: No significant pleural effusion identified, no pneumothorax apparent. CARDIOVASCULAR: Normal. OSSEOUS STRUCTURES: No significant abnormalities. VISUALIZED UPPER ABDOMEN: Normal. OTHER FINDINGS: None. IMPRESSION: No active pulmonary disease.
[2017-10-09 10:02] LABS: LYMPHOCYTE 8 % (20-40); MONOCYTE 9 % (0-10); NEUTROPHIL 83 % (50-75); PLATELET ESTIMATE INCREASED (NORMAL); TOTAL CELLS COUNTED 100
[2017-10-09 10:03] LABS: ANISOCYTOSIS SLIGHT; HYPOCHROMIC SLIGHT; POLYCHROMIC SLIGHT; TOXIC GRANULATION PRESENT
[2017-10-09 10:40] LABS: URINE BACTERIA RARE (<OCC); URINE BILIRUBIN NEGATIVE (NEGATIVE); URINE BLOOD 1+ (NEGATIVE); URINE CLARITY Clear (Clear); URINE COLOR Straw (YELLOW); URINE GLUCOSE (UA) 1+ mg/dL (Normal); URINE LEUKOCYTE ESTERASE NEG Leu/uL (Negative); URINE PROTEIN 2+ mg/dL (NEGATIVE); URINE UROBILINOGEN NORMAL mg/dL (0.2-1.0)
[2017-10-09 22:04] LABS: MEAN CELL VOLUME 88.7 fL (80.0-94.0); MEAN CORPUSCULAR HEMOGLOBIN 29.8 pg (27.0-31.0); MEAN CORPUSCULAR HGB CONC 33.6 g/dL (33.0-37.0); MEAN PLATELET VOLUME 7.8 fL (7.2-11.7); RBC 3.7 Mil/uL (4.40-5.90); RED CELL DISTRIBUTION WIDTH 13.7 % (11.5-14.5); WHITE BLOOD COUNT 13.3 K/uL (4.8-10.8)
[2017-10-10] MEDS: Piperacill/Tazo 2.25gm in Dex 2.25 GM/50 ML BAG IVPB SCH ×4 (02:59→21:24)
--- NOTE | 2017-10-10 03:35 | CP.PCM.PN ---
<Rosie Sierra - Last Filed: 10/10/17 03:38> Subjective - Date & Time of Evaluation Date of Evaluation: 10/10/17 Time of Evaluation: 03:40 - Subjective Subjective: Progress note for Dr. Young Patient seen and examined at bedside. Patient had 1 u PRBC yesterday due to drop in hemoglobin. Repeat cbc at 10pm showed hgb 11.1. Patient does not appear to be in distress. Objective - Vital Signs/Intake and Output Vital Signs (last 24 hours): Temp Pulse Resp BP Pulse Ox 98.8 F 90 20 150/68 94 L 10/10/17 00:00 10/10/17 00:00 10/10/17 00:00 10/10/17 00:00 10/10/17 00:00 Intake and Output: 10/09/17 10/10/17 18:59 06:59 Intake Total 1205 Output Total 200 Balance 1005 - Medications Medications: Current Medications Acetaminophen (Tylenol 325mg Tab) 650 mg PO Q6 PRN PRN Reason: Pain, Mild (1-3) Amlodipine Besylate (Norvasc) 10 mg PO DAILY [facility] Last Admin: 10/09/17 10:13 Dose: 10 mg Famotidine (Pepcid) 20 mg PO DAILY [facility] Last Admin: 10/09/17 10:13 Dose: 20 mg Heparin Sodium (Porcine) (Heparin) 5,000 units SC Q8 [facility] Last Admin: 10/09/17 21:38 Dose: 5,000 units Piperacillin Sod/Tazobactam Sod (Zosyn 2.25 Gm Iv Premix) 2.25 gm in 50 mls @ 100 mls/hr IVPB Q6H [facility] PRN Reason: Protocol Last Admin: 10/10/17 02:59 Dose: 100 mls/hr Sodium Chloride (Sodium Chloride 0.9%) 1,000 mls @ 50 mls/hr IV .Q20H [facility] Last Admin: 10/09/17 09:02 Dose: 50 mls/hr Insulin Human Regular (Novolin R) 0 unit SC ACHS [facility] PRN Reason: Protocol Last Admin: 10/09/17 21:33 Dose: Not Given Losartan Potassium (Cozaar) 50 mg PO DAILY [facility] Last Admin: 10/09/17 10:13 Dose: 50 mg Oxycodone/Acetaminophen (Percocet 5/325 Mg Tab) 1 tab PO Q4H PRN PRN Reason: Pain, moderate (4-7) Stop: 10/11/17 09:11 Oxycodone/Acetaminophen (Percocet 5/325 Mg Tab) 2 tab PO Q4H PRN PRN Reason: Pain, severe (8-10) Stop: 10/11/17 09:11 Last Admin: 10/08/17 14:26 Dose: 2 tab - Labs Labs: 10/09/17 22:01 10/09/17 07:17 PT 13.2 SECONDS (9.7-12.2) H 10/08/17 04:57 INR 1.2 10/08/17 04:57 APTT 34 SECONDS (21-34) 10/04/17 12:34 - Additional Findings Additional findings: Head Exam Head Exam: ATRAUMATIC, NORMAL INSPECTION, NORMOCEPHALIC - Eye Exam Eye Exam: EOMI, Normal appearance Pupil Exam: NORMAL ACCOMODATION, PERRL - ENT Exam ENT Exam: Mucous Membranes Moist, Normal Exam - Neck Exam Neck Exam: Full ROM - Respiratory Exam Respiratory Exam: Clear to Ausculation Bilateral, NORMAL BREATHING PATTERN. absent: Accessory Muscle Use, Respiratory Distress - Cardiovascular Exam Cardiovascular Exam: Bradycardia, REGULAR RHYTHM, +S1, +S2. absent: Tachycardia - GI/Abdominal Exam GI & Abdominal Exam: Soft, Normal Bowel Sounds. absent: Tenderness - Extremities Exam Additional comments: pedal pulses present (dorsalis pedis and posterior tibial pulses palpable on left extremity). both feet are wrapped. 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 Patient has left fifth toe amputation Assessment and Plan: s/p amputation of right hallux and 2nd digit on 08/31/1710/08 debridement afebrile, no leukocytosis Wound cx: f/u results Blood cx: f/u results Foot xray (10/04/17): unremarkable Podiatry consult: Dr. Meeks Vascular surgery consult: Dr. Wheeler CT angio ileofemoral runoff: right common femoral artery, profunda femoral artery, poplital artery. Mild to Moderate plaque through SFA mild stenosis in mid and distal SFA. Peroneal artery and anterior tibial artery patent. Posterior tibial is heavily calcified. left mild plaque throughout SFA with areas of mild stenosis in the mid segment. Runoff shows an occluded anterior tibial artery and possible occlusion of proximal mid posterior tibial artery. distal posterior tibial artery is believed to be patent. The peroneal artery is unremarkable. per Vascular Surgery: no intervention from a vascular surgery standpoint Medication: * Zosyn 2.25g IV Q6h (start 10/04/17) * Cipro (10/06-10/08) * Vancomycin 10/10 x 1 dose * Tylenol 650mg PO PRN for pain/fever (patient is currently free of pain and afebrile) * Home medication: Plavix 75mg PO daily (Held for pre-op) Status: Acute (2) Leukocytosis f/u new blood cultures 10/09 (3) anemia, resolved 10/09 1u PRBC due to hgb of 6.6 (4) Diabetes mellitus Assessment and Plan: Monitor blood glucose, accuchecks ISS- Medium Hypoglycemia protocol A1c (08/24/17) 6.2 Status: Chronic (5) Hypertension Assessment and Plan: Resumed home medications: Losartan 50mg PO daily, Amlodipine 10mg PO daily Monitor blood pressure Heart healthy diet- 2g Na Status: Chronic (6) HLD (hyperlipidemia) Assessment and Plan: Hx of HLD Lipid panel (08/25/17): Triglycerides 106; Cholesterol 153; LDL 76; HDL 48 Status: Acute (7) Prophylactic measure Assessment and Plan: DVT: Heparin 5000sc Q8; no SCDs GI: Pepcid 20mg PO daily Heart Healthy Diet- 2g Na PT/OT Status: Acute Disposition: Discharge is pending podiatry clearance. Awaiting pathology report from debridement performed on 10/08/17. Rosie Sierra DO PGY1 <Santana Young H - Last Filed: 10/10/17 11:26> Objective - Vital Signs/Intake and Output Vital Signs (last 24 hours): Temp Pulse Resp BP Pulse Ox 98.6 F 89 18 161/73 H 96 10/10/17 07:10 10/10/17 07:45 10/10/17 07:10 10/10/17 07:10 10/10/17 07:10 - Medications Medications: Current Medications Acetaminophen (Tylenol 325mg Tab) 650 mg PO Q6 PRN PRN Reason: Pain, Mild (1-3) Amlodipine Besylate (Norvasc) 10 mg PO DAILY [facility] Last Admin: 10/10/17 09:24 Dose: 10 mg Famotidine (Pepcid) 20 mg PO DAILY [facility] Last Admin: 10/10/17 09:24 Dose: 20 mg Heparin Sodium (Porcine) (Heparin) 5,000 units SC Q8 [facility] Last Admin: 10/10/17 05:29 Dose: 5,000 units Piperacillin Sod/Tazobactam Sod (Zosyn 2.25 Gm Iv Premix) 2.25 gm in 50 mls @ 100 mls/hr IVPB Q6H [facility] PRN Reason: Protocol Last Admin: 10/10/17 09:25 Dose: 100 mls/hr Sodium Chloride (Sodium Chloride 0.9%) 1,000 mls @ 50 mls/hr IV .Q20H [facility] Last Admin: 10/10/17 04:17 Dose: Not Given Insulin Human Regular (Novolin R) 0 unit SC ACHS [facility] PRN Reason: Protocol Last Admin: 10/10/17 08:28 Dose: Not Given Losartan Potassium (Cozaar) 50 mg PO DAILY [facility] Last Admin: 10/10/17 09:24 Dose: 50 mg Oxycodone/Acetaminophen (Percocet 5/325 Mg Tab) 1 tab PO Q4H PRN PRN Reason: Pain, moderate (4-7) Stop: 10/11/17 09:11 Last Admin: 10/10/17 09:40 Dose: 1 tab Oxycodone/Acetaminophen (Percocet 5/325 Mg Tab) 2 tab PO Q4H PRN PRN Reason: Pain, severe (8-10) Stop: 10/11/17 09:11 Last Admin: 10/08/17 14:26 Dose: 2 tab - Labs Labs: 10/10/17 07:22 10/10/17 07:22 PT 13.2 SECONDS (9.7-12.2) H 10/08/17 04:57 INR 1.2 10/08/17 04:57 APTT 34 SECONDS (21-34) 10/04/17 12:34 Attending/Attestation - Attestation I have personally seen and examined this patient.: Yes I have fully participated in the care of the patient.: Yes I have reviewed all pertinent clinical information, including history, physical exam and plan: Yes Notes (Text): 10/10/17 11:25 Medical attending: Patient was seen and examined by me. Agree with the above note by the resident The patient will be taken off of telemetry. Hgb was ok after we rechecked and the repeat WBC was also substantially lower as well. The numbers we saw may have represented transient changes due to procedure. He feels fine, recived pain medication this morning. He remains on IV abx at this time. The culture grew out corneybacterium and enteroccoycuys He maybe able to be discharged soon provided that PT has seen him and made recommendations Santana Young
[2017-10-10] MEDS: Sodium Chloride 0.9% 1,000 ML IV SCH (04:17)
[2017-10-10 07:35] LABS: BASO # 0.2 K/uL (0.0-0.2); BASO % 1.6 % (0.0-2.0); EOS % 0.3 % (0.0-4.0); HEMOGLOBIN 10.6 g/dL (12.0-18.0); MEAN CELL VOLUME 88.9 fL (80.0-94.0); MEAN CORPUSCULAR HGB CONC 33.7 g/dL (33.0-37.0); MEAN PLATELET VOLUME 8.1 fL (7.2-11.7); MONO # 0.9 K/uL (0.0-0.8); MONO % 7.4 % (0.0-10.0); NEUT # 10.1 K/uL (1.8-7.0); NEUT % 82.7 % (50.0-75.0); PLATELET COUNT 460 K/uL (130-400); RBC 3.53 Mil/uL (4.40-5.90); RED CELL DISTRIBUTION WIDTH 13.8 % (11.5-14.5); WHITE BLOOD COUNT 12.2 K/uL (4.8-10.8)
[2017-10-10 08:02] LABS: ALB/GLOB RATIO 0.9 (1.0-2.1); ALBUMIN 3.5 g/dL (3.5-5.0); ALT/SGPT 21 U/L (21-72); AST/SGOT 19 U/L (17-59); BLOOD UREA NITROGEN 12 mg/dL (9-20); CALCIUM 8.9 mg/dl (8.6-10.4); GFR AFRICAN-AMERICAN > 60; GFR NON-AFRICAN AMERICAN 52
[2017-10-10] MEDS: (Novolin R) Insulin Human Regular 100 units/ml vial SC SCH ×4 (08:28→21:31)
[2017-10-10] MEDS: Oxycodone/Acetaminophen 5/325 mg Tab PO PRN ×3 (09:40→23:11)
[2017-10-10 10:14] LABS: LYMPHOCYTE 7 % (20-40); MONOCYTE 2 % (0-10); NEUTROPHIL 91 % (50-75); PLATELET ESTIMATE SLIGHTLY INCREASED (NORMAL); TOTAL CELLS COUNTED 100
[2017-10-10 10:15] LABS: HYPOCHROMIC SLIGHT; POLYCHROMIC SLIGHT
--- NOTE | 2017-10-10 11:25 | CP.PCM.PN ---
Subjective - Date & Time of Evaluation Date of Evaluation: 10/10/17 Time of Evaluation: 11:15 - Subjective Subjective: Medical attending: Patient was seen and examined by me. Agree with the above note by the resident The patient will be taken off of telemetry. Hgb was ok after we rechecked and the repeat WBC was also substantially lower as well. The numbers we saw may have represented transient changes due to procedure. He feels fine, recived pain medication this morning. He remains on IV abx at this time. The culture grew out corneybacterium and Objective - Vital Signs/Intake and Output Vital Signs (last 24 hours): Temp Pulse Resp BP Pulse Ox 98.6 F 89 18 161/73 H 96 10/10/17 07:10 10/10/17 07:45 10/10/17 07:10 10/10/17 07:10 10/10/17 07:10 - Medications Medications: Current Medications Acetaminophen (Tylenol 325mg Tab) 650 mg PO Q6 PRN PRN Reason: Pain, Mild (1-3) Amlodipine Besylate (Norvasc) 10 mg PO DAILY [facility] Last Admin: 10/10/17 09:24 Dose: 10 mg Famotidine (Pepcid) 20 mg PO DAILY [facility] Last Admin: 10/10/17 09:24 Dose: 20 mg Heparin Sodium (Porcine) (Heparin) 5,000 units SC Q8 [facility] Last Admin: 10/10/17 05:29 Dose: 5,000 units Piperacillin Sod/Tazobactam Sod (Zosyn 2.25 Gm Iv Premix) 2.25 gm in 50 mls @ 100 mls/hr IVPB Q6H [facility] PRN Reason: Protocol Last Admin: 10/10/17 09:25 Dose: 100 mls/hr Sodium Chloride (Sodium Chloride 0.9%) 1,000 mls @ 50 mls/hr IV .Q20H [facility] Last Admin: 10/10/17 04:17 Dose: Not Given Insulin Human Regular (Novolin R) 0 unit SC ACHS [facility] PRN Reason: Protocol Last Admin: 10/10/17 08:28 Dose: Not Given Losartan Potassium (Cozaar) 50 mg PO DAILY [facility] Last Admin: 10/10/17 09:24 Dose: 50 mg Oxycodone/Acetaminophen (Percocet 5/325 Mg Tab) 1 tab PO Q4H PRN PRN Reason: Pain, moderate (4-7) Stop: 10/11/17 09:11 Last Admin: 10/10/17 09:40 Dose: 1 tab Oxycodone/Acetaminophen (Percocet 5/325 Mg Tab) 2 tab PO Q4H PRN PRN Reason: Pain, severe (8-10) Stop: 10/11/17 09:11 Last Admin: 10/08/17 14:26 Dose: 2 tab - Labs Labs: 10/10/17 07:22 10/10/17 07:22 PT 13.2 SECONDS (9.7-12.2) H 10/08/17 04:57 INR 1.2 10/08/17 04:57 APTT 34 SECONDS (21-34) 10/04/17 12:34
--- NOTE | 2017-10-10 15:56 | CP.PCM.PN ---
Subjective - Date & Time of Evaluation Date of Evaluation: 10/10/17 Time of Evaluation: 12:00 - Subjective Subjective: Podiatry Progress Note- Dr. Meeks Patient is seen s/p right foot debridement of soft tissue and bone secondary to right foot nonhealing wound. Patient is seen and evaluated with attending during rounds. Patient is seen resting comfortably in bed, in NAD, and AA0x3. Dressing is clean, dry, and intact without strikethrough. Patient reports no pain to the right foot during visitation. No pedal complaints. Denies nausea, fever, shortness of breath, chest pains, chills or fever. Objective - Vital Signs/Intake and Output Vital Signs (last 24 hours): Temp Pulse Resp BP Pulse Ox 97.2 F L 88 20 126/66 96 10/10/17 12:14 10/10/17 12:14 10/10/17 12:14 10/10/17 12:14 10/10/17 12:14 Intake and Output: 10/10/17 10/10/17 06:59 18:59 Intake Total 360 Balance 360 - Medications Medications: Current Medications Acetaminophen (Tylenol 325mg Tab) 650 mg PO Q6 PRN PRN Reason: Pain, Mild (1-3) Amlodipine Besylate (Norvasc) 10 mg PO DAILY [facility] [place] Last Admin: 10/10/17 09:24 Dose: 10 mg Famotidine (Pepcid) 20 mg PO DAILY [facility] Last Admin: 10/10/17 09:24 Dose: 20 mg Heparin Sodium (Porcine) (Heparin) 5,000 units SC Q8 [facility] Last Admin: 10/10/17 13:34 Dose: 5,000 units Piperacillin Sod/Tazobactam Sod (Zosyn 2.25 Gm Iv Premix) 2.25 gm in 50 mls @ 100 mls/hr IVPB Q6H [facility] PRN Reason: Protocol Last Admin: 10/10/17 09:25 Dose: 100 mls/hr Sodium Chloride (Sodium Chloride 0.9%) 1,000 mls @ 50 mls/hr IV .Q20H [facility] [place] Last Admin: 10/10/17 04:17 Dose: Not Given Insulin Human Regular (Novolin R) 0 unit SC ACHS [facility] [place] PRN Reason: Protocol Last Admin: 10/10/17 11:27 Dose: 2 unit Losartan Potassium (Cozaar) 50 mg PO DAILY [facility] Last Admin: 10/10/17 09:24 Dose: 50 mg Oxycodone/Acetaminophen (Percocet 5/325 Mg Tab) 1 tab PO Q4H PRN PRN Reason: Pain, moderate (4-7) Stop: 10/11/17 09:11 Last Admin: 10/10/17 09:40 Dose: 1 tab Oxycodone/Acetaminophen (Percocet 5/325 Mg Tab) 2 tab PO Q4H PRN PRN Reason: Pain, severe (8-10) Stop: 10/11/17 09:11 Last Admin: 10/08/17 14:26 Dose: 2 tab - Labs Labs: 10/10/17 07:22 10/10/17 07:22 PT 13.2 SECONDS (9.7-12.2) H 10/08/17 04:57 INR 1.2 10/08/17 04:57 APTT 34 SECONDS (21-34) 10/04/17 12:34 - Constitutional Appears: Well, Non-toxic, No Acute Distress - Extremities Exam Extremities Exam: absent: Calf Tenderness Additional comments: dressing is clean dry and intact without strikethrough - Neurological Exam Neurological Exam: Alert, Awake, Oriented x3 - Psychiatric Exam Psychiatric exam: Normal Affect, Normal Mood Assessment and Plan - Assessment and Plan (Free Text) Assessment: 87M s/p right foot debridement of soft tissue and bone secondary to right foot nonhealing wound. Plan: Patient seen and evaluated with attending, Dr. Meeks Afebrile, WBC 12.2 Dressing is clean dry and intact. Will change dressing with Dr. Meeks Wednesday Please keep dressing c/d/i. Do not get wet wound cx: enterobacter cloacae, corynebacterium species Abdominal angiography: PT artery heavily calcified, peroneal and anterior tibial artery patent No further intervention per vascular Continue abx - Ciprofloxacin 400mg IV, Zosyn 2.25g IV Podiatry will continue to follow while patient remains in house
[2017-10-11] MEDS: Piperacill/Tazo 2.25gm in Dex 2.25 GM/50 ML BAG IVPB SCH ×4 (05:04→21:59)
--- NOTE | 2017-10-11 07:33 | CP.PCM.PN ---
<RigoRosie - Last Filed: 10/11/17 15:25> Subjective - Date & Time of Evaluation Date of Evaluation: 10/11/17 Time of Evaluation: 07:33 - Subjective Subjective: Progress Note Patient seen and examined at bedside. Patient has no complaints. was at bedside. It was explained that we were waiting for pathology reports prior to further planning. Objective - Vital Signs/Intake and Output Vital Signs (last 24 hours): Temp Pulse Resp BP Pulse Ox 98.7 F 80 20 158/67 H 98 10/11/17 05:30 10/11/17 05:30 10/11/17 05:30 10/11/17 05:30 10/11/17 05:30 Intake and Output: 10/11/17 10/11/17 06:59 18:59 Intake Total 270 Output Total 1000 Balance -730 - Medications Medications: Current Medications Acetaminophen (Tylenol 325mg Tab) 650 mg PO Q6 PRN PRN Reason: Pain, Mild (1-3) Amlodipine Besylate (Norvasc) 10 mg PO DAILY [facility] Last Admin: 10/10/17 09:24 Dose: 10 mg Famotidine (Pepcid) 20 mg PO DAILY [facility] Last Admin: 10/10/17 09:24 Dose: 20 mg Heparin Sodium (Porcine) (Heparin) 5,000 units SC Q8 [facility] Last Admin: 10/11/17 05:31 Dose: 5,000 units Piperacillin Sod/Tazobactam Sod (Zosyn 2.25 Gm Iv Premix) 2.25 gm in 50 mls @ 100 mls/hr IVPB Q6H [facility] PRN Reason: Protocol Last Admin: 10/11/17 05:04 Dose: 100 mls/hr Sodium Chloride (Sodium Chloride 0.9%) 1,000 mls @ 50 mls/hr IV .Q20H [facility] Last Admin: 10/10/17 04:17 Dose: Not Given Insulin Human Regular (Novolin R) 0 unit SC ACHS [facility] PRN Reason: Protocol Last Admin: 10/10/17 21:31 Dose: Not Given Losartan Potassium (Cozaar) 50 mg PO DAILY [facility] Last Admin: 10/10/17 09:24 Dose: 50 mg Oxycodone/Acetaminophen (Percocet 5/325 Mg Tab) 1 tab PO Q4H PRN PRN Reason: Pain, moderate (4-7) Stop: 10/11/17 09:11 Last Admin: 10/10/17 23:11 Dose: 1 tab Oxycodone/Acetaminophen (Percocet 5/325 Mg Tab) 2 tab PO Q4H PRN PRN Reason: Pain, severe (8-10) Stop: 10/11/17 09:11 Last Admin: 10/08/17 14:26 Dose: 2 tab - Labs Labs: 10/10/17 07:22 10/10/17 07:22 PT 13.2 SECONDS (9.7-12.2) H 10/08/17 04:57 INR 1.2 10/08/17 04:57 APTT 34 SECONDS (21-34) 10/04/17 12:34 - Constitutional Appears: Non-toxic, No Acute Distress - Head Exam Head Exam: NORMAL INSPECTION, NORMOCEPHALIC - Eye Exam Eye Exam: EOMI, Normal appearance Pupil Exam: NORMAL ACCOMODATION - Respiratory Exam Respiratory Exam: Clear to Ausculation Bilateral, NORMAL BREATHING PATTERN - Cardiovascular Exam Cardiovascular Exam: REGULAR RHYTHM, +S1, +S2 - GI/Abdominal Exam GI & Abdominal Exam: Soft - Additional Findings Additional findings: - Extremities Exam Additional comments: pedal pulses present (dorsalis pedis and posterior tibial pulses palpable on left extremity). both feet are wrapped. 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 Patient has left fifth toe amputation Assessment and Plan: s/p amputation of right hallux and 2nd digit on 08/31/1710/08 debridement afebrile, no leukocytosis Wound cx: f/u results Blood cx: f/u results Foot xray (10/04/17): unremarkable Podiatry consult: Dr. Meeks Vascular surgery consult: Dr. Wheeler CT angio ileofemoral runoff: right common femoral artery, profunda femoral artery, poplital artery. Mild to Moderate plaque through SFA mild stenosis in mid and distal SFA. Peroneal artery and anterior tibial artery patent. Posterior tibial is heavily calcified. left mild plaque throughout SFA with areas of mild stenosis in the mid segment. Runoff shows an occluded anterior tibial artery and possible occlusion of proximal mid posterior tibial artery. distal posterior tibial artery is believed to be patent. The peroneal artery is unremarkable. per Vascular Surgery: no intervention from a vascular surgery standpoint Medication: * Zosyn 2.25g IV Q6h (start 10/04/17) DC 10/11 * Cipro (10/06-10/08) patient started on cipro 500mg PO 10/12 * Vancomycin 10/10 x 1 dose * Tylenol 650mg PO PRN for pain/fever (patient is currently free of pain and afebrile) * Home medication: Plavix 75mg PO daily (Held for pre-op) Status: Acute (2) Leukocytosis f/u new blood cultures 10/09 (3) anemia, resolved 10/09 1u PRBC due to hgb of 6.6 (4) Diabetes mellitus Assessment and Plan: Monitor blood glucose, accuchecks ISS- Medium Hypoglycemia protocol A1c (08/24/17) 6.2 Status: Chronic (5) Hypertension Assessment and Plan: Resumed home medications: Losartan 50mg PO daily, Amlodipine 10mg PO daily Monitor blood pressure Heart healthy diet- 2g Na Status: Chronic (6) HLD (hyperlipidemia) Assessment and Plan: Hx of HLD Lipid panel (08/25/17): Triglycerides 106; Cholesterol 153; LDL 76; HDL 48 Status: Acute (7) Prophylactic measure Assessment and Plan: DVT: Heparin 5000sc Q8; no SCDs GI: Pepcid 20mg PO daily Heart Healthy Diet- 2g Na PT/OT Status: Acute Disposition: Discharge is pending podiatry clearance. Awaiting pathology report from debridement performed on 10/08/17. Rosie Sierra DO PGY1 <Melissa Trujillo - Last Filed: 10/11/17 18:16> Objective - Vital Signs/Intake and Output Vital Signs (last 24 hours): Temp Pulse Resp BP Pulse Ox 98.7 F 83 20 145/77 99 10/11/17 15:00 10/11/17 15:00 10/11/17 15:00 10/11/17 15:00 10/11/17 15:00 Intake and Output: 10/11/17 10/11/17 06:59 18:59 Intake Total 270 150 Output Total 1000 Balance -730 150 - Medications Medications: Current Medications Acetaminophen (Tylenol 325mg Tab) 650 mg PO Q6 PRN PRN Reason: Pain, Mild (1-3) Last Admin: 10/11/17 14:09 Dose: 650 mg Amlodipine Besylate (Norvasc) 10 mg PO DAILY [facility] Last Admin: 10/11/17 10:21 Dose: 10 mg Ciprofloxacin (Cipro) 500 mg PO BID [facility] PRN Reason: Protocol Stop: 10/19/17 10:01 Famotidine (Pepcid) 20 mg PO DAILY [facility] Last Admin: 10/11/17 10:21 Dose: 20 mg Heparin Sodium (Porcine) (Heparin) 5,000 units SC Q8 [facility] Last Admin: 10/11/17 14:10 Dose: 5,000 units Piperacillin Sod/Tazobactam Sod (Zosyn 2.25 Gm Iv Premix) 2.25 gm in 50 mls @ 100 mls/hr IVPB Q6H [facility] PRN Reason: Protocol Stop: 10/12/17 03:00 Last Admin: 10/11/17 16:15 Dose: 100 mls/hr Sodium Chloride (Sodium Chloride 0.9%) 1,000 mls @ 50 mls/hr IV .Q20H [facility] Last Admin: 10/11/17 12:00 Dose: 50 mls/hr Insulin Human Regular (Novolin R) 0 unit SC ACHS [facility] PRN Reason: Protocol Last Admin: 10/11/17 16:18 Dose: Not Given Losartan Potassium (Cozaar) 50 mg PO DAILY [facility] Last Admin: 10/11/17 10:21 Dose: 50 mg Sitagliptin Phosphate (Januvia) 50 mg PO DAILY [facility] - Labs Labs: 10/11/17 07:32 10/11/17 07:32 PT 13.2 SECONDS (9.7-12.2) H 10/08/17 04:57 INR 1.2 10/08/17 04:57 APTT 34 SECONDS (21-34) 10/04/17 12:34 Attending/Attestation - Attestation I have personally seen and examined this patient.: Yes I have fully participated in the care of the patient.: Yes I have reviewed all pertinent clinical information, including history, physical exam and plan: Yes Notes (Text): Patient was seen and examined spoke to .He wants to go home,not rehab Continue zosyn,start on cipro starting tomorrow. possible discharge resume Januvia lower dose /His GRF is 38. I will hold his metformin Need close monitoring of his GFR on metformin continue plavix and cozaar I agree with the resident's documentation C/S of wound is sensitive to cipro 10/11/17 18:13
[2017-10-11 07:43] LABS: BASO # 0.1 K/uL (0.0-0.2); BASO % 0.9 % (0.0-2.0); EOS # 0.1 K/uL (0.0-0.7); EOS % 0.9 % (0.0-4.0); HEMOGLOBIN 10.7 g/dL (12.0-18.0); LYMPH # 0.8 K/uL (1.0-4.3); LYMPH % 6.6 % (20.0-40.0); MEAN CELL VOLUME 89.4 fL (80.0-94.0); MEAN CORPUSCULAR HEMOGLOBIN 30.1 pg (27.0-31.0); MEAN CORPUSCULAR HGB CONC 33.7 g/dL (33.0-37.0); MEAN PLATELET VOLUME 8.2 fL (7.2-11.7); MONO # 0.8 K/uL (0.0-0.8); MONO % 6.9 % (0.0-10.0); NEUT # 9.9 K/uL (1.8-7.0); NEUT % 84.7 % (50.0-75.0); PLATELET COUNT 473 K/uL (130-400); RBC 3.55 Mil/uL (4.40-5.90); RED CELL DISTRIBUTION WIDTH 13.7 % (11.5-14.5); WHITE BLOOD COUNT 11.6 K/uL (4.8-10.8)
[2017-10-11 07:50] LABS: CALCIUM 9.3 mg/dl (8.6-10.4)
[2017-10-11] MEDS: (Novolin R) Insulin Human Regular 100 units/ml vial SC SCH ×4 (08:20→21:54)
[2017-10-11 10:27] LABS: LYMPHOCYTE 5 % (20-40); MONOCYTE 6 % (0-10); NEUTROPHIL 89 % (50-75); PLATELET ESTIMATE SLIGHTLY INCREASED (NORMAL); TOTAL CELLS COUNTED 100
--- NOTE | 2017-10-11 11:26 | CP.PCM.PN ---
Subjective - Date & Time of Evaluation Date of Evaluation: 10/11/17 Time of Evaluation: 11:24 - Subjective Subjective: Podiatry Progress Note - Dr. Meeks 87M seen and evaluated at bedside 3 days s/p right foot debridement of soft tissue and bone secondary to right foot nonhealing wound. Patient hemodynamically stable and NAD. No acute events overnight. Reports mild pain to surgical site, well-controlled. Dressing to right foot clean/dry/intact with no strikethrough noted. Patient has been compliant with NWB RLE. Denies N/V/F/D/C/ SOB/calf pain/DIAMOND/dizziness. Offers no other complaints. Objective - Vital Signs/Intake and Output Vital Signs (last 24 hours): Temp Pulse Resp BP Pulse Ox 98.4 F 84 20 167/79 H 98 10/11/17 07:00 10/11/17 07:00 10/11/17 07:00 10/11/17 07:00 10/11/17 07:00 Intake and Output: 10/11/17 10/11/17 06:59 18:59 Intake Total 270 Output Total 1000 Balance -730 - Medications Medications: Current Medications Acetaminophen (Tylenol 325mg Tab) 650 mg PO Q6 PRN PRN Reason: Pain, Mild (1-3) Amlodipine Besylate (Norvasc) 10 mg PO DAILY [facility] Last Admin: 10/11/17 10:21 Dose: 10 mg Famotidine (Pepcid) 20 mg PO DAILY [facility] Last Admin: 10/11/17 10:21 Dose: 20 mg Heparin Sodium (Porcine) (Heparin) 5,000 units SC Q8 [facility] Last Admin: 10/11/17 05:31 Dose: 5,000 units Piperacillin Sod/Tazobactam Sod (Zosyn 2.25 Gm Iv Premix) 2.25 gm in 50 mls @ 100 mls/hr IVPB Q6H [facility] PRN Reason: Protocol Last Admin: 10/11/17 10:19 Dose: 100 mls/hr Sodium Chloride (Sodium Chloride 0.9%) 1,000 mls @ 50 mls/hr IV .Q20H [facility] Last Admin: 10/10/17 04:17 Dose: Not Given Insulin Human Regular (Novolin R) 0 unit SC ACHS [facility] PRN Reason: Protocol Last Admin: 03/26/18 08:20 Dose: Not Given Losartan Potassium (Cozaar) 50 mg PO DAILY [facility] Last Admin: 10/11/17 10:21 Dose: 50 mg - Labs Labs: 10/11/17 07:32 10/11/17 07:32 PT 13.2 SECONDS (9.7-12.2) H 10/08/17 04:57 INR 1.2 10/08/17 04:57 APTT 34 SECONDS (21-34) 10/04/17 12:34 - Constitutional Appears: Well, Non-toxic, No Acute Distress - Extremities Exam Additional comments: RLE focused exam: Dressing appears clean/dry/intact with no strikethrough noted. Allograft overlying surgical incision appears well-adhered with steri-strips Vasc: DP/PT pulses non palpable. Temp gradient cool to cool. CFT prompt digits 3 -5. Mild forefoot pedal edema noted around surgical site Derm: Incision noted to distalmedial aspect of right foot with sutures intact and no wound dehiscence noted. Minimal periwound erythema. Opened aspect of incision noted laterally with 100% granular base. No fluctuance, no purulence, no drainage, no malodor noted. Neuro: Protective sensation grossly diminished Ortho: moderate tenderness to palpation along surgical site. s/p right hallux amputation with metatarsal head resection, and partial 2nd digit amputation - Neurological Exam Neurological Exam: Alert, Awake, Oriented x3 - Psychiatric Exam Psychiatric exam: Normal Affect, Normal Mood Assessment and Plan - Assessment and Plan (Free Text) Assessment: 87M POD#3 right foot debridement of soft tissue and bone Plan: Patient seen and evaluated with attending, Dr. Meeks Afebrile, WBC 11.6 likely reactive WCx pre-op: enterobacter cloacae, corynebacterium species Abdominal angiography: PT artery heavily calcified, peroneal and anterior tibial artery patent -No further intervention per vascular Dressing changed today - xeroform, DSD, light RAJIV f/u pathology specimens: Right 1st metatarsal, right 2nd proximal phalanx Continue abx - Ciprofloxacin 500mg PO Podiatry will continue to follow while patient in house
[2017-10-11] MEDS: Sodium Chloride 0.9% 1,000 ML IV SCH ×2 (12:00→21:00)
[2017-10-12 06:30] LABS: BASO # 0.1 K/uL (0.0-0.2); BASO % 0.7 % (0.0-2.0); EOS # 0.1 K/uL (0.0-0.7); EOS % 0.8 % (0.0-4.0); HEMOGLOBIN 10.6 g/dL (12.0-18.0); LYMPH # 0.9 K/uL (1.0-4.3); LYMPH % 10.2 % (20.0-40.0); MEAN CELL VOLUME 89.9 fL (80.0-94.0); MEAN CORPUSCULAR HEMOGLOBIN 30.5 pg (27.0-31.0); MEAN CORPUSCULAR HGB CONC 33.9 g/dL (33.0-37.0); MONO # 0.6 K/uL (0.0-0.8); MONO % 6.3 % (0.0-10.0); NEUT # 7.6 K/uL (1.8-7.0); RBC 3.47 Mil/uL (4.40-5.90); RED CELL DISTRIBUTION WIDTH 13.9 % (11.5-14.5); WHITE BLOOD COUNT 9.3 K/uL (4.8-10.8)
[2017-10-12] MEDS: (Novolin R) Insulin Human Regular 100 units/ml vial SC SCH ×4 (07:33→21:10)
[2017-10-12 08:12] LABS: CALCIUM 8.9 mg/dl (8.6-10.4)
--- NOTE | 2017-10-12 09:18 | CP.PCM.PN ---
<Rosie Sierra - Last Filed: 10/12/17 15:04> Subjective - Date & Time of Evaluation Date of Evaluation: 10/12/17 Time of Evaluation: 09:18 - Subjective Subjective: Progress Note for Dr. Trujillo Patient seen and examined at bedside. No acute events overnight. Patient denies fever, chills, nausea, vomiting, shortness of breath, abdominal pain. Patient states he's doing well and wants to know when he's going home. PAtient is aware we are waiting pathology results prior to changing plan of care. Objective - Vital Signs/Intake and Output Vital Signs (last 24 hours): Temp Pulse Resp BP Pulse Ox 97.6 F 60 20 154/76 H 99 10/12/17 07:30 10/12/17 07:30 10/12/17 07:30 10/12/17 07:30 10/12/17 07:30 Intake and Output: 10/12/17 10/12/17 06:59 18:59 Intake Total 800 Balance 800 - Medications Medications: Current Medications Acetaminophen (Tylenol 325mg Tab) 650 mg PO Q6 PRN PRN Reason: Pain, Mild (1-3) Last Admin: 10/11/17 14:09 Dose: 650 mg Amlodipine Besylate (Norvasc) 10 mg PO DAILY [facility] Last Admin: 10/11/17 10:21 Dose: 10 mg Ciprofloxacin (Cipro) 500 mg PO BID [facility] PRN Reason: Protocol Stop: 10/19/17 10:01 Famotidine (Pepcid) 20 mg PO DAILY [facility] Last Admin: 10/11/17 10:21 Dose: 20 mg Heparin Sodium (Porcine) (Heparin) 5,000 units SC Q8 [facility] Last Admin: 10/12/17 05:36 Dose: 5,000 units Sodium Chloride (Sodium Chloride 0.9%) 1,000 mls @ 50 mls/hr IV .Q20H [facility] Last Admin: 10/11/17 21:00 Dose: Not Given Insulin Human Regular (Novolin R) 0 unit SC ACHS [facility] PRN Reason: Protocol Last Admin: 10/12/17 07:33 Dose: Not Given Losartan Potassium (Cozaar) 50 mg PO DAILY [facility] Last Admin: 10/11/17 10:21 Dose: 50 mg Sitagliptin Phosphate (Januvia) 50 mg PO DAILY [facility] - Labs Labs: 10/12/17 06:18 10/12/17 06:18 PT 13.2 SECONDS (9.7-12.2) H 10/08/17 04:57 INR 1.2 10/08/17 04:57 APTT 34 SECONDS (21-34) 10/04/17 12:34 - Constitutional Appears: Non-toxic, No Acute Distress - Head Exam Head Exam: ATRAUMATIC, NORMAL INSPECTION, NORMOCEPHALIC - Eye Exam Eye Exam: EOMI, Normal appearance Pupil Exam: NORMAL ACCOMODATION, PERRL - Neck Exam Neck Exam: Full ROM. absent: Lymphadenopathy, Thyromegaly - Respiratory Exam Respiratory Exam: Clear to Ausculation Bilateral, NORMAL BREATHING PATTERN. absent: Accessory Muscle Use, Rales - Cardiovascular Exam Cardiovascular Exam: REGULAR RHYTHM, +S1, +S2. absent: Bradycardia, Tachycardia - GI/Abdominal Exam GI & Abdominal Exam: Soft, Normal Bowel Sounds. absent: Tenderness - Extremities Exam Extremities Exam: Full ROM. absent: Pedal Edema Additional comments: RLE Dressing c/di with no breakthrough seen on exam. per podiatry: Allograft overlying surgical incision appears well-adhered with steri-strips DP/PT pulses non palpable on right foot. tenderness to palpation along surgical site. 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 Patient has left fifth toe amputation Assessment and Plan: s/p amputation of right hallux and 2nd digit on 08/31/1710/08 debridement afebrile, no leukocytosis Wound cx: f/u results Blood cx: f/u results Foot xray (10/04/17): unremarkable Podiatry consult: Dr. Meeks Vascular surgery consult: Dr. Wheeler CT angio ileofemoral runoff: right common femoral artery, profunda femoral artery, poplital artery. Mild to Moderate plaque through SFA mild stenosis in mid and distal SFA. Peroneal artery and anterior tibial artery patent. Posterior tibial is heavily calcified. left mild plaque throughout SFA with areas of mild stenosis in the mid segment. Runoff shows an occluded anterior tibial artery and possible occlusion of proximal mid posterior tibial artery. distal posterior tibial artery is believed to be patent. The peroneal artery is unremarkable. per Vascular Surgery: no intervention from a vascular surgery standpoint Medication: * Zosyn 2.25g IV Q6h (start 10/04/17) DC 10/11 * Cipro (10/06-10/08) patient started on cipro 500mg PO 10/12 * Vancomycin 10/10 x 1 dose * Tylenol 650mg PO PRN for pain/fever (patient is currently free of pain and afebrile) * Home medication: Plavix 75mg PO daily (Held for pre-op) Status: Acute (2) Leukocytosis f/u new blood cultures 10/09 (3) anemia, resolved 10/09 1u PRBC due to hgb of 6.6 (4) Diabetes mellitus Assessment and Plan: Monitor blood glucose, accuchecks ISS- Medium Hypoglycemia protocol A1c (08/24/17) 6.2 Status: Chronic (5) Hypertension Assessment and Plan: Resumed home medications: Losartan 50mg PO daily, Amlodipine 10mg PO daily Monitor blood pressure Heart healthy diet- 2g Na Status: Chronic (6) HLD (hyperlipidemia) Assessment and Plan: Hx of HLD Lipid panel (08/25/17): Triglycerides 106; Cholesterol 153; LDL 76; HDL 48 Status: Acute (7) Prophylactic measure Assessment and Plan: DVT: Heparin 5000sc Q8; no SCDs GI: Pepcid 20mg PO daily Heart Healthy Diet- 2g Na PT/OT Status: Acute Disposition: Discharge is pending podiatry clearance. Awaiting pathology report from debridement performed on 10/08/17. Rosie Sierra DO PGY1 <Melissa Trujillo - Last Filed: 10/12/17 18:56> Objective - Vital Signs/Intake and Output Vital Signs (last 24 hours): Temp Pulse Resp BP Pulse Ox 98 F 76 18 139/55 L 99 10/12/17 15:21 10/12/17 15:21 10/12/17 15:21 10/12/17 15:21 10/12/17 15:21 Intake and Output: 10/12/17 10/12/17 06:59 18:59 Intake Total 800 800 Output Total 200 Balance 800 600 - Medications Medications: Current Medications Acetaminophen (Tylenol 325mg Tab) 650 mg PO Q6 PRN PRN Reason: Pain, Mild (1-3) Last Admin: 10/11/17 14:09 Dose: 650 mg Amlodipine Besylate (Norvasc) 10 mg PO DAILY [facility] Last Admin: 10/12/17 09:34 Dose: 10 mg Ciprofloxacin (Cipro) 500 mg PO BID [facility] PRN Reason: Protocol Stop: 10/19/17 10:01 Last Admin: 10/12/17 17:34 Dose: 500 mg Famotidine (Pepcid) 20 mg PO DAILY [facility] Last Admin: 10/12/17 09:34 Dose: 20 mg Heparin Sodium (Porcine) (Heparin) 5,000 units SC Q8 [facility] Last Admin: 10/12/17 13:07 Dose: 5,000 units Sodium Chloride (Sodium Chloride 0.9%) 1,000 mls @ 100 mls/hr IV .Q10H [facility] Last Admin: 10/12/17 17:52 Dose: Not Given Insulin Human Regular (Novolin R) 0 unit SC ACHS [facility] PRN Reason: Protocol Last Admin: 10/12/17 17:28 Dose: Not Given Losartan Potassium (Cozaar) 50 mg PO DAILY [facility] Last Admin: 10/12/17 09:34 Dose: 50 mg Sitagliptin Phosphate (Januvia) 50 mg PO DAILY [facility] Last Admin: 10/12/17 09:34 Dose: 50 mg - Labs Labs: 10/12/17 06:18 10/12/17 06:18 PT 13.2 SECONDS (9.7-12.2) H 10/08/17 04:57 INR 1.2 10/08/17 04:57 APTT 34 SECONDS (21-34) 10/04/17 12:34 Attending/Attestation - Attestation I have personally seen and examined this patient.: Yes I have fully participated in the care of the patient.: Yes I have reviewed all pertinent clinical information, including history, physical exam and plan: Yes Notes (Text): Seen and examined Case discussed with the resident follow path report before discharge d/c on oral cipro sugar control d/w at bedside. I agree with the resident's documentation of the assessment and the plan
[2017-10-12] MEDS: Sodium Chloride 0.9% 1,000 ML IV SCH ×2 (09:33→17:52)
--- NOTE | 2017-10-12 12:23 | CP.PCM.PN ---
Subjective - Date & Time of Evaluation Date of Evaluation: 10/12/17 Time of Evaluation: 12:21 - Subjective Subjective: Podiatry Progress Note - Dr. Meeks 87M seen and evaluated at bedside 4 days s/p right foot debridement of soft tissue and bone secondary to right foot nonhealing wound. Patient hemodynamically stable and NAD. No acute events overnight. Reports mild pain to surgical site, well-controlled. Dressing to right foot clean/dry/intact with no strikethrough noted. Patient has been compliant with NWB RLE. Denies N/V/F/D/C/ SOB/calf pain/DIAMOND/dizziness. Offers no other complaints. Objective - Vital Signs/Intake and Output Vital Signs (last 24 hours): Temp Pulse Resp BP Pulse Ox 97.6 F 75 20 145/57 L 99 10/12/17 07:30 10/12/17 09:33 10/12/17 07:30 10/12/17 09:33 10/12/17 07:30 Intake and Output: 10/12/17 10/12/17 06:59 18:59 Intake Total 800 Balance 800 - Medications Medications: Current Medications Acetaminophen (Tylenol 325mg Tab) 650 mg PO Q6 PRN PRN Reason: Pain, Mild (1-3) Last Admin: 10/11/17 14:09 Dose: 650 mg Amlodipine Besylate (Norvasc) 10 mg PO DAILY [facility] Last Admin: 10/12/17 09:34 Dose: 10 mg Ciprofloxacin (Cipro) 500 mg PO BID [facility] PRN Reason: Protocol Stop: 10/19/17 10:01 Last Admin: 10/12/17 09:34 Dose: 500 mg Famotidine (Pepcid) 20 mg PO DAILY [facility] Last Admin: 10/12/17 09:34 Dose: 20 mg Heparin Sodium (Porcine) (Heparin) 5,000 units SC Q8 [facility] Last Admin: 10/12/17 05:36 Dose: 5,000 units Insulin Human Regular (Novolin R) 0 unit SC ACHS [facility] PRN Reason: Protocol Last Admin: 10/12/17 12:12 Dose: 2 unit Losartan Potassium (Cozaar) 50 mg PO DAILY [facility] Last Admin: 10/12/17 09:34 Dose: 50 mg Sitagliptin Phosphate (Januvia) 50 mg PO DAILY [facility] Last Admin: 10/12/17 09:34 Dose: 50 mg - Labs Labs: 10/12/17 06:18 10/12/17 06:18 PT 13.2 SECONDS (9.7-12.2) H 10/08/17 04:57 INR 1.2 10/08/17 04:57 APTT 34 SECONDS (21-34) 10/04/17 12:34 - Constitutional Appears: Well, Non-toxic, No Acute Distress - Extremities Exam Additional comments: RLE focused exam: Dressing appears clean/dry/intact with no strikethrough noted. Vasc: DP/PT pulses non palpable. Temp gradient cool to cool. CFT prompt digits 3 -5. Mild forefoot pedal edema noted around surgical site Derm: Incision noted to distal medial aspect of right foot with sutures intact and no wound dehiscence noted. Minimal periwound erythema. Opened aspect of incision noted laterally with 100% granular base. No fluctuance, no purulence, no drainage, no malodor noted. Neuro: Protective sensation grossly diminished Ortho: moderate tenderness to palpation along surgical site. s/p right hallux amputation with metatarsal head resection, and partial 2nd digit amputation - Neurological Exam Neurological Exam: Alert, Awake, Oriented x3 Assessment and Plan - Assessment and Plan (Free Text) Assessment: 87M POD#4 right foot debridement of soft tissue and bone Plan: Patient seen and evaluated with attending, Dr. Meeks Afebrile, WBC 9.3 WCx pre-op: enterobacter cloacae, corynebacterium species Abdominal angiography: PT artery heavily calcified, peroneal and anterior tibial artery patent -No further intervention per vascular Dressing changed today - xeroform, DSD f/u pathology specimens: Right 1st metatarsal, right 2nd proximal phalanx Continue abx - Ciprofloxacin 500mg PO Podiatry will continue to follow while patient in house
[2017-10-13] MEDS: Sodium Chloride 0.9% 1,000 ML IV SCH ×3 (00:23→21:42)
[2017-10-13 01:30] VITALS: RESP 20
[2017-10-13 07:06] LABS: BASO # 0.1 K/uL (0.0-0.2); EOS # 0.1 K/uL (0.0-0.7); EOS % 0.8 % (0.0-4.0); LYMPH # 1.1 K/uL (1.0-4.3); LYMPH % 11.9 % (20.0-40.0); MEAN CELL VOLUME 88.7 fL (80.0-94.0); MEAN CORPUSCULAR HEMOGLOBIN 30.6 pg (27.0-31.0); MEAN CORPUSCULAR HGB CONC 34.5 g/dL (33.0-37.0); MEAN PLATELET VOLUME 8.2 fL (7.2-11.7); MONO # 0.6 K/uL (0.0-0.8); MONO % 6.9 % (0.0-10.0); NEUT # 7.5 K/uL (1.8-7.0); NEUT % 79.4 % (50.0-75.0); RBC 3.27 Mil/uL (4.40-5.90); RED CELL DISTRIBUTION WIDTH 13.8 % (11.5-14.5); WHITE BLOOD COUNT 9.4 K/uL (4.8-10.8)
[2017-10-13 07:33] LABS: BLOOD UREA NITROGEN 17 mg/dL (9-20); GFR AFRICAN-AMERICAN > 60; GFR NON-AFRICAN AMERICAN 52
[2017-10-13] MEDS: (Novolin R) Insulin Human Regular 100 units/ml vial SC SCH ×4 (07:37→21:39)
--- NOTE | 2017-10-13 09:34 | CP.PCM.PN ---
Addendum entered and electronically signed by Rosie Sierra DO 10/13/17 15:14: Path Report from OR came back positive for osteomyelitis Original Note: <Rosie Sierra - Last Filed: 10/13/17 13:20> Subjective - Date & Time of Evaluation Date of Evaluation: 10/13/17 Time of Evaluation: 09:35 - Subjective Subjective: Progress Note Patient seen and examined at bedside. Patient is comfortable and states he is doing well. Patient denies fever, chills, nausea, vomiting, diarrhea, vomiting Objective - Vital Signs/Intake and Output Vital Signs (last 24 hours): Temp Pulse Resp BP Pulse Ox 98.7 F 89 20 149/65 96 10/13/17 08:37 10/13/17 09:17 10/13/17 08:37 10/13/17 09:17 10/13/17 08:37 - Medications Medications: Current Medications Acetaminophen (Tylenol 325mg Tab) 650 mg PO Q6 PRN PRN Reason: Pain, Mild (1-3) Last Admin: 10/11/17 14:09 Dose: 650 mg Amlodipine Besylate (Norvasc) 10 mg PO DAILY [facility] Last Admin: 10/13/17 09:18 Dose: 10 mg Ciprofloxacin (Cipro) 500 mg PO BID [facility] PRN Reason: Protocol Stop: 10/19/17 10:01 Last Admin: 10/13/17 09:18 Dose: 500 mg Famotidine (Pepcid) 20 mg PO DAILY [facility] Last Admin: 10/13/17 09:18 Dose: 20 mg Heparin Sodium (Porcine) (Heparin) 5,000 units SC Q8 [facility] Last Admin: 10/13/17 05:19 Dose: 5,000 units Sodium Chloride (Sodium Chloride 0.9%) 1,000 mls @ 100 mls/hr IV .Q10H [facility] Last Admin: 10/13/17 00:23 Dose: 100 mls/hr Insulin Human Regular (Novolin R) 0 unit SC ACHS [facility] PRN Reason: Protocol Last Admin: 10/13/17 07:37 Dose: Not Given Losartan Potassium (Cozaar) 50 mg PO DAILY [facility] Last Admin: 10/13/17 09:18 Dose: 50 mg Potassium Chloride (K-Dur 20 Meq Er Tab) 20 meq PO Q2H [facility] Stop: 10/13/17 11:46 Sitagliptin Phosphate (Januvia) 50 mg PO DAILY [facility] Last Admin: 10/13/17 09:18 Dose: 50 mg - Labs Labs: 10/13/17 06:53 10/13/17 06:54 PT 13.2 SECONDS (9.7-12.2) H 10/08/17 04:57 INR 1.2 10/08/17 04:57 APTT 34 SECONDS (21-34) 10/04/17 12:34 - Constitutional Appears: Non-toxic, No Acute Distress - Head Exam Head Exam: NORMAL INSPECTION, NORMOCEPHALIC - Eye Exam Eye Exam: EOMI, Normal appearance Pupil Exam: NORMAL ACCOMODATION, PERRL - ENT Exam ENT Exam: Mucous Membranes Moist, Normal Exam - Neck Exam Neck Exam: Full ROM, Normal Inspection - Respiratory Exam Respiratory Exam: Clear to Ausculation Bilateral, NORMAL BREATHING PATTERN - Cardiovascular Exam Cardiovascular Exam: REGULAR RHYTHM, +S1, +S2 - GI/Abdominal Exam GI & Abdominal Exam: Soft, Normal Bowel Sounds. absent: Tenderness, Hyperactive Bowel Sounds - Extremities Exam Extremities Exam: Full ROM, Normal Capillary Refill Additional comments: RLE Dressing c/di with no breakthrough seen on exam. DP/PT pulses non palpable on right foot. tenderness to palpation along surgical site. 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 Patient has left fifth toe amputation Assessment and Plan: s/p amputation of right hallux and 2nd digit on 08/31/1710/08 debridement afebrile, no leukocytosis Wound cx: f/u results Blood cx: f/u results Foot xray (10/04/17): unremarkable Podiatry consult: Dr. Meeks Vascular surgery consult: Dr. Wheeler CT angio ileofemoral runoff: right common femoral artery, profunda femoral artery, poplital artery. Mild to Moderate plaque through SFA mild stenosis in mid and distal SFA. Peroneal artery and anterior tibial artery patent. Posterior tibial is heavily calcified. left mild plaque throughout SFA with areas of mild stenosis in the mid segment. Runoff shows an occluded anterior tibial artery and possible occlusion of proximal mid posterior tibial artery. distal posterior tibial artery is believed to be patent. The peroneal artery is unremarkable. per Vascular Surgery: no intervention from a vascular surgery standpoint Medication: * Zosyn 2.25g IV Q6h (start 10/04/17) DC 10/11 * Cipro (10/06-10/08) patient started on cipro 500mg PO 10/12 * Vancomycin 10/10 x 1 dose * Tylenol 650mg PO PRN for pain/fever (patient is currently free of pain and afebrile) * Home medication: Plavix 75mg PO daily (Held for pre-op) Status: Acute (2) Leukocytosis f/u new blood cultures 10/09 (3) anemia, resolved 10/09 1u PRBC due to hgb of 6.6 (4) Diabetes mellitus Assessment and Plan: Monitor blood glucose, accuchecks ISS- Medium Hypoglycemia protocol A1c (08/24/17) 6.2 Status: Chronic (5) Hypertension Assessment and Plan: Resumed home medications: Losartan 50mg PO daily, Amlodipine 10mg PO daily Monitor blood pressure Heart healthy diet- 2g Na Status: Chronic (6) HLD (hyperlipidemia) Assessment and Plan: Hx of HLD Lipid panel (08/25/17): Triglycerides 106; Cholesterol 153; LDL 76; HDL 48 Status: Acute (7) Prophylactic measure Assessment and Plan: DVT: Heparin 5000sc Q8; no SCDs GI: Pepcid 20mg PO daily Heart Healthy Diet- 2g Na PT/OT Status: Acute Disposition: Discharge is pending podiatry clearance. Awaiting pathology report from debridement performed on 10/08/17. Rosie Sierra DO PGY1 <Melissa Trujillo - Last Filed: 10/13/17 15:56> Objective - Vital Signs/Intake and Output Vital Signs (last 24 hours): Temp Pulse Resp BP Pulse Ox 98.7 F 89 20 149/65 96 10/13/17 08:37 10/13/17 09:17 10/13/17 08:37 10/13/17 09:17 10/13/17 08:37 Intake and Output: 10/13/17 10/13/17 06:59 18:59 Intake Total 1200 Balance 1200 - Medications Medications: Current Medications Acetaminophen (Tylenol 325mg Tab) 650 mg PO Q6 PRN PRN Reason: Pain, Mild (1-3) Last Admin: 10/11/17 14:09 Dose: 650 mg Amlodipine Besylate (Norvasc) 10 mg PO DAILY [facility] Last Admin: 10/13/17 09:18 Dose: 10 mg Ciprofloxacin (Cipro) 500 mg PO BID [facility] PRN Reason: Protocol Stop: 10/19/17 10:01 Last Admin: 10/13/17 09:18 Dose: 500 mg Famotidine (Pepcid) 20 mg PO DAILY [facility] Last Admin: 10/13/17 09:18 Dose: 20 mg Heparin Sodium (Porcine) (Heparin) 5,000 units SC Q8 [facility] Last Admin: 10/13/17 13:03 Dose: 5,000 units Sodium Chloride (Sodium Chloride 0.9%) 1,000 mls @ 100 mls/hr IV .Q10H [facility] Last Admin: 10/13/17 10:27 Dose: 100 mls/hr Insulin Human Regular (Novolin R) 0 unit SC ACHS [facility] PRN Reason: Protocol Last Admin: 10/13/17 12:02 Dose: Not Given Losartan Potassium (Cozaar) 50 mg PO DAILY [facility] Last Admin: 10/13/17 09:18 Dose: 50 mg Sitagliptin Phosphate (Januvia) 50 mg PO DAILY [facility] Last Admin: 10/13/17 09:18 Dose: 50 mg - Labs Labs: 10/13/17 06:53 10/13/17 06:54 PT 13.2 SECONDS (9.7-12.2) H 10/08/17 04:57 INR 1.2 10/08/17 04:57 APTT 34 SECONDS (21-34) 10/04/17 12:34 Attending/Attestation - Attestation I have personally seen and examined this patient.: Yes I have fully participated in the care of the patient.: Yes I have reviewed all pertinent clinical information, including history, physical exam and plan: Yes Notes (Text): seen and examined this morning patient has no complain path report acute osteomylitis Seen by Dr Flores. Decided to give 6 weeks of oral cipro with close monitoring we will discharge the patient after discuss with corporate administrative assistant DR Meeks. patient need weight bearing instruction and close follow up after discharge.Need oral hydration and maintain creatinine and monitor sugar at home
[2017-10-13] MEDS: Potassium Chloride 20 mEq ER Tab PO SCH ×2 (10:28→11:45)
--- NOTE | 2017-10-13 14:55 | CP.PCM.CON ---
History of Present Illness - History of Present Illness History of Present Illness: 87 year old male with a history of HTN, HLD, DM, b/l toe amputations, who presents to the ED sent by his international bank manager, Dr. Meeks. Patient went to follow up with Dr. 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 Patient states he has been taking his antibiotics and all other medications as prescribed. Underwent debridement right foot after vascular clearance- bone bx + OM wound + enterobacter PMD: Dr. 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 Retired; Denies hx of tobacco, ETOH and illicit drugs use Medications: Unknown dose for Losartan, plavix 75mg po daily, medications for HLD and diabetes (patient and could not remember names) Allergies: NKDA Review of Systems - Constitutional Constitutional: absent: Chills, Fever, Headache, Weakness - EENT Ears: absent: Dizziness - Cardiovascular Cardiovascular: absent: Chest Pain, Dyspnea, Leg Edema, Palpitations - Respiratory Respiratory: absent: Cough, Dyspnea - Gastrointestinal Gastrointestinal: absent: Abdominal Pain, Constipation, Diarrhea, Nausea, Vomiting - Genitourinary Genitourinary: absent: Dysuria, Hematuria - Musculoskeletal Musculoskeletal: absent: Abnormal Gait - Integumentary Integumentary: Non-Healing Lesions (s/p amputation of right hallux and 2nd digit - infection) - Neurological Neurological: absent: Dizziness, Headaches Past Patient History - Infectious Disease Hx of Infectious Diseases: None - Tetanus Immunizations Tetanus Immunization: Unknown - Past Medical History & Family History Past Medical History?: Yes - Past Social History Smoking Status: Former Smoker - CARDIAC Hx Congestive Heart Failure: Yes Hx Hypercholesterolemia: Yes Hx Hypertension: Yes - PULMONARY Hx Pneumonia: Yes - NEUROLOGICAL Hx Neurological Disorder: No - HEENT Hx HEENT Problems: No - RENAL Hx Chronic Kidney Disease: No - ENDOCRINE/METABOLIC Hx Diabetes Mellitus Type 2: Yes - HEMATOLOGICAL/ONCOLOGICAL Hx Human Immunodeficiency Virus (HIV): No - INTEGUMENTARY Hx Dermatological Problems: No - MUSCULOSKELETAL/RHEUMATOLOGICAL Hx Arthritis: Yes - GASTROINTESTINAL Hx Gastrointestinal Disorders: Yes Other/Comment: perforated viscus s/p exploratory lap with small bowel resection 11/06/14 - GENITOURINARY/GYNECOLOGICAL Hx Genitourinary Disorders: No - PSYCHIATRIC Hx Substance Use: No - SURGICAL HISTORY Hx Surgeries: Yes Hx Amputation: Yes (TMA left foot) Other/Comment: s/p exploratory lap small bowel resection - ANESTHESIA Hx Anesthesia: Yes Hx Anesthesia Reactions: No Hx Malignant Hyperthermia: No Meds Allergies/Adverse Reactions: Allergies Allergy/AdvReac Type Severity Reaction Status Date / Time No Known Allergies Allergy Verified 08/24/17 17:03 - Medications Medications: Current Medications Acetaminophen (Tylenol 325mg Tab) 650 mg PO Q6 PRN PRN Reason: Pain, Mild (1-3) Last Admin: 10/11/17 14:09 Dose: 650 mg Amlodipine Besylate (Norvasc) 10 mg PO DAILY [facility] Last Admin: 10/13/17 09:18 Dose: 10 mg Ciprofloxacin (Cipro) 500 mg PO BID [facility] PRN Reason: Protocol Stop: 10/19/17 10:01 Last Admin: 10/13/17 09:18 Dose: 500 mg Famotidine (Pepcid) 20 mg PO DAILY [facility] Last Admin: 10/13/17 09:18 Dose: 20 mg Heparin Sodium (Porcine) (Heparin) 5,000 units SC Q8 [facility] Last Admin: 10/13/17 13:03 Dose: 5,000 units Sodium Chloride (Sodium Chloride 0.9%) 1,000 mls @ 100 mls/hr IV .Q10H [facility] Last Admin: 10/13/17 10:27 Dose: 100 mls/hr Insulin Human Regular (Novolin R) 0 unit SC ACHS [facility] PRN Reason: Protocol Last Admin: 10/13/17 12:02 Dose: Not Given Losartan Potassium (Cozaar) 50 mg PO DAILY [facility] Last Admin: 10/13/17 09:18 Dose: 50 mg Sitagliptin Phosphate (Januvia) 50 mg PO DAILY [facility] Last Admin: 10/13/17 09:18 Dose: 50 mg Physical Exam - Constitutional Appears: Non-toxic, Chronically Ill - Head Exam Head Exam: NORMOCEPHALIC - Eye Exam Eye Exam: PERRL - ENT Exam ENT Exam: Mucous Membranes Dry - Neck Exam Neck exam: Negative for: Lymphadenopathy - Respiratory Exam Respiratory Exam: Decreased Breath Sounds, Clear to Auscultation Bilateral - Cardiovascular Exam Cardiovascular Exam: REGULAR RHYTHM, +S1, +S2 - GI/Abdominal Exam GI & Abdominal Exam: Diminished Bowel Sounds, Soft. absent: Tenderness - Rectal Exam Rectal Exam: Deferred - Exam Exam: NORMAL INSPECTION - Extremities Exam Extremities exam: Negative for: calf tenderness Additional comments: RLE focused exam: Dressing appears clean/dry/intact with no strikethrough noted. Vasc: DP/PT pulses non palpable. Temp gradient cool to cool. CFT prompt digits 3 -5. Mild forefoot pedal edema noted around surgical site Derm: Incision noted to distal medial aspect of right foot with sutures intact and no wound dehiscence noted. Minimal periwound erythema. Opened aspect of incision noted laterally with 100% granular base. No fluctuance, no purulence, no drainage, no malodor noted. Neuro: Protective sensation grossly diminished Ortho: moderate tenderness to palpation along surgical site. s/p right hallux amputation with metatarsal head resection, and partial 2nd digit amputation - Back Exam Back exam: absent: CVA tenderness (L), CVA tenderness (R), paraspinal tenderness - Neurological Exam Neurological exam: Alert, CN II-XII Intact, Oriented x3, Reflexes Normal - Psychiatric Exam Psychiatric exam: Normal Mood - Skin Skin Exam: Dry Results - Vital Signs Recent Vital Signs: Last Vital Signs Temp 98.7 F 10/13/17 08:37 Pulse 89 10/13/17 09:17 Resp 20 10/13/17 08:37 BP 149/65 10/13/17 09:17 Pulse Ox 96 10/13/17 08:37 - Labs Result Diagrams: 10/13/17 06:53 10/13/17 06:54 Labs: Laboratory Results - last 24 hr 10/12/17 10/12/17 10/12/17 12:01 16:37 21:09 WBC RBC Hgb Hct MCV MCH MCHC RDW Plt Count MPV Neut % (Auto) Lymph % (Auto) [place] % (Auto) Eos % (Auto) Baso % (Auto) Neut # (Auto) Lymph # (Auto) [place] # (Auto) Eos # (Auto) Baso # (Auto) Sodium Potassium Chloride Carbon Dioxide Anion Gap BUN Creatinine Est GFR ( Amer) Est GFR (Non-Af Amer) POC Glucose (mg/dL) 183 H 126 H 165 H Random Glucose Calcium Phosphorus Magnesium 10/13/17 10/13/17 10/13/17 06:18 06:53 06:54 WBC 9.4 RBC 3.27 L Hgb 10.0 L Hct 29.0 L MCV 88.7 MCH 30.6 MCHC 34.5 RDW 13.8 Plt Count 486 H MPV 8.2 Neut % (Auto) 79.4 H Lymph % (Auto) 11.9 L [place] % (Auto) 6.9 Eos % (Auto) 0.8 Baso % (Auto) 1.0 Neut # (Auto) 7.5 H Lymph # (Auto) 1.1 [place] # (Auto) 0.6 Eos # (Auto) 0.1 Baso # (Auto) 0.1 Sodium 142 Potassium 3.4 L Chloride 104 Carbon Dioxide 25 Anion Gap 16 BUN 17 Creatinine 1.3 Est GFR ( Amer) > 60 Est GFR (Non-Af Amer) 52 POC Glucose (mg/dL) 115 H Random Glucose 109 Calcium 8.0 L Phosphorus 3.0 Magnesium 1.7 Assessment & Plan (1) Osteomyelitis of foot, right, acute Status: Acute (2) Osteomyelitis of foot, right, acute Status: Acute (3) Chronic osteomyelitis of right foot Status: Acute (4) Chronic osteomyelitis of right foot Status: Acute (5) BANDAR (acute kidney injury) Status: Acute (6) HLD (hyperlipidemia) Status: Acute (7) Infection of amputation stump, right lower extremity Status: Acute (8) Toe amputation status Status: Acute - Assessment and Plan (Free Text) Assessment: will need on going wound care and IV antibiotics for 6- 8 weeks
--- NOTE | 2017-10-13 15:19 | CP.PCM.PN ---
<Yoko Scales - Last Filed: 10/13/17 15:16> Subjective - Date & Time of Evaluation Date of Evaluation: 10/13/17 Time of Evaluation: 15:16 - Subjective Subjective: Podiatry Progress Note - Dr. Meeks 87M seen and evaluated at bedside 5 days s/p right foot debridement of soft tissue and bone secondary to right foot nonhealing wound. Patient hemodynamically stable and NAD. No acute events overnight. Reports mild pain to surgical site, well-controlled. Dressing to right foot clean/dry/intact with no strikethrough noted. Patient has been compliant with NWB RLE. Denies N/V/F/D/C/ SOB/calf pain/DIAMOND/dizziness. Offers no other complaints. Objective - Vital Signs/Intake and Output Vital Signs (last 24 hours): Temp Pulse Resp BP Pulse Ox 98.7 F 89 20 149/65 96 10/13/17 08:37 10/13/17 09:17 10/13/17 08:37 10/13/17 09:17 10/13/17 08:37 Intake and Output: 10/13/17 10/13/17 06:59 18:59 Intake Total 1200 Balance 1200 - Medications Medications: Current Medications Acetaminophen (Tylenol 325mg Tab) 650 mg PO Q6 PRN PRN Reason: Pain, Mild (1-3) Last Admin: 10/11/17 14:09 Dose: 650 mg Amlodipine Besylate (Norvasc) 10 mg PO DAILY [facility] Last Admin: 10/13/17 09:18 Dose: 10 mg Ciprofloxacin (Cipro) 500 mg PO BID [facility] PRN Reason: Protocol Stop: 10/19/17 10:01 Last Admin: 10/13/17 09:18 Dose: 500 mg Famotidine (Pepcid) 20 mg PO DAILY [facility] Last Admin: 10/13/17 09:18 Dose: 20 mg Heparin Sodium (Porcine) (Heparin) 5,000 units SC Q8 [facility] Last Admin: 10/13/17 13:03 Dose: 5,000 units Sodium Chloride (Sodium Chloride 0.9%) 1,000 mls @ 100 mls/hr IV .Q10H [facility] Last Admin: 10/13/17 10:27 Dose: 100 mls/hr Insulin Human Regular (Novolin R) 0 unit SC ACHS [facility] PRN Reason: Protocol Last Admin: 10/13/17 12:02 Dose: Not Given Losartan Potassium (Cozaar) 50 mg PO DAILY [facility] Last Admin: 10/13/17 09:18 Dose: 50 mg Sitagliptin Phosphate (Januvia) 50 mg PO DAILY [facility] Last Admin: 10/13/17 09:18 Dose: 50 mg - Labs Labs: 10/13/17 06:53 10/13/17 06:54 PT 13.2 SECONDS (9.7-12.2) H 10/08/17 04:57 INR 1.2 10/08/17 04:57 APTT 34 SECONDS (21-34) 10/04/17 12:34 - Constitutional Appears: Well, Non-toxic, No Acute Distress - Extremities Exam Additional comments: RLE focused exam: Dressing appears clean/dry/intact with no strikethrough noted. Vasc: DP/PT pulses non palpable. Temp gradient cool to cool. CFT prompt digits 3 -5. Mild forefoot pedal edema noted around surgical site Derm: Incision noted to distal medial aspect of right foot with sutures intact and no wound dehiscence noted. Minimal periwound erythema. Opened aspect of incision noted laterally with 100% granular base. No fluctuance, no purulence, no drainage, no malodor noted. Neuro: Protective sensation grossly diminished Ortho: moderate tenderness to palpation along surgical site. s/p right hallux amputation with metatarsal head resection, and partial 2nd digit amputation - Neurological Exam Neurological Exam: Alert, Awake, Oriented x3 - Psychiatric Exam Psychiatric exam: Normal Affect, Normal Mood Assessment and Plan - Assessment and Plan (Free Text) Assessment: 87M POD#5 right foot debridement of soft tissue and bone Plan: Patient seen and evaluated with attending, Dr. Meeks Afebrile, WBC 9.4 WCx pre-op: enterobacter cloacae, corynebacterium species Abdominal angiography: PT artery heavily calcified, peroneal and anterior tibial artery patent -No further intervention per vascular Dressing changed today - xeroform, DSD pathology report: OM of 1st metatarsal, no OM of 2nd proximal phalanx consult ID- placed for Dr. Flores, recommending 6 weeks iV abx Podiatry will continue to follow while patient in house <Lam Meeks - Last Filed: 10/13/17 18:41> Objective - Vital Signs/Intake and Output Vital Signs (last 24 hours): Temp Pulse Resp BP Pulse Ox 98.5 F 90 20 130/70 99 10/13/17 15:10 10/13/17 15:10 10/13/17 15:10 10/13/17 15:10 10/13/17 15:10 Intake and Output: 10/13/17 10/13/17 06:59 18:59 Intake Total 1200 Balance 1200 - Medications Medications: Current Medications Acetaminophen (Tylenol 325mg Tab) 650 mg PO Q6 PRN PRN Reason: Pain, Mild (1-3) Last Admin: 10/11/17 14:09 Dose: 650 mg Amlodipine Besylate (Norvasc) 10 mg PO DAILY [facility] Last Admin: 10/13/17 09:18 Dose: 10 mg Ciprofloxacin (Cipro) 500 mg PO BID [facility] PRN Reason: Protocol Stop: 10/19/17 10:01 Last Admin: 10/13/17 17:16 Dose: 500 mg Famotidine (Pepcid) 20 mg PO DAILY [facility] Last Admin: 10/13/17 09:18 Dose: 20 mg Heparin Sodium (Porcine) (Heparin) 5,000 units SC Q8 [facility] Last Admin: 10/13/17 13:03 Dose: 5,000 units Sodium Chloride (Sodium Chloride 0.9%) 1,000 mls @ 100 mls/hr IV .Q10H [facility] Last Admin: 10/13/17 10:27 Dose: 100 mls/hr Insulin Human Regular (Novolin R) 0 unit SC ACHS [facility] PRN Reason: Protocol Last Admin: 10/13/17 17:16 Dose: 2 unit Losartan Potassium (Cozaar) 50 mg PO DAILY [facility] Last Admin: 10/13/17 09:18 Dose: 50 mg Sitagliptin Phosphate (Januvia) 50 mg PO DAILY [facility] Last Admin: 10/13/17 09:18 Dose: 50 mg - Labs Labs: 10/13/17 06:53 10/13/17 06:54 PT 13.2 SECONDS (9.7-12.2) H 10/08/17 04:57 INR 1.2 10/08/17 04:57 APTT 34 SECONDS (21-34) 10/04/17 12:34 Assessment and Plan - Assessment and Plan (Free Text) Plan: Discussed with hospitalist .As per DR Flores note 6 wks of oral antibibiotics as we have resection bone wnl discharged in AM after dressing change with RX as per Dr Flores /DR MEEKS
--- NOTE | 2017-10-14 07:37 | CP.PCM.PN ---
Subjective - Date & Time of Evaluation Date of Evaluation: 10/14/17 Time of Evaluation: 07:37 - Subjective Subjective: Progress Note for Dr. Trujillo Patient seen and examined at bedside. No acute events overnight. Patient states he has no issues. Patient denies fever, chills, nausea, vomiting Objective - Vital Signs/Intake and Output Vital Signs (last 24 hours): Temp Pulse Resp BP Pulse Ox 98.7 F 81 20 131/52 L 99 10/13/17 23:20 10/13/17 23:20 10/13/17 23:20 10/13/17 23:20 10/13/17 23:20 Intake and Output: 10/14/17 10/14/17 06:59 18:59 Intake Total 920 Output Total 500 Balance 420 - Medications Medications: Current Medications Acetaminophen (Tylenol 325mg Tab) 650 mg PO Q6 PRN PRN Reason: Pain, Mild (1-3) Last Admin: 10/11/17 14:09 Dose: 650 mg Amlodipine Besylate (Norvasc) 10 mg PO DAILY [facility] Last Admin: 10/13/17 09:18 Dose: 10 mg Ciprofloxacin (Cipro) 500 mg PO BID [facility] PRN Reason: Protocol Stop: 10/19/17 10:01 Last Admin: 10/13/17 17:16 Dose: 500 mg Famotidine (Pepcid) 20 mg PO DAILY [facility] Last Admin: 10/13/17 09:18 Dose: 20 mg Heparin Sodium (Porcine) (Heparin) 5,000 units SC Q8 [facility] Last Admin: 10/14/17 05:44 Dose: 5,000 units Insulin Human Regular (Novolin R) 0 unit SC ACHS [facility] PRN Reason: Protocol Last Admin: 10/13/17 21:39 Dose: Not Given Losartan Potassium (Cozaar) 50 mg PO DAILY [facility] Last Admin: 10/13/17 09:18 Dose: 50 mg Sitagliptin Phosphate (Januvia) 50 mg PO DAILY [facility] Last Admin: 10/13/17 09:18 Dose: 50 mg - Labs Labs: 10/13/17 06:53 10/13/17 06:54 PT 13.2 SECONDS (9.7-12.2) H 10/08/17 04:57 INR 1.2 10/08/17 04:57 APTT 34 SECONDS (21-34) 10/04/17 12:34 - Constitutional Appears: Non-toxic, No Acute Distress - Head Exam Head Exam: ATRAUMATIC, NORMAL INSPECTION, NORMOCEPHALIC - Eye Exam Eye Exam: EOMI, Normal appearance Pupil Exam: NORMAL ACCOMODATION, PERRL - ENT Exam ENT Exam: Mucous Membranes Moist, Normal Exam - Neck Exam Neck Exam: Full ROM, Normal Inspection - Respiratory Exam Respiratory Exam: Clear to Ausculation Bilateral, NORMAL BREATHING PATTERN. absent: Accessory Muscle Use, Respiratory Distress - Cardiovascular Exam Cardiovascular Exam: REGULAR RHYTHM, +S1, +S2. absent: Bradycardia, Tachycardia - GI/Abdominal Exam GI & Abdominal Exam: Soft, Normal Bowel Sounds. absent: Tenderness - Extremities Exam Extremities Exam: Normal Capillary Refill. absent: Pedal Edema Additional comments: Patient has his right and left foot wrapped. dressings c/d/i, changed by podiatry. protective velcro shoes on both feet. Patient denies fever, chills, nausea, vomiting. 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 Patient has left fifth toe amputation Assessment and Plan: s/p amputation of right hallux and 2nd digit on 08/31/1710/08 debridement afebrile, no leukocytosis Wound cx: f/u results Blood cx: f/u results Foot xray (10/04/17): unremarkable Podiatry consult: Dr. Meeks Vascular surgery consult: Dr. Wheeler CT angio ileofemoral runoff: right common femoral artery, profunda femoral artery, poplital artery. Mild to Moderate plaque through SFA mild stenosis in mid and distal SFA. Peroneal artery and anterior tibial artery patent. Posterior tibial is heavily calcified. left mild plaque throughout SFA with areas of mild stenosis in the mid segment. Runoff shows an occluded anterior tibial artery and possible occlusion of proximal mid posterior tibial artery. distal posterior tibial artery is believed to be patent. The peroneal artery is unremarkable. per Vascular Surgery: no intervention from a vascular surgery standpoint pathology report: OM of 1st metatarsal, no OM of 2nd proximal phalanx ID consult: Dr. Flores, recommend 6 weeks iv abx or can consider 6 week oral prescription with Cipro which is absorbed favorably and reaches therapeutic levels. caution and advised frequent patient follow up for signs of further infection Medication: * Zosyn 2.25g IV Q6h (start 10/04/17) DC 10/11 * Cipro (10/06-10/08) patient started on cipro 500mg PO 10/12 * Vancomycin 10/10 x 1 dose * Tylenol 650mg PO PRN for pain/fever (patient is currently free of pain and afebrile) * Home medication: Plavix 75mg PO daily (Held for pre-op) Status: Acute (2) Leukocytosis f/u new blood cultures 10/09 (3) anemia, resolved 10/09 1u PRBC due to hgb of 6.6 (4) Diabetes mellitus Assessment and Plan: Monitor blood glucose, accuchecks ISS- Medium Hypoglycemia protocol A1c (08/24/17) 6.2 Status: Chronic (5) Hypertension Assessment and Plan: Resumed home medications: Losartan 50mg PO daily, Amlodipine 10mg PO daily Monitor blood pressure Heart healthy diet- 2g Na Status: Chronic (6) HLD (hyperlipidemia) Assessment and Plan: Hx of HLD Lipid panel (08/25/17): Triglycerides 106; Cholesterol 153; LDL 76; HDL 48 Status: Acute (7) Prophylactic measure Assessment and Plan: DVT: Heparin 5000sc Q8; no SCDs GI: Pepcid 20mg PO daily Heart Healthy Diet- 2g Na PT/OT Status: Acute Disposition: athology report from debridement performed on 10/08/17: 1st Metatarsal OM. ID consult: Dr. Flores, recommend 6 weeks iv abx or can consider 6 week oral prescription with Cipro which is absorbed favorably and reaches therapeutic levels. caution and advised frequent patient follow up for signs of further infection Rosie Sierra DO PGY1
[2017-10-14] MEDS: (Novolin R) Insulin Human Regular 100 units/ml vial SC SCH ×2 (08:16→12:15)
--- NOTE | 2017-10-14 10:56 | CP.PCM.DIS ---
Provider - Provider Date of Admission: 10/04/17 13:15 Attending physician: Melissa Trujillo MD Consults: Dr Jeanna Flores Time Spent in preparation of Discharge (in minutes): 35 Hospital Course - Lab Results Lab Results: Micro Results 10/09/17 09:51 Urine Urine Culture - Final No Growth (<1,000 CFU/ML) 10/04/17 12:30 Blood Blood Culture - Final NO GROWTH AFTER 5 DAYS 10/04/17 12:30 Blood Gram Stain - Final TEST NOT PERFORMED 10/04/17 14:00 Blood Blood Culture - Final NO GROWTH AFTER 5 DAYS 10/04/17 14:00 Blood Gram Stain - Final TEST NOT PERFORMED 10/04/17 Unknown Foot - Right Gram Stain - Final 10/04/17 Unknown Foot - Right Wound Culture - Final Enterobacter Cloacae Ssp Cloac Corynebacterium Species Most Recent Lab Values WBC 9.4 K/uL (4.8-10.8) 10/13/17 06:53 RBC 3.27 Mil/uL (4.40-5.90) L 10/13/17 06:53 Hgb 10.0 g/dL (12.0-18.0) L 10/13/17 06:53 Hct 29.0 % (35.0-51.0) L 10/13/17 06:53 MCV 88.7 fL (80.0-94.0) 10/13/17 06:53 MCH 30.6 pg (27.0-31.0) 10/13/17 06:53 MCHC 34.5 g/dL (33.0-37.0) 10/13/17 06:53 RDW 13.8 % (11.5-14.5) 10/13/17 06:53 Plt Count 486 K/uL (130-400) H 10/13/17 06:53 MPV 8.2 fL (7.2-11.7) 10/13/17 06:53 Neut % (Auto) 79.4 % (50.0-75.0) H 10/13/17 06:53 Lymph % (Auto) 11.9 % (20.0-40.0) L 10/13/17 06:53 Hart % (Auto) 6.9 % (0.0-10.0) 10/13/17 06:53 Eos % (Auto) 0.8 % (0.0-4.0) 10/13/17 06:53 Baso % (Auto) 1.0 % (0.0-2.0) 10/13/17 06:53 Neut # (Auto) 7.5 K/uL (1.8-7.0) H 10/13/17 06:53 Lymph # (Auto) 1.1 K/uL (1.0-4.3) 10/13/17 06:53 Hart # (Auto) 0.6 K/uL (0.0-0.8) 10/13/17 06:53 Eos # (Auto) 0.1 K/uL (0.0-0.7) 10/13/17 06:53 Baso # (Auto) 0.1 K/uL (0.0-0.2) 10/13/17 06:53 Neutrophils % (Manual) 89 % (50-75) H 10/11/17 07:32 Lymphocytes % (Manual) 5 % (20-40) L 10/11/17 07:32 Monocytes % (Manual) 6 % (0-10) 10/11/17 07:32 Eosinophils % (Manual) 1 % (0-4) 10/07/17 08:39 Toxic Granulation Present 10/09/17 07:17 Platelet Estimate Slightly increased (NORMAL) H 10/11/17 07:32 RBC Morphology Normal 10/11/17 07:32 Polychromasia Slight 10/10/17 07:22 Hypochromasia (manual) Slight 10/10/17 07:22 Poikilocytosis (manual Slight 10/04/17 12:34 Anisocytosis (manual) Slight 10/09/17 07:17 Target Cells Slight 10/04/17 12:34 Tear Drop Cells Slight 10/04/17 12:34 Kanwal Cells Slight 10/04/17 12:34 PT 13.2 SECONDS (9.7-12.2) H 10/08/17 04:57 INR 1.2 10/08/17 04:57 APTT 34 SECONDS (21-34) 10/04/17 12:34 Sodium 142 mmol/L (132-148) 10/13/17 06:54 Potassium 3.4 mmol/L (3.6-5.2) L 10/13/17 06:54 Chloride 104 mmol/L (98-107) 10/13/17 06:54 Carbon Dioxide 25 mmol/L (22-30) 10/13/17 06:54 Anion Gap 16 (10-20) 10/13/17 06:54 BUN 17 mg/dL (9-20) 10/13/17 06:54 Creatinine 1.3 mg/dL (0.8-1.5) 10/13/17 06:54 Est GFR ( Amer) > 60 10/13/17 06:54 Est GFR (Non-Af Amer) 52 10/13/17 06:54 POC Glucose (mg/dL) 132 mg/dL (65-110) H 10/14/17 06:29 Random Glucose 109 mg/dL (75-110) 10/13/17 06:54 Hemoglobin A1c 7.1 % (4.2-6.5) H 10/09/17 07:17 Calcium 8.0 mg/dl (8.6-10.4) L 10/13/17 06:54 Phosphorus 3.0 mg/dL (2.5-4.5) 10/13/17 06:54 Magnesium 1.7 mg/dL (1.6-2.3) 10/13/17 06:54 Total Bilirubin 0.8 mg/dL (0.2-1.3) 10/10/17 07:22 AST 19 U/L (17-59) 10/10/17 07:22 ALT 21 U/L (21-72) D 10/10/17 07:22 Alkaline Phosphatase 84 U/L (38-126) 10/10/17 07:22 Total Protein 7.6 g/dL (6.3-8.3) 10/10/17 07:22 Albumin 3.5 g/dL (3.5-5.0) 10/10/17 07:22 Globulin 4.1 gm/dL (2.2-3.9) H 10/10/17 07:22 Albumin/Globulin Ratio 0.9 (1.0-2.1) L 10/10/17 07:22 Urine Color Straw (YELLOW) 10/09/17 10:26 Urine Clarity Clear (Clear) 10/09/17 10:26 Urine pH 6.0 (5.0-8.0) 10/09/17 10:26 Ur Specific [place] 1.012 (1.003-1.030) 10/09/17 10:26 Urine Protein 2+ mg/dL (NEGATIVE) H 10/09/17 10:26 Urine Glucose (UA) 1+ mg/dL (Normal) H 10/09/17 10:26 Urine Ketones Negative mg/dL (NEGATIVE) 10/09/17 10:26 Urine Blood 1+ (NEGATIVE) H 10/09/17 10:26 Urine Nitrate Negative (NEGATIVE) 10/09/17 10:26 Urine Bilirubin Negative (NEGATIVE) 10/09/17 10:26 Urine Urobilinogen Normal mg/dL (0.2-1.0) 10/09/17 10:26 Ur Leukocyte Esterase Neg [place]/uL (Negative) 10/09/17 10:26 Urine WBC (Auto) 1 /hpf (0-5) 10/09/17 10:26 Urine RBC (Auto) < 1 /hpf (0-3) 10/09/17 10:26 Ur Squamous Epith Cells < 1 /hpf (0-5) 10/04/17 14:45 Urine Bacteria Rare (<OCC) 10/09/17 10:26 Blood Type B POSITIVE 10/09/17 08:48 Antibody Screen Negative 10/09/17 08:48 - Hospital Course Hospital Course: HPI: Pt is an 87 year old male with a history of HTN, HLD, DM, b/l toe amputations, who presents to the ED sent by his shuttle operator, Dr. Meeks. Patient went to follow up with Dr. Meeks on Wednesday who then prescribed him an oral antibiotic and told him to come to the hospital on Wednesday for debridement and further treatment of an infected amputation of his right hallux and second digit h had in 08/2017. Patient states he has been taking his antibiotics and all other medications as prescribed. Patient denies pain in his foot and states he has been walking without difficulty. Patient otherwise denies all complaints to include chest pain, abdominal pain, dyspnea, fevers, headaches, n/v, dysuria , diarrhea and constipation. Hospital Course: In the ED pt had x-rays of left and right feet which showed no acute findings. Pt was admitted to routine hospital inpatient for right foot cellulitis needing debridement. Podiatry consulted on 10/04 who placed consult with vascular surgery. Vascular surgery consulted on 10/04; ordered abdominal angiography and pelvis which was read to be unremarkable. Wound biopsy of right foot was taken on 10/08 and was positive for heavy growth of Enterobacter Cloacae species and Corynebacterium species. Wound debridement completed on 10/11. Patient's pathology report from the bone from the debridement 10/08 showed osteomyelitis of first metatarsal and none from the second metatarsal. ID consulted on 10/13 who endorsed 6 week outpatient course of Cipro. Pt was started on Cipro 500mg PO bid on 10/12, to be taken for 6 week course and will follow up with podiatry outpatient as well. - Date & Time of H&P Date of H&P: 10/14/17 Time of H&P: 14:48 Discharge Exam - Head Exam Head Exam: ATRAUMATIC, NORMAL INSPECTION, NORMOCEPHALIC - Additional Findings Additional findings: Constitutional Appears: Non-toxic, No Acute Distress - Head Exam Head Exam: NORMAL INSPECTION, NORMOCEPHALIC - Eye Exam Eye Exam: EOMI, Normal appearance Pupil Exam: NORMAL ACCOMODATION, PERRL - ENT Exam ENT Exam: Mucous Membranes Moist, Normal Exam - Neck Exam Neck Exam: Full ROM, Normal Inspection - Respiratory Exam Respiratory Exam: Clear to Ausculation Bilateral, NORMAL BREATHING PATTERN - Cardiovascular Exam Cardiovascular Exam: REGULAR RHYTHM, +S1, +S2 - GI/Abdominal Exam GI & Abdominal Exam: Soft, Normal Bowel Sounds. absent: Tenderness, Hyperactive Bowel Sounds - Extremities Exam Extremities Exam: Full ROM, Normal Capillary Refill Additional comments: RLE Dressing c/di with no breakthrough seen on exam. DP/PT pulses non palpable on right foot. tenderness to palpation along surgical site. s/p right hallux amputation with metatarsal head resection, and partial 2nd digit amputation - Neurological Exam Neurological Exam: Awake, CN II-XII Intact - Psychiatric Exam Psychiatric exam: Normal Affect, Normal Mood - Skin Skin Exam: Dry, Normal Color, Warm Discharge Plan - Discharge Medications Prescriptions: amLODIPine [Norvasc] 10 mg PO DAILY 30 Days tab Ciprofloxacin [Cipro] 500 mg PO BID 40 Days tab SITagliptin [Januvia] 50 mg PO DAILY 30 Days tab - Follow Up Plan Condition: STABLE Disposition: HOME/ ROUTINE Instructions: Ciprofloxacin (Systemic), Sitagliptin, Heart Healthy Diet, Heart Failure, Adult (DC), Cellulitis (Skin Infection), Adult (DC), Amlodipine, Debridement of a Wound or Burn (DC) Additional Instructions: follow up with primary care doctor in 4 days to repeat electrolytes to monitor kidney function follow up with Dr. Meeks, call and schedule appointments as soon as possible for multiple follow up (close follow up) for wound care and evaluation of osteomyelitis check blood sugar at home daily follow up with primary care for medication adjustment take antibiotics as directed for the next 6 weeks Referrals: Lam Meeks DPM [Staff Provider] -
--- NOTE | 2017-10-14 11:48 | CP.PCM.PN ---
Subjective - Date & Time of Evaluation Date of Evaluation: 10/14/17 Time of Evaluation: 11:44 - Subjective Subjective: Podiatry Progress Note - Dr. Meeks 87M seen and evaluated at bedside with attending Dr. Meeks, 6 days s/p right foot debridement of soft tissue and bone secondary to nonhealing wound. Patient hemodynamically stable and NAD. No acute events overnight. Reports mild pain to surgical site, well-controlled. Dressing to right foot clean/dry/intact with no strikethrough noted. Patient has been compliant with NWB RLE. Denies N/V/F/D/C/ SOB/calf pain/DIAMOND/dizziness. Offers no other complaints. Objective - Vital Signs/Intake and Output Vital Signs (last 24 hours): Temp Pulse Resp BP Pulse Ox 98.3 F 81 20 134/63 100 10/14/17 08:27 10/14/17 10:15 10/14/17 08:27 10/14/17 10:15 10/14/17 08:27 Intake and Output: 10/14/17 10/14/17 06:59 18:59 Intake Total 920 Output Total 500 Balance 420 - Medications Medications: Current Medications Acetaminophen (Tylenol 325mg Tab) 650 mg PO Q6 PRN PRN Reason: Pain, Mild (1-3) Last Admin: 10/11/17 14:09 Dose: 650 mg Amlodipine Besylate (Norvasc) 10 mg PO DAILY COUNTS INCLUDE 234 BEDS AT THE [facility] Last Admin: 10/14/17 10:16 Dose: 10 mg Ciprofloxacin (Cipro) 500 mg PO BID COUNTS INCLUDE 234 BEDS AT THE [facility] PRN Reason: Protocol Stop: 10/19/17 10:01 Last Admin: 10/14/17 10:16 Dose: 500 mg Famotidine (Pepcid) 20 mg PO DAILY COUNTS INCLUDE 234 BEDS AT THE [facility] Last Admin: 10/14/17 10:16 Dose: 20 mg Heparin Sodium (Porcine) (Heparin) 5,000 units SC Q8 COUNTS INCLUDE 234 BEDS AT THE [facility] Last Admin: 10/14/17 05:44 Dose: 5,000 units Insulin Human Regular (Novolin R) 0 unit SC ACHS COUNTS INCLUDE 234 BEDS AT THE [facility] PRN Reason: Protocol Last Admin: 10/14/17 08:16 Dose: Not Given Losartan Potassium (Cozaar) 50 mg PO DAILY COUNTS INCLUDE 234 BEDS AT THE [facility] Last Admin: 10/14/17 10:16 Dose: 50 mg Sitagliptin Phosphate (Januvia) 50 mg PO DAILY COUNTS INCLUDE 234 BEDS AT THE [facility] Last Admin: 10/14/17 10:16 Dose: 50 mg - Labs Labs: 10/13/17 06:53 10/13/17 06:54 PT 13.2 SECONDS (9.7-12.2) H 10/08/17 04:57 INR 1.2 10/08/17 04:57 APTT 34 SECONDS (21-34) 10/04/17 12:34 - Constitutional Appears: Well, Non-toxic, No Acute Distress - Extremities Exam Additional comments: RLE focused exam: Dressing appears clean/dry/intact with no strikethrough noted. Vasc: DP/PT pulses non palpable. Temp gradient cool to cool. CFT prompt digits 3 -5. Mild forefoot pedal edema noted around surgical site Derm: Incision noted to distal medial aspect of right foot with sutures intact and no wound dehiscence noted. Minimal periwound erythema. Opened aspect of incision noted laterally with 100% granular base. No fluctuance, no purulence, no drainage, no malodor noted. Neuro: Protective sensation grossly diminished Ortho: moderate tenderness to palpation along surgical site. s/p right hallux amputation with metatarsal head resection, and partial 2nd digit amputation - Neurological Exam Neurological Exam: Alert, Awake, Oriented x3 - Psychiatric Exam Psychiatric exam: Normal Affect, Normal Mood Assessment and Plan - Assessment and Plan (Free Text) Assessment: 87M POD#6 right foot debridement of soft tissue and bone Plan: Patient seen and evaluated with attending, Dr. Meeks Afebrile WCx pre-op: enterobacter cloacae, corynebacterium species Abdominal angiography: PT artery heavily calcified, peroneal and anterior tibial artery patent -No further intervention per vascular Dressing changed today - xeroform, DSD pathology report: OM of 1st metatarsal, no OM of 2nd proximal phalanx, clear margins noted Dr. Flores recommends 6 weeks of oral abx patient stable from podiatry standpoint patient instructed to follow up with Dr. Meeks as outpatient
[2017-10-14 14:52] VITALS: BP 117/53; PULSE 80; TEMP 98.7; O2SAT 98
== END 2017-10-14 14:49 | disposition home or self-care (01) | DRG 504 ==
LOC: C.ER 11:51 → C.9E 13:15 → C.5S 14:34 → C.6T 10-10 11:35
PROVIDERS: ADMIT Internal Medicine; ATTEND Internal Medicine
PROC: 0QBN0ZZ Excision of Right Metatarsal, Open Approach (ICD-10-PCS; 2017-10-08)
PROC: 0Y6R0Z1 Detachment at Right 2nd Toe, High, Open Approach (ICD-10-PCS; principal; 2017-10-08 07:30)
PROC: 30233N1 Transfusion of Nonautologous Red Blood Cells into Peripheral Vein, Percutaneous Approach (ICD-10-PCS; 2017-10-09)
DX: T87.43 Infection of amputation stump, right lower extremity (principal); L03.115 Cellulitis of right lower limb; M86.671 Other chronic osteomyelitis, right ankle and foot; N17.9 Acute kidney failure, unspecified; Y83.5 Amputation of limb(s) as the cause of abnormal reaction of the patient, or of later complication, without mention of misadventure at the time of the procedure; I70.209 Unspecified atherosclerosis of native arteries of extremities, unspecified extremity; E11.51 Type 2 diabetes mellitus with diabetic peripheral angiopathy without gangrene; I50.9 Heart failure, unspecified; I11.0 Hypertensive heart disease with heart failure; E78.00 Pure hypercholesterolemia, unspecified; M19.90 Unspecified osteoarthritis, unspecified site; Z90.49 Acquired absence of other specified parts of digestive tract; Z89.411 Acquired absence of right great toe; Z89.421 Acquired absence of other right toe(s); Z89.422 Acquired absence of other left toe(s); T81.89XA Other complications of procedures, not elsewhere classified, initial encounter; Z79.02 Long term (current) use of antithrombotics/antiplatelets; Z87.891 Personal history of nicotine dependence; B96.89 Other specified bacterial agents as the cause of diseases classified elsewhere; E11.69 Type 2 diabetes mellitus with other specified complication; L97.519 Non-pressure chronic ulcer of other part of right foot with unspecified severity; E11.621 Type 2 diabetes mellitus with foot ulcer; D64.9 Anemia, unspecified; I70.201 Unspecified atherosclerosis of native arteries of extremities, right leg

== ENCOUNTER 2017-12-01 09:47 | Day surgery (SDC) | payer OTHER ==
[2017-12-01] MEDS ORDERED: Lidocaine 2% MPF (5 ml) Inj ONE (10:12)
[2017-12-01] MEDS ORDERED: Midazolam 2 MG/2 ML VIAL ONE ×3 (10:14→11:26)
[2017-12-01] MEDS ORDERED: Iodixanol 320 MG/ML 200 ML BOTTLE IV ONE (10:23)
[2017-12-01] MEDS ORDERED: DiphenhydrAMINE 50 mg/ml Inj ONE (10:44)
[2017-12-01] MEDS ORDERED: Verapamil 2 ML ONE (11:04)
[2017-12-01] MEDS ORDERED: Nitroglycerin 50mg in D5W 50 MG/250 ML BOTTLE IV ONE (11:04)
[2017-12-01 12:35] VITALS: BMI 16.7
[2017-12-02 13:15] VITALS: RESP 12; O2SAT 100
--- NOTE | 2017-12-03 07:09 | VAS ---
DATE: 12/01/2017 INDICATION: The patient is a pleasant 87-year-old male with past medical history significant for hypertension, diabetes, hyperlipidemia, peripheral vascular occlusive disease who presented to [facility] with gangrenous toes of the right lower extremity. The patient apparently had undergone a peripheral vascular procedure done by Dr. Wheeler back in August with Jetstream atherectomy and angioplasty. He now presented with worsening gangrene of the right lower extremity toes and was therefore brought to the sanitation laborer for further evaluation and treatment. PROCEDURE PERFORMED: Distal abdominal aortogram with bilateral iliac runoff, selective bilateral iliofemoral angiogram with runoff, MAINFRAME ANALYST atherectomy of right SFA, moderate diffuse disease with 80% stenosis with lesion reduction down to 0% and improvement in gradient from 40 mmHg down to less than 10 mmHg, 6-Anguillan left femoral arterial access, manual pressure for hemostasis. TECHNIQUES OF PROCEDURE: After obtaining informed consent, the patient was brought to the cardiac cath suite in post-absorptive, nonsedating state. The patient was prepped and draped in the usual sterile fashion, 2% lidocaine was used for infiltration of anesthesia. Using modified Seldinger technique, a 6-Anguillan sheath was introduced into the left radial artery. Left iliofemoral angiogram with runoff was performed. Subsequently over a Glidewire, COLEMAN catheter wire was advanced into the abdominal aorta. Abdominal aortogram bilateral iliac runoff was performed. Subsequently, the COLEMAN was advanced across the aortoiliac bifurcation to the right common femoral artery. Digital subtraction angiographic views of the right SFA, right popliteal, right below the knee, and the right foot profile was obtained. Angiographic findings of the left lower extremity, left common iliac, external iliac patent. Left profunda femoris is heavily calcified, patent SFA, diffuse calcified disease with moderate stenosis, popliteal patent, 1-vessel runoff of peroneal below the knee up to the level of the foot. Right lower extremity, right common iliac, external iliac patent, profunda femoris patent. SFA has prox to mid 80% stenosis, mid 70% stenosis, severely calcified disease. Popliteal artery patent. Posterior tibial multiple tandem lesions with diffuse disease. Peroneal diffusely diseased. Anterior tibial artery, multiple tandem diffuse disease. TECHNIQUES OF INTERVENTION: After reviewing the above angiographic finding, it was decided to further interrogate the SFA lesion. A 0.035 Russell catheter wire was advanced up to the level of the popliteal, and pullback gradients were recorded. There was a 30-mm lesion noted on the pullback of the SFA. At this point, it was decided to treat the inflow disease with a distal protection filter device. Over a 0.035 gliding catheter, Viper 0.017 wire was advanced up to the level of the popliteal artery. NAV6 Emboshield distal protection device was deployed at the level of the popliteal. Subsequently, atherectomy of the SFA was done with a CSI atherectomy device, and final angioplasty was done within a 5 x 200 balloon. Subsequently, the gradients were reduced down to the 10 mmHg, and improvement in flow was noted below the knee. IMPRESSION: Successful revascularization of the right superficial femoral artery, severely calcified disease with use of 1.5 solid CSI atherectomy device and additional pg balloon angioplasty with a 5 x 200 balloon, regeneration down to 0% and HANNY-3 flow. RECOMMENDATIONS: The patient needs to be transferred back to [facility]. The patient can proceed with amputation of the gangrenous toes. The patient needs to be monitored closely for infrageniculate disease. If symptoms progress, may consider infrageniculate revascularization which would require 3 to 4 hours of lab time. Albert Washburn MD
== END 2017-12-01 19:45 | disposition short-term general hospital (02) ==
LOC: C.CATHLAB 09:47
PROVIDERS: ATTEND Internal Medicine Interventional Cardiology
DX: E11.52 Type 2 diabetes mellitus with diabetic peripheral angiopathy with gangrene (principal); I70.261 Atherosclerosis of native arteries of extremities with gangrene, right leg; I10 Essential (primary) hypertension; E78.5 Hyperlipidemia, unspecified
CPT/HCPCS: 36247; 37225; 75625; 75716; 75774; 82948; 94770; 99152; 99153; C1714; C1725; C1769; C1884; C1887; C1893; C1894; J1200; J1644; J2250; J3010; Q9966